=== PATIENT | male | born 1960 | race Caucasian/White ===

== ENCOUNTER → 2018-06-29 07:47 | Outpatient (CLI) | payer OTHER, SELFPAY ==
[2018-06-29 08:22] LABS: Hematocrit 36.2 % (40-54); Hemoglobin 12.3 g/dl (13.0-16.5); Mean Corpuscular Hgb 31.9 pg (27.0-32.0); Mean Platelet Vol. 8.8 fl (6.2-12.0); Platelet Count 246 K/mm3 (150-450); RBC Distribution Width CV 13.1 % (11.6-14.6); RBC Distribution Width SD 43.6 fl (35.1-43.9); Red Blood Count 3.85 M/mm3 (4.6-6.2); Scan Indicated on CBC? Y/N NO; White Blood Count 4.9 K/mm3 (4.4-11.0)
[2018-06-29 09:42] LABS: Anion Gap 7 (5-15); BUN 18 mg/dL (7-18); BUN/Creat Ratio 21.2 RATIO (10-20); Calcium,Total 8.5 mg/dL (8.5-10.1); Chloride 102 mmol/L (98-107); Creatinine, Serum 0.85 mg/dL (0.70-1.30); EST Glomerular Filtration Rate 98 mL/min (>60); Est Glom Filt Rate - Afr Amer 119 mL/min (>60); Free T3 3.4 pg/mL (2.18-3.98); Glucose 87 mg/dL (74-106); Potassium 3.9 mmol/L (3.5-5.1); Prolactin 2.1 ng/mL; Sodium Level 138 mmol/L (136-145); T4 Free Direct 1.07 ng/dL (0.76-1.46)
[2018-06-29 10:11] LABS: Hemoglobin A1c 5.3 % (4.2-6.3)
[2018-07-01 08:22] LABS: Insulin Like Growth Factor 178 ng/mL (54-194)
== END ==
PROVIDERS: Family Provider Family Medicine; PCP Family Medicine
DX: E03.9 Hypothyroidism, unspecified (principal); E23.7 Disorder of pituitary gland, unspecified; E29.1 Testicular hypofunction; E55.9 Vitamin D deficiency, unspecified; D35.2 Benign neoplasm of pituitary gland
CPT/HCPCS: 36415; 80048; 82306; 83036; 84146; 84305; 84403; 84439; 84481; 85027

== ENCOUNTER → 2018-07-08 13:47 | Outpatient (CLI) | payer OTHER, SELFPAY ==
--- NOTE | 2018-07-08 13:51 | ECHOD_ITS ---
Reason For Study: HYPOTHYROIDISM Procedure This was a 2D Doppler, Color Flow transthoracic echocardiogram. Myocardial strain analysis was performed in this exam to aid in the assessment of cardiac function. Exam performed in department. Left Ventricle Normal size and thickness. The estimated ejection fraction is 65 %. Stage 1 diastolic dysfunction. No regional wall motion abnormalities noted. Right Ventricle Normal size and thickness. Normal systolic function. Atria Normal left atrium. Normal right atrium. Normal atrial septum. Mitral Valve The mitral valve is structurally normal. No prolapse or stenosis seen. Tricuspid Valve Normal tricuspid valve. Trivial tricuspid valve insufficiency. Right ventricular systolic pressure estimated to be 23 mmHg. Aortic Valve Normal aortic valve. Trisinus/trileaflet aortic valve. Pulmonic Valve Normal pulmonic valve. Great Vessels Normal aortic root. Normal arch. Normal inferior vena cava. Inferior vena cava collapse with sniff. Pericardium/Pleural No pericardial effusion. MMode/2D Measurements & Calculations LVIDd: 4.5 cm IVSd: 0.84 cm Ao root diam: 3.2 cm LVIDs: 3.1 cm LVPWd: 0.80 cm RVDd: 3.7 cm FS: 31.3 % LAV(MOD-bp): 51.6 ml LVAd ap4: 37.4 cm2 SV(MOD-sp4): 90.3 ml LAV(MOD-bp) Indexed: 25.3 ml/m2 EDV(MOD-sp4): 137.6 ml LAV(MOD-sp2): 66.2 ml EDV(sp4-el): 144.3 ml LAV(MOD-sp4): 38.6 ml LVAs ap4: 19.2 cm2 ESV(MOD-sp4): 47.2 ml ESV(sp4-el): 46.6 ml EF(MOD-sp4): 65.7 % EF(sp4-el): 67.7 % SV(sp4-el): 97.8 ml LA A4 area: 15.7 cm2 LA dimension(2D): 3.4 cm RA A4 area: 16.2 cm2 Time Measurements MV dec time: 0.27 sec Doppler Measurements & Calculations MV E max lamin: 59.5 cm/sec Lat Peak E' Lamin: 9.4 cm/sec Med Peak E' Lamin: 8.5 cm/sec MV A max lamin: 78.7 cm/sec E/E' lat: 6.3 E/E' med: 7.0 MV E/A: 0.76 Ao V2 max: 109.3 cm/sec LV V1 max: 92.0 cm/sec PA V2 max: 98.6 cm/sec Ao max P.8 mmHg LV V1 max P.4 mmHg TR max lamin: 210.3 cm/sec TR max P.7 mmHg Interpretation Summary The estimated ejection fraction is 65 %. Stage 1 diastolic dysfunction. Trivial tricuspid valve insufficiency. Right ventricular systolic pressure estimated to be 23 mmHg. Compared to echo report dated 07/08/2018, no appreciable changes noted. Ordering Physician: IZAIAH SHAW Referring Physician: FRANCISCO CORDERO Performed By: Kandy Crespo RDCS
--- NOTE | 2018-07-08 15:10 | BD_ITS ---
STUDY: DUAL ENERGY X-RAY ABSORPTIOMETRY / DXA REASON FOR EXAM: Male, 57 years old. History of hyperthyroidism and pituitary gland disorder. Vitamin D deficiency. Loss of height. TECHNIQUE: Bone Mineral Density (BMD) measurements of lumbar spine and bilateral hips were obtained. COMPARISON: Comparison is made with prior examination dated August 07, 2015. FINDINGS: Lumbar Spine (L1-L4): g/cm2 (0.969) / T-score (-1.9) / Z-score (-1.6) Findings are suggestive of osteopenia with a moderate fracture risk. Left Femur Total: g/cm2 (1.017) / T-score (-0.6) / Z-score (-0.1) Left Femoral Neck: g/cm2 (0.903) / T-score (-1.3) / Z-score (-0.4) Right Femur Total: g/cm2 (1.034) / T-score (-0.5) / Z-score (0.0) Right Femoral Neck: g/cm2 (0.980) / T-score (-0.7) / Z-score (0.2) The T-Scores on the most recent prior examination were: Lumbar Spine (L1-L4): There has been improvement of bone density since the previous examination. Left Femur Total: which represents a worsening of 5.8%. Right Femur Total: which represents a worsening of 5.3%. BD/Dexa Bone Density Study IMPRESSION: The patient is considered osteopenic as outlined below according to World [employer] Organization (WHO) criteria with a moderate fracture risk. There has been worsening of bone density since the previous examination. Reference Information: The T-score is the number of standard deviations above or below the standard which is normal for young adults at their peak bone mineral density. The World Health Organization (WHO) interprets the T-scores as follows: Above -1 Normal bone density Between -1 and -2.5 Osteopenia Equal to / or below -2.5 Osteoporosis As a practical clinical guideline, osteopenia may be graded as follows: Mild -1 through -1.5 Moderate -1.6 through -2.0 Severe -2.1 through -2.4 The Z-score is the number of standard deviations above or below age-matched controls. A Z-score of less than -1.5 would be considered abnormal. References: 1. NIH Osteoporosis and Related Bone Diseases http://www.osteo.org 2. International Society for Clinical Densitometry http://www.iscd.org 3. National Osteoporosis Foundation http://www.nof.org Electronically Signed: Mitchel Robles MD at 10:29 EST Tel [phone], Service support ,
--- OUTSIDE RECORDS SUMMARY | 2018-08-24 09:56 | XMS RPT_ITS ---
:1960 Author Organization OH[facility] Care Team Providers Name Role Phone Troy Anderson Attending Unavailable Troy Anderson Referring Unavailable NHUNG CALDERÓN Attending Unavailable NHUNG CALDERÓN Referring Unavailable Nhung Vega Primary Care Unavailable NHUNG CALDERÓN Attending Unavailable NHUNG CALDERÓN Referring Unavailable Nhung Vega Primary Care Unavailable NHUNG CALDERÓN Consulting Unavailable LEO SHAW Attending Unavailable NHUNG VEGA Referring Unavailable PROBLEMS PROBLEMS DATE TYPE CONDITION / CODE ATTENDING STATUS SOURCE 07/08/2018 Unknown E23.7 - Disorder NHUNG CALDERÓN Active [facility] of pituitary Community gland, unspecified Hospital / E23.7(ICD-10) Repository 06/29/2018 Unknown E03.9 - NHUNG CALDERÓN Active [facility] Hypothyroidism, Community unspecified / Hospital E03.9(ICD-10) Repository 06/29/2018 Unknown 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 cabergoline (DOSTINEX) 0.5 mg tablet Take 1 tb 4 days per week. hydrocortisone (CORTEF) 10 mg tablet Take by mouth. Take one tablet in am, increase to 2 tb in am and 1 tb in the afternoon for 2- 3 days if sick insulin needles, DISPOSABLE, (BD INSULIN PEN NEEDLE UF) 31 gauge x 5/16 ndle Use for growth hormone pen injections once a day insulin needles, DISPOSABLE, (PEN NEEDLE) 31 gauge x 5/16 ndle Use for GH pen injections once a day levothyroxine (SYNTHROID) 112 mcg tablet Take 1 tablet by mouth every morning. on empty stomach raloxifene (EVISTA) 60 mg tablet Take 1 tablet by mouth once daily. rosuvastatin (CRESTOR) 20 mg tablet Take 1 tablet by mouth once daily. Somatropin (NORDITROPIN FLEXPRO) 5 mg/1.5 mL (3.3 mg/mL) pnij Inject 0.4 mg subcutaneously daily Tadalafil (CIALIS) 10 mg tablet Take 1 tablet by mouth as needed. 1-2 hours before sexual intercourse. testosterone 20.25 mg/1.25 gram (1.62 %) glpm Apply three pumps on each shoulder as directed pen injector device (HUMATROPEN) 12 pnij Use to inject 0.4 mg humatrope once daily (Patient not taking: Reported on 07/09/2018 ) No current facility-administered medications for this visit. Rest of ROS: Energy OK RESPIRATORY: No SOB CARDIOVASCULAR: no Chest pain GI: Negative for abdominal discomfort, or any change in bowel movement : Negative for dysuria, frequency and nocturia MUSCULOSKELETAL: Negative for joint pain or swelling, back pain, and muscle pain. SKIN: Negative for lesions and rash PSYCH: Negative for sleep disturbance and mood disorder rest of ROS is fine Physical Examination BP 108/73 Pulse 83 Ht 172.7 cm (5' 8) Wt 89.8 kg (198 lb) BMI 30.11 kg/m? Alert, oriented X3, in no acute distress VF intact to confrontation Cranial nerves bilaterally intact Neck: Neck supple, no adenopathy; thyroid symmetric, normal size, Extremities:No edema, or skin discoloration. Musculoskeletal: good strength bilaterally Neuro exam intact Labs: 2014 HbA1c: 5.5 HcT: 37 Vit D; 33 Prolactin: 1.2 Testosterone : 546 2016: HBa1c: 5.3 PSA; nl Vit D: 28 Prolactin: 3 Testosterone: 225 TFT: normal Lipids: nl 2017: Labs sent for scanning' prl: 2.3 Tsto: 500 2018: Prl: 2.1 Free T3: 3.4Free T4: 1.07 T:430 Vit D:41 BMP; nl ASSESSMENT/PLAN: # Pituitary macroprolactinoma s/p radiation therapy in 05/2001 - He had gradual decrease in prolactin level has been promising with last prolactin of being 2.1 ng/mL (currently on 4 tb per week). Decrease to 3 tb per week - He is on raloxifene 60 mg daily. He also has osteopenia in spine which hopefully will benefit from raloxifene. We have discussed that raloxifene which is not FDA approved for this condition. - His past BMD shows osteopenia with plan to repeat his BMD now Discussed reports about association of long-term high dose cabergoline therapy in parkinsonian patients with valvular heart disease. His last echo was fine in 2011. 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 Recent TFT is fine - Considering his hx of radiation,he was started on cortef 10 mg in the morning which needs to be increased to 20 mg in am and 10 mg in the afternoon for 2-3 days during sickness. - He has low testosterone while his prolactin has normalized, on androgel 1.67%--at goal, continue same -GH deficiency diagnosed during ITT currently on 0.4 mg per day GH with recent IGF-1 at goal. Continue same # Anemia : Follow with PCP Labs reordered with iron panel for 3 months Knows to call RTC In one year MD WOO ChinchillaOV Observed: 07/09/2018 Status: COMPLETED Source: [facility] 8:40 AM [facility] REPOSITORY Office Visit (STED) SUSHANT WIGGINS ([id number]) 1960 M Date Time Provider Department 07/09/18 8:40 AM LEO SHAW During your visit today, we recorded the following information about you: Pulse Blood pressure Weight Height 83/minute 108/73 89.8 kg 1.727 m Siobhan Metz Ma 07/09/2018 8:50 AM Signed Office days: Please note endocrinology office days at [place] are Thursday, and Thursday Refills: We encourage you to address all medication refills during office visits to ensure timely, accurate and expedited process Labs AND Lab results: We encourage you to address all questions regarding labs and lab results during office visits to ensure timely, accurate and expedited process For any urgent refills or messages or questions that cannot wait till our normal office days (Thu,Thu,Thu), please call the office at [phone] and let them know its urgent. For all non urgent messages, we request that you contact us during normal office days (Thu/Thu/Thu) and give us 3 business days to respond. Leo Shaw MD 07/09/2018 9:23 AM Signed Patient here for follow up of macroprolactinoma and his original prolactin was about 1200 ng/mL. 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 cabergoline (DOSTINEX) 0.5 mg tablet Take 1 tb 4 days per week. hydrocortisone (CORTEF) 10 mg tablet Take by mouth. Take one tablet in am, increase to 2 tb in am and 1 tb in the afternoon for 2-3 days if sick insulin needles, DISPOSABLE, (BD INSULIN PEN NEEDLE UF) 31 gauge x 5/16 ndle Use for growth hormone pen injections once a day insulin needles, DISPOSABLE, (PEN NEEDLE) 31 gauge x 5/16 ndle Use for GH pen injections once a day levothyroxine (SYNTHROID) 112 mcg tablet Take 1 tablet by mouth every morning. on empty stomach raloxifene (EVISTA) 60 mg tablet Take 1 tablet by mouth once daily. rosuvastatin (CRESTOR) 20 mg tablet Take 1 tablet by mouth once daily. Somatropin (NORDITROPIN FLEXPRO) 5 mg/1.5 mL (3.3 mg/mL) pnij Inject 0.4 mg subcutaneously daily Tadalafil (CIALIS) 10 mg tablet Take 1 tablet by mouth as needed. 1-2 hours before sexual intercourse. testosterone 20.25 mg/1.25 gram (1.62 %) glpm Apply three pumps on each shoulder as directed pen injector device (HUMATROPEN) 12 pnij Use to inject 0.4 mg humatrope once daily (Patient not taking: Reported on 07/09/2018 ) No current facility-administered medications for this visit. Rest of ROS: Energy OK RESPIRATORY: No SOB CARDIOVASCULAR: no Chest pain GI: Negative for abdominal discomfort, or any change in bowel movement : Negative for dysuria, frequency and nocturia MUSCULOSKELETAL: Negative for joint pain or swelling, back pain, and muscle pain. SKIN: Negative for lesions and rash PSYCH: Negative for sleep disturbance and mood disorder rest of ROS is fine Physical Examination BP 108/73 Pulse 83 Ht 172.7 cm (5' 8) Wt 89.8 kg (198 lb) BMI 30.11 kg/m? Alert, oriented X3, in no acute distress VF intact to confrontation Cranial nerves bilaterally intact Neck: Neck supple, no adenopathy; thyroid symmetric, normal size, Extremities:No edema, or skin discoloration. Musculoskeletal: good strength bilaterally Neuro exam intact Labs: 2014 HbA1c: 5.5 HcT: 37 Vit D; 33 Prolactin: 1.2 Testosterone : 546 2016: HBa1c: 5.3 PSA; nl Vit D: 28 Prolactin: 3 Testosterone: 225 TFT: normal Lipids: nl 2017: Labs sent for scanning' prl: 2.3 Tsto: 500 2018: Prl: 2.1 Free T3: 3.4Free T4: 1.07 T:430 Vit D:41 BMP; nl ASSESSMENT/PLAN: # Pituitary macroprolactinoma s/p radiation therapy in 05/2001 - He had gradual decrease in prolactin level has been promising with last prolactin of being 2.1 ng/mL (currently on 4 tb per week). Decrease to 3 tb per week - He is on raloxifene 60 mg daily. He also has osteopenia in spine which hopefully will benefit from raloxifene. We have discussed that raloxifene which is not FDA approved for this condition. - His past BMD shows osteopenia with plan to repeat his BMD now Discussed reports about association of long-term high dose cabergoline therapy in parkinsonian patients with valvular heart disease. His last echo was fine in 2011. 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 Recent TFT is fine - Considering his hx of radiation,he was started on cortef 10 mg in the morning which needs to be increased to 20 mg in am and 10 mg in the afternoon for 2-3 days during sickness. - He has low testosterone while his prolactin has normalized, on androgel 1.67%--at goal, continue same -GH deficiency diagnosed during ITT currently on 0.4 mg per day GH with recent IGF-1 at goal. Continue same # Anemia : Follow with PCP Labs reordered with iron panel for 3 months Knows to call RTC In one year Leo Shaw MD Referring Provider: NHUNG VEGA [[id number]] Allergies As of Date: 07/09/2018 Noted Allergy Reaction PENICILLINS 05/19/2013 4 - Hives Date Reviewed: 07/09/2018 Reviewed by: Leo Shaw V - Fully Assessed Reason for Visit: Follow Up [171] Cmt: Pituitary Visit Diagnoses:Prolactinoma (HCC) [D35.2] Hypothyroidism, secondary [E03.8] Hypogonadism male [E29.1] 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, D35.3] Order(s):levothyroxine (SYNTHROID) 112 mcg tabletTake 1 tablet by mouth every morning. on empty stomachDisp: 90 tabletRfl: 1 hydrocortisone (CORTEF) 10 mg tabletTake by mouth. Take one tablet in am, increase to 2 tb in am and 1 tb in the afternoon for 2-3 days if sickDisp: 110 tabletRfl: 2 cabergoline (DOSTINEX) 0.5 mg tabletTake 1 tb 3 days per week.Disp: 50 tabletRfl: 3 raloxifene (EVISTA) 60 mg tabletTake 1 tablet by mouth once daily.Disp: 90 tabletRfl: 3 Prescriptions as of 07/09/2018 Sig: ASPIRIN 81 MG TABLET Take 81 mg by mouth. CABERGOLINE 0.5 MG TABLET Take 1 tb 3 days per week. HYDROCORTISONE 10 MG TABLET Take by mouth. 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] INVALID FOR* Hypothyroidism, secondary [E03.8] INVALID FOR* Hypogonadism male [E29.1] INVALID FOR* Osteopenia [M85.80] INVALID FOR* Other instructions from your clinician: Office days: Please note endocrinology office days at [place] are Thursday, and Thursday Refills: We encourage you to address all medication refills during office visits to ensure timely, accurate and expedited process Labs AND Lab results: We encourage you to address all questions regarding labs and lab results during office visits to ensure timely, accurate and expedited process For any urgent refills or messages or questions that cannot wait till our normal office days (Thu,Thu,Thu), please call the office at [phone] and let them know its urgent. For all non urgent messages, we request that you contact us during normal office days (Thu/Thu/Thu) and give us 3 business days to respond. Prescriptions ordered this encounter Disp Refills Start End LEVOTHYROXINE 112 MCG TABLET 90 t* 1 07/09/2018 Route: ORAL Sig: Take 1 tablet by mouth every morning. on empty stomach HYDROCORTISONE 10 MG TABLET 110 * 2 07/09/2018 Sig: Take by mouth. Take one tablet in am, increase to 2 tb in am and 1 tb in the afternoon for 2-3 days if sick CABERGOLINE 0.5 MG TABLET 50 t* 3 07/09/2018 Sig: Take 1 tb 3 days per week. RALOXIFENE 60 MG TABLET 90 t* 3 07/09/2018 Route: ORAL Sig: Take 1 tablet by mouth once daily. Medications Discontinued During This Encounter pen injector device (HUMATROPEN) 12 * 12 P* 2 07/09/2017 07/09/2018 Class: Print RX Sig: Use to inject 0.4 mg humatrope once daily Patient not taking: Reported on 07/09/2018 Disc: Reason for discontinue is not on file. levothyroxine (SYNTHROID) 112 mcg ta* 90 t* 1 12/25/2017 07/09/2018 Route: ORAL Sig: Take 1 tablet by mouth every morning. on empty stomach Disc: Reason for discontinue is not on file. hydrocortisone (CORTEF) 10 mg tablet 110 * 2 11/09/2017 07/09/2018 Sig: Take by mouth. Take one tablet in am, increase to 2 tb in am and 1 tb in the afternoon for 2-3 days if sick Disc: Reason for discontinue is not on file. cabergoline (DOSTINEX) 0.5 mg tablet 90 t* 3 07/09/2017 07/09/2018 Sig: Take 1 tb 4 days per week. Disc: Reason for discontinue is not on file. raloxifene (EVISTA) 60 mg tablet 90 t* 3 03/03/2018 07/09/2018 Route: ORAL Sig: Take 1 tablet by mouth once daily. Disc: Reason for discontinue is not on file. Letter Text Department of Endocrinology, Diabetes and Metabolism [facility] Leo Shaw MD Associate Staff Lumber Piler Operator [address] [place] [address] Office: [phone] July 09, 2018 Sushant Rain Rosalie [id number] 1960 Please obtain the following laboratory tests on Mr. Wiggins approximately September 2018 Tests: Prolactin Diagnoses: Pituitary Disorder (E23.7) Please fax result to [phone] and also provide Sushant Wiggins with a copy. Thank you. Leo Shaw MD (signed electronically in order to expedite) Letter Text Department of Endocrinology, Diabetes and Metabolism [facility] Leo Shaw MD Associate Staff Lumber Piler Operator [address] [place] [address] Office: [phone] July 09, 2018 Sushant Wiggins [id number] 1960 Please obtain the following laboratory tests on Mr. Wiggins approximately May 2019 Tests: Basic Metabolic Panel Total T4 / FTI Free T4 Free T3 Total Testosterone CBC Prolactin Vitamin D 25 Hydroxy IGF-1 Diagnoses: Pituitary Disorder (E23.7) Please fax result to [phone] and also provide Sushant Wiggins with a copy. Thank you. Leo Shaw MD (signed electronically in order to expedite) Letter Text Department of Endocrinology, Diabetes and Metabolism [facility] Leo Shaw MD Associate Staff Lumber Piler Operator [address] [id number] Office: [phone] July 09, 2018 Sushant Wiggins [id number] 1960 Please obtain the following laboratory tests on Mr. Wiggins approximately September 2018. Tests: Prolactin IGF-1 CBCD Iron + ferritin TIBC Diagnoses: Pituitary Disorder (E23.7) Please fax result to [phone] and also provide Sushant Wiggins with a copy. Thank you. Leo Shaw MD (signed electronically in order to expedite) Encounter Status:Closed by LEO SHAW MD on 07/09/18 ECHOCARDIOGRAM COMPLETE Observed: 07/08/2018 Status: F Source: [facility] 4:22 PM [facility] REPOSITORY [facility] Cardiovascular Services [address] [place] [address] Echo Complete 07/08/18 1422 MR#: [id number] Acct: [id number] Name: SUSHANT WIGGINS Rep #: [id number] : 1960 57 From: Troy Anderson MD Attending Dr: Status: REG CLI Ordering Dr: LEO SHAW Date: 07/08/18 Location: [facility] Sex: M C Admitted: Reason For Study: HYPOTHYROIDISM Procedure This was a 2D Doppler, Color Flow transthoracic echocardiogram. Myocardial strain analysis was performed in this exam to aid in the assessment of cardiac function. Exam performed in department. Left Ventricle Normal size and thickness. The estimated ejection fraction is 65 %. Stage 1 diastolic dysfunction. No regional wall motion abnormalities noted. Right Ventricle Normal size and thickness. Normal systolic function. Atria Normal left atrium. Normal right atrium. Normal atrial septum. Mitral Valve The mitral valve is structurally normal. No prolapse or stenosis seen. Tricuspid Valve Normal tricuspid valve. Trivial tricuspid valve insufficiency. Right ventricular systolic pressure estimated to be 23 mmHg. Aortic Valve Normal aortic valve. Trisinus/trileaflet aortic valve. Pulmonic Valve Normal pulmonic valve. Great Vessels Normal aortic root. Normal arch. Normal inferior vena cava. Inferior vena cava collapse with sniff. Pericardium/Pleural No pericardial effusion. MMode/2D Measurements AND Calculations LVIDd: 4.5 cm IVSd: 0.84 cm Ao root diam: 3.2 cm LVIDs: 3.1 cm LVPWd: 0.80 cm RVDd: 3.7 cm FS: 31.3 % LAV(MOD-bp): 51.6 ml LVAd ap4: 37.4 cm2 SV(MOD-sp4): 90.3 ml LAV(MOD-bp) Indexed: 25.3 ml/m2 EDV(MOD-sp4): 137.6 ml LAV(MOD-sp2): 66.2 ml EDV(sp4-el): 144.3 ml LAV(MOD-sp4): 38.6 ml LVAs ap4: 19.2 cm2 ESV(MOD-sp4): 47.2 ml ESV(sp4-el): 46.6 ml EF(MOD-sp4): 65.7 % EF(sp4-el): 67.7 % SV(sp4-el): 97.8 ml LA A4 area: 15.7 cm2 LA dimension(2D): 3.4 cm RA A4 area: 16.2 cm2 Time Measurements MV dec time: 0.27 sec Doppler Measurements AND Calculations MV E max lamin: 59.5 cm/sec Lat Peak E' Lamin: 9.4 cm/sec Med Peak E' Lamin: 8.5 cm/sec MV A max lamin: 78.7 cm/sec E/E' lat: 6.3 E/E' med: 7.0 MV E/A: 0.76 Ao V2 max: 109.3 cm/sec LV V1 max: 92.0 cm/sec PA V2 max: 98.6 cm/sec Ao max P.8 mmHg LV V1 max P.4 mmHg TR max lamin: 210.3 cm/sec TR max P.7 mmHg Interpretation Summary The estimated ejection fraction is 65 %. Stage 1 diastolic dysfunction. Trivial tricuspid valve insufficiency. Right ventricular systolic pressure estimated to be 23 mmHg. Compared to echo report dated 07/08/2018, no appreciable changes noted. Ordering Physician: LEO SHAW Referring Physician: NHUNG VEGA Performed By: Kandy Crespo RDCS 07/08/181621 Date Troy Anderson MD CC: Nhung Vega MD; LEO SHAW Date Dictated: 07/08/18 142 Date Transcribed: 07/08/181621 Electromagnet Crane Operator: Signed DEXA BONE DENSITY Observed: 07/08/2018 Status: F Source: [facility] STUDY 3:12 PM [facility] REPOSITORY [facility] Imaging Services [address] [place] [address] Dexa Bone Density Study MR#: [id number] Acct: [id number] Name: SUSHANT WIGGINS Rep #: [id number] : 1960 57 From: Mitchel Robles MD PCP: Nhung Vega MD Status: REG CLI Study: Dexa Bone Density Study Date of Exam: 07/08/18 Exam# [id number] Ordering Dr: LEO SHAW STUDY: DUAL ENERGY X-RAY ABSORPTIOMETRY / DXA REASON FOR EXAM: Male, 57 years old. History of hyperthyroidism and pituitary gland disorder. Vitamin D deficiency. Loss of height. TECHNIQUE: Bone Mineral Density (BMD) measurements of lumbar spine and bilateral hips were obtained. COMPARISON: Comparison is made with prior examination dated August 07, 2015. FINDINGS: Lumbar Spine (L1-L4): g/cm2 (0.969) / T-score (-1.9) / Z-score (-1.6) Findings are suggestive of osteopenia with a moderate fracture risk. Left Femur Total: g/cm2 (1.017) / T-score (-0.6) / Z- score (-0.1) Left Femoral Neck: g/cm2 (0.903) / T-score (-1.3) / Z- score (-0.4) Right Femur Total: g/cm2 (1.034) / T-score (-0.5) / Z- score (0.0) Right Femoral Neck: g/cm2 (0.980) / T-score (-0.7) / Z-score (0.2) The T-Scores on the most recent prior examination were: Lumbar Spine (L1-L4): There has been improvement of bone density since the previous examination. Left Femur Total: which represents a worsening of 5.8%. Right Femur Total: which represents a worsening of 5.3%. BD/Dexa Bone Density Study IMPRESSION: The patient is considered osteopenic as outlined below according to World Austen Organization (WHO) criteria with a moderate fracture risk. There has been worsening of bone density since the previous examination. Reference Information: The T-score is the number of standard deviations above or below the standard which is normal for young adults at their peak bone mineral density. The World Health Organization (WHO) interprets the T-scores as follows: Above -1 Normal bone density Between -1 and -2.5 Osteopenia Equal to / or below -2.5 Osteoporosis As a practical clinical guideline, osteopenia may be graded as follows: Mild -1 through -1.5 Moderate -1.6 through -2.0 Severe -2.1 through -2.4 The Z-score is the number of standard deviations above or below age-matched controls. A Z-score of less than -1.5 would be considered abnormal. References: 1. NIH Osteoporosis and Related Bone Diseases http://www.osteo.org 2. International Society for Clinical Densitometry http://www.iscd.org 3. National Osteoporosis Foundation http://www.nof.org Electronically Signed: Mitchel Robles MD at 10:29 EST Tel [phone], Service support , CC: Nhung Vega MD; LEO SHAW Electromagnet Crane Operator: Signed CBC-COMPLETE BLOOD CNT Collected: 06/29/2018 Status: F Source: [facility] NO DIFF 7:58 AM [facility] REPOSITORY TYPE CODE TESTS RESULT OUT OF RANGE REFERENCE UNITS LAB L100.1000 4.4-11.0 K/mm3 Normal WBC 4.9 LAB L100.1200 4.6-6.2 M/mm3 Low RBC 3.85 LAB L100.1300 13.0-16.5 g/dl Low HGB 12.3 LAB L100.1400 40-54 % Low HCT 36.2 LAB L100.1500 80-94 fL Normal MCV 94.0 LAB L100.1600 27.0-32.0 pg Normal MCH 31.9 LAB L100.1700 32-36 g/gl Normal MCHC 34.0 LAB L100.1810 11.6-14.6 % Normal RDW CV 13.1 LAB L100.1820 35.1-43.9 fl Normal RDW SD 43.6 LAB L100.1900 150-450 K/mm3 Normal PLT 246 LAB L100.2000 6.2-12.0 fl Normal MPV 8.8 Performed By: #### L100.0500 #### [facility] [place], [address] BASIC METABOLIC Collected: 06/29/2018 Status: F Source: [facility] PROFILE (BMP) 7:58 AM [facility] REPOSITORY TYPE CODE TESTS RESULT OUT OF RANGE REFERENCE UNITS LAB L501.0100 74-106 mg/dL Normal GLU 87 Result Comment: Please note revised GLUCOSE reference range effective 2017. LAB L501.1000 7-18 mg/dL Normal BUN 18 LAB L501.1100 0.70-1.30 mg/dL Normal CREAT,SERUM 0.85 Result Comment: The validity of the calculated GFR AND GFRAA in patients over 70 years has not been determined. Clinical correlation is essential. LAB L501.1110 >60 mL/min Normal EST GFR 98 Result Comment: Non- GFR Calc LAB L501.1115 >60 mL/min Normal EST GFR - AA 119 Result Comment: GFR Calc LAB L501.1300 10-20 RATIO High BUN/CRE 21.2 LAB L501.2200 8.5-10.1 mg/dL CA Normal 8.5 LAB L501.5300 136-145 mmol/L NA Normal 138 LAB L501.5600 3.5-5.1 mmol/L K Normal 3.9 LAB L501.5900 98-107 mmol/L CL Normal 102 LAB L501.6100 21.0-32.0 mmol/L Normal CO2 29.0 LAB L501.6200 5-15 Normal GAP 7 Performed By: #### L500.2500, L501.11119, L506.0400, L3100.5420 #### [facility] [address] [place], [place], [id number] FREE T3 Collected: 06/29/2018 Status: F Source: BISON 7:58 AM [facility] REPOSITORY TYPE CODE TESTS RESULT OUT OF RANGE REFERENCE UNITS LAB L501.63739 2.18-3.98 pg/mL Normal FREE T3 3.4 Performed By: #### L500.2500, L501.97761, L506.0400, L3100.5420 #### [facility] [address] [facility] [facility] [place], [place], [id number] T4 FREE DIRECT Collected: 06/29/2018 Status: F Source: BISON 7:58 AM [facility] REPOSITORY TYPE CODE TESTS RESULT OUT OF RANGE REFERENCE UNITS LAB L506.0400 0.76-1.46 ng/dL Normal T4 FREE 1.07 DIRECT Performed By: #### L500.2500, L501.56584, L506.0400, L3100.5420 #### [facility] [address] [place], [place], [address] PROLACTIN Collected: 06/29/2018 Status: F Source: BISON 7:58 AM [facility] REPOSITORY TYPE CODE TESTS RESULT OUT OF RANGE REFERENCE UNITS LAB L3100.5420 ng/mL Normal PROLACTIN 2.1 Result Comment: NORMAL REFERENCE RANGES FEMALE NON- 2.2 - 30.3 ng/mL 8.1 - 347.6 ng/mL POST-MENOPAUSAL 0.7 - 31.5 ng/mL MALE 2.5 - 17.4 ng/mL NEW TEST METHOD AND REFERENCE RANGES DECEMBER 15, 2011 Performed By: #### L500.2500, L501.52448, L506.0400, L3100.5420 #### [facility] [address] [place], [address] VITAMIN D,25 HYDROXY Collected: 06/29/2018 Status: F Source: BISON 7:58 AM [facility] REPOSITORY TYPE CODE TESTS RESULT OUT OF RANGE REFERENCE UNITS LAB L506.1000 29.95-100.01 ng/mL Normal Vitamin D 41.0 25-OH Result Comment: Vitamin D 25(OH) Status Range Deficiency <20 ng/mL (50nmol/L) Insuffciency 20 - 30 ng/mL (50 - 75 nmol/L) Sufficiency 30 - 100 ng/mL (75 - 250 nmol/L) Toxicity >100 ng/mL (>250 nmol/L) Performed By: #### L506.1000, L509.3000 #### [facility] [address] [place], [address] TESTOSTERONE, SERUM TOTAL Collected: 06/29/2018 Status: F Source: BISON 7:58 AM [facility] REPOSITORY TYPE CODE TESTS RESULT OUT OF REFERENCE UNITS RANGE LAB L509.3000 ng/dL Testosterone Normal 430.04 Result Comment: NORMAL REFERENCE RANGES MALE AGE <50 123.06 - 813.86 ng/dL MALE AGE >50 89.98 - 780.10 ng/dL FEMALE PREMENOPAUSE AGE 21 - 60 9.01 - 47.94 ng/dL FEMALE POSTMENOPAUSE AGE 45 - 89 <7.00 - 45.62 ng/dL REFERENCE RANGE AND METHODOLOGY CHANGED 07/15/2017 Performed By: #### L506.1000, L509.3000 #### [facility] [address] [place], [address] HEMOGLOBIN A1C Collected: 06/29/2018 Status: F Source: BISON 7:58 AM [facility] REPOSITORY TYPE CODE TESTS RESULT OUT OF RANGE REFERENCE UNITS LAB L501.9985 4.2-6.3 % Normal HGB A1C 5.3 Performed By: #### L501.9985 #### [facility] [address] [place], [address] INSULIN LIKE GROWTH Collected: 06/29/2018 Status: F Source: VAN[place] DON 7:58 AM [facility] REPOSITORY Order Comment: Has Patient had Radioactive Injection for X-ray?: N TYPE CODE TESTS RESULT OUT OF RANGE REFERENCE UNITS LAB L3400.1350 54-194 ng/mL Normal INSULIN 178 [id number] Result Comment: Performed at: - [facility] [id number] [place] Supervisor: Ben Jay MD, Phone: [phone] Performed By: #### L3400.1350 #### [facility] (refer to report for specific site) refer to report for address and phone number CNPN Observed: 05/18/2018 Status: COMPLETED Source: LUIS 12:00 AM [facility] REPOSITORY Telephone (STED) SUSHANT WIGGINS ([id number]) 1960 M Date Time Provider Department 05/18/18 LEO SHAW V STED During your visit today, we recorded the following information about you: Siobhan Medeiros 05/18/2018 3:56 PM Signed Patient's request for medication is as follows: Pending Prescriptions Disp Refills SOMATROPIN 6 MG (18 UNIT) INJECTION CARTRIDGE 6 Each 3 Si.4 mg s.c. daily. ANNA: No TESTOSTERONE 20.25 MG/1.25 GRAM (1.62 %) TRANSDERMAL GEL PUMP 5 Bottle 3 Sig: Apply three pumps on each shoulder as directed NEREIDA Class: C-III ANNA: No Prescription(s) as above. Please process accordingly. Siobhan Medeiros Patient is requesting the generic of the Humatrope if there is one available. If no generic available for that the insurance will require a prior authorization. Marina Andre Ma 05/19/2018 9:34 AM Signed 07-09-2017 last office visit with endo 07-09-2018 next office visit with dot Ayse Lee Dimitris 05/19/2018 1:02 PM Signed Called in prescription(s) and left message on MD line regarding the approved prescription(s). Called in prescription to [facility] pharmacy in [place]. Siobhan Metz Ma 05/19/2018 2:06 PM Addendum Spoke to pharmacy, Humatrope will not be approved even with PA. Please send either norditropin, nutropin, or omnitrope. These may require PA, but will be covered. Leo Shaw MD 05/19/2018 2:18 PM Signed The following approved medication requests have been transmitted electronically. Signed Prescriptions Disp Refills testosterone 20.25 mg/1.25 gram (1.62 %) glpm 5 Bottle 3 Sig: Apply three pumps on each shoulder as directed NEREIDA Class: C-III ANNA: No Authorizing Provider: LEO SHAW V Somatropin (NORDITROPIN FLEXPRO) 5 mg/1.5 mL (3.3 mg/mL) pnij 10 Pen 3 Sig: Inject 0.4 mg subcutaneously daily Authorizing Provider: LEO SHAW MD Seenia V Peechakara, MD 05/19/2018 2:18 PM Signed Addended by: LEO SHAW MD on: 05/19/2018 02:18 PM Modules accepted: Orders Allergies As of Date: 05/18/2018 Noted Allergy Reaction PENICILLINS 05/19/2013 4 - Hives Date Reviewed: 07/09/2017 Reviewed by: Siobhan Metz Ma - Fully Assessed Reason for Visit: Refill Request [94] Visit Diagnoses:Hypothyroidism, secondary [E03.8] Hypogonadism male [E29.1] 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, 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] Prolactinoma (HCC) [D35.2] Order(s):testosterone 20.25 mg/1.25 gram (1.62 %) glpmApply three pumps on each shoulder as directedDisp: 5 BottleRfl: 3 Somatropin (NORDITROPIN FLEXPRO) 5 mg/1.5 mL (3.3 mg/mL) pnijInject 0.4 mg subcutaneously dailyDisp: 10 PenRfl: 3 Prescriptions as of 05/18/2018 Sig: TESTOSTERONE 20.25 MG/1.25 GR* Apply three pumps on each sh* SOMATROPIN 5 MG/1.5 ML (3.3 M* Inject 0.4 mg subcutaneously * PEN NEEDLE, DIABETIC 31 GAUGE* Use for growth hormone pen in* RALOXIFENE 60 MG TABLET Take 1 tablet by mouth once d* ROSUVASTATIN 20 MG TABLET Take 1 tablet by mouth once d* LEVOTHYROXINE 112 MCG TABLET Take 1 tablet by mouth every * HYDROCORTISONE 10 MG TABLET Take by mouth. Take one tabl* PEN NEEDLE, DIABETIC 31 GAUGE* Use for GH pen injections onc* CABERGOLINE 0.5 MG TABLET Take 1 tb 4 days per week. PEN INJECTOR DEVICE 12 SUBCUT* Use to inject 0.4 mg humatrop* TADALAFIL 10 MG TABLET Take 1 tablet by mouth as nee* ASPIRIN 81 MG TABLET Take 81 mg by mouth. 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 daily. TESTOSTERONE 20.25 MG/1.25 GRAM (1.6* 5 Fish* 3 05/19/2018 05/18/2022 Class: Call Rx Sig: Apply three pumps on each shoulder as directed SOMATROPIN 5 MG/1.5 ML (3.3 MG/ML) S* 10 P* 3 05/19/2018 Sig: Inject 0.4 mg subcutaneously daily Medications Discontinued During This Encounter Somatropin (HUMATROPE) 6 mg (18 unit* 6 Ea* 3 04/03/2017 05/19/2018 Cmt: HumatroPen 6mg Si.4 mg s.c. daily. Disc: Reason for discontinue is not on file. testosterone 20.25 mg/1.25 gram (1.6* 5 Fish* 3 08/04/2017 05/19/2018 Class: Call Rx Sig: Apply three pumps on each shoulder as directed Disc: Reason for discontinue is not on file. Somatropin (HUMATROPE) 6 mg (18 unit* 6 Ea* 3 05/19/2018 05/19/2018 Si.4 mg s.c. daily. Disc: Reason for discontinue is not on file. Encounter Status:Closed by LEO SHAW MD on 05/19/18 ALLERGIES ALLERGIES DATE TYPE / CODE NAME / CODE REACTION SEVERITY SOURCE 05/19/2013 Drug PENICILLINS HIVES [facility] Class/[address] [place] 1003(SNOMED Repository CT) ENCOUNTERS ENCOUNTERS ADMIT/DISCHARGE ACCOUNT ADMITTING ENCOUNTER LOCATION SOURCE NUMBER CLASS 07/09/2018/07/09/20 [id number] Ambulatory [address] Repository 07/08/2018 [id number] Ambulatory BMSBuilding:[facility] Repository 07/08/2018 [id number] [facility] ing:[facility] Repository 06/29/2018 [id number] [facility] ing:LAB Repository PAYERS PAYERS ENCOUNTER GUARANTOR PAYER SUBSCRIBER SOURCE 07/08/2018 SUSHANT A Primary Insurance:[facility] MARLEE Mace [place] [id number] [facility] STARRDOB: [facility] [id number], [place] Number: Repository [id number]: [phone] [id number] [phone] (HP) Date:[id number] [address], [place] [address]GA: CHECK WEBSITE 07/08/2018 Secondary NOT GIVENUNK [place] Insurance:SELF PAY [facility] Number: Effective Repository Date:2018-07-08 07/08/2018 SUSHANT A Primary Insurance:[facility] MARLEE Mace [place] [id number] [facility] STARRDOB: [facility] [id number], [place] Number: Repository [id number]: [phone] [id number] [phone] (HP) Date:[id number] [address], [place] [address]JW: CHECK WEBSITE 07/08/2018 Secondary NOT GIVENUNK [place] Insurance:SELF PAY [facility] Number: Effective Repository Date:2018-06-28 06/29/2018 SUSHANT Rain Primary Insurance:[facility] MARLEE Dc [id number] [facility] STARRDOB: [facility] [id number], [place] Number: Repository [id number]: [phone]) [id number] [phone] () Date:[id number] [address], [place] [address]MN: CHECK WEBSITE 06/29/2018 Secondary NOT GIVENRAND Dc Insurance:SELF PAY [facility] Number: Effective Repository Date:2018-06-29
== END ==
PROVIDERS: Family Provider Family Medicine; PCP Family Medicine
DX: E03.9 Hypothyroidism, unspecified (principal); E23.7 Disorder of pituitary gland, unspecified; E29.1 Testicular hypofunction; E55.9 Vitamin D deficiency, unspecified; D35.2 Benign neoplasm of pituitary gland
CPT/HCPCS: 77080; 93306

== ENCOUNTER → 2018-11-18 | Outpatient (CLI) | payer OTHER, SELFPAY ==
[2018-11-18 08:01] LABS: Absolute Lymphocyte Count 1.64 X10^3/ul (0.83-4.51); Absolute Neutrophil Count 2.4 X10^3/uL (2.0-7.7); Basophil# 0.03 X10^3/uL; Basophil% 0.6 % (0-1); Eosinophil# 0.56 X10^3/uL; Eosinophils% 10.6 % (0-5); Hematocrit 37.6 % (40-54); Hemoglobin 12.7 g/dl (13.0-16.5); Lymphocyte # 1.64 X10^3/ul (4.0); Mean Corp Hgb Conc 33.8 g/gl (32-36); Mean Corpuscular Hgb 31.2 pg (27.0-32.0); Mean Corpuscular Volume 92.4 fL (80-94); Mean Platelet Vol. 8.8 fl (6.2-12.0); Monocyte# 0.64 X10^3/uL; Monocyte% 12.1 % (0-10); Neutrophil # 2.41 X10^3/uL (2.7-7.7); Neutrophil % 45.5 % (47-70); Platelet Count 233 K/mm3 (150-450); RBC Distribution Width CV 13.4 % (11.6-14.6); RBC Distribution Width SD 45.3 fl (35.1-43.9); Red Blood Count 4.07 M/mm3 (4.6-6.2); White Blood Count 5.3 K/mm3 (4.4-11.0)
[2018-11-18 08:02] LABS: POSITIVE COUNT NO; POSITIVE DIFFERENTIAL NO; POSITIVE MORPHOLOGY NO
[2018-11-18 08:28] LABS: AST(SGOT) 26 U/L (15-37); Alanine Aminotransfer ALT/SGPT 26 U/L (16-61); Cholesterol 170 mg/dL (200); Ferritin 48 ng/mL (26-388); High Density Lipoprotein 46 mg/dL; Iron 139 ug/dL (65-175); Iron Binding Capacity,Total 308 ug/dL (250-450); PSA,Total - Annual Screen 0.65 ng/mL (0.00-4.00); Prolactin 1.5 ng/mL; T4 Total, Thyroxin 8.7 ug/dL (4.5-12.1); Thyroid Stim Hormone (TSH) 0.67 uIU/mL (0.358-3.74); Triglycerides 128 mg/dL; Very Low Density Lipoprotein 26 mg/dL (5-40)
[2018-11-20 15:09] LABS: Insulin Like Growth Factor 84 ng/mL (54-194)
== END | disposition home or self-care (01) ==
LOC: LAB 07:19
PROVIDERS: Family Provider Family Medicine; PCP Family Medicine; Referring Provider Internal Medicine; Visit Provider Internal Medicine
DX: Z00.00 Encounter for general adult medical examination without abnormal findings (principal); E78.5 Hyperlipidemia, unspecified; E03.9 Hypothyroidism, unspecified; E23.7 Disorder of pituitary gland, unspecified
CPT/HCPCS: 36415; 80061; 82728; 83540; 83550; 84146; 84153; 84305; 84436; 84443; 84450; 84460; 85025; G0103

== ENCOUNTER → 2018-12-15 | Outpatient (CLI) | payer OTHER, SELFPAY ==
[2018-12-15 12:37] LABS: Anion Gap 6 (5-15); BUN 20 mg/dL (7-18); BUN/Creat Ratio 20.8 RATIO (10-20); Chloride 103 mmol/L (98-107); Creatinine, Serum 0.96 mg/dL (0.70-1.30); EST Glomerular Filtration Rate 85 mL/min (>60); Est Glom Filt Rate - Afr Amer 103 mL/min (>60); Glucose 79 mg/dL (74-106); Sodium Level 140 mmol/L (136-145)
== END | disposition home or self-care (01) ==
LOC: MFPLAB 09:43
PROVIDERS: Family Provider Family Medicine; PCP Family Medicine; Referring Provider Family Medicine; Visit Provider Family Medicine
DX: E78.5 Hyperlipidemia, unspecified (principal)
CPT/HCPCS: 36415; 80048

== ENCOUNTER → 2019-01-25 | Outpatient (CLI) | payer SELFPAY ==
--- NOTE | 2019-01-25 14:38 | CT_ITS ---
STUDY: CARDIAC CALCIUM SCORING - CT CHEST REASON FOR EXAM: Male, 58 years old. Atherosclerosis screening RADIATION DOSAGE (If Supplied By Facility): CTDIvol = ( 12.19 ) mGy, DLP = ( 195.04 ) mGycm TECHNIQUE: Axial non-enhanced images were acquired through the heart for the sole purpose of measuring coronary artery calcium. Individualized dose optimization techniques were used for this CT. COMPARISON: None. FINDINGS: Visualized surrounding anatomy: Normal. Left Main Coronary Artery: 0 Left Anterior Descending Artery: 0 Left Circumflex Artery: 0 Right Coronary Artery: 0 Other: Total Calcium Score: 0 CT/Limited Chest CT w/CCTA IMPRESSION: A Calcium Score of 0 places the patient in the approximate 0 percentile, based on the JASSO data calculator. Please go to: [email or web address]-nhlbi.org/Calcium/input.[email or web address] , for a description of the calculator. Electronically Signed: Chandan Bertrand MD at 16:25 EDT , Service support ,
[2019-01-25 14:43] VITALS: BP 125/96; PULSE 68; RESP 16; O2SAT 97; BMI 28.0
--- NOTE | 2019-01-25 16:45 | CA.SCORE ---
Calcium Scoring Date of Study:: 01/25/19 Coronary Calcium Scoring: High-resolution Computed Tomographic imaging of the chest was performed on [ ], with particular attention paid to the coronary arteries. Images from the examination were analyzed for the presence and extent of coronary artery calcification , using coronary calcium quantification software. The patient tolerated the procedure well and there were no complications. The results of the coronary calcification analysis are provided below. - Findings Left Main (LM): 0 Left Anterior Descending (LAD): 0 Left Circumflex (LCX): 0 Right Coronary Artery (RCA): 0 Total Agatston Score: 0 Percentile Rankin - Conclusion Calcium Scoring Interpretation: Calcium Score Interpretation 0 No identifiable atherosclerotic plaque. Very low cardiovascular disease risk. <5% chance of presence coronary artery disease A Negative Examination 1-10 Minimal Plaque burden. Significant coronary artery disease very unlikely. 11-100 Mild plaque burden. Likely mild or minimal coronary atherosclerosis. 101-400 Moderate plaque burden Moderate non-obstructive coronary artery disease highly likely. Over 400 Extensive plaque burden. High likelihood of at least one significant coronary stenosis (>50% diameter) Calcium Score: 0 Negative Examination - No atherosclerotic plaquing noted. For evaluation of cardiac risk should include assessment of all conventional risk factors and the scores and percentile rankings reported herein should be evaluated in that context.
== END | disposition home or self-care (01) ==
LOC: CT 14:31
PROVIDERS: Family Provider Family Medicine; PCP Family Medicine; Referring Provider Family Medicine; Visit Provider Family Medicine
DX: E78.5 Hyperlipidemia, unspecified (principal)
CPT/HCPCS: 75571; 76380

== ENCOUNTER → 2019-08-02 07:26 | Outpatient (CLI) | payer OTHER, SELFPAY ==
[2019-06-21 10:49] VITALS: BMI 28.0
[2019-08-02 08:06] LABS: Hematocrit 37.6 % (40-54); Hemoglobin 12.6 g/dL (13.0-16.5); Mean Corp Hgb Conc 33.5 g/dL (32-36); Mean Corpuscular Hgb 30.8 pg (27.0-32.0); Mean Corpuscular Volume 91.9 fL (80-94); Mean Platelet Vol. 8.8 fl (6.2-12.0); Platelet Count 225 K/mm3 (150-450); RBC Distribution Width SD 43.8 fl (35.1-43.9); Red Blood Count 4.09 M/mm3 (4.6-6.2); White Blood Count 5.2 K/mm3 (4.4-11.0)
[2019-08-02 09:15] LABS: Vitamin D,25 Hydroxy 29.9 ng/mL (29.95-100.01)
[2019-08-02 11:48] LABS: Anion Gap 5 (5-15); BUN 19 mg/dL (7-18); BUN/Creat Ratio 18.1 RATIO (10-20); Calcium,Total 8.6 mg/dL (8.5-10.1); Chloride 101 mmol/L (98-107); Creatinine, Serum 1.05 mg/dL (0.70-1.30); EST Glomerular Filtration Rate 77 mL/min (>60); Est Glom Filt Rate - Afr Amer 93 mL/min (>60); Free T3 2.6 pg/mL (2.18-3.98); Glucose 83 mg/dL (74-106); Potassium 3.9 mmol/L (3.5-5.1); Prolactin 1.5 ng/mL; Sodium Level 137 mmol/L (136-145); T4 Free Direct 0.95 ng/dL (0.76-1.46); T4 Total, Thyroxin 9.2 ug/dL (4.5-12.1)
[2019-08-04 10:58] LABS: Insulin Like Growth Factor 113 ng/mL (54-194)
== END ==
PROVIDERS: Family Provider Family Medicine; PCP Internal Medicine
DX: E23.7 Disorder of pituitary gland, unspecified (principal)
CPT/HCPCS: 36415; 80048; 82306; 84146; 84305; 84403; 84436; 84439; 84481; 85027

== ENCOUNTER → 2020-07-17 07:05 | Outpatient (CLI) | payer OTHER, SELFPAY ==
[2020-04-14 09:08] VITALS: BMI 28.0
[2020-07-17 08:08] LABS: Hematocrit 37.8 % (40-54); Hemoglobin 12.6 g/dL (13.0-16.5); Mean Corp Hgb Conc 33.3 g/dL (32-36); Mean Corpuscular Hgb 31.1 pg (27.0-32.0); Mean Corpuscular Volume 93.3 fL (80-94); Mean Platelet Vol. 9.5 fl (6.2-12.0); Platelet Count 242 K/mm3 (150-450); RBC Distribution Width CV 12.4 % (11.6-14.6); RBC Distribution Width SD 43.1 fl (35.1-43.9); Red Blood Count 4.05 M/mm3 (4.6-6.2)
[2020-07-17 09:09] LABS: Anion Gap 5 (5-15); BUN 22 mg/dL (7-18); Calcium,Total 8.7 mg/dL (8.5-10.1); Chloride 102 mmol/L (98-107); Creatinine, Serum 0.92 mg/dL (0.70-1.30); EST Glomerular Filtration Rate 89 mL/min (>60); Est Glom Filt Rate - Afr Amer 108 mL/min (>60); Free T3 2.5 pg/mL (2.18-3.98); Glucose 87 mg/dL (74-106); Potassium 3.7 mmol/L (3.5-5.1); Prolactin 2.3 ng/mL; Sodium Level 137 mmol/L (136-145); T4 Free Direct 1.16 ng/dL (0.76-1.46); T4 Total, Thyroxin 10.5 ug/dL (4.5-12.1)
[2020-07-17 09:30] LABS: Vitamin D,25 Hydroxy 47.7 ng/mL
[2020-07-18 16:21] LABS: Insulin Like Growth Factor 134 ng/mL (68-247)
== END ==
PROVIDERS: PCP Internal Medicine
DX: E23.7 Disorder of pituitary gland, unspecified (principal)
CPT/HCPCS: 36415; 80048; 82306; 84146; 84305; 84403; 84436; 84439; 84481; 85027

== ENCOUNTER 2020-10-05 10:25 | Outpatient (RCR) | payer OTHER, SELFPAY ==
[2020-04-14 09:08] VITALS: BMI 28.0
[2020-10-05] MEDS: COVID-19 VACC, MRNA(PFIZER)/PF 30 MCG/0.3 ML SYRINGE IM (14:11)
[2020-10-26] MEDS: COVID-19 VACC, MRNA(PFIZER)/PF 30 MCG/0.3 ML SYRINGE IM (14:06)
== END 2021-01-01 23:59 ==
LOC: IMMUN 10:25
PROVIDERS: PCP Internal Medicine; Visit Provider Family Medicine
DX: Z23 Encounter for immunization (principal)
CPT/HCPCS: 0001A; 0002A; 91300

== ENCOUNTER → 2021-01-15 | Outpatient (CLI) | payer OTHER, SELFPAY ==
[2021-01-15 14:04] VITALS: BMI 28.0
[2021-01-15 14:26] LABS: Lyme Ab Screen Interpretation REF LAB
[2021-01-15 16:47] LABS: Absolute Lymphocyte Count 0.99 X10^3/uL (0.83-4.51); Absolute Neutrophil Count 3.4 X10^3/uL (2.0-7.7); Eosinophil# 0.33 X10^3/uL; Eosinophils% 6.5 % (0-5); Hematocrit 37.3 % (40-54); Hemoglobin 12.5 g/dL (13.0-16.5); Lymphocyte # 0.99 X10^3/ul (0.83-4.51); Lymphocyte % 19.4 % (19-41); Mean Corp Hgb Conc 33.5 g/dL (32-36); Mean Corpuscular Hgb 30.9 pg (27.0-32.0); Mean Corpuscular Volume 92.3 fL (80-94); Mean Platelet Vol. 10.1 fl (6.2-12.0); Monocyte% 7.8 % (0-10); NRBC Flagged by Analyzer 0 % (0-5); Neutrophil # 3.38 X10^3/uL (2.7-7.7); Neutrophil % 66.1 % (47-70); Platelet Count 248 K/mm3 (150-450); RBC Distribution Width CV 12.7 % (11.6-14.6); Red Blood Count 4.04 M/mm3 (4.6-6.2); White Blood Count 5.1 K/mm3 (4.4-11.0)
[2021-01-15 17:01] LABS: Cholesterol 131 mg/dL (200); High Density Lipoprotein 39 mg/dL; Triglycerides 94 mg/dL; Very Low Density Lipoprotein 19 mg/dL (5-40)
[2021-01-15 17:20] LABS: Anion Gap 6 (5-15); BUN 18 mg/dL (7-18); BUN/Creat Ratio 19.3 RATIO (10-20); Calcium,Total 8.3 mg/dL (8.5-10.1); Chloride 101 mmol/L (98-107); Creatinine, Serum 0.93 mg/dL (0.70-1.30); EST Glomerular Filtration Rate 87 mL/min (>60); Est Glom Filt Rate - Afr Amer 106 mL/min (>60); Free T3 1.5 pg/mL (2.18-3.98); Glucose 86 mg/dL (74-106); Potassium 3.4 mmol/L (3.5-5.1); Prolactin 0.9 ng/mL; Sodium Level 135 mmol/L (136-145); T3 Uptake 29 % (33-40); T4 Total, Thyroxin 7.6 ug/dL (4.5-12.1); T7 / Free Thyroxin Index 2.2 (1.4-4.5)
[2021-01-15 18:17] LABS: Vitamin D,25 Hydroxy 59.1 ng/mL
[2021-01-19 08:33] LABS: Insulin Like Growth Factor 100 ng/mL (64-240)
[2021-01-23 10:10] LABS: Lyme IgG P18 Ab Present (.); Lyme IgG P23 Ab Present (.); Lyme IgG P28 Ab Absent (.); Lyme IgG P30 Ab Absent (.); Lyme IgG P39 Ab Present (.); Lyme IgG P41 Ab Present (.); Lyme IgG P45 Ab Absent (.); Lyme IgG P58 Ab Present (.); Lyme IgG P66 Ab Absent (.); Lyme IgG P93 Ab Absent (.); Lyme IgM P23 Ab Absent (.); Lyme IgM P39 Ab Absent (.); Lyme IgM P41 Ab Absent (.)
[2021-01-23 10:13] LABS: Lyme Scn Total Ab w/Rflx 1.02 ISR (0.00-0.90)
[2021-01-23 11:44] LABS: Lyme IgG WB Interpretation Positive (.); Lyme IgM WB Interpretation Negative (.)
== END | disposition home or self-care (01) ==
LOC: BIMLAB 14:25
PROVIDERS: PCP Internal Medicine; Referring Provider Nurse Practitioner Family; Visit Provider Nurse Practitioner Family
DX: Z00.00 Encounter for general adult medical examination without abnormal findings (principal); E78.5 Hyperlipidemia, unspecified; T14.8XXA Other injury of unspecified body region, initial encounter; W57.XXXA Bitten or stung by nonvenomous insect and other nonvenomous arthropods, initial encounter; E23.7 Disorder of pituitary gland, unspecified
CPT/HCPCS: 36415; 80048; 80061; 82306; 84146; 84153; 84305; 84403; 84436; 84439; 84479; 84481; 85025; 86617; 86618; G0103

== ENCOUNTER 2021-02-12 06:59 | Day surgery (SDC) | payer OTHER, SELFPAY ==
[2021-01-15 14:04] VITALS: BMI 28.0
[2021-02-12] VITALS (7 sets, daily range): BP systolic 97–114; BP diastolic 63–81; PULSE 77–94; RESP 16–18; TEMP 36.2–36.8; O2SAT 94–100
--- NOTE | 2021-02-12 07:21 | HP.PCM_ITS ---
HPI - General HPI Narrative SUSHANT WOODS, is a 60 M who presents today for screening colonoscopy. His previous 1 was 10 years ago. He has a pituitary tumor that was treated in the past. Otherwise he enjoys good health. No bright red blood per rectum or melena. No abdominal pain. He has not had any Covid exposure. He otherwise cortes feels well. [facility] Medical History (Updated 02/12/21 @ 07:[address] Fran Najera MD) History of echocardiogram Hyperlipemia Hypothyroidism Muscle ache Non-smoker Pituitary tumor Tick bite Wears glasses Home Medications aspirin 81 mg tablet,delayed release 81 mg PO DAILY 06/03/19 [History Last Taken 02/08/21] cabergoline 0.5 mg tablet 0.5 mg PO MOFR tab 06/03/19 [History Last Taken Unknown] cholecalciferol (vitamin D3) 125 mcg (5,000 unit) capsule 5,000 unit PO DAILY 06/03/19 [History Last Taken Unknown] hydrocortisone 10 mg tablet 10 mg PO DAILY 06/03/19 [History Last Taken Unknown] levothyroxine 112 mcg tablet 112 mcg PO DAILY 06/03/19 [History Last Taken Unknown] raloxifene 60 mg tablet 60 mg PO QHS 06/03/19 [History Last Taken Unknown] somatropin 4 mg IM QHS 06/03/19 [History Last Taken 02/10/21] testosterone 1.62 % (20.25 mg/1.25 gram) transdermal gel packet 1 packet TRANS DERMAL DAILY 06/03/19 [History Last Taken Unknown] rosuvastatin 20 mg tablet 20 mg PO DAILY #90 tab 01/01/21 [Rx Last Taken Unknown] Allergy/AdvReac Type Severity Reaction Status Date / Time Penicillins Allergy Hives Verified 02/11/21 11:23 Family History (Updated 06/03/19 @ 14:34 by Antonia Oneil) Mother Aneurysm age 50 Father Cancer prostate Other Heart disease Hyperlipemia Hypertension Surgical History (Updated 02/11/21 @ 11:32 by Isabella Cortez) History of wisdom tooth extraction Hx of colonoscopy Social History Smoking Status: Never smoker alcohol intake: never substance use type: does not use what type of physical activity do you participate in: aerobics frequency: daily ROS Constitutional Constitutional: Reports systems reviewed and no addt'l complaints, except as documented Cardiovascular Cardiovascular: Denies chest pain Respiratory/Chest Respiratory/Chest: Denies shortness of breath at rest Gastrointestinal Gastrointestinal: Denies abdominal pain, change in bowel habits, hematochezia or melena Vital Signs Vital Signs Vital Signs: Weight Body Mass Index (BMI) 28.0 Physical Exam Const alert, oriented x3 and no apparent distress General Appearance: cooperative and comfortable Eyes General Eye: normal appearance of both eyes Neck General: normal visual inspection Chest inspection of chest normal Resp Effort and Inspection: able to speak in complete sentences and symmetric chest movement Auscultation: clear to auscultation bilaterally Cardio regular rate and regular rhythm GI soft to palpation, non-tender and non-distended Extremity no calf tenderness Neuro oriented x3 Psych thought process normal Assessment & Plan Assessment/Plan (1) Screening for intestinal cancer: PLAN: The patient presents via open access for screening colonoscopy. He is aware of the technique, benefit, risk, alternatives. He has had an opportunity to ask and have questions answered. We will proceed as noted. Fran Najera M.D., F.A.C.S.
[2021-02-12] MEDS: Midazolam 5 MG/ML Syringe (08:01)
--- NOTE | 2021-02-12 08:22 | OP.COLON_ITS ---
Patient Name: Moe Wiggins Procedure Date: 02/12/2021 7:55 AM Date of : 1960 Age: 60 Procedure: Colonoscopy Indications: Screening for colorectal malignant neoplasm Providers: Fran Najera MD Medicines: Midazolam 3.5 mg IV, Meperidine 100 mg IV Patient Profile: Last Colonoscopy: 10 years ago. Complications: No immediate complications. Procedure: Pre-Anesthesia Assessment: - Prior to the procedure, a History and Physical was performed, and patient medications and allergies were reviewed. The patient's tolerance of previous anesthesia was also reviewed. The risks and benefits of the procedure and the sedation options and risks were discussed with the patient. All questions were answered, and informed consent was obtained. Prior Anticoagulants: The patient has taken no previous anticoagulant or antiplatelet agents. ASA Grade Assessment: I - A normal, healthy patient. After reviewing the risks and benefits, the patient was deemed in satisfactory condition to undergo the procedure. After I obtained informed consent, the scope was passed under direct vision. Throughout the procedure, the patient's blood pressure, pulse, and oxygen saturations were monitored continuously. The adult colonoscope was introduced through the anus and advanced to the cecum, identified by appendiceal orifice and ileocecal valve. The colonoscopy was performed without difficulty. The patient tolerated the procedure well. The quality of the bowel preparation was good. The ileocecal valve and the appendiceal orifice were photographed. Moderate Sedation: Moderate (conscious) sedation was personally administered by the endoscopist. The following parameters were monitored: oxygen saturation, heart rate, blood pressure, and response to care. Total physician intraservice time was 15 minutes. Scope In: 8:03:43 AM Scope Withdrawal Time 0 hours 7 minutes 2 seconds Scope Out: 8:15:55 AM Total Procedure Duration Time 0 hours 12 minutes 12 seconds Findings: The digital rectal exam findings include non-thrombosed external hemorrhoids, non-thrombosed internal hemorrhoids, internal hemorrhoids (Grade I) and enlarged prostate. Scattered diverticula were found in the sigmoid colon. The exam was otherwise without abnormality. Impression: - Non-thrombosed external hemorrhoids, non-thrombosed internal hemorrhoids, internal hemorrhoids (Grade I) and enlarged prostate found on digital rectal exam. - Diverticulosis in the sigmoid colon. - The examination was otherwise normal. - No specimens collected. Recommendation: - Discharge patient to home. - Resume previous diet. - Continue present medications. - Repeat colonoscopy in 10 years for screening purposes. Procedure Code(s): --- Professional --- 86150, Colonoscopy, flexible; diagnostic, including collection of specimen(s) by brushing or washing, when performed (separate procedure) 34828, 58, Moderate sedation services provided by the same physician or other qualified health career technical counselor performing the diagnostic or therapeutic service that the sedation supports, requiring the presence of an independent trained observer to assist in the monitoring of the patient's level of consciousness and physiological status; initial 15 minutes of intraservice time, patient age 5 years or older Diagnosis Code(s): --- Professional --- Z12.11, Encounter for screening for malignant neoplasm of colon K64.0, First degree hemorrhoids K64.4, Residual hemorrhoidal skin tags N40.0, Benign prostatic hyperplasia without lower urinary tract symptoms K57.30, Diverticulosis of large intestine without perforation or abscess without bleeding CPT copyright 2017 [employer]. All rights reserved. The codes documented in this report are preliminary and upon tube cutter operator review may be revised to meet current compliance requirements. Fran Najera MD 02/12/2021 8:22:30 AM This report has been signed electronically. Number of Addenda: 0 Note Initiated On: 02/12/2021 7:55 AM
--- NOTE | 2021-02-12 08:23 | OP.CCLET_ITS ---
02/12/2021 Daryl Alexis MD [address] [place] [address] [place] [address] Re : Colonoscopy procedure for Moe Wiggins Dear Dr. Alexis This procedure was performed on Friday, February 12, 2021. My impressions and recommendations are as follows: Impressions : - Non-thrombosed external hemorrhoids, non-thrombosed internal hemorrhoids, internal hemorrhoids (Grade I) and enlarged prostate found on digital rectal exam. - Diverticulosis in the sigmoid colon. - The examination was otherwise normal. - No specimens collected. Recommendations : - Discharge patient to home. - Resume previous diet. - Continue present medications. - Repeat colonoscopy in 10 years for screening purposes. My findings are described in the full procedure note, which is enclosed. If I can be of further assistance, please feel free to contact me at Doctor phone number(s): Work: . Sincerely, Fran Najera MD 02/12/2021 8:22:30 AM This report has been signed electronically.
== END 2021-02-12 09:17 ==
LOC: EN 07:00 → AC 07:02
PROVIDERS: PCP Internal Medicine; Referring Provider Internal Medicine; Visit Provider Surgery
PROC: 0DJD8ZZ Inspection of Lower Intestinal Tract, Via Natural or Artificial Opening Endoscopic (ICD-10-PCS; CPT 45378; principal; 2021-02-12 07:55)
DX: Z12.11 Encounter for screening for malignant neoplasm of colon (principal); K64.0 First degree hemorrhoids; K64.4 Residual hemorrhoidal skin tags; K57.30 Diverticulosis of large intestine without perforation or abscess without bleeding; E78.5 Hyperlipidemia, unspecified; E03.9 Hypothyroidism, unspecified; N40.0 Benign prostatic hyperplasia without lower urinary tract symptoms; Z79.82 Long term (current) use of aspirin; Z79.899 Other long term (current) drug therapy
CPT/HCPCS: 45378; 99152; 99153; J7120

== ENCOUNTER 2021-04-27 10:30 | Outpatient (CLI) | payer OTHER, SELFPAY ==
[2021-04-27] MEDS: 0.9% Saline Lock 10 ML Syringe IV (10:56)
[2021-04-27 10:58] VITALS: BP 120/85; PULSE 93; RESP 16; TEMP 36.9; O2SAT 98; BMI 28.0
[2021-04-27 11:45] VITALS: BP 112/77; PULSE 75; RESP 16; TEMP 37.1; O2SAT 96
[2021-04-27 12:45] VITALS: BP 106/77; PULSE 76; RESP 16; TEMP 37; O2SAT 98
== END 2021-04-27 12:50 | disposition home or self-care (01) ==
LOC: MS3OUT 10:30 → MS3 10:31
PROVIDERS: PCP Internal Medicine; Referring Provider Nurse Practitioner Adult Health; Visit Provider Nurse Practitioner Adult Health
DX: Z23 Encounter for immunization (principal); U07.1 COVID-19
CPT/HCPCS: J7050; M0243; A4216; Q0244

== ENCOUNTER → 2021-05-14 09:15 | Outpatient (CLI) | payer OTHER, SELFPAY ==
--- NOTE | 2021-05-14 09:16 | RAD_ITS ---
STUDY: X-RAY - RIGHT SHOULDER REASON FOR EXAM: Right shoulder pain. TECHNIQUE: 4 view(s) of the shoulder. COMPARISON: None. FINDINGS: There is glenohumeral arthrosis with marginal osteophytes of the humeral head and joint space loss. 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 Normal acromioclavicular joint. Normal acromion. There is subchondral cystic change/mild eburnation of the superior medial humeral head. The soft tissue structures are unremarkable. Normal visualized pulmonary apex. RAD/Shoulder min 2 Views IMPRESSION: Glenohumeral arthrosis. Electronically Signed: Dwight Conde MD at 14:59 EDT Tel , Service support ,
== END ==
PROVIDERS: PCP Internal Medicine; Referring Provider Nurse Practitioner Family; Visit Provider Nurse Practitioner Family
DX: M25.511 Pain in right shoulder (principal)
CPT/HCPCS: 73030

== ENCOUNTER → 2021-06-28 | Outpatient (CLI) | payer OTHER, SELFPAY | END | disposition home or self-care (01) | PROVIDERS: PCP Internal Medicine; Referring Provider Physician Assistant; Visit Provider Physician Assistant | DX: Z11.52 Encounter for screening for COVID-19 (principal) | CPT/HCPCS: 87635; U0005; U0003 ==

== ENCOUNTER 2021-09-03 15:45 | Outpatient (CLI) | payer OTHER, SELFPAY ==
--- NOTE | 2021-09-03 15:51 | BD_ITS ---
STUDY: DUAL ENERGY X-RAY ABSORPTIOMETRY / DXA REASON FOR EXAM: Male, 60 years old. M810. The patient is status post pituitary gland surgery. TECHNIQUE: Bone Mineral Density (BMD) measurements of lumbar spine and bilateral hips were obtained. COMPARISON: Comparison is made with prior study dated 07/08/2018. FINDINGS: Lumbar Spine (L1-L4): g/cm2 (0.896) / T-score (-1.8) / Z-score (-1.1) Findings are suggestive of osteopenia with a moderate fracture risk. Left Femur Total: g/cm2 (0.995) / T-score (-0.3) / Z-score (0.2) Left Femoral Neck: g/cm2 (0.73) / T-score (-1.1) / Z-score (-0.1) Right Femur Total: g/cm2 (1.022) / T-score (-0.1) / Z-score (0.4) Right Femoral Neck: g/cm2 (0.852) / T-score (-0.6) / Z-score (0.4) The T-Scores on the most recent prior examination were: Lumbar Spine (L1-L4): There has been worsening of bone density since the previous examination. Left Femur Total: which represents an improvement of 4.7%. Right Femur Total: which represents an improvement of 5.7%. BD/Dexa Bone Density Study IMPRESSION: The patient is considered osteopenic as outlined below according to World [employer] Organization (WHO) criteria with a moderate fracture risk. There has been improvement of bone density since the previous examination. Reference Information: The T-score is the number of standard deviations above or below the standard which is normal for young adults at their peak bone mineral density. The World Health Organization (WHO) interprets the T-scores as follows: Above -1 Normal bone density Between -1 and -2.5 Osteopenia Equal to / or below -2.5 Osteoporosis As a practical clinical guideline, osteopenia may be graded as follows: Mild -1 through -1.5 Moderate -1.6 through -2.0 Severe -2.1 through -2.4 The Z-score is the number of standard deviations above or below age-matched controls. A Z-score of less than -1.5 would be considered abnormal. References: 1. NIH Osteoporosis and Related Bone Diseases www osteo.org 2. International Society for Clinical Densitometry www iscd.org 3. National Osteoporosis Foundation www nof.org Electronically Signed: Mitchel Robles MD at 14:35 EST ,
== END 2021-09-03 23:59 | disposition home or self-care (01) ==
PROVIDERS: PCP Internal Medicine; Referring Provider Internal Medicine; Visit Provider Internal Medicine
DX: M81.0 Age-related osteoporosis without current pathological fracture (principal)
CPT/HCPCS: 77080

== ENCOUNTER → 2022-05-06 | Outpatient (CLI) | payer OTHER, SELFPAY ==
[2022-05-06 08:19] LABS: Hemoglobin 13.3 g/dL (13.0-16.5); Mean Corp Hgb Conc 34.1 g/dL (32-36); Mean Corpuscular Hgb 31.9 pg (27.0-32.0); Mean Corpuscular Volume 93.5 fL (80-94); Mean Platelet Vol. 8.8 fl (6.2-12.0); Platelet Count 234 K/mm3 (150-450); RBC Distribution Width CV 12.9 % (11.6-14.6); RBC Distribution Width SD 44.5 fl (35.1-43.9); Red Blood Count 4.17 M/mm3 (4.6-6.2); White Blood Count 6.4 K/mm3 (4.4-11.0)
[2022-05-06 08:55] LABS: Hemoglobin A1c 5.7 % (3.8-5.6)
[2022-05-06 09:06] LABS: Anion Gap 6 (5-15); BUN 20 mg/dL (7-18); BUN/Creat Ratio 20.9 RATIO (10-20); Calcium,Total 9.1 mg/dL (8.5-10.1); Chloride 104 mmol/L (98-107); Creatinine, Serum 0.96 mg/dL (0.70-1.30); EST Glomerular Filtration Rate 85 mL/min (>60); Est Glom Filt Rate - Afr Amer 102 mL/min (>60); Free T3 2.6 pg/mL (2.18-3.98); Glucose 91 mg/dL (74-106); PSA,Total- Diagnostic 0.69 ng/mL (0.0-4.0); Potassium 3.8 mmol/L (3.5-5.1); Prolactin 1.1 ng/mL; Sodium Level 140 mmol/L (136-145); T4 Free Direct 1.13 ng/dL (0.76-1.46); T4 Total, Thyroxin 12.1 ug/dL (4.5-12.1)
[2022-05-06 11:39] LABS: Vitamin D,25 Hydroxy 65.9 ng/mL
[2022-05-08 09:49] LABS: Insulin Like Growth Factor 101 ng/mL (64-240)
== END | disposition home or self-care (01) ==
LOC: LAB 07:41
PROVIDERS: PCP Internal Medicine; Referring Provider Internal Medicine; Visit Provider Internal Medicine
DX: E03.9 Hypothyroidism, unspecified (principal); E23.7 Disorder of pituitary gland, unspecified; E55.9 Vitamin D deficiency, unspecified; E29.1 Testicular hypofunction; Z79.899 Other long term (current) drug therapy
CPT/HCPCS: 36415; 80048; 82306; 83036; 84146; 84153; 84305; 84403; 84436; 84439; 84481; 85027

== ENCOUNTER → 2023-01-01 | Outpatient (CLI) | payer OTHER, SELFPAY ==
[2023-01-01 09:08] LABS: Absolute Neutrophil Count 2.7 X10^3/uL (2.0-7.7); Basophil# 0.04 X10^3/uL; Basophil% 0.7 % (0-1); Eosinophil# 0.46 X10^3/uL; Eosinophils% 8.4 % (0-5); Hematocrit 38.8 % (40-54); Hemoglobin 13.1 g/dL (13.0-16.5); Mean Corp Hgb Conc 33.8 g/dL (32-36); Mean Corpuscular Volume 94.9 fL (80-94); Mean Platelet Vol. 9.6 fl (6.2-12.0); Monocyte# 0.53 X10^3/uL; Monocyte% 9.7 % (0-10); NRBC Flagged by Analyzer 0 % (0-5); Neutrophil # 2.74 X10^3/uL (2.7-7.7); Platelet Count 226 K/mm3 (150-450); RBC Distribution Width SD 44.8 fl (35.1-43.9); Red Blood Count 4.09 M/mm3 (4.6-6.2); White Blood Count 5.5 K/mm3 (4.4-11.0)
[2023-01-01 09:40] LABS: AST(SGOT) 24 U/L (15-37); Alanine Aminotransfer ALT/SGPT 30 U/L (16-61); Albumin, Serum 3.6 g/dL (3.2-5.0); Alkaline Phosphatase 66 U/L (45-117); Anion Gap 6 (5-15); BUN 16 mg/dL (7-18); BUN/Creat Ratio 16.6 RATIO (10-20); Calcium,Total 8.9 mg/dL (8.5-10.1); Chloride 101 mmol/L (98-107); Cholesterol 163 mg/dL (200); Creatinine, Serum 0.96 mg/dL (0.70-1.30); EST Glomerular Filtration Rate 84 mL/min (>60); Est Glom Filt Rate - Afr Amer 101 mL/min (>60); Globulin 3.6 g/dL (2.2-4.2); Glucose 87 mg/dL (74-106); High Density Lipoprotein 49 mg/dL; PSA,Total - Annual Screen 0.68 ng/mL (0.00-4.00); Potassium 3.9 mmol/L (3.5-5.1); Protein, Total 7.2 g/dL (6.4-8.2); Sodium Level 136 mmol/L (136-145); Triglycerides 149 mg/dL; Very Low Density Lipoprotein 30 mg/dL (5-40)
[2023-01-01 09:45] LABS: Hemoglobin A1c 5.6 % (3.8-5.6)
== END | disposition home or self-care (01) ==
LOC: LAB 07:55
PROVIDERS: PCP Internal Medicine; Referring Provider Nurse Practitioner Family; Visit Provider Nurse Practitioner Family
DX: Z00.00 Encounter for general adult medical examination without abnormal findings (principal); R73.03 Prediabetes
CPT/HCPCS: 36415; 80053; 80061; 83036; 84153; 85025; G0103

== ENCOUNTER → 2023-03-21 | Outpatient (CLI) | payer OTHER, SELFPAY ==
[2023-03-21 09:53] LABS: Free T3 2.3 pg/mL (2.18-3.98); T4 Free Direct 1.01 ng/dL (0.76-1.46); Thyroid Stim Hormone (TSH) 1.04 uIU/mL (0.358-3.74)
== END | disposition home or self-care (01) ==
LOC: LAB 08:18
PROVIDERS: PCP Internal Medicine; Referring Provider Internal Medicine; Visit Provider Internal Medicine
DX: E03.8 Other specified hypothyroidism (principal); D35.2 Benign neoplasm of pituitary gland; E29.1 Testicular hypofunction
CPT/HCPCS: 36415; 84439; 84443; 84481

== ENCOUNTER → 2023-08-12 | Outpatient (CLI) | payer OTHER, SELFPAY ==
--- OUTSIDE RECORDS SUMMARY | 2023-08-12 07:52 | XMS RPT_ITS | CCD ---
Author Name Unknown Address [address] [place] [address] Organization [facility] Care Team Providers Care Rn Embedded Name Role Phone SARITHA, DR DARIN Sky Attending Unavaila ble SARITHA, DR DARIN Sky Primary Care Unavaila ble SARITHA, DR DARIN Sky Admitting Unavaila ble SARITHA, DR DARIN Sky Attending Unavaila ble SARITHA, DR DARIN Sky Primary Care Unavaila ble SARITHA, DR DARIN Sky Admitting Unavaila ble Nhung Vega Primary Care Provider [phone] Nhung Vega Primary Care Provider Nhung Vega Primary Care Provider [phone] Nhung Vega Primary Care Provider Nhung Vega Primary Care Provider PEECHAKARA V, SEENIA Attending Unavailable PEECHAKARA V, SEENIA Referring Unavailable NHUNG VEGA Primary Care Unavailable Allergies Allergy Classification Reported Allergen(s) Allergy Type Date of Onset Reaction(s) Facility (4 sources) Penicillins; Translations: [PENICILLINS] Drug Allergy 05-19-2013 [facility] Work Phone: (18 sources) Penicillins Drug Allergy 05-19-2013 [facility] Work Phone: Medications Current Medications Medication Drug Class(es) Dates Sig (Normalized) Sig (Original) 60 actuat testosterone 20.25 mg/actuat topical gel (20 sources) Androgen Start: 07-11-2021 End: 06-07-2027 testosterone (ANDROGEL PUMP) 20.25 mg/1.25 gram (1.62 %) transdermal gel Indications: Hypothyroidism, secondary , Hypogonadism male , Benign neoplasm of pituitary gland and craniopharyngeal duct (pouch) (HCC) , Prolactinoma (HCC) Apply three pumps on each shoulder as directed 300 g 1 06/26/2023 06/07/2027 Active Completed/Discontinued Medications Medication Drug Class(es) Dates Sig (Normalized) Sig (Original) aspirin 81 mg oral tablet (20 sources) Platelet Aggregation Inhibitor, Nonsteroidal Anti-inflammatory Drug Aspirin 81 mg tab Indications: Other and unspecified anterior pituitary hyperfunction (HCC) Take 81 mg by mouth. 0 Active Problems Active Problems Problem Classification Problem Date Documented Date Episodic/Chronic Other and unspecified benign neoplasm (20 sources) Benign neoplasm of pituitary gland and craniopharyngeal duct; Translations: [Benign neoplasm of pituitary gland] Onset: 12-24-2002 Episodic Other and unspecified benign neoplasm (13 sources) Prolactinoma; Translations: [Benign neoplasm of pituitary gland] Episodic Other and unspecified benign neoplasm (2 sources) Benign neoplasm of pituitary gland; Translations: [Benign neoplasm of pituitary gland and craniopharyngeal duct (pouch) (HCC)] Onset: 12-24-2002 Episodic Other endocrine disorders (20 sources) Male hypogonadism; Translations: [Testicular hypofunction] Onset: 10-30-2011 Chronic Other endocrine disorders (20 sources) Hyperpituitarism; Translations: [Hyperfunction of pituitary gland, unspecified] Onset: 12-24-2002 04-23-2010 Chronic Other endocrine disorders (20 sources) Hypocortisolism secondary to another disorder; 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] Onset: 01-04-2021 01-04-2021 Chronic Other endocrine disorders (1 source) Testicular hypofunction; Translations: [Hypogonadism male] Onset: 10-30-2011 Chronic Thyroid disorders (20 sources) Secondary hypothyroidism; Translations: [Other specified hypothyroidism] Onset: 02-10-2011 Chronic Past or Other Problems Problem Classification Problem Date Documented Date Episodic/Chronic Immunizations and screening for infectious disease (3 sources) Encounter for screening for other viral diseases; Translations: [Encounter for screening for other viral diseases] Onset: 06-18-2020 Episodic Other and unspecified benign neoplasm (1 source) Benign neoplasm of craniopharyngeal duct; Translations: [Benign neoplasm of pituitary gland and craniopharyngeal duct (pouch) (HCC)] Onset: 12-24-2002 Episodic Other bone disease and musculoskeletal deformities (20 sources) Osteopenia; Translations: [Other specified disorders of bone density and structure, unspecified site] Onset: 07-05-2015 07-05-2015 Episodic Results Test Name Value Interpretation Reference Range Facil ity Vital Signs Date Time Vital Sign Value Performing Clinician Susan lity 12-04-2021 09:37-0400 Body height 172.7 cm Leo Barrera MD Work Phone: [facility] 12-04-2021 09:37-0400 Body weight 86.18 kg Leo Barrera MD Work Phone: [facility] Encounters Encounter Date Encounter Type Care Provider Facility Start: 06-27-2023 Yonny Krause APRN.CNP Work Phone: Endocrinology Procedures Date Procedure Procedure Detail Performing Clinician Start: 05-06-2022 Hemoglobin A1c/Hemoglobin.total in Blood [facility] Start: 05-06-2022 T4 / THYROXINE BLOOD (EU,HL,CHRISTINE,MM,SP) [facility] Provider Start: 05-06-2022 Thyroxine (T4) free [Mass/volume] in Serum or Plasma [facility] Provider Start: 05-06-2022 Triiodothyronine (T3 ) Free [Mass/volume] in Serum or Plasma [facility] Provider Start: 05-06-2022 VITAMIN D 25 HYDROXY (EU,FV,HL,CHRISTINE,MM,SP) [facility] Provider Plan of Treatment Date Care Activity Detail Author Start: 04-14-2030 Urine microalbumin profile DTa P,Tdap,Td Vaccine (4 - Td or Tdap) [facility] Start: 05-06-2025 [facility]AB[facility] Start: 05-06-2025 Diabetes Screening Diabetes Screenin g [facility] Start: 03-27-2023 Covid-19 Vaccine () Covid-19 Vaccine ( season) [facility] Start: 03-27-2023 Influenza vaccination C [facility] Start: 07-27-2022 DEPRESSION ASSESSMENT DEPRESSION ASS ESSMENT [facility] Start: 03-27-2022 Influenza vaccination C [facility] Start: 05-05-2022 COVID-19 VACCINE (4 - Booster for Pfizer series) COVID-19 VACCINE (4 - Booster for Pfizer series) [facility] Start: 09-25-2021 COVID-19 VACCINE (4 - Booster for Pfizer series) COVID-19 VACCINE (4 - Booster for Pfizer series) [facility] Start: 09-25-2021 COVID-19 VACCINE (4 - Pfizer series) COVID-19 VACCINE (4 - Pfizer series) [facility] Start: 07-27-2021 DEPRESSION ASSESSMENT DEPRESSION ASS ESSMENT [facility] Start: 03-28-2021 COVID-19 VACCINE (3 - Booster for Pfizer series) COVID-19 VACCINE (3 - Booster for Pfizer series) [facility] Start: 2019 RSV Vaccine (1 - 1-d ose 60+ series) RSV Vaccine (1 - 1-dose 60+ series) [facility] Start: 2014 PROSTATE CANCER SCRE ENING DISCUSSION PROSTATE CANCER SCREENING DISCUSSION [facility] Start: 01-16-2012 DIABETES SCREEN DIABETES SCREEN [facility] Start: 2009 SHINGRIX VACCINE (1 of 2) SHINGRIX V ACCINE (1 of 2) [facility] Start: 2004 COLOGUARD (FIT-DNA) COLOGUARD (FIT-D NA) [facility] Start: 2004 Colonoscopy COLONOSCOPY [facility] Start: 2004 COLORECTAL CANCER SCREENING COLORECTAL CANCER SCREENING [facility] Start: [address] COLONOGRAPHY [facility] Start: 2004 FECAL OCCULT BLOOD FECAL OCCULT BLOO D [facility] Start: 2004 SIGMOIDOSCOPY SIGMOIDOSCOPY [facility] Start: 1994 Lipid 1996 panel - S harmony or Plasma Lipid Screening [facility] Start: 1994 LIPID SCREEN LIPID SCREEN [facility] Start: 1978 Urine microalbumin profile [facility] Start: 1977 ANNUAL PCP TEAM DIRECTOR OF INSTITUTIONAL GIVING THOMAS DISEASE VISIT ANNUAL PCP TEAM CHRONIC DISEASE VISIT [facility] Start: 1977 HEPATITIS C SCREENING HEPATITIS C SC REENING [facility] Start: 1977 HIV SCREENING HIV SCREENING [facility] Start: 1971 Adult depression scr eening assessment DEPRESSION SCREENING [facility] Immunizations Immunization Date Immunization Notes Care Provider Sera huitron 07-01-2022 influenza virus vaccine, unspecified formulation Leo Barrera MD Work Phone: [facility] 04-14-2020 influenza virus vaccine, unspecified formulation Leo Barrera MD Work Phone: [facility] Payers Date Payer Category Payer Unknown [id number] 2020 Unknown MMO MMO TPA [id number] 2020-Present [address] [place] [address] PPO [id number] 2020 Unknown [id number] 1959 Unknown [id number] Private Health Insurance [id number] Social History Date Type Detail Facility Start: 10-30-2011 Tobacco smoking stat us ILIS Never smoked tobacco [facility] Start: 08-10-2019 End: 12-04-2021 Alcohol intake Current non-drinker of alcohol (finding) [facility] Start: 1960 Sex Assigned At Not on file [facility] Start: 11-24-2021 End: 12-04-2021 Exposure to SARS-CoV-2 (event) Not sure [facility] Start: 10-30-2011 Tobacco use and exposure Smoke less tobacco non-user [facility] Start: 12-04-2021 End: 05-05-2023 Gender identity Not on file [facility] Start: 12-04-2021 End: 05-05-2023 History of Social function [facility] National Score (1-10 0), lower number is lower risk 51 [facility] Medical Equipment Procedure Code Equipment Code Equipment Origin al Text Equipment Identifier Dates Start: 08-04-2017 End: 06-25-2023 Clinical Notes 11-13-2021 to 06-29-2023 Telephone Encounter - Ada Donald RN - 06/29/2023 11:49 AM ESTTelephone Encounter - Petra Mayes RN - 06/25/2023 3:37 PM ESTTelephone Encounter - Jackelyn Bermudez RN - 05/11/2023 8:42 AM EDT Note Date & Type Note Facility 06-29-2023 Miscellaneous Notes Patients last Endocrinology visit occurred Last encounter Visit on 05/05/2023 (with Leo Pappas) Follow-up evaluation has been established Upcoming Endocrinology Appointments - Next 365 Days No appointments to display . Requested Prescriptions Pending Prescriptions Disp Refills rosuvastatin (CRESTOR) 20 mg tablet 90 tablet 3 Sig: Take 1 tablet by mouth once daily. If patient is due for an appointment please route to provider for refill consideration and also to the endo scheduling pool. documented in this encounter [facility] 06-25-2023 Miscellaneous Notes Patient requests all scripts except Omnitrope be sent to [facility] pharmacy. Pended for sign off. Requester: Patient Last Endocrinology visit: 05/05/2023. Follow-up visit scheduled: Visit date not found. Requested Prescriptions Pending Prescriptions Disp Refills hydrocortisone (CORTEF) 10 mg tablet 110 tablet 1 Sig: Take one tablet in am, increase to 2 tab in am and 1 tab in the afternoon for 2-3 days if sick cabergoline (DOSTINEX) 0.5 mg tablet 50 tablet 1 Sig: Take 1 tb 2 days per week. levothyroxine (SYNTHROID) 112 mcg tablet 90 tablet 3 Sig: Take 1 tablet by mouth every morning. on empty stomach raloxifene (EVISTA) 60 mg tablet 90 tablet 3 Sig: Take 1 tablet by mouth once daily. testosterone (ANDROGEL PUMP) 20.25 mg/1.25 gram (1.62 %) transdermal gel 300 g 1 Sig: Apply three pumps on each shoulder as directed insulin needles, DISPOSABLE, (BD INSULIN PEN NEEDLE UF) 31 gauge x 5/16 100 Each 3 Sig: Use for growth hormone pen injections once a day PSS NOTE: Please schedule appointment: No Thank you! Pia Mayes RN documented in this encounter [facility] 05-27-2023 Miscellaneous Notes All meds need to be sent to [facility]. Patients last Endocrinology visit occurred Last encounter Visit on 05/05/2023 (with Leo Pappas) Follow-up evaluation has been established Upcoming Endocrinology Appointments - Next 365 Days No appointments to display . Requested Prescriptions Pending Prescriptions Disp Refills hydrocortisone (CORTEF) 10 mg tablet 110 tablet 1 Sig: Take one tablet in am, increase to 2 tab in am and 1 tab in the afternoon for 2-3 days if sick cabergoline (DOSTINEX) 0.5 mg tablet 50 tablet 1 Sig: Take 1 tb 2 days per week. levothyroxine (SYNTHROID) 112 mcg tablet 90 tablet 3 Sig: Take 1 tablet by mouth every morning. on empty stomach raloxifene (EVISTA) 60 mg tablet 90 tablet 3 Sig: Take 1 tablet by mouth once daily. testosterone (ANDROGEL PUMP) 20.25 mg/1.25 gram (1.62 %) transdermal gel 300 g 1 Sig: Apply three pumps on each shoulder as directed If patient is due for an appointment please route to provider for refill consideration and also to the endo scheduling pool. documented in this encounter [facility] 05-11-2023 Miscellaneous Notes Patients last Endocrinology visit occurred Last encounter Visit on 05/05/2023 (with Leo Pappas) Follow-up evaluation has been established Upcoming Endocrinology Appointments - Next 365 Days No appointments to display . Requested Prescriptions Pending Prescriptions Disp Refills Somatropin (OMNITROPE) 5 mg/1.5 mL (3.3 mg/mL) 6 mL 2 Sig: Inject 0.4 mg SQ daily insulin needles, DISPOSABLE, (BD INSULIN PEN NEEDLE UF) 31 gauge x 5/16 100 Each 3 Sig: Use for growth hormone pen injections once a day If patient is due for an appointment please route to provider for refill consideration and also to the endo scheduling pool. documented in this encounter [facility] 05-05-2023 Note HNO ID: [id number] Author: Leo Pappas V, MD Service: ? Author Type: Physician Type: Progress Notes Filed: 05/12/2023 1:23 PM Note Text: This Team Access Model visit is a virtual encounter. It required patient-provider interaction for the medical decision making as documented below. THIS NOTE WAS CARRIED FORWARD FROM THE VISIT WITH ME IN FebND ADDENDED APPROPRIATE TO REFLECT TODAY'S VISIT WITH HISTORY, EXAM, ROS, DATA REVIEWED AND ASSESSMENT AND PLAN. Patient here for follow up of macroprolactinoma [...] ): Doing well Labs stable as below INTERVAL HPI August 10, 2019 Denies headaches and vision changes Doing well on current regimen INTERVAL HPI (May 22, 2020 ): Doing well No complaints today Did not do labs Has been taking all his meds appropriately 'Denies any vision problems INTERVAL HPI (December 05, 2020 ): Doing well no complaints Taking all meds appropriately Did not do lab work or BMD INTERVAL HPI (December 05, 2021 ): BMD done Doing well Staying active No complaints Taking meds appropriately INTERVAL HPI (May 05, 2023 ): Doing well Labs not available PMH: Macroprolactinoma PSH: None SOCIAL HISTORY Marital Status: Tobacco Use: Never Alcohol Use: No Review of patient's allergies indicates: Pencillin [Other] Comment:hives Family Hx: no history of hypercalcemia, pituitary tumor, or abdominal tumor Current Outpatient Medications Medication Sig levothyroxine (SYNTHROID) 112 mcg tablet Take 1 tablet by mouth every morning. on empty stomach raloxifene (EVISTA) 60 mg tablet Take 1 tablet by mouth once daily. Somatropin (OMNITROPE) 5 mg/1.5 mL (3.3 mg/mL) Inject 0.4 mg SQ daily insulin needles, DISPOSABLE, (BD INSULIN PEN NEEDLE UF) 31 gauge x 5/16 Use for growth hormone pen injections once a day cabergoline (DOSTINEX) 0.5 mg tablet Take 1 tb 2 days per week. hydrocortisone (CORTEF) 10 mg tablet Take one tablet in am, increase to 2 tab in am and 1 tab in the afternoon for 2-3 days if sick testosterone (ANDROGEL PUMP) 20.25 mg/1.25 gram (1.62 %) transdermal gel Apply three pumps on each shoulder as directed rosuvastatin (CRESTOR) 20 mg tablet Take 1 tablet by mouth once daily. insulin needles, DISPOSABLE, (PEN NEEDLE) 31 gauge x 5/16 ndle Use for GH pen injections once a day Aspirin 81 mg tab Take 81 mg by mouth. No current facility-administered medications for this visit. Physical Examination There were no vitals taken for this visit. VIDEO EXAM: (if completed, performed via video enabled technology) GENERAL: alert and appropriate, in no distress, well-hydrated, well nourished and happy, smiling, interactive Labs: 2014 HbA1c: 5.5 HcT: 37 Vit D; 33 Prolactin: 1.2 Testosterone : 546 2016: HBa1c: 5.3 PSA; nl Vit D: 28 Prolactin: 3 Testosterone: 225 TFT: normal Lipids: nl 2017: Labs sent for scanning' prl: 2.3 Tsto: 500 2018: Prl: 2.1 Free T3: 3.4Free T4: 1.07 T:430 Vit D:41 BMP; nl 2019: sent for scanning IGF1: 113 Free T4: 0.9 Free T3:2.6 Prl: 1.5 BMP: nl CBC: nl Testo: 508 Vit D: 229 ASSESSMENT/PLAN: # Pituitary macroprolactinoma s/p radiation therapy in 05/2001 - He had gradual decrease in prolactin level has been promising with last prolactin of being1.5 ng/mL (currently on 2 tb per week). - He is on raloxifene 60 mg daily. He also has osteopenia in spine which hopefully will benefit from raloxifene. We have discussed that raloxifene which is not FDA approved for this condition. - His past BMD shows osteopenia - BMD in Jna 2019 showed improvement in spine and mild decline in hip and from 2021 essentailly stable, redo in 2023 - Vit D : 5000 units daily Discussed reports about association of long-term high dose cabergoline therapy in parkinsonian patients with valvular heart disease in the past. His last echo was fine in 2011. - His MRI was stable per report with no significant intrasellar lesion (2012) # Pituitary function - Patient had low FTI consistent with secondary hypothyroidism on levothyroxine 112 mcg per day. - Considering his hx of radiation,he was started on cortef 10 mg in the morning which needs to be increased to 20 mg in am and 10 mg in the afternoon for 2-3 days during sickness. - He has low testosterone while his prolactin has normalized, on androgel 1.67%--at goal, 3 pumps to each shoulder- continue same -GH deficiency diagnosed during ITT Issues with GH coverage restart currently on 0.4 mg per day GH Check [email or web address] # visual field check with ophtal # will send lab (more content not included)... [facility] 04-23-2023 Miscellaneous Notes The following approved medication requests have been transmitted electronically. Requested Prescriptions Pending Prescriptions Disp Refills levothyroxine (SYNTHROID) 112 mcg tablet 30 tablet 0 Sig: Take 1 tablet by mouth every morning. on empty stomach raloxifene (EVISTA) 60 mg tablet 30 tablet 0 Sig: Take 1 tablet by mouth once daily. Leo Pappas MD Requester: Patient Last Endocrinology visit: 12/05/2021. Follow-up visit scheduled: 05/05/2023. Requested Prescriptions Pending Prescriptions Disp Refills levothyroxine (SYNTHROID) 112 mcg tablet 30 tablet 0 Sig: Take 1 tablet by mouth every morning. on empty stomach raloxifene (EVISTA) 60 mg tablet 30 tablet 0 Sig: Take 1 tablet by mouth once daily. PSS NOTE: Please schedule appointment: No Thank you! Pia Mayes RN documented in this encounter [facility] 03-04-2023 Miscellaneous Notes Lab orders faxed to [facility] with confirmation. Patient notified. Patient requests thyroid lab orders be faxed to below location: [facility] [phone] Thank you! Pia Mayes, RN documented in this encounter [facility] 02-23-2023 Miscellaneous Notes PA completed and approved for Omnitrope. Please inform patient : Omnitrope is coming up as not covered! MAybethe computer is not updated. I am sending the Omnitrope instead of Somatropin as he requested He should check with insurance if that will be covered Leo Pappas MD documented in this encounter [facility] 02-11-2023 Miscellaneous Notes Prior authorization for Norditropin submitted via Cover [employer] Med[employer]. Awaiting response from plan. documented in this encounter [facility] 02-09-2023 Miscellaneous Notes Rx for cabergoline and Androgel were sent 12/05 with 6 month supply Requester: Patient Last Endocrinology visit: 12/05/2021. Follow-up visit scheduled: 05/05/2023. Requested Prescriptions Pending Prescriptions Disp Refills insulin needles, DISPOSABLE, (BD INSULIN PEN NEEDLE UF) 31 gauge x 12/09 100 Each 3 Sig: Use for growth hormone pen injections once a day cabergoline (DOSTINEX) 0.5 mg tablet 50 tablet 1 Sig: Take 1 tb 2 days per week. testosterone (ANDROGEL PUMP) 20.25 mg/1.25 gram (1.62 %) transdermal gel 300 g 1 Sig: Apply three pumps on each shoulder as directed PSS NOTE: Please schedule appointment: No Thank you! Pia Mayes RN documented in this encounter [facility] 01-21-2023 Miscellaneous Notes The following approved medication requests have been transmitted electronically. Requested Prescriptions Pending Prescriptions Disp Refills Somatropin (NORDITROPIN FLEXPRO) 5 mg/1.5 mL (3.3 mg/mL) 10 Each 3 Sig: Inject 0.4 mg subcutaneously daily Leo Pappas MD Requester: Patient Last Endocrinology visit: 12/05/2021. Follow-up visit scheduled: 05/05/2023. Requested Prescriptions Pending Prescriptions Disp Refills Somatropin (NORDITROPIN FLEXPRO) 5 mg/1.5 mL (3.3 mg/mL) 10 Each 3 Sig: Inject 0.4 mg subcutaneously daily PSS NOTE: Please schedule appointment: No Thank you! Pia Mayes RN documented in this encounter [facility] 12-05-2022 Miscellaneous Notes Requester: Patient Last Endocrinology visit: 12/05/2021. Follow-up visit scheduled: Visit date not found. Requested Prescriptions Pending Prescriptions Disp Refills cabergoline (DOSTINEX) 0.5 mg tablet 50 tablet 1 Sig: Take 1 tb 2 days per week. levothyroxine (SYNTHROID) 112 mcg tablet 90 tablet 1 Sig: Take 1 tablet by mouth every morning. on empty stomach hydrocortisone (CORTEF) 10 mg tablet 110 tablet 1 Sig: Take one tablet in am, increase to 2 tab in am and 1 tab in the afternoon for 2-3 days if sick testosterone (ANDROGEL PUMP) 20.25 mg/1.25 gram (1.62 %) transdermal gel 300 g 1 Sig: Apply three pumps on each shoulder as directed raloxifene (EVISTA) 60 mg tablet 90 tablet 1 Sig: Take 1 tablet by mouth once daily. PSS NOTE: Please schedule appointment: No (pt has new insurance, OON, will self schedule. See enc 12/03). Thank you! Pia Mayes RN documented in this encounter [facility] 10-17-2022 Miscellaneous Notes Requester: Patient Patients last Endocrinology visit occurred 12-05-2021 Sylvia. Follow-up evaluation has been established 12-04-22 sylvia. Requested Prescriptions Pending Prescriptions Disp Refills rosuvastatin (CRESTOR) 20 mg tablet 90 tablet 3 Sig: Take 1 tablet by mouth once daily. If patient is due for an appointment please route to provider for refill consideration and also to the endo scheduling pool. PSS NOTE: Patient needs scheduled appointment No ANGELA 12/05/21 NOV 12/04/22 Patient phones requesting refills as follows: Requested Prescriptions Pending Prescriptions Disp Refills rosuvastatin (CRESTOR) 20 mg tablet 90 tablet 3 Sig: Take 1 tablet by mouth once daily. Please review and advise. Ella Link Ma documented in this encounter [facility] 08-20-2022 Miscellaneous Notes Called and scheduled pt for 12/04/[address] Pappas Requester: Patient Last Endocrinology visit: 12/05/2021. Follow-up visit scheduled: Visit date not found. Requested Prescriptions Pending Prescriptions Disp Refills raloxifene (EVISTA) 60 mg tablet 90 tablet 1 Sig: Take 1 tablet by mouth once daily. PSS NOTE: Please schedule appointment: Yes, yearly visit due November 2022. Thank you! Pia Mayes RN documented in this encounter [facility] 07-17-2022 Miscellaneous Notes Requester: Patient Last Endocrinology visit: 12/05/2021. Follow-up visit scheduled: Visit date not found. Requested Prescriptions Pending Prescriptions Disp Refills testosterone (ANDROGEL PUMP) 20.25 mg/1.25 gram (1.62 %) transdermal gel 300 g 1 Sig: Apply three pumps on each shoulder as directed PSS NOTE: Please schedule appointment: No Thank you! Pia Mayes RN documented in this encounter [facility] 01-23-2022 Miscellaneous Notes Requester: Patient Last Endocrinology visit: 12/05/2021. Follow-up visit scheduled: Visit date not found. Pending Prescriptions Disp Refills PEN NEEDLE, DIABETIC 31 GAUGE X 5/16 100 Each 3 Sig: Use for growth hormone pen injections once a day ANNA: No PSS NOTE: Please schedule appointment: No Thank you! Pia Mayes RN documented in this encounter [facility] 12-05-2021 History of Presen t illness Narrative This Team Access Model visit is a virtual encounter. It required patient-provider interaction for the medical decision making as documented below. THIS NOTE WAS CARRIED FORWARD FROM THE VISIT WITH ME IN november 2020 AND ADDENDED APPROPRIATE TO REFLECT TODAY'S VISIT WITH HISTORY, EXAM, ROS, DATA REVIEWED AND ASSESSMENT AND PLAN. Patient here for follow up of macroprolactinoma [...] ): Doing well Labs stable as below INTERVAL HPI August 10, 2019 Denies headaches and vision changes Doing well on current regimen INTERVAL HPI (May 22, 2020 ): Doing well No complaints today Did not do labs Has been taking all his meds appropriately 'Denies any vision problems INTERVAL HPI (December 05, 2020 ): Doing well no complaints Taking all meds appropriately Did not do lab work or BMD INTERVAL HPI (December 05, 2021 ): BMD done Doing well Staying active No complaints Taking meds appropriately PMH: Macroprolactinoma PSH: None SOCIAL HISTORY Marital Status: Tobacco Use: Never Alcohol Use: No Review of patient's allergies indicates: Pencillin [Other] Comment:hives Family Hx: no history of hypercalcemia, pituitary tumor, or abdominal tumor Current Outpatient Medications Medication Sig Somatropin (NORDITROPIN FLEXPRO) 5 mg/1.5 mL (3.3 mg/mL) Inject 0.4 mg subcutaneously daily cabergoline (DOSTINEX) 0.5 mg tablet Take 1 tb 2 days per week. raloxifene (EVISTA) 60 mg tablet Take 1 tablet by mouth once daily. levothyroxine (SYNTHROID) 112 mcg tablet Take 1 tablet by mouth every morning. on empty stomach rosuvastatin (CRESTOR) 20 mg tablet Take 1 tablet by mouth once daily. hydrocortisone (CORTEF) 10 mg tablet Take one tablet in am, increase to 2 tab in am and 1 tab in the afternoon for 2-3 days if sick testosterone (ANDROGEL PUMP) 20.25 mg/1.25 gram (1.62 %) transdermal gel Apply three pumps on each shoulder as directed insulin needles, DISPOSABLE, (BD INSULIN PEN NEEDLE UF) 31 gauge x 5/16 Use for growth hormone pen injections once a day insulin needles, DISPOSABLE, (PEN NEEDLE) 31 gauge x 5/16 ndle Use for GH pen injections once a day Aspirin 81 mg tab Take 81 mg by mouth. Tadalafil (CIALIS) 10 mg tablet Take 1 tablet by mouth as needed. 1-2 hours before sexual intercourse. (Patient not taking: Reported on 12/04/2021 ) No current facility-administered medications for this visit. Physical Examination Ht 172.7 cm (5' 8 ) Wt 86.2 kg (190 lb) BMI 28.89 kg/m VIDEO EXAM: (if completed, performed via video enabled technology) GENERAL: alert and appropriate, in no distress, well-hydrated, well nourished and happy, smiling, interactive Labs: 2014 HbA1c: 5.5 HcT: 37 Vit D; 33 Prolactin: 1.2 Testosterone : 546 2016: HBa1c: 5.3 PSA; nl Vit D: 28 Prolactin: 3 Testosterone: 225 TFT: normal Lipids: nl 2017: Labs sent for scanning' prl: 2.3 Tsto: 500 2018: Prl: 2.1 Free T3: 3.4Free T4: 1.07 T:430 Vit D:41 BMP; nl 2019: sent for scanning IGF1: 113 Free T4: 0.9 Free T3:2.6 Prl: 1.5 BMP: nl CBC: nl Testo: 508 Vit D: 229 ASSESSMENT/PLAN: # Pituitary macroprolactinoma s/p radiation therapy in 05/2001 - He had gradual decrease in prolactin level has been promising with last prolactin of being1.5 ng/mL (currently on 2 tb per week). - He is on raloxifene 60 mg daily. He also has osteopenia in spine which hopefully will benefit from raloxifene. We have discussed that raloxifene which is not FDA approved for this condition. - His past BMD shows osteopenia - BMD in Jna 2019 showed improvement in spine and mild decline in hip and from 2021 essentailly stable - Vit D : 5000 units daily Discussed reports about association of long-term high dose cabergoline therapy in parkinsonian patients with valvular heart disease in the past. His last echo was fine in 2011. 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 - Considering his hx of radiation,he was started on cortef 10 mg in the morning which needs to be increased to 20 mg in am and 10 mg in the afternoon for 2-3 days during sickness. - He has low testosterone while his prolactin has normalized, on androgel 1.67%--at goal, 3 pumps to each shoulder- continue same -GH deficiency diagnosed during ITT currently on 0.4 mg per day GH with recent IGF-1 at goal. Continue same # visual field check with ophtal # will send lab order letter : Follow with PCP for other issues RTC in 12 months Leo Pappas MD Answers for HPI/ROS submitted by the patient on 12/04/2021 Fever : No Night Sweats: No Recent Unintentional Weight Change: No Nasal Congestion: Yes Hearing Loss: No Vision Disturbance: No A Cough: No Difficulty Breathing?: No Chest Pain: No Irregular Heart Beat: No Leg Swelling: No Nausea: No Diarrhea: No Black Tarry Stools: No Difficulty Urinating?: No Awaken at Night More Than Once to Urinate?: No Joint Pain or Stiffness: No Muscle Aches: No Leg or Foot Discomfort at Night?: No A Rash: No Dizziness: No Headaches: No Memory Loss: No Seizures: No documented in this encounter [facility] 11-13-2021 Miscellaneous Notes The following approved medication requests have been transmitted electronically. Pending Prescriptions: Disp Refills raloxifene (EVISTA) 60 mg tablet 30 tablet 2 Sig: Take 1 tablet by mouth once daily. ANNA: No Leo Pappas MD Requester: Patient Last Endocrinology visit: 12/04/2020. Follow-up visit scheduled: 12/05/2021. Pending Prescriptions Disp Refills RALOXIFENE 60 MG TABLET 30 tablet 2 Sig: Take 1 tablet by mouth once daily. ANNA: No Thank you! Pia Mayes RN documented in this encounter [facility] Diagnosis Hypothyroidism, secondary Other specified acquired hypothyroidism Hypogonadism male Other testicular 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) Prolactinoma (HCC) Benign neoplasm of pituitary gland and craniopharyngeal duct (pouch) [facility] Diagnosis Hypothyroidism, secondary Other specified acquired hypothyroidism Hypogonadism male Other testicular 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) Prolactinoma (HCC) Benign neoplasm of pituitary gland and craniopharyngeal duct (pouch) [facility] Diagnosis Hypothyroidism, secondary Other specified acquired hypothyroidism Hypogonadism male Other testicular 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) Prolactinoma (HCC) Benign neoplasm of pituitary gland and craniopharyngeal duct (pouch) [facility] Diagnosis Hypothyroidism, secondary Other specified acquired hypothyroidism Hypogonadism male Other testicular 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) Prolactinoma (HCC) Benign neoplasm of pituitary gland and craniopharyngeal duct (pouch) [facility] Diagnosis Hypothyroidism, secondary Other specified acquired hypothyroidism Hypogonadism male Other testicular 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) Prolactinoma (HCC) Benign neoplasm of pituitary gland and craniopharyngeal duct (pouch) [facility] Diagnosis Hypothyroidism, secondary Other specified acquired hypothyroidism Hypogonadism male Other testicular 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) Prolactinoma (HCC) Benign neoplasm of pituitary gland and craniopharyngeal duct (pouch) [facility] Diagnosis Hypothyroidism, secondary Other specified acquired hypothyroidism Hypogonadism male Other testicular 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) Prolactinoma (HCC) Benign neoplasm of pituitary gland and craniopharyngeal duct (pouch) [facility] Diagnosis Hypothyroidism, secondary Other specified acquired hypothyroidism Hypogonadism male Other testicular 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) Prolactinoma (HCC) Benign neoplasm of pituitary gland and craniopharyngeal duct (pouch) [facility] Diagnosis Hypothyroidism, secondary Other specified acquired hypothyroidism Hypogonadism male Other testicular 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) Prolactinoma (HCC) Benign neoplasm of pituitary gland and craniopharyngeal duct (pouch) documented in this encounter [facility] Summary Purpose Family History No Family History Records FoundNo Family History Records FoundNo Family History Records FoundNo Family History Records Found Advance Directives No Advanced Directives Records FoundNo Advanced Directives Records FoundNo Advanced Directives Records FoundNo Advanced Directives Records Found Reason for Referral Specialty Diagnoses / Procedures Referred By Tai burgos Referred To Contact Leo Pappas V, MD [address] [place] [address] Referral ID Status Reason Start Date Expiration Date V isits Requested Visits Authorized [id number] Authorized 01/24/2023 02/23/2024 1 1 Specialty Diagnoses / Procedures Referred By Tai burgos Referred To Contact Diagnoses Hypothyroidism, secondary Hypogonadism male Benign neoplasm of pituitary gland and craniopharyngeal duct (pouch) (HCC) Prolactinoma (HCC) Leo Pappas V, MD [address] [place] [address] Referral ID Status Reason Start Date Expiration Date V isits Requested Visits Authorized [id number] Pending Review 1 1 Additional Source Comments (unrecognized sect ion and content) No Status Records FoundNo Status Records FoundNo Status Records FoundNo Status Records Found INFORMATION SOURCE (unrecogn ized section and content) DATE CREATED AUTHOR AUTHOR'S ORGANIZ ATION 06/20/2020 [facility] DATE CREATED AUTHOR AUTHOR'S ORGANIZ ATION 04/24/2021 [facility] DATE CREATED AUTHOR AUTHOR'S ORGANIZ ATION 05/14/2023 [facility] Source Comments (unrecognize d section and content) In the event this informatio n is protected by the Federal Confidentiality of Alcohol and Drug Abuse Patient Records regulations: The Federal rules restrict any use of the information to criminally investigate or prosecute any alcohol or drug abuse patient.[facility] the event this information is protected by the Federal Confidentiality of Alcohol and Drug Abuse Patient Records regulations: The Federal rules restrict any use of the information to criminally investigate or prosecute any alcohol or drug abuse patient.[facility] the event this information is protected by the Federal Confidentiality of Alcohol and Drug Abuse Patient Records regulations: The Federal rules restrict any use of the information to criminally investigate or prosecute any alcohol or drug abuse patient.[facility] the event this information is protected by the Federal Confidentiality of Alcohol and Drug Abuse Patient Records regulations: The Federal rules restrict any use of the information to criminally investigate or prosecute any alcohol or drug abuse patient.[facility] the event this information is protected by the Federal Confidentiality of Alcohol and Drug Abuse Patient Records regulations: The Federal rules restrict any use of the information to criminally investigate or prosecute any alcohol or drug abuse patient.[facility] the event this information is protected by the Federal Confidentiality of Alcohol and Drug Abuse Patient Records regulations: The Federal rules restrict any use of the information to criminally investigate or prosecute any alcohol or drug abuse patient.[facility] the event this information is protected by the Federal Confidentiality of Alcohol and Drug Abuse Patient Records regulations: The Federal rules restrict any use of the information to criminally investigate or prosecute any alcohol or drug abuse patient.[facility] the event this information is protected by the Federal Confidentiality of Alcohol and Drug Abuse Patient Records regulations: The Federal rules restrict any use of the information to criminally investigate or prosecute any alcohol or drug abuse patient.[facility] the event this information is protected by the Federal Confidentiality of Alcohol and Drug Abuse Patient Records regulations: The Federal rules restrict any use of the information to criminally investigate or prosecute any alcohol or drug abuse patient.[facility] the event this information is protected by the Federal Confidentiality of Alcohol and Drug Abuse Patient Records regulations: The Federal rules restrict any use of the information to criminally investigate or prosecute any alcohol or drug abuse patient.[facility] the event this information is protected by the Federal Confidentiality of Alcohol and Drug Abuse Patient Records regulations: The Federal rules restrict any use of the information to criminally investigate or prosecute any alcohol or drug abuse patient.[facility] the event this information is protected by the Federal Confidentiality of Alcohol and Drug Abuse Patient Records regulations: The Federal rules restrict any use of the information to criminally investigate or prosecute any alcohol or drug abuse patient.[facility] the event this information is protected by the Federal Confidentiality of Alcohol and Drug Abuse Patient Records regulations: The Federal rules restrict any use of the information to criminally investigate or prosecute any alcohol or drug abuse patient.[facility] the event this information is protected by the Federal Confidentiality of Alcohol and Drug Abuse Patient Records regulations: The Federal rules restrict any use of the information to criminally investigate or prosecute any alcohol or drug abuse patient.[facility] the event this information is protected by the Federal Confidentiality of Alcohol and Drug Abuse Patient Records regulations: The Federal rules restrict any use of the information to criminally investigate or prosecute any alcohol or drug abuse patient.[facility] the event this information is protected by the Federal Confidentiality of Alcohol and Drug Abuse Patient Records regulations: The Federal rules restrict any use of the information to criminally investigate or prosecute any alcohol or drug abuse patient.[facility] the event this information is protected by the Federal Confidentiality of Alcohol and Drug Abuse Patient Records regulations: The Federal rules restrict any use of the information to criminally investigate or prosecute any alcohol or drug abuse patient.[facility] the event this information is protected by the Federal Confidentiality of Alcohol and Drug Abuse Patient Records regulations: The Federal rules restrict any use of the information to criminally investigate or prosecute any alcohol or drug abuse patient.[facility] the event this information is protected by the Federal Confidentiality of Alcohol and Drug Abuse Patient Records regulations: The Federal rules restrict any use of the information to criminally investigate or prosecute any alcohol or drug abuse patient.[facility] the event this information is protected by the Federal Confidentiality of Alcohol and Drug Abuse Patient Records regulations: The Federal rules restrict any use of the information to criminally investigate or prosecute any alcohol or drug abuse patient.[facility] the event this information is protected by the Federal Confidentiality of Alcohol and Drug Abuse Patient Records regulations: The Federal rules restrict any use of the information to criminally investigate or prosecute any alcohol or drug abuse patient.[facility] Reason for Visit (unrecogniz ed section and content) Reason Comments Yearly Exam Hypothyroidism Reason Onset Date Comments Refill Request 12/13/2021 Reason Onset Date Comments Refill Request 01/23/2022 Reason Comments outside lab report Reason Onset Date Comments Refill Request 07/15/2022 Reason Onset Date Comments Refill Request 08/18/2022 Reason Onset Date Comments Refill Request 10/17/2022 Reason Onset Date Comments Refill Request 12/03/2022 Reason Onset Date Comments Refill Request 01/20/2023 Reason Onset Date Comments Refill Request 02/06/2023 Reason Comments Insurance Authorization Norditropin Reason Onset Date Comments Refill Request 04/21/2023 Reason Onset Date Comments Refill Request 06/27/2023 Care Teams (unrecognized sec tion and content) Rn Embedded Relationship Specialty Start Date End Date Nhung Vega [address] [facility] [address] [place] [address] PCP - General 09/30/04 Rn Embedded Relationship Specialty Start Date End Date Nhung Vega [address] [facility] [address] [place] [address] PCP - General 09/30/04 Rn Embedded Relationship Specialty Start Date End Date Nhung Vega [address] [facility] [address] [place] [address] PCP - General 09/30/04 Rn Embedded Relationship Specialty Start Date End Date Nhung Vega [address] [facility] [address] [place] [address] PCP - General 09/30/04 Rn Embedded Relationship Specialty Start Date End Date Nhung Vega [address] [facility] [address] [place] [address] PCP - General 09/30/04 Rn Embedded Relationship Specialty Start Date End Date Nhung Vega [address] [facility] [address] [place] [address] PCP - General 09/30/04 Rn Embedded Relationship Specialty Start Date End Date Gary Nhung Evangelina [address] [place] [address] PCP - General 09/30/04 Rn Embedded Relationship Specialty Start Date End Date Gary Nhung Evangelina [address] [place] [address] PCP - General 09/30/04 Rn Embedded Relationship Specialty Start Date End Date Nhung Vega [address] [place] [address] PCP - General 09/30/04 Rn Embedded Relationship Specialty Start Date End Date Nhung Vega [address] [place] [address] PCP - General 09/30/04 Rn Embedded Relationship Specialty Start Date End Date Gary Nhung Evangelina [address] [place] [address] PCP - General 09/30/04 Rn Embedded Relationship Specialty Start Date End Date Gary Nhung Evangelina [address] [place] [address] PCP - General 09/30/04 Rn Embedded Relationship Specialty Start Date End Date Gary Nhung Evangelina [address] [place] [address] PCP - General 09/30/04 Rn Embedded Relationship Specialty Start Date End Date Nhung Vega [address] [place] [address] [facility] - General 09/30/04 Rn Embedded Relationship Specialty Start Date End Date Nhung Vega [address] [place] [address] [facility] - General 09/30/04 Rn Embedded Relationship Specialty Start Date End Date Nhung Vega [address] [place] [address] [facility] General 09/30/04 Rn Embedded Relationship Specialty Start Date End Date Nhung Vega [address] [place] [address] [facility] 09/30/04 Rn Embedded Relationship Specialty Start Date End Date [facility]hung Vega [address] [facility] [address] [place] [address] [facility] 09/30/04 FOR RECORDS PERTAINING TO PATIENTS WHO ARE OR HAVE BEEN ENROLLED IN A CHEMICAL DEPENDENCY/SUBSTANCEABUSE PROGRAM, SOME INFORMATION MAY BE OMITTED. This clinical summary was aggregated from multiple sources. Caution should be exercised in using it in the provision of clinical care. This summary normalizes information from multiple sources, and as a consequence, information in this document may materially change the coding, format and clinical context of patient data. In addition, data may be omitted in some cases. CLINICAL DECISIONS SHOULD BE BASED ON THE PRIMARY CLINICAL RECORDS. [facility] [employer] [facility]. provides no warranty or guarantee of the accuracy or completeness of information in this document.
[2023-08-14 07:08] LABS: Insulin Like Growth Factor 57 ng/mL (64-240)
== END | disposition home or self-care (01) ==
LOC: LAB 07:45
PROVIDERS: PCP Internal Medicine; Visit Provider Internal Medicine
DX: Z79.899 Other long term (current) drug therapy (principal); E23.7 Disorder of pituitary gland, unspecified
CPT/HCPCS: 36415; 84305

== ENCOUNTER → 2024-04-19 | Outpatient (CLI) | payer OTHER, SELFPAY ==
--- NOTE | 2024-04-19 14:57 | BD_ITS ---
STUDY: DUAL ENERGY X-RAY ABSORPTIOMETRY / DXA REASON FOR EXAM: Male, 63 years old. Z79.899 TECHNIQUE: Bone Mineral Density (BMD) measurements of lumbar spine and bilateral hips were obtained. COMPARISON: Comparison is made with prior study dated September 03, 2021. FINDINGS: Lumbar Spine (L1-L4): g/cm2 (0.810) / T-score (-2.2) / Z-score (-1.5) Findings are suggestive of osteopenia with a high fracture risk. Left Femur Total: g/cm2 (0.978) / T-score (-0.4) / Z-score (0.1) Left Femoral Neck: g/cm2 (0.763) / T-score (-1.2) / Z-score (-0.2) Right Femur Total: g/cm2 (0.957) / T-score (-0.5) / Z-score (0.0) Right Femoral Neck: g/cm2 (0.807) / T-score (-0.9) / Z-score (0.1) The T-Scores on the most recent prior examination were: Lumbar Spine (L1-L4): There has been worsening of bone density since the previous examination. Left Femur Total: which represents a worsening of 1.7%. Right Femur Total: which represents a worsening of 6.4%. BD/Dexa Bone Density Study IMPRESSION: The patient is considered osteopenic as outlined below according to World Austen Organization (WHO) criteria with a high fracture risk. There has been worsening of bone density since the previous examination. Reference Information: The T-score is the number of standard deviations above or below the standard which is normal for young adults at their peak bone mineral density. The World Health Organization (WHO) interprets the T-scores as follows: Above -1 Normal bone density Between -1 and -2.5 Osteopenia Equal to / or below -2.5 Osteoporosis As a practical clinical guideline, osteopenia may be graded as follows: Mild -1 through -1.5 Moderate -1.6 through -2.0 Severe -2.1 through -2.4 The Z-score is the number of standard deviations above or below age-matched controls. A Z-score of less than -1.5 would be considered abnormal. References: 1. NIH Osteoporosis and Related Bone Diseases www osteo.org 2. International Society for Clinical Densitometry www iscd.org 3. National Osteoporosis Foundation www nof.org Electronically Signed: Mitchel Robles MD at 14:25 EDT ,
== END | disposition home or self-care (01) ==
PROVIDERS: PCP Internal Medicine; Referring Provider Internal Medicine; Visit Provider Internal Medicine
DX: E29.1 Testicular hypofunction (principal); E23.7 Disorder of pituitary gland, unspecified; Z79.899 Other long term (current) drug therapy
CPT/HCPCS: 77080

== ENCOUNTER → 2024-04-27 | Outpatient (CLI) | payer OTHER, SELFPAY ==
--- NOTE | 2024-04-27 15:28 | MRI_ITS ---
HISTORY: PITUITARY DISORDER,TESTICULAR HYPOFUNCTION -- CUSTODIAL USE OF MEDICATION. TECHNIQUE: Multiplanar and multisequence MR images of the brain with pituitary protocol were obtained before and after the intravenous administration of 18 cc Clariscan. 362 images. COMPARISON: 12/31/2011, 10/21/2005. FINDINGS: SELLA: 1.2 x 3 x 3.1 cm septated appearing and CSF isointense lesion extending from the upper clivus and sella turcica extending into the cavernous sinus with encasement and mild displacement of the left internal carotid artery, involvement of the left aspect of the sella, and protrusion into posterior aspect of the sphenoid sinus, previously 1.4 x 2.9 x 3.1 cm decreased enhancement compared to prior. Mild residual linear enhancement. Mild rightward deviation of the pituitary stalk and gland again seen. BRAIN PARENCHYMA: Mild chronic small vessel ischemic gliosis. No new enhancing lesion in the brain parenchyma. No abnormal focus of restricted diffusion. No acute intracranial hemorrhage identified. CSF SPACES: Cerebral ventricles, cortical sulci, and other extra-axial CSF spaces within normal limits in size for age. No significant midline shift or other mass effect.No extra-axial fluid collection. VASCULAR SYSTEM: Major intracranial flow voids are maintained. Deviation of the cavernous left internal carotid artery without significant narrowing. PARANASAL SINUSES AND MASTOID AIR CELLS: No significant air fluid levels. ORBITS: Symmetric contents. 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 Electronically Signed: Xiao Coleman MD at 10:40 EDT ,
[2024-04-27 16:18] LABS: CREATININE FINGERSTICK < 1.0 mg/dL (0.70-1.30); EGFR FINGERSTICK > 60.0000 mL/min (>60)
== END | disposition home or self-care (01) ==
PROVIDERS: PCP Internal Medicine; Referring Provider Internal Medicine; Visit Provider Internal Medicine
DX: E23.7 Disorder of pituitary gland, unspecified (principal); E29.1 Testicular hypofunction; Z79.899 Other long term (current) drug therapy; Z01.812 Encounter for preprocedural laboratory examination
CPT/HCPCS: 70553; A9575

== ENCOUNTER → 2024-05-24 | Outpatient (CLI) | payer OTHER, SELFPAY ==
--- OUTSIDE RECORDS SUMMARY | 2024-05-24 08:04 | XMS RPT_ITS | CCD ---
Author Organization [facility] ion [facility] Care Team Providers Care [employer] Specialist Name Role Phone SARITHA, DR DARIN Sky Attending Unavaila ble SARITHA, DR DARIN Sky Primary Care Unavaila ble SARITHA, DR DARIN Sky Admitting Unavaila ble SARITHA, DR DARIN Sky Attending Unavaila ble SARITHA, DR DARIN Sky Primary Care Unavaila ble SARITHA, DR DARIN Sky Admitting Unavaila ble JollNhung odonnell Primary Care Provider [phone] Nhung Vega Primary Care Provider [phone] Nhung Vega Primary Care Provider Nhung Vega Primary Care Provider Nhung Vega Primary Care Provider Nhung Vega Primary Care Provider NHUNG VEGA Primary Care Unavailable PEECHAKARA, SEENIA Referring Unavailable PEECHAKARA, SEENIA Attending Unavailable Allergies Allergy Classification Reported Allergen(s) Allergy Type Date of Onset Reaction(s) Facility (4 sources) Penicillins; Translations: [PENICILLINS] Drug Allergy 05-19-2013 [facility] Work Phone: (20 sources) Penicillins Drug Allergy 05-19-2013 [facility] Work Phone: Medications Current Medications Medication Drug Class(es) Dates Sig (Normalized) Sig (Original) aspirin 81 mg oral tablet (20 sources) Platelet Aggregation Inhibitor, Nonsteroidal Anti-inflammatory Drug Aspirin 81 mg tab Indications: Other and unspecified anterior pituitary hyperfunction (HCC) Take 81 mg by mouth. Active Comment on above: Take 81 mg by mouth. cabergoline 0.5 mg oral tablet (20 sources) Ergot Derivative Start: 05-29-2023 End: 01-26-2024 cabergoline (DOSTINEX) 0.5 mg tablet Indications: Hypothyroidism, secondary , Hypogonadism male , Benign neoplasm of pituitary gland and craniopharyngeal duct (pouch) (HCC) , Prolactinoma (HCC) Take 1 tb 2 days per week. 50 tablet 1 01/27/2024 Active Start: 05-22-2023 End: 05-27-2023 cabergoline (DOSTINEX) 0.5 m g tablet Indications: Hypothyroidism, secondary , Hypogonadism male , Benign neoplasm of pituitary gland and craniopharyngeal duct (pouch) (HCC) , Prolactinoma (HCC) Take 1 tb 2 days per week. 50 tablet 1 05/22/2023 05/27/2023 Discontinued Start: 05-05-2023 cabergoline (D OSTINEX) 0.5 mg tablet Indications: Hypothyroidism, secondary , Hypogonadism male , Benign neoplasm of pituitary gland and craniopharyngeal duct (pouch) (HCC) , Prolactinoma (HCC) Take 1 tb 2 days per week. 50 tablet 1 05/05/2023 Active Start: 12-05-2022 cabergoline (D OSTINEX) 0.5 mg tablet Indications: Hypothyroidism, secondary , Hypogonadism male , Benign neoplasm of pituitary gland and craniopharyngeal duct (pouch) (HCC) , Prolactinoma (HCC) Take 1 tb 2 days per week. 50 tablet 1 12/05/2022 Active Start: 01-03-2021 End: 12-03-2022 cabergoline (DOSTINEX) 0.5 m g tablet Indications: Hypothyroidism, secondary , Hypogonadism male , Benign neoplasm of pituitary gland and craniopharyngeal duct (pouch) (HCC) , Prolactinoma (HCC) Take 1 tb 2 days per week. 50 tablet 3 12/05/2021 12/03/2022 Discontinued Comment on above: Take 1 tb 2 days per week. hydrocortisone 10 mg oral tablet (20 sources) Corticosteroid Start: 04-20-2024 hydrocortisone (CORTEF) 10 mg tablet Indications: Hypothyroidism, secondary , Hypogonadism male , Benign neoplasm of pituitary gland and craniopharyngeal duct (pouch) (HCC) , Prolactinoma (HCC) Take one tablet in am, increase to 2 tab in am and 1 tab in the afternoon for 2-3 days if sick 110 tablet 04/20/2024 Active Start: 05-29-2023 End: 04-18-2024 hydrocortisone (CORTEF) 10 m g tablet Indications: Hypothyroidism, secondary , Hypogonadism male , Benign neoplasm of pituitary gland and craniopharyngeal duct (pouch) (HCC) , Prolactinoma (HCC) Take one tablet in am, increase to 2 tab in am and 1 tab in the afternoon for 2-3 days if sick 110 tablet 1 06/26/2023 04/18/2024 Discontinued Start: 05-22-2023 End: 05-27-2023 hydrocortisone (CORTEF) 10 m g tablet Indications: Hypothyroidism, secondary , Hypogonadism male , Benign neoplasm of pituitary gland and craniopharyngeal duct (pouch) (HCC) , Prolactinoma (HCC) Take one tablet in am, increase to 2 tab in am and 1 tab in the afternoon for 2-3 days if sick 110 tablet 1 05/22/2023 05/27/2023 Discontinued Start: 05-05-2023 hydrocortisone (CORTEF) 10 mg tablet Indications: Hypothyroidism, secondary , Hypogonadism male , Benign neoplasm of pituitary gland and craniopharyngeal duct (pouch) (HCC) , Prolactinoma (HCC) Take one tablet in am, increase to 2 tab in am and 1 tab in the afternoon for 2-3 days if sick 110 tablet 1 05/05/2023 Active Start: 12-05-2022 hydrocortisone (CORTEF) 10 mg tablet Indications: Hypothyroidism, secondary , Hypogonadism male , Benign neoplasm of pituitary gland and craniopharyngeal duct (pouch) (HCC) , Prolactinoma (HCC) Take one tablet in am, increase to 2 tab in am and 1 tab in the afternoon for 2-3 days if sick 110 tablet 1 12/05/2022 Active Start: 08-10-2019 End: 12-03-2022 hydrocortisone (CORTEF) 10 m g tablet Indications: Hypothyroidism, secondary , Hypogonadism male , Benign neoplasm of pituitary gland and craniopharyngeal duct (pouch) (HCC) , Prolactinoma (HCC) Take one tablet in am, increase to 2 tab in am and 1 tab in the afternoon for 2-3 days if sick 110 tablet 3 12/05/2021 12/03/2022 Discontinued Comment on above: Take one tablet in a m, increase to 2 tab in am and 1 tab in the afternoon for 2-3 days if sick levothyroxine sodium 0.112 mg oral tablet (20 sources) l-Thyroxine Start: 04-20-20 take 1 tablet by mouth once daily in the morning levothyroxine (SYNTHROID) 112 mcg tablet Indications: Hypothyroidism, secondary , Hypogonadism male , Benign neoplasm of pituitary gland and craniopharyngeal duct (pouch) (HCC) , Prolactinoma (HCC) Take 1 tablet by mouth every morning. on empty stomach 90 tablet 04/20/2024 Active Start: 05-29-2023 End: 04-18-2024 take 1 tablet by mouth once daily in the morning levothyroxine (SYNTHROID) 112 mcg tablet Indications: Hypothyroidism, secondary , Hypogonadism male , Benign neoplasm of pituitary gland and craniopharyngeal duct (pouch) (HCC) , Prolactinoma (HCC) Take 1 tablet by mouth every morning. on empty stomach 90 tablet 3 06/26/2023 04/18/2024 Discontinued Start: 05-22-2023 End: 05-27-2023 take 1 tablet by mouth once daily in the morning levothyroxine (SYNTHROID) 112 mcg tablet Indications: Hypothyroidism, secondary , Hypogonadism male , Benign neoplasm of pituitary gland and craniopharyngeal duct (pouch) (HCC) , Prolactinoma (HCC) Take 1 tablet by mouth every morning. on empty stomach 90 tablet 3 05/22/2023 05/27/2023 Discontinued Start: 05-05-2023 take 1 tablet by aguila th once daily in the morning levothyroxine (SYNTHROID) 112 mcg tablet Indications: Hypothyroidism, secondary , Hypogonadism male , Benign neoplasm of pituitary gland and craniopharyngeal duct (pouch) (HCC) , Prolactinoma (HCC) Take 1 tablet by mouth every morning. on empty stomach 90 tablet 3 05/05/2023 Active Start: 04-23-2023 take 1 tablet by aguila th once daily in the morning levothyroxine (SYNTHROID) 112 mcg tablet Indications: Hypothyroidism, secondary , Hypogonadism male , Benign neoplasm of pituitary gland and craniopharyngeal duct (pouch) (HCC) , Prolactinoma (HCC) Take 1 tablet by mouth every morning. on empty stomach 30 tablet 0 04/23/2023 Active Start: 12-05-2022 End: 04-21-2023 take 1 tablet by mouth once daily in the morning levothyroxine (SYNTHROID) 112 mcg tablet Indications: Hypothyroidism, secondary , Hypogonadism male , Benign neoplasm of pituitary gland and craniopharyngeal duct (pouch) (HCC) , Prolactinoma (HCC) Take 1 tablet by mouth every morning. on empty stomach 90 tablet 1 12/05/2022 04/21/2023 Discontinued Start: 04-17-2021 End: 12-03-2022 take 1 tablet by mouth once daily in the morning levothyroxine (SYNTHROID) 112 mcg tablet Indications: Hypothyroidism, secondary , Hypogonadism male , Benign neoplasm of pituitary gland and craniopharyngeal duct (pouch) (HCC) , Prolactinoma (HCC) Take 1 tablet by mouth every morning. on empty stomach 90 tablet 3 12/05/2021 12/03/2022 Discontinued Comment on above: Take 1 tablet by aguila th every morning. on empty stomach raloxifene hydrochloride 60 mg oral tablet (20 sources) Estrogen Agonist/Antagonis t Start: 04-20-20 take 1 tablet by mouth once daily raloxifene (EVISTA) 60 mg tablet Indications: Hypothyroidism, secondary , Hypogonadism male , Benign neoplasm of pituitary gland and craniopharyngeal duct (pouch) (HCC) , Prolactinoma (HCC) Take 1 tablet by mouth once daily. 90 tablet 04/20/2024 Active Start: 05-29-2023 End: 04-18-2024 take 1 tablet by mouth once daily raloxifene (EVISTA) 60 mg tablet Indications: Hypothyroidism, secondary , Hypogonadism male , Benign neoplasm of pituitary gland and craniopharyngeal duct (pouch) (HCC) , Prolactinoma (HCC) Take 1 tablet by mouth once daily. 90 tablet 3 06/26/2023 04/18/2024 Discontinued Start: 05-22-2023 End: 05-27-2023 take 1 tablet by mouth once daily raloxifene (EVISTA) 60 mg tablet Indications: Hypothyroidism, secondary , Hypogonadism male , Benign neoplasm of pituitary gland and craniopharyngeal duct (pouch) (HCC) , Prolactinoma (HCC) Take 1 tablet by mouth once daily. 90 tablet 3 05/22/2023 05/27/2023 Discontinued Start: 05-05-2023 take 1 tablet by aguila th once daily raloxifene (EVISTA) 60 mg tablet Indications: Hypothyroidism, secondary , Hypogonadism male , Benign neoplasm of pituitary gland and craniopharyngeal duct (pouch) (HCC) , Prolactinoma (HCC) Take 1 tablet by mouth once daily. 90 tablet 3 05/05/2023 Active Start: 04-23-2023 take 1 tablet by aguila th once daily raloxifene (EVISTA) 60 mg tablet Indications: Hypothyroidism, secondary , Hypogonadism male , Benign neoplasm of pituitary gland and craniopharyngeal duct (pouch) (HCC) , Prolactinoma (HCC) Take 1 tablet by mouth once daily. 30 tablet 0 04/23/2023 Active Start: 12-05-2022 End: 04-21-2023 take 1 tablet by mouth once daily raloxifene (EVISTA) 60 mg tablet Indications: Hypothyroidism, secondary , Hypogonadism male , Benign neoplasm of pituitary gland and craniopharyngeal duct (pouch) (HCC) , Prolactinoma (HCC) Take 1 tablet by mouth once daily. 90 tablet 1 12/05/2022 04/21/2023 Discontinued Start: 08-20-2022 End: 12-03-2022 take 1 tablet by mouth once daily raloxifene (EVISTA) 60 mg tablet Indications: Hypothyroidism, secondary , Hypogonadism male , Benign neoplasm of pituitary gland and craniopharyngeal duct (pouch) (HCC) , Prolactinoma (HCC) Take 1 tablet by mouth once daily. 90 tablet 1 08/20/2022 12/03/2022 Discontinued Start: 05-09-2022 End: 08-18-2022 take 1 tablet by mouth once daily raloxifene (EVISTA) 60 mg tablet Indications: Hypothyroidism, secondary , Hypogonadism male , Benign neoplasm of pituitary gland and craniopharyngeal duct (pouch) (HCC) , Prolactinoma (HCC) Take 1 tablet by mouth once daily. 30 tablet 2 05/09/2022 08/18/2022 Discontinued Start: 07-11-2021 End: 12-05-2021 take 1 tablet by mouth once daily raloxifene (EVISTA) 60 mg tablet Indications: Hypothyroidism, secondary , Hypogonadism male , Benign neoplasm of pituitary gland and craniopharyngeal duct (pouch) (HCC) , Prolactinoma (HCC) Take 1 tablet by mouth once daily. 30 tablet 2 12/05/2021 Active Comment on above: Take 1 tablet by aguila th once daily. rosuvastatin calcium 20 mg oral tablet (20 sources) HMG-CoA Reductase Inhibitor Start: take 1 tablet by mouth once daily rosuvastatin (CRESTOR) 20 mg tablet Take 1 tablet by mouth once daily. 90 tablet 3 06/29/2023 Active Start: 10-20-2022 End: 06-27-2023 take 1 tablet by mouth once daily rosuvastatin (CRESTOR) 20 mg tablet Take 1 tablet by mouth once daily. 90 tablet 3 10/20/2022 06/27/2023 Discontinued Start: 12-04-2020 End: 10-17-2022 take 1 tablet by mouth once daily rosuvastatin (CRESTOR) 20 mg tablet Take 1 tablet by mouth once daily. 90 tablet 3 12/05/2021 10/17/2022 Discontinued Comment on above: Take 1 tablet by aguila th once daily. 1.5 ml somatropin 3.3 mg/ml cartridge (20 sources) Recombinant Human Growth Hormone Start: 03-04-20 inject 0.4 mg by subcutaneous injection once daily Somatropin (OMNITROPE) 5 mg/1.5 mL (3.3 mg/mL) Inject 0.4 mg SQ daily 6 mL 2 03/04/2024 Active Start: 01-13-2024 End: 02-29-2024 inject 0.4 mg by subcutaneous injection once daily Somatropin (OMNITROPE) 5 mg/1.5 mL (3.3 mg/mL) Inject 0.4 mg SQ daily 6 mL 2 03/04/2024 Active Start: 12-11-2023 inject 0.4 mg by sub cutaneous injection once daily Somatropin (GENOTROPIN) 5 mg/mL (15 unit/mL) crtg Inject 0.4 mg SQ daily 5 Each 1 12/11/2023 Active Start: 05-13-2023 inject 0.4 mg by sub cutaneous injection once daily Somatropin (OMNITROPE) 5 mg/1.5 mL (3.3 mg/mL) Inject 0.4 mg SQ daily 6 mL 2 05/13/2023 Active Start: 02-23-2023 End: 05-11-2023 inject 0.4 mg by subcutaneous injection once daily Somatropin (OMNITROPE) 5 mg/1.5 mL (3.3 mg/mL) Inject 0.4 mg SQ daily 6 mL 2 02/23/2023 05/11/2023 Discontinued Start: 08-10-2019 End: 02-23-2023 inject 0.4 mg by subcutaneous injection once daily Somatropin (NORDITROPIN FLEXPRO) 5 mg/1.5 mL (3.3 mg/mL) Inject 0.4 mg subcutaneously daily 10 Each 3 01/21/2023 02/23/2023 Discontinued Comment on above: Inject 0.4 mg subcut aneously daily Inject 0.4 mg SQ zachariah ly 60 actuat testosterone 20.25 mg/actuat topical gel (20 sources) Androgen Start: 07-11-2021 End: 02-09-2028 testosterone (ANDROGEL PUMP) 20.25 mg/1.25 gram (1.62 %) transdermal gel Indications: Hypothyroidism, secondary , Hypogonadism male , Benign neoplasm of pituitary gland and craniopharyngeal duct (pouch) (HCC) , Prolactinoma (HCC) Apply three pumps on each shoulder as directed 300 g 1 03/04/2024 02/09/2028 Active Comment on above: Apply three pumps on each shoulder as directed Completed/Discontinued Medications Medication Drug Class(es) Dates Sig (Normalized) Sig (Original) tadalafil 10 mg oral tablet (9 sources) Phosphodiesterase 5 Inhibitor Start: 08-10-2019 End: 10-17-2022 Tadalafil (CIALIS) 10 mg tablet Indications: Hypogonadism male Take 1 tablet by mouth as needed. 1-2 hours before sexual intercourse. 10 tablet 0 08/10/2019 10/17/2022 Discontinued (Course of therapy completed) Comment on above: Take 1 tablet by mouth as needed. 1-2 ho urs before sexual intercourse. Problems Active Problems Problem Classification Problem Date Documented Date Episodic/Chronic Other and unspecified benign neoplasm (20 sources) Benign neoplasm of pituitary gland and craniopharyngeal duct; Translations: [Benign neoplasm of pituitary gland] Onset: 12-24-2002 Episodic Other and unspecified benign neoplasm (16 sources) Prolactinoma; Translations: [Benign neoplasm of pituitary gland] Episodic Other endocrine disorders (20 sources) Male [...] 06-18-2020 Episodic Other and unspecified benign neoplasm (2 sources) Benign neoplasm of pituitary gland; Translations: [Benign neoplasm of pituitary gland and craniopharyngeal duct (pouch) (HCC)] Onset: 12-24-2002 Episodic Other and unspecified benign neoplasm (1 source) Benign neoplasm of craniopharyngeal duct; Translations: [Benign neoplasm of pituitary gland and craniopharyngeal duct (pouch) (HCC)] Onset: 12-24-2002 Episodic Other bone disease and musculoskeletal deformities (20 sources) Osteopenia; Translations: [Other specified disorders of bone density and structure, unspecified site] Onset: 07-05-2015 07-05-2015 Episodic Results Test Name Value Interpretation Reference Range Facility [facility] 04-11-2024 [facility] Telephone (ENDOAV) SUSHANT WOODS ([id number]) 1960 M Date Time Provider Department 04/11/24 LEO SHAW During your visit today, we recorded the following information about you: Christel Crook LPN 04/11/2024 3:00 PM Signed [facility] placed in Dr. Shaw's folder for review. Allergies As of Date: 04/11/2024 Noted Allergy Reaction PENICILLINS 05/19/2013 4 - Hives Date Reviewed: 12/04/2021 Reviewed by: uYdy Rouse MA - Fully Assessed Reason for Visit: Forms [913] Cmt: [facility] Prescriptions as of 04/11/2024 - Somatropin (OMNITROPE) 5 mg/1.5 mL (3.3 mg/mL) Inject 0.4 mg SQ daily - testosterone (ANDROGEL PUMP) 20.25 mg/1.25 gram (1.62 %) transdermal gel Apply three pumps on each shoulder as directed - cabergoline (DOSTINEX) 0.5 mg tablet Take 1 tb 2 days per week. - Somatropin (GENOTROPIN) 5 mg/mL (15 unit/mL) crtg Inject 0.4 mg SQ daily - rosuvastatin (CRESTOR) 20 mg tablet Take 1 tablet by mouth once daily. - hydrocortisone (CORTEF) 10 mg tablet Take one tablet in am, increase to 2 tab in am and 1 tab in the afternoon for 2-3 days if sick - levothyroxine (SYNTHROID) 112 mcg tablet Take 1 tablet by mouth every morning. on empty stomach - raloxifene (EVISTA) 60 mg tablet Take 1 tablet by mouth once daily. - insulin needles, DISPOSABLE, (BD INSULIN PEN NEEDLE UF) 31 gauge x 5/16 Use for growth hormone pen injections once a day - insulin needles, DISPOSABLE, (PEN NEEDLE) 31 gauge x 5/16 ndle Use for GH pen injections once a day - Aspirin 81 mg tab Take 81 mg by mouth. 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] 12/24/2002 Hypothyroidism, secondary [E03.8] 02/10/2011 Hypogonadism male [E29.1] 10/30/2011 Osteopenia [M85.80] 07/05/2015 Secondary adrenal insufficiency (HCC) [E27.49] 01/04/2021 Encounter Status:Closed by CHRISTEL CROOK on 04/11/24 [facility] 03-03-2024 [facility] Telephone (ENDOAV) ROSALIESUSHANT ([id number]) 1960 M Date Time Provider Department 03/03/24 LEO SHAW During your visit today, we recorded the following information about you: Fanny Richard 03/03/2024 2:18 PM Signed [facility] is calling Leo Shaw MD today to request Medication Preauthorization (Somatropin (OMNITROPE) 5 mg/1.5 mL (3.3 mg/mL)). . Patient has been identified by name and birthdate. Duration of symptoms: N/A Person calling: pharmacy: [facility] at: [phone] Was an appointment scheduled: No Closing statement: Results or non-symptom based questions: Thank you for calling [facility], your call will be returned within the next business day. Milvia Law RN 03/04/2024 9:52 AM Signed Called back and completed PA over the phone. Approved from 02/03/24-03/04/25. Pt notified. Allergies As of Date: 03/03/2024 Noted Allergy Reaction PENICILLINS 05/19/2013 4 - Hives Date Reviewed: 12/04/2021 Reviewed by: Yudy Rouse MA - Fully Assessed Reason for Visit: Medication Preauthorization [914] Cmt: Somatropin (OMNITROPE) 5 mg/1.5 mL (3.3 mg/mL) Prescriptions as of 03/04/2024 - cabergoline (DOSTINEX) 0.5 mg tablet Take 1 tb 2 days per week. - testosterone (ANDROGEL PUMP) 20.25 mg/1.25 gram (1.62 %) transdermal gel Apply three pumps on each shoulder as directed - Somatropin (OMNITROPE) 5 mg/1.5 mL (3.3 mg/mL) Inject 0.4 mg SQ daily - Somatropin (GENOTROPIN) 5 mg/mL (15 unit/mL) crtg Inject 0.4 mg SQ daily - rosuvastatin (CRESTOR) 20 mg tablet Take 1 tablet by mouth once daily. - hydrocortisone (CORTEF) 10 mg tablet Take one tablet in am, increase to 2 tab in am and 1 tab in the afternoon for 2-3 days if sick - levothyroxine (SYNTHROID) 112 mcg tablet Take 1 tablet by mouth every morning. on empty stomach - raloxifene (EVISTA) 60 mg tablet Take 1 tablet by mouth once daily. - insulin needles, DISPOSABLE, (BD INSULIN PEN NEEDLE UF) 31 gauge x 5/16 Use for growth hormone pen injections once a day - insulin needles, DISPOSABLE, (PEN NEEDLE) 31 gauge x 5/16 ndle Use for GH pen injections once a day - Aspirin 81 mg tab Take 81 mg by mouth. 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] 12/24/2002 Hypothyroidism, secondary [E03.8] 02/10/2011 Hypogonadism male [E29.1] 10/30/2011 Osteopenia [M85.80] 07/05/2015 Secondary adrenal insufficiency (HCC) [E27.49] 01/04/2021 Encounter Status:Closed by MILVIA BERMUDEZ on 03/04/24 Normal [facility]COon 05-12-2023 CNCO Letter Text Normal [facility] FREE T3on 05-06-2022 Free T3 [Mass/Vol] 2.6 pg/mL 2.18 - 3.98 [facility] FREE T4on 05-06-2022 Free T4 [Mass/Vol] 1.13 ng/dL 0.16 - 1.46 [facility] HbA1c (Bld)on 05-06-2022 HbA1c (Bld) [Mass fraction] 5.7 % Abnormal 3.8 - 5.6 % [facility] T4 / THYROXINE BLOOD (AK,AV, EU,HL,CHRISTINE,MM,SP)on 05-06-2022 T4 [Mass/Vol] 12.1 ug/dL 4.5 - 12.1 [facility] VITAMIN D 25 HYDROXY (AK,AV, EU,FV,HL,CHRISTINE,MM,SP)on 05-06-2022 VITAMIN D, 25 OH TOTAL 65.9 ng/ml 20 - 100 ng/ml [facility] CORONAVIRUS PCR - [facility] 04-23-2021 SARS-CoV-2 (COVID-19) RNA LA+probe Ql (Unsp spec) Positive Critically abnormal NORMAL: NEGATIVE [facility] Comment on above: Result Comment: { CA LLED TO FAXED TO AG { READ BACK BY Performed By: #### [id number] #### [facility],[address] [place] [address] SEND TO IC? YES Normal [facility] Comment on above: Result Comment: RESU LTS FAXED TO INFECTION CONTROL. SARS-CoV-2 THIS TEST IS BEING USED UNDER THE FDA EUA PROCEDURE. THIS ASSAY HAS BEEN VALIDATED IN THE [facility] FOR USE WITH NASOPHARYNGEAL SPECIMENS IN [facility]. INTERPRETIVE DATA LABORATORY TEST RESULTS SHOULD ALWAYS BE CONSIDERED IN THE CONTEXT OF CLINICAL OBSERVATIONS AND EPIDEMIOLOGICAL DATA IN MAKING FINAL DIAGNOSIS AND PATIENT MANAGEMENT DECISIONS. PATIENT MANAGEMENT SHOULD FOLLOW CURRENT CDC GUIDELINES. A POSITIVE TEST RESULT FOR COVID-19 INDICATES THAT RNA FROM SARS-CoV-2 WAS DETECTED, AND THE PATIENT IS INFECTED WITH THE VIRUS AND PRESUMED TO BE CONTAGIOUS. A NEGATIVE TEST RESULT FOR THIS TEST MEANS THAT SARS-CoV-2 RNA WAS NOT PRESENT IN THE SPECIMEN ABOVE THE LIMIT OF DETECTION. HOWEVER, A NEGATVIE RESULT DOES NOT RULE OUT COVID-19 AND SHOULD NOT BE USED THE SOLE BASIS FOR TREATMENT OR PATIENT MANAGEMENT DECISIONS. A NEGATIVE RESULT DOES NOT EXCLUDE THE POSSIBILITY OF COVID-19. WHEN DIAGNOSTIC TESTING IS NEGATIVE, THE POSSIBLILTY OF A FALSE NEGATIVE RESULT SHOULD BE CONSIDERED IN THE CONTEXT OF A PATIENT'S RECENT EXPOSURES AND THE PRESENCE OF CLINICAL SIGNS AND SYMPTOMS CONSISTENT WITH COVID-19. THE POSSIBILITY OF A FALSE NEGATIVE RESULT SHOULD ESPECIALLY BE CONSIDERED IF THE PATIENT'S RECENT EXPOSURES OR CLINICAL PRESENTATION INDICATE THAT COVID-19 IS LIKELY, AND DIAGNOSTIC TESTS FOR OTHER CAUSES OF ILLNESS (e.g., OTHER RESPIRATORY ILLNESS) ARE NEGATIVE. IF COVID-19 IS STILL SUSPECTED BASED ON EXPOSURE HISTORY TOGETHER WITH OTHER CLINICAL FINDINGS, RE-TESTED SHOULD BE CONSIDERED BY HEALTHCARE PROVIDERS IN CONSULTATION WITH PUBLIC HEALTH AUTHORITIES. Performed By: #### [id number] #### [facility],[address] [place] [id number] CORONAVIRUS PCR [CCL]on 05-28 SARS-CoV-2 (COVID-19) RNA LA+probe Ql (Unsp spec) Nasopharyngeal Swab Normal [facility] Comment on above: Result Comment: Cuong ected on 06/19 AT 1055: Previously reported as U Performed By: #### [id number] #### [facility],[address] [place] [address] SARS-CoV-2 (COVID-19) RNA LA+probe Ql (Unsp spec) Negative Normal [facility] Comment on above: Result Comment: Nega tive for COVID19 (SARS CoV2) by PCR. This test was developed and its performance characteristics determined by [facility] [place]. This test has been authorized by FDA under an Emergency Use Authorization (EUA). This test has been validated in accordance with the FDA's Guidance Document Policy for Diagnostics Testing in Laboratories Certified to Perform High Complexity Testing under CLIA prior to Emergency use Authorization for Coronavirus Disease 2019 during the Public Health Emergency issued on September 24, [place] [address] Travis Lazo III, M.D. [id number] Performed By: #### [id number] #### [address] [address] Coronavirus 2019on 0 COVID 19 Result MILL RECORDER Normal Negative for COVID19 (SARS CoV2) by PCR. [facility] Comment on above: Result Comment: Nega tive for This test was developed and its performance characteristics determined by [facility] [place]. This test has been authorized by FDA under an Emergency Use Authorization (EUA). This test has been validated in accordance with the FDA's Guidance Document Policy for Diagnostics Testing in Laboratories Certified to Perform High Complexity Testing under CLIA prior to Emergency use Authorization for Coronavirus Disease 2019 during the Public Health Emergency issued on September 24, 2019. COVID19 (SARS This test was developed and its performance characteristics determined by [facility] [place]. This test has been authorized by FDA under an Emergency Use Authorization (EUA). This test has been validated in accordance with the FDA's Guidance Document Policy for Diagnostics Testing in Laboratories Certified to Perform High Complexity Testing under CLIA prior to Emergency use Authorization for Coronavirus Disease 2019 during the Public Health Emergency issued on September 24, 2019. CoV2) by PCR. This test was developed and its performance characteristics determined by [facility] [place]. This test has been authorized by FDA under an Emergency Use Authorization (EUA). This test has been validated in accordance with the FDA's Guidance Document Policy for Diagnostics Testing in Laboratories Certified to Perform High Complexity Testing under CLIA prior to Emergency use Authorization for Coronavirus Disease 2019 during the Public Health Emergency issued on September 24, 2019. COVID 19 Source MILL RECORDER Normal [facility] Comment on above: Result Comment: Naso pharyngeal Corrected on 06/19 AT 1055: Previously reported as U Swab Corrected on 06/19 AT 1055: Previously reported as U Vital Signs Date Time Vital Sign Value Performing Clinician Faci lity 12-04-2021 09:37-0400 Body height 172.7 cm Leo Barrera MD Work Phone: [facility] 12-04-2021 09:37-0400 Body weight 86.18 kg Leo Barrera MD Work Phone: [facility] Encounters Encounter Date Encounter Type Care Provider Facility Start: 04-18-2024 End: 04-20-2024 Refill Leo Shaw MD Work Phone: Endocrinology Comment on above: Refill Request Start: 04-11-2024 End: 04-11-2024 Telephone encounter Leo Shaw MD Work Phone: Endocrinology Comment on above: Forms ([facility]) Start: 03-03-2024 Telephone encounter Leo frank MD Work Phone: Endocrinology Comment on above: Medication Preauthor ization (Somatropin (OMNITROPE) 5 mg/1.5 mL (3.3 mg/mL) ) Start: 02-29-2024 ambulatory Leo Barrera MD Work Phone: Endocrinology Start: 02-29-2024 Patient encounter procedure Leo Shaw MD Work Phone: Endocrinology Comment on above: Two meds approvals Start: 01-26-2024 Refill Leo bunch MD Work Phone: Endocrinology Comment on above: Refill Request Start: 12-10-2023 Refill Leo bunch MD Work Phone: Endocrinology Comment on above: Refill Request Start: 08-22-2023 ambulatory Leo bunch MD Work Phone: Endocrinology Comment on above: Bloodwork Done Start: 06-27-2023 Refill So Jimi CHOUDHARY Work Phone: Endocrinology Comment on above: Refill Request Start: 06-23-2023 ambulatory Leo bunch MD Work Phone: Endocrinology Comment on above: [facility] Start: 05-27-2023 ambulatory Leo bunch MD Work Phone: Endocrinology Comment on above: New Pharmacies Start: 05-09-2023 ambulatory Leo bunch MD Work Phone: Endocrinology Comment on above: Omnitrope Start: 05-05-2023 End: 05-05-2023 ambulatory NHUNG VEGA Facility:[facility] Start: 04-21-2023 Refill Leo bunch MD Work Phone: Endocrinology Comment on above: Refill Request Start: 02-17-2023 ambulatory Leo bunch MD Work Phone: Endocrinology Comment on above: Blood Tests Start: 02-12-2023 ambulatory Leo bunch MD Work Phone: Endocrinology Comment on above: Growth Hormone shot Start: 02-11-2023 Telephone encounter Leo frank MD Work Phone: Endocrinology Comment on above: Insurance Authorizat ion (Norditropin) Start: 02-06-2023 Refill Leo bunch MD Work Phone: Endocrinology Comment on above: Refill Request Start: 01-20-2023 Refill Leo bunch MD Work Phone: Endocrinology Comment on above: Refill Request Start: 12-03-2022 Refill Leo bunch MD Work Phone: Endocrinology Comment on above: Refill Request Start: 10-17-2022 Refill Leo bunch MD Work Phone: Endocrinology Comment on above: Refill Request Start: 08-18-2022 Refill Leo bunch MD Work Phone: Endocrinology Comment on above: Refill Request Start: 07-15-2022 Refill Leo bunch MD Work Phone: Endocrinology Comment on above: Refill Request Start: 05-28-2022 Chart abstracting Criss Resendez RN En docrinology Comment on above: outside lab report Start: 03-16-2022 E-mail encounter fro m caregiver Merry Almanzar MD Work Phone: [facility] Start: 03-16-2022 Evaluation and manag ement of inpatient Merry Almanzar MD Work Phone: Pulmonary Medicine Comment on above: Research Study: The Incidence of worsening symptoms of adrenal insufficiency and COVID-19 infection after receiving COVID-19 vaccine in patients with adrenal insufficiency: A Survey-based study Start: 01-23-2022 Refill Leo bunch MD Work Phone: Endocrinology Comment on above: Refill Request Start: 12-13-2021 Refill Leo bunch MD Work Phone: Endocrinology Comment on above: Refill Request Start: 12-05-2021 End: 12-05-2021 ambulatory Leo Shaw MD Work Phone: Endocrinology Comment on above: Hypothyroidism, seco ndary; Hypogonadism male; BENIGN JOYCE PITUITARY; Prolactinoma (HCC) Start: 12-05-2021 End: 12-05-2021 Telemedicine consultation with patient Leo Barrera MD Work Phone: [facility] Start: 11-12-2021 Refill Leo bunch MD Work Phone: Endocrinology Comment on above: Refill Request Start: 04-23-[address] DARIN MELARA [facility] Start: 06-18-2020 End: 06-18-[address] DARIN Sky SARITHA [facility] Procedures Date Procedure Procedure Detail Performing Clinician [...] Treatment Date Care Activity Detail Author Start: 2034 RSV Vaccine (1 - 1-d ose 75+ series) RSV Vaccine (1 - 1-dose 75+ series) [facility] Start: 04-14-2030 Urine microalbumin profile DTaP,Tdap,Td Vaccine (4 - Td or Tdap) [facility] Start: 05-06-2025 DIABETES SCREEN DIABETES SCREEN [facility] Start: 05-06-2025 Diabetes Screening Diabetes Screenin g [facility] Start: 06-06-2024 End: 06-06-2024 Patient encounter procedure 06/06/2024 11:20 AM EST Office Visit Endocrinology [address] [place], [place] [id number] Leo Shaw V, MD [address] [place] [address] follow up - ok per Dr. Shaw Endocrinology Comment on above: follow up - ok per Alejandro Shaw Start: 03-27-2024 Covid-19 Vaccine () Covid-19 Vaccine () [facility] Start: 03-27-2024 Covid-19 Vaccine () Covid-19 Vaccine () [facility] Start: 03-27-2024 Influenza vaccination C [facility] Start: 07-27-2023 Behavioral Health Screening Behavioral Health Screening [facility] Start: 07-27-2023 Depression Assessment Depression Ass essment [facility] Start: 03-27-2023 Covid-19 Vaccine () Covid-19 Vaccine () [facility] Start: 03-27-2023 Influenza vaccination C [facility] Start: 07-27-2022 DEPRESSION ASSESSMENT DEPRESSION ASS ESSMENT [facility] Start: 03-27-2022 Influenza vaccination [facility] Start: 11-28-2021 COVID-19 VACCINE (4 - Booster for Pfizer series) COVID-19 VACCINE (4 - Booster for Pfizer series) [facility] Start: 09-25-2021 COVID-19 VACCINE (4 - Booster for Pfizer series) COVID-19 VACCINE (4 - Booster for Pfizer series) [facility] Start: 09-25-2021 COVID-19 VACCINE (4 - Pfizer series) COVID-19 VACCINE (4 - Pfizer series) [facility] Start: 07-27-2021 DEPRESSION ASSESSMENT DEPRESSION ASS ESSMENT [facility] Start: 03-28-2021 COVID-19 VACCINE (3 - Booster for Pfizer series) COVID-19 VACCINE (3 - Booster for Pfizer series) [facility] Start: 2019 RSV Vaccine (1 - 1-d ose 60+ series) RSV Vaccine (1 - 1-dose 60+ series) [facility] Start: 2014 PROSTATE CANCER SCRE ENING DISCUSSION PROSTATE CANCER SCREENING DISCUSSION [facility] Start: 2014 Prostate specific an tigen measurement Prostate Cancer Screening Discussion [facility] Start: 01-16-2012 DIABETES SCREEN DIABETES SCREEN [facility] Start: 2009 SHINGRIX VACCINE (1 of 2) SHINGRIX V ACCINE (1 of 2) [facility] Start: 2004 COLOGUARD (FIT-DNA) COLOGUARD (FIT-D NA) [facility] Start: 2004 Colonoscopy COLONOSCOPY [facility] Start: 2004 COLORECTAL CANCER SCREENING COLORECTAL CANCER SCREENING [facility] Start: [address] COLONOGRAPHY [facility] Start: 2004 FECAL OCCULT BLOOD FECAL OCCULT BLOO D [facility] Start: 2004 Screening for malign ant neoplasm of colon [facility] Start: 2004 SIGMOIDOSCOPY SIGMOIDOSCOPY [facility] Start: 1994 Lipid 1996 panel - S harmony or Plasma Lipid Screening [facility] Start: 1994 Lipid panel Lipid Screening [facility] Start: 1994 LIPID SCREEN LIPID SCREEN [facility] Start: 1978 Urine microalbumin profile [facility] Start: 1977 ANNUAL PCP TEAM COSTUME SPECIALIST THOMAS DISEASE VISIT ANNUAL PCP TEAM CHRONIC DISEASE VISIT [facility] Start: 1977 Anxiety Screening Anxiety Screening [facility] Start: 1977 Depression Screening Depression Scre [facility] Start: 1977 HEPATITIS C SCREENING HEPATITIS C [facility] Start: 1977 Hepatitis C screening Hepatitis C [facility] Start: 1977 HIV SCREENING HIV SCREENING [facility] Start: 1977 HIV screening HIV Screening [facility] Start: 1971 Adult depression screening assessment DEPRESSION SCREENING [facility] Immunizations Immunization Date Immunization Notes Care Provider Fa tomy 07-01-2022 influenza virus vaccine, unspecified formulation Leo Barrera MD Work Phone: [facility] 04-14-2020 influenza virus vaccine, unspecified formulation Leo Barrera MD Work Phone: [facility] Payers Date Payer Category Payer Unknown [id number] 2020 Unknown MMO MMO [employer] [id number] 2020-Present [address] [place] [address] PPO [id number] 2020 Unknown [id number] 1959 Unknown [id number] Private Health Insurance [id number] Social History Date Type Detail Facility Start: 10-30-2011 Tobacco smoking stat [facility] Never smoked tobacco [facility] Start: 08-10-2019 End: 12-04-2021 Alcohol intake Current non-drinker of alcohol (finding) [facility] Start: 1960 Sex Assigned At Not on file [facility] Start: 11-24-2021 End: 12-04-2021 Exposure to SARS-CoV-2 (event) Not sure [facility] Start: 10-30-2011 Tobacco use and exposure Smoke less tobacco non-user [facility] Start: 12-04-2021 End: 05-05-2023 Gender identity Not on file [facility] Start: 12-04-2021 End: 05-05-2023 History of Social function [facility] National Score (1-10 0), lower number is lower risk 51 [facility] Medical Equipment Procedure Code Equipment Code Equipment Original Text Equipment Identifier Dates [id number], [id number] Start: 08-04-2017 End: 06-25-2023 Comment on above: Use for growth hormo ne pen injections once a day Use for GH pen injec tions once a day Clinical Notes 11-13-2021 to 04-20-2024 Telephone Encounter - Leo Shaw V, MD - 04/20/2024 11:41 AM EDTTelephone Encounter - Leo Shaw V, MD - 04/20/2024 11:41 AM Danielle Shaw V, MD - 12/05/2021 9:32 AM EDT Note Date & Type Note Facility 04-20-2024 Telephone encounter Note The following approved medication requests have been transmitted electronically. Requested Prescriptions Pending Prescriptions Disp Refills hydrocortisone (CORTEF) 10 mg tablet 110 tablet 0 Sig: Take one tablet in am, increase to 2 tab in am and 1 tab in the afternoon for 2-3 days if sick levothyroxine (SYNTHROID) 112 mcg tablet 90 tablet 0 Sig: Take 1 tablet by mouth every morning. on empty stomach raloxifene (EVISTA) 60 mg tablet 90 tablet 0 Sig: Take 1 tablet by mouth once daily. Leo Shaw MD [facility] 04-20-2024 Miscellaneous Notes The following approved medication requests have been transmitted electronically. Requested Prescriptions Pending Prescriptions Disp Refills hydrocortisone (CORTEF) 10 mg tablet 110 tablet 0 Sig: Take one tablet in am, increase to 2 tab in am and 1 tab in the afternoon for 2-3 days if sick levothyroxine (SYNTHROID) 112 mcg tablet 90 tablet 0 Sig: Take 1 tablet by mouth every morning. on empty stomach raloxifene (EVISTA) 60 mg tablet 90 tablet 0 Sig: Take 1 tablet by mouth once daily. Leo Shaw MD Requester: Patient Last Endocrinology visit: 05/05/2023. Follow-up visit scheduled: 06/06/2024. Requested Prescriptions Pending Prescriptions Disp Refills hydrocortisone (CORTEF) 10 mg tablet 110 tablet 0 Sig: Take one tablet in am, increase to 2 tab in am and 1 tab in the afternoon for 2-3 days if sick levothyroxine (SYNTHROID) 112 mcg tablet 90 tablet 0 Sig: Take 1 tablet by mouth every morning. on empty stomach raloxifene (EVISTA) 60 mg tablet 90 tablet 0 Sig: Take 1 tablet by mouth once daily. PSS NOTE: Please schedule appointment: No Thank you! Pia Mayes RN documented in this encounter [facility] 04-20-2024 Telephone encounter Note Requester: Patient Last Endocrinology visit: 05/05/2023. Follow-up visit scheduled: 06/06/2024. Requested Prescriptions Pending Prescriptions Disp Refills hydrocortisone (CORTEF) 10 mg tablet 110 tablet 0 Sig: Take one tablet in am, increase to 2 tab in am and 1 tab in the afternoon for 2-3 days if sick levothyroxine (SYNTHROID) 112 mcg tablet 90 tablet 0 Sig: Take 1 tablet by mouth every morning. on empty stomach raloxifene (EVISTA) 60 mg tablet 90 tablet 0 Sig: Take 1 tablet by mouth once daily. PSS NOTE: Please schedule appointment: No Thank you! Pia Mayes RN [facility] 04-11-2024 Telephone encounter Note Growth hormone certification form received from [facility] for Omnitrope placed in Dr. Shaw's folder for review. [facility] 04-11-2024 Miscellaneous Notes Growth hormone certification form received from [facility] for Omnitrope placed in Dr. Shaw's folder for review. documented in this encounter [facility] 03-04-2024 Telephone encounter Note Can below meds be escripted? [facility] 03-04-2024 Miscellaneous Notes Can below meds be escripted? Patients last Endocrinology visit occurred Last encounter Visit on 05/05/2023 (with Leo Shaw) Follow-up evaluation has been established Upcoming Endocrinology Appointments - Next 365 Days No appointments to display . Requested Prescriptions Pending Prescriptions Disp Refills Somatropin (OMNITROPE) 5 mg/1.5 mL (3.3 mg/mL) 6 mL 2 Sig: Inject 0.4 mg SQ daily testosterone (ANDROGEL PUMP) 20.25 mg/1.25 gram (1.62 %) transdermal gel 300 g 1 Sig: Apply three pumps on each shoulder as directed If patient is due for an appointment please route to provider for refill consideration and also to the endo scheduling pool. documented in this encounter [facility] 03-04-2024 Telephone encounter Note Called back and completed PA over the phone. Approved from 02/03/24-03/04/25. Pt notified. [facility] 03-04-2024 Miscellaneous Notes Called back and completed PA over the phone. Approved from 02/03/24-03/04/25. Pt notified. [facility] is calling Leo Shaw MD today to request Medication Preauthorization (Somatropin (OMNITROPE) 5 mg/1.5 mL (3.3 mg/mL)). . Patient has been identified by name and birthdate. Duration of symptoms: N/A Person calling: pharmacy: [facility] at: [phone] Was an appointment scheduled: No Closing statement: Results or non-symptom based questions: Thank you for calling [facility], your call will be returned within the next business day. Fanny Richard documented in this encounter [facility] 03-03-2024 Telephone encounter Note [facility] is calling Leo Shaw MD today to request Medication Preauthorization (Somatropin (OMNITROPE) 5 mg/1.5 mL (3.3 mg/mL)). . Patient has been identified by name and birthdate. Duration of symptoms: N/A Person calling: pharmacy: [facility] at: [phone] Was an appointment scheduled: No Closing statement: Results or non-symptom based questions: Thank you for calling [facility], your call will be returned within the next business day. Fanny Richard [facility] 02-29-2024 Telephone encounter Note Patients last Endocrinology visit occurred Last encounter Visit on 05/05/2023 (with Leo Shaw) Follow-up evaluation has been established Upcoming Endocrinology Appointments - Next 365 Days No appointments to display . Requested Prescriptions Pending Prescriptions Disp Refills Somatropin (OMNITROPE) 5 mg/1.5 mL (3.3 mg/mL) 6 mL 2 Sig: Inject 0.4 mg SQ daily testosterone (ANDROGEL PUMP) 20.25 mg/1.25 gram (1.62 %) transdermal gel 300 g 1 Sig: Apply three pumps on each shoulder as directed If patient is due for an appointment please route to provider for refill consideration and also to the endo scheduling pool. [facility] 01-27-2024 Telephone encounter Note The following approved medication requests have been transmitted electronically. Requested Prescriptions Pending Prescriptions Disp Refills cabergoline (DOSTINEX) 0.5 mg tablet 50 tablet 1 Sig: Take 1 tb 2 days per week. testosterone (ANDROGEL PUMP) 20.25 mg/1.25 gram (1.62 %) transdermal gel 300 g 1 Sig: Apply three pumps on each shoulder as directed Leo Shaw MD [facility] 01-27-2024 Miscellaneous Notes The following approved medication requests have been transmitted electronically. Requested Prescriptions Pending Prescriptions Disp Refills cabergoline (DOSTINEX) 0.5 mg tablet 50 tablet 1 Sig: Take 1 tb 2 days per week. testosterone (ANDROGEL PUMP) 20.25 mg/1.25 gram (1.62 %) transdermal gel 300 g 1 Sig: Apply three pumps on each shoulder as directed Leo Shaw MD Patients last Endocrinology visit occurred Last encounter Visit on 05/05/2023 (with Leo Shaw) Follow-up evaluation has been established Upcoming Endocrinology Appointments - Next 365 Days No appointments to display . Requested Prescriptions Pending Prescriptions Disp Refills cabergoline [...] endo scheduling pool. documented in this encounter [facility] 01-27-2024 Telephone encounter Note Patients last Endocrinology visit occurred Last encounter Visit on 05/05/2023 (with Leo Shaw) Follow-up evaluation has been established Upcoming Endocrinology Appointments - Next 365 Days No appointments to display . Requested Prescriptions Pending Prescriptions Disp Refills cabergoline [...] and also to the endo scheduling pool. [facility] 12-11-2023 Telephone encounter Note The following approved medication requests have been transmitted electronically. Requested Prescriptions Pending Prescriptions Disp Refills OMNITROPE 5 mg/1.5 mL (3.3 mg/mL) [Pharmacy Med Name: OMNITROPE CARTRIDGE 1.5ML 5MG] 6 mL 2 Sig: INJECT 0.4 MG UNDER THE SKIN DAILY (DISCARD 28 DAYS AFTER INITIAL USE) Leo Shaw MD [facility] 12-11-2023 Miscellaneous Notes The following approved medication requests have been transmitted electronically. Requested Prescriptions Pending Prescriptions Disp Refills OMNITROPE 5 mg/1.5 mL (3.3 mg/mL) [Pharmacy Med Name: OMNITROPE CARTRIDGE 1.5ML 5MG] 6 mL 2 Sig: INJECT 0.4 MG UNDER THE SKIN DAILY (DISCARD 28 DAYS AFTER INITIAL USE) Leo Shaw MD Requester: Pharmacy Last Endocrinology visit: 05/05/2023. Follow-up visit scheduled: Visit date not found. Requested Prescriptions Pending Prescriptions Disp Refills Somatropin (OMNITROPE) 5 mg/1.5 mL (3.3 mg/mL) [Pharmacy Med Name: OMNITROPE CARTRIDGE 1.5ML 5MG] 6 mL 2 Sig: INJECT 0.4 MG UNDER THE SKIN DAILY (DISCARD 28 DAYS AFTER INITIAL USE) PSS NOTE: Please schedule appointment: No Thank you! Pia Mayes RN documented in this encounter [facility] 12-10-2023 Telephone encounter Note Requester: Pharmacy Last Endocrinology visit: 05/05/2023. Follow-up visit scheduled: Visit date not found. Requested Prescriptions Pending Prescriptions Disp Refills Somatropin (OMNITROPE) 5 mg/1.5 mL (3.3 mg/mL) [Pharmacy Med Name: OMNITROPE CARTRIDGE 1.5ML 5MG] 6 mL 2 Sig: INJECT 0.4 MG UNDER THE SKIN DAILY (DISCARD 28 DAYS AFTER INITIAL USE) PSS NOTE: Please schedule appointment: No Thank you! Pia Mayes RN [facility] 08-27-2023 Miscellaneous Notes Lab results received from [place]. Placed in Dr. Shaw's folder to review. Hi! Can we check to see if his labs were faxed to [place]? So far no results in his chart or care everywhere. Thank you! Pia Mayes RN documented in this encounter [facility] 06-29-2023 Miscellaneous Notes Patients last Endocrinology visit occurred Last encounter Visit on 05/05/2023 (with Leo Shaw) Follow-up evaluation has been established Upcoming Endocrinology [...] endo scheduling pool. documented in this encounter [facility] 06-25-2023 Miscellaneous Notes Patient requests all scripts except Omnitrope be sent to [facility] pharmacy. Pended for sign off. Requester: Patient [...] Pia Mayes RN documented in this encounter [facility] 05-27-2023 Miscellaneous Notes All meds need to be sent to [facility]. Patients last Endocrinology visit occurred Last encounter Visit on 05/05/2023 (with Leo Shaw) Follow-up evaluation has been established Upcoming Endocrinology [...] endo scheduling pool. documented in this encounter [facility] 05-11-2023 Miscellaneous Notes Patients last Endocrinology visit occurred Last encounter Visit on 05/05/2023 (with Leo Shaw) Follow-up evaluation has been established Upcoming Endocrinology [...] endo scheduling pool. documented in this encounter [facility] 05-05-2023 Note HNO ID: [id number] Author: Leo Shaw V, MD Service: ? Author Type: Physician [...] will send lab (more content not included)... [facility] 04-23-2023 Miscellaneous Notes The following approved medication requests have been transmitted electronically. Requested Prescriptions Pending Prescriptions Disp Refills levothyroxine (SYNTHROID) 112 mcg tablet 30 tablet 0 Sig: Take 1 tablet by mouth every morning. on empty stomach raloxifene (EVISTA) 60 mg tablet 30 tablet 0 Sig: Take 1 tablet by mouth once daily. Leo Shaw MD Requester: Patient Last Endocrinology visit: 12/05/2021. Follow-up visit scheduled: 05/05/2023. Requested Prescriptions Pending Prescriptions Disp Refills levothyroxine (SYNTHROID) 112 mcg tablet 30 tablet 0 Sig: Take 1 tablet by mouth every morning. on empty stomach raloxifene (EVISTA) 60 mg tablet 30 tablet 0 Sig: Take 1 tablet by mouth once daily. PSS NOTE: Please schedule appointment: No Thank you! Pia Mayes, RN documented in this encounter [facility] 03-04-2023 Miscellaneous Notes Lab orders faxed to [facility] with confirmation. Patient notified. Patient requests thyroid lab orders be faxed to below location: [facility] [phone] Thank you! Pia Mayes RN documented in this encounter [facility] 02-23-2023 Miscellaneous Notes PA completed and approved for Omnitrope. Please inform patient : Omnitrope is coming up as not covered! MAybethe computer is not updated. I am sending the Omnitrope instead of Somatropin as he requested He should check with insurance if that will be covered Leo Shaw MD documented in this encounter [facility] 02-11-2023 Miscellaneous Notes Prior authorization for Norditropin submitted via Cover My Meds. Awaiting response from plan. documented in this encounter [facility] 02-09-2023 Miscellaneous Notes Rx for cabergoline [...] Pia Mayes RN documented in this encounter [facility] 01-21-2023 Miscellaneous Notes The following approved medication requests have been transmitted electronically. Requested Prescriptions Pending Prescriptions Disp Refills Somatropin (NORDITROPIN FLEXPRO) 5 mg/1.5 mL (3.3 mg/mL) 10 Each 3 Sig: Inject 0.4 mg subcutaneously daily Leo Shaw MD Requester: Patient Last Endocrinology visit: 12/05/2021. Follow-up visit scheduled: 05/05/2023. Requested Prescriptions Pending Prescriptions Disp Refills Somatropin (NORDITROPIN FLEXPRO) 5 mg/1.5 mL (3.3 mg/mL) 10 Each 3 Sig: Inject 0.4 mg subcutaneously daily PSS NOTE: Please schedule appointment: No Thank you! Pia Mayes RN documented in this encounter [facility] 12-05-2022 Miscellaneous Notes Requester: Patient Last [...] new insurance, OON, will self schedule. See [facility] 12/03). Thank you! Pia Mayes RN documented in this encounter [facility] 10-17-2022 Miscellaneous Notes Requester: Patient Patients last Endocrinology visit occurred 12-05-2021 [facility]. Follow-up evaluation has been established 12-04-22 [facility]. Requested Prescriptions Pending Prescriptions Disp Refills rosuvastatin [...] Ella Link Ma documented in this encounter [facility] 08-20-2022 Miscellaneous Notes Called and scheduled pt for 12/04/[address] Shaw Requester: Patient Last Endocrinology visit: 12/05/2021. Follow-up visit scheduled: Visit date not found. Requested Prescriptions Pending Prescriptions Disp Refills raloxifene (EVISTA) 60 mg tablet 90 tablet 1 Sig: Take 1 tablet by mouth once daily. PSS NOTE: Please schedule appointment: Yes, yearly visit due November 2022. Thank you! Pia Mayes RN documented in this encounter [facility] 07-17-2022 Miscellaneous Notes Requester: Patient Last Endocrinology visit: 12/05/2021. Follow-up visit scheduled: Visit date not found. Requested Prescriptions Pending Prescriptions Disp Refills testosterone (ANDROGEL PUMP) 20.25 mg/1.25 gram (1.62 %) transdermal gel 300 g 1 Sig: Apply three pumps on each shoulder as directed PSS NOTE: Please schedule appointment: No Thank you! Pia Mayes RN documented in this encounter [facility] 01-23-2022 Miscellaneous Notes Requester: Patient Last Endocrinology visit: 12/05/2021. Follow-up visit scheduled: Visit date not found. Pending Prescriptions Disp Refills PEN NEEDLE, DIABETIC 31 GAUGE X 5/16 100 Each 3 Sig: Use for growth hormone pen injections once a day ANNA: No PSS NOTE: Please schedule appointment: No Thank you! Pia Mayes RN documented in this encounter [facility] 12-05-2021 History of Presen t illness [...] other issues RTC in 12 months Leo Shaw MD Answers for HPI/ROS submitted by the [...] No Seizures: No documented in this encounter [facility] 11-13-2021 Miscellaneous Notes The following approved medication requests have been transmitted electronically. Pending Prescriptions: Disp Refills raloxifene (EVISTA) 60 mg tablet 30 tablet 2 Sig: Take 1 tablet by mouth once daily. ANNA: No Leo Shaw MD Requester: Patient Last Endocrinology visit: 12/04/2020. Follow-up visit scheduled: 12/05/2021. Pending Prescriptions Disp Refills RALOXIFENE 60 MG TABLET 30 tablet 2 Sig: Take 1 tablet by mouth once daily. ANNA: No Thank you! Pia Mayes RN documented in this encounter [facility] Evaluation note Diagnosis Hypothyroidism, secondary Other specified acquired hypothyroidism Hypogonadism male Other testicular 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) Prolactinoma (HCC) Benign neoplasm of pituitary gland and craniopharyngeal duct (pouch) [facility] Hypothy[facility], secondary Other specified acquired hypothyroidism Hypogonadism male Other testicular 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) Prolactinoma (HCC) Benign neoplasm of pituitary gland and craniopharyngeal duct (pouch) [facility] Hypothyroidism, secondary Other specified acquired hypothyroidism Hypogonadism male Other testicular 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) Prolactinoma (HCC) Benign neoplasm of pituitary gland and craniopharyngeal duct (pouch) [facility] Hypothyroidism, secondary Other specified acquired hypothyroidism Hypogonadism male Other testicular 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) Prolactinoma (HCC) Benign neoplasm of pituitary gland and craniopharyngeal duct (pouch) [facility] Hypothyroidism, secondary Other specified acquired hypothyroidism Hypogonadism male Other testicular 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) Prolactinoma (HCC) Benign neoplasm of pituitary gland and craniopharyngeal duct (pouch) [facility] Hypothyroidism, secondary Other specified acquired hypothyroidism Hypogonadism male Other testicular 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) Prolactinoma (HCC) Benign neoplasm of pituitary gland and craniopharyngeal duct (pouch) [facility] Hypothyroidism, secondary Other specified acquired hypothyroidism Hypogonadism male Other testicular 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) Prolactinoma (HCC) Benign neoplasm of pituitary gland and craniopharyngeal duct (pouch) [facility] Diagnosis Hypothyroidism, secondary Other specified acquired hypothyroidism Hypogonadism male Other testicular 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) Prolactinoma (HCC) Benign neoplasm of pituitary gland and craniopharyngeal duct (pouch) [facility] Diagnosis Hypothyroidism, secondary Other specified acquired hypothyroidism Hypogonadism male Other testicular 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) Prolactinoma (HCC) Benign neoplasm of pituitary gland and craniopharyngeal duct (pouch) [facility] Diagnosis Hypothyroidism, secondary Other specified acquired hypothyroidism Hypogonadism male Other testicular 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) Prolactinoma (HCC) Benign neoplasm of pituitary gland and craniopharyngeal duct (pouch) [facility] Diagnosis Hypothyroidism, secondary Other specified acquired hypothyroidism Hypogonadism male Other testicular 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) Prolactinoma (HCC) Benign neoplasm of pituitary gland and craniopharyngeal duct (pouch) [facility] Diagnosis Hypothyroidism, secondary Other specified acquired hypothyroidism Hypogonadism male Other testicular 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) Prolactinoma (HCC) Benign neoplasm of pituitary gland and craniopharyngeal duct (pouch) [facility] Diagnosis Hypothyroidism, secondary Other specified acquired hypothyroidism Hypogonadism male Other testicular 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) Prolactinoma (HCC) Benign neoplasm of pituitary gland and craniopharyngeal duct (pouch) documented in this encounter [facility] Summary Purpose Family History No Family History Records FoundNo Family History Records FoundNo Family History Records FoundNo Family History Records Found Advance Directives No Advanced Directives Records FoundNo Advanced Directives Records FoundNo Advanced Directives Records FoundNo Advanced Directives Records Found Reason for Referral Specialty Diagnoses / Procedures Referred By Contdiane t Referred [place] Contact [place] [address] [place] [address] Referral ID Status Reason Start Date Expiration Date V isits Requested Visits Authorized [id number] Authorized 01/24/2023 02/23/2024 1 1 Specialty Diagnoses / Procedures Referred By Contac t Referred To Contact Diagnoses Hypothyroidism, secondary Hypogonadism male Benign neoplasm of pituitary gland and craniopharyngeal duct (pouch) (HCC) Prolactinoma (HCC) Leo Shaw V, MD [address] [place] [address] Referral ID Status Reason Start Date Expiration Date V isits Requested Visits Authorized [id number] Pending Review 1 1 Referral ID Status Reason Start Date Expiration Date V isits Requested Visits Authorized [id number] Pending Review 1 1 Additional Source Comments (unrecognized sect ion and content) No Status Records FoundNo Status Records FoundNo Status Records FoundNo Status Records Found INFORMATION SOURCE (unrecogn ized section and content) DATE CREATED AUTHOR 10/24/2019 [facility] DATE CREATED AUTHOR AUTHOR'S ORGANIZ ATION 06/20/2020 [facility] DATE CREATED AUTHOR AUTHOR'S ORGANIZ ATION 04/24/2021 [facility] DATE CREATED AUTHOR AUTHOR'S ORGANIZ ATION 04/13/2024 [facility] Source Comments (unrecognize d section and content) In the event this informatio n is protected by the Federal Confidentiality of Alcohol and Drug Abuse Patient Records regulations: The Federal rules restrict any use of the information to criminally investigate or prosecute any alcohol or drug abuse patient.[facility] the event this information is protected by the Federal Confidentiality of Alcohol and Drug Abuse Patient Records regulations: The Federal rules restrict any use of the information to criminally investigate or prosecute any alcohol or drug abuse patient.[facility] the event this information is protected by the Federal Confidentiality of Alcohol and Drug Abuse Patient Records regulations: The Federal rules restrict any use of the information to criminally investigate or prosecute any alcohol or drug abuse patient.[facility] the event this information is protected by the Federal Confidentiality of Alcohol and Drug Abuse Patient Records regulations: The Federal rules restrict any use of the information to criminally investigate or prosecute any alcohol or drug abuse patient.[facility] HospitalIn the event this information is protected by the Federal Confidentiality of Alcohol and Drug Abuse Patient Records regulations: The Federal rules restrict any use of the information to criminally investigate or prosecute any alcohol or drug abuse patient.[facility]In the event this information is protected by the Federal Confidentiality of Alcohol and Drug Abuse Patient Records regulations: The Federal rules restrict any use of the information to criminally investigate or prosecute any alcohol or drug abuse patient.[facility] HospitalIn the event this information is protected by the Federal Confidentiality of Alcohol and Drug Abuse Patient Records regulations: The Federal rules restrict any use of the information to criminally investigate or prosecute any alcohol or drug abuse patient.[facility] HospitalIn the event this information is protected by the Federal Confidentiality of Alcohol and Drug Abuse Patient Records regulations: The Federal rules restrict any use of the information to criminally investigate or prosecute any alcohol or drug abuse patient.[facility] HospitalIn the event this information is protected by the Federal Confidentiality of Alcohol and Drug Abuse Patient Records regulations: The Federal rules restrict any use of the information to criminally investigate or prosecute any alcohol or drug abuse patient.[facility] HospitalIn the event this information is protected by the Federal Confidentiality of Alcohol and Drug Abuse Patient Records regulations: The Federal rules restrict any use of the information to criminally investigate or prosecute any alcohol or drug abuse patient.[facility] HospitalIn the event this information is protected by the Federal Confidentiality of Alcohol and Drug Abuse Patient Records regulations: The Federal rules restrict any use of the information to criminally investigate or prosecute any alcohol or drug abuse patient.[facility] HospitalIn the event this information is protected by the Federal Confidentiality of Alcohol and Drug Abuse Patient Records regulations: The Federal rules restrict any use of the information to criminally investigate or prosecute any alcohol or drug abuse patient.[facility] HospitalIn the event this information is protected by the Federal Confidentiality of Alcohol and Drug Abuse Patient Records regulations: The Federal rules restrict any use of the information to criminally investigate or prosecute any alcohol or drug abuse patient.[facility] HospitalIn the event this information is protected by the Federal Confidentiality of Alcohol and Drug Abuse Patient Records regulations: The Federal rules restrict any use of the information to criminally investigate or prosecute any alcohol or drug abuse patient.[facility] HospitalIn the event this information is protected by the Federal Confidentiality of Alcohol and Drug Abuse Patient Records regulations: The Federal rules restrict any use of the information to criminally investigate or prosecute any alcohol or drug abuse patient.[facility] HospitalIn the event this information is protected by the Federal Confidentiality of Alcohol and Drug Abuse Patient Records regulations: The Federal rules restrict any use of the information to criminally investigate or prosecute any alcohol or drug abuse patient.[facility] HospitalIn the event this information is protected by the Federal Confidentiality of Alcohol and Drug Abuse Patient Records regulations: The Federal rules restrict any use of the information to criminally investigate or prosecute any alcohol or drug abuse patient.[facility] HospitalIn the event this information is protected by the Federal Confidentiality of Alcohol and Drug Abuse Patient Records regulations: The Federal rules restrict any use of the information to criminally investigate or prosecute any alcohol or drug abuse patient.[facility] HospitalIn the event this information is protected by the Federal Confidentiality of Alcohol and Drug Abuse Patient Records regulations: The Federal rules restrict any use of the information to criminally investigate or prosecute any alcohol or drug abuse patient.[facility] HospitalIn the event this information is protected by the Federal Confidentiality of Alcohol and Drug Abuse Patient Records regulations: The Federal rules restrict any use of the information to criminally investigate or prosecute any alcohol or drug abuse patient.[facility] HospitalIn the event this information is protected by the Federal Confidentiality of Alcohol and Drug Abuse Patient Records regulations: The Federal rules restrict any use of the information to criminally investigate or prosecute any alcohol or drug abuse patient.[facility] HospitalIn the event this information is protected by the Federal Confidentiality of Alcohol and Drug Abuse Patient Records regulations: The Federal rules restrict any use of the information to criminally investigate or prosecute any alcohol or drug abuse patient.[facility] HospitalIn the event this information is protected by the Federal Confidentiality of Alcohol and Drug Abuse Patient Records regulations: The Federal rules restrict any use of the information to criminally investigate or prosecute any alcohol or drug abuse patient.[facility] HospitalIn the event this information is protected by the Federal Confidentiality of Alcohol and Drug Abuse Patient Records regulations: The Federal rules restrict any use of the information to criminally investigate or prosecute any alcohol or drug abuse patient.[facility] HospitalIn the event this information is protected by the Federal Confidentiality of Alcohol and Drug Abuse Patient Records regulations: The Federal rules restrict any use of the information to criminally investigate or prosecute any alcohol or drug abuse patient.[facility] HospitalIn the event this information is protected by the Federal Confidentiality of Alcohol and Drug Abuse Patient Records regulations: The Federal rules restrict any use of the information to criminally investigate or prosecute any alcohol or drug abuse patient.[facility] HospitalIn the event this information is protected by the Federal Confidentiality of Alcohol and Drug Abuse Patient Records regulations: The Federal rules restrict any use of the information to criminally investigate or prosecute any alcohol or drug abuse patient.[facility] HospitalIn the event this information is protected by the Federal Confidentiality of Alcohol and Drug Abuse Patient Records regulations: The Federal rules restrict any use of the information to criminally investigate or prosecute any alcohol or drug abuse patient.[facility] Reason for Visit (unrecogniz ed section and content) Reason Onset Date Comments Refill Request 11/12/2021 Reason Comments Yearly Exam Hypothyroidism Reason Onset [...] Reason Onset Date Comments Refill Request 06/27/2023 Reason Comments Refill Request Reason Onset Date Comments Refill Request 01/26/2024 Reason Comments Medication Preauthorization Somatropin ( OMNITROPE) 5 mg/1.5 mL (3.3 mg/mL) Reason Comments Forms [facility] Reason Onset Date Comments Refill Request 04/18/2024 Care Teams (unrecognized sec tion and content) [employer] Extension Specialist Relationship Specialty Start Date End Date Nhung Vega [address] [place] [address] PCP - General 09/30/04 University Extension Specialist Relationship Specialty Start Date End Date Nhung Vegaer [address] [place] [address] PCP - General 09/30/04 University Extension Specialist Relationship Specialty Start Date End Date Nhung Vegaer [address] [place] [address] PCP - General 09/30/04 University Extension Specialist Relationship Specialty Start Date End Date Nhung Vegaer [address] [place] [address] PCP - General 09/30/04 University Extension Specialist Relationship Specialty Start Date End Date Nhung Vegaer [address] [place] [address] PCP - General 09/30/04 University Extension Specialist Relationship Specialty Start Date End Date Nhung Vegaer [address] [place] [address] PCP - General 09/30/04 University Extension Specialist Relationship Specialty Start Date End Date Nhung Vegaer [address] [place] [address] PCP - General 09/30/04 University Extension Specialist Relationship Specialty Start Date End Date Nhung Vegaer [address] [place] [address] PCP - General 09/30/04 University Extension Specialist Relationship Specialty Start Date End Date Nhung Vega [address] [place] [address] PCP - General 09/30/04 University Extension Specialist Relationship Specialty Start Date End Date Nhung Vega [address] [place] [address] PCP - General 09/30/04 University Extension Specialist Relationship Specialty Start Date End Date Nhung Vega [address] [facility] [address] [place] [address] PCP - General 09/30/04 University Extension Specialist Relationship Specialty Start Date End Date Nhung Vega [address] [facility] [address] [place] [address] PCP - General 09/30/04 University Extension Specialist Relationship Specialty Start Date End Date Nhung Vega [address] [facility] [address] [place] [address] PCP - General 09/30/04 University Extension Specialist Relationship Specialty Start Date End Date Nhung Vega [address] [facility] [address] [place] [address] PCP - General 09/30/04 University Extension Specialist Relationship Specialty Start Date End Date Nhung Vega [address] [facility] [address] [place] [address] PCP - General 09/30/04 University Extension Specialist Relationship Specialty Start Date End Date Nhung Vega [address] [place] [address] PCP - General 09/30/04 University Extension Specialist Relationship Specialty Start Date End Date Nhung Vega [address] [place] [address] PCP - General 09/30/04 University Extension Specialist Relationship Specialty Start Date End Date Nhung Vega [address] [place] [address] PCP - General 09/30/04 University Extension Specialist Relationship Specialty Start Date End Date Sueblas Nhung Evangelina [address] [place] [address] PCP - General 09/30/04 University Extension Specialist Relationship Specialty Start Date End Date Gary Nhung Evangelina [address] [place] [address] PCP - General 09/30/04 University Extension Specialist Relationship Specialty Start Date End Date Nhung Vega [address] [place] [address] PCP - General 09/30/04 University Extension Specialist Relationship Specialty Start Date End Date Teodorailyablas Nhung Evangelina [address] [place] [address] PCP - General 09/30/04 University Extension Specialist Relationship Specialty Start Date End Date Gary Nhung Evangelina [address] [place] [address] PCP - General 09/30/04 University Extension Specialist Relationship Specialty Start Date End Date Nhung Vega [address] [place] [address] PCP - General 09/30/04 FOR RECORDS PERTAINING TO PATIENTS WHO [...] BE BASED ON THE PRIMARY CLINICAL RECORDS. [facility]. provides no warranty or guarantee of the accuracy or completeness of information in this document.
[2024-05-24 08:34] LABS: Absolute Lymphocyte Count 1.78 X10^3/uL (0.83-4.51); Absolute Neutrophil Count 2.2 X10^3/uL (2.0-7.7); Basophil# 0.03 X10^3/uL; Basophil% 0.6 % (0-1); Eosinophil# 0.55 X10^3/uL; Eosinophils% 10.6 % (0-5); Hematocrit 36.1 % (40-54); Hemoglobin 12.2 g/dL (13.0-16.5); Lymphocyte # 1.78 X10^3/ul (0.83-4.51); Lymphocyte % 34.2 % (19-41); Mean Corp Hgb Conc 33.8 g/dL (32-36); Mean Corpuscular Hgb 31.6 pg (27.0-32.0); Mean Corpuscular Volume 93.5 fL (80-94); Mean Platelet Vol. 9.4 fl (6.2-12.0); Monocyte# 0.59 X10^3/uL; Monocyte% 11.3 % (0-10); NRBC Flagged by Analyzer 0 % (0-5); Neutrophil # 2.24 X10^3/uL (2.7-7.7); Neutrophil % 43.1 % (47-70); Platelet Count 256 K/mm3 (150-450); RBC Distribution Width SD 44.7 fl (35.1-43.9); Red Blood Count 3.86 M/mm3 (4.6-6.2); White Blood Count 5.2 K/mm3 (4.4-11.0)
[2024-05-24 08:48] LABS: Vitamin D,25 Hydroxy 50.5 ng/mL
[2024-05-24 09:17] LABS: ALB/GLOB Ratio 1.1 RATIO (0.9-2.4); AST(SGOT) 22 U/L (15-37); Alanine Aminotransfer ALT/SGPT 24 U/L (16-61); Albumin, Serum 3.6 g/dL (3.2-5.0); Alkaline Phosphatase 58 U/L (45-117); Anion Gap 7 (5-15); BUN 28 mg/dL (7-18); BUN/Creat Ratio 31.1 RATIO (10-20); Calcium,Total 8.7 mg/dL (8.5-10.1); Chloride 105 mmol/L (98-107); EST Glomerular Filtration Rate 90 mL/min (>60); Est Glom Filt Rate - Afr Amer 109 mL/min (>60); Free T3 2.7 pg/mL (2.18-3.98); Globulin 3.3 g/dL (2.2-4.2); Glucose 89 mg/dL (74-106); PSA,Total- Diagnostic 1.19 ng/mL (0.0-4.0); Potassium 3.8 mmol/L (3.5-5.1); Protein, Total 6.9 g/dL (6.4-8.2); Sodium Level 138 mmol/L (136-145); T4 Free Direct 0.91 ng/dL (0.76-1.46); Thyroid Stim Hormone (TSH) 0.435 uIU/mL (0.358-3.740)
[2024-05-24 09:54] LABS: Hemoglobin A1c 5.6 % (3.8-5.6)
[2024-05-25 08:13] LABS: PROLACTIN 0.8 ng/mL (3.6-25.2)
== END | disposition home or self-care (01) ==
PROVIDERS: PCP Internal Medicine; Referring Provider Internal Medicine; Visit Provider Internal Medicine
DX: E23.7 Disorder of pituitary gland, unspecified (principal); Z79.899 Other long term (current) drug therapy
CPT/HCPCS: 36415; 80053; 82306; 83036; 84146; 84153; 84403; 84439; 84443; 84481; 85025

== ENCOUNTER 2024-07-12 10:24 | Outpatient (CLI) | payer OTHER, SELFPAY ==
[2024-07-12 10:48] VITALS: BP 141/72; PULSE 91; RESP 16; TEMP 36.2; O2SAT 96; BMI 28.0
[2024-07-12] MEDS: DENOSUMAB 60 MG/ML SC (10:53)
== END 2024-07-12 23:59 | disposition home or self-care (01) ==
LOC: MEDOUTP 10:25
PROVIDERS: PCP Internal Medicine; Referring Provider Internal Medicine; Visit Provider Internal Medicine
DX: M85.80 Other specified disorders of bone density and structure, unspecified site (principal)
CPT/HCPCS: 96372; J0897

== ENCOUNTER 2025-01-06 10:20 | Outpatient (CLI) | payer MEDICARE, OTHER, SELFPAY ==
[2025-01-06 10:33] VITALS: BP 128/70; PULSE 80; RESP 14; TEMP 35.7; O2SAT 97; BMI 28.0
[2025-01-06] MEDS: DENOSUMAB 60 MG/ML SC (10:37)
--- OUTSIDE RECORDS SUMMARY | 2025-01-06 18:13 | XMS RPT_ITS | CCD ---
Author Organization [facility] ion [facility] Care Team Providers Care Parks And Recreation Manager Name Role Phone SARITHA, DR DARIN Olsen Attending Unavaila ble SARITHA, DR DARIN Olsen Primary Care Unavaila ble SARITHA, DR DARIN Olsen Admitting Unavaila ble SARITHA, DR DARIN Olsen Attending Unavaila ble SARITHA, DR DARIN Olsen Primary Care Unavaila ble SARITHA, DR DARIN Olsen Admitting Unavaila ble Nhung Vega Primary Care Provider Nhung Vega Primary Care Provider Nhung Vega Primary Care Provider Nhung Vega Primary Care Provider [phone] Nhung Vega Primary Care Provider [phone] Nhung Vega Primary Care Provider Rich Alexis MD Primary Care Provider [phone] PEECHAKARA, SEENIA Attending Unavailable PEECHAKARA, SEENIA Referring Unavailable NHUNG VEGAER Primary Care Unavailable Peechakara, Seenia Referring Unavailable Peechakara, Seenia Attending Unavailable Oleghe, Efewongbe Primary Care Unavailable Oleghe, Efewongbe Primary Care Unavailable Oleghe, Efewongbe Referring Unavailable Junior Rincon Attending Unavailable Peechakara, Seenia Referring Unavailable Peechakara, Seenia Attending Unavailable Oleghe, Efewongbe Primary Care Unavailable Peechakara, Seenia Referring Unavailable Peechakara, Seenia Attending Unavailable Oleghe, Efewongbe Primary Care Unavailable Peechakara, Seenia Referring Unavailable Oleghe, Efewongbe Primary Care Unavailable Peechakara, Seenia Attending Unavailable Peechakara, Seenia Referring Unavailable EduardomanoloRich olsen Primary Care Unavailable Leo Shaw Attending Unavailable Allergies Allergy Classification Reported Allergen(s) Allergy Type Date of Onset Reaction(s) Facility (6 sources) Penicillins; Translations: [PENICILLINS] Drug Allergy 05-19-2013 [facility] Work Phone: (20 sources) Penicillins Drug Allergy 05-19-2013 [facility] Work Phone: (1 source) Penicillins Allergy to substance 01-23-2023 [facility] (7 sources) Penicillins Drug Allergy 05-19-2013 [facility] Work Phone: (1 source) Penicillins Drug allergy (disorder) 07-12-2024 [facility] Repository Medications Current Medications Medication Drug Class(es) Dates Sig (Normalized) Sig (Original) aspirin 81 mg delayed release oral tablet (20 sources) Platelet Aggregation Inhibitor, Nonsteroidal Anti-inflammatory Drug Start: 06-03-2019 take 81 mg by mouth once daily Aspirin Active 81 MG PO DAILY June 03, 2019 12:00am Aspirin 81 mg ta b Indications: Other and unspecified anterior pituitary hyperfunction (HCC) Take 81 mg by mouth. Active Comment on above: Take 81 mg by mouth. cabergoline 0.5 mg oral tablet (20 sources) Ergot Derivative Start: 05-29-2023 End: 06-06-2024 cabergoline (DOSTINEX) 0.5 mg tablet Indications: Hypothyroidism, secondary , Hypogonadism male , Benign neoplasm of pituitary gland and craniopharyngeal duct (pouch) (HCC) , Prolactinoma (HCC) Take half tablet 2 days per week. 50 tablet 1 06/06/2024 Active Start: 05-22-2023 End: 05-27-2023 cabergoline (DOSTINEX) [...] week. 50 tablet 1 12/05/2022 Active Start: 06-03-2019 End: 12-03-2022 cabergoline (DOSTINEX) 0.5 m g tablet Indications: Hypothyroidism, secondary , Hypogonadism male , Benign neoplasm of pituitary gland and craniopharyngeal duct (pouch) (HCC) , Prolactinoma (HCC) Take 1 tb 2 days per week. 50 tablet 3 12/05/2021 12/03/2022 Discontinued Comment on above: Take 1 tb 2 days per week. cholecalciferol 0.125 mg oral capsule (1 source) Vitamin D Start: take 5000 [IU] by mouth once daily Cholecalciferol (Vitamin D3) Active 5000 UNIT PO DAILY June 03, 2019 12:00am hydrocortisone 10 mg oral tablet (20 sources) Corticosteroid Start: End: hydrocortisone (CORTEF) 10 mg tablet Indications: Hypothyroidism, secondary , Hypogonadism male , Benign neoplasm of pituitary gland and craniopharyngeal duct (pouch) (HCC) , Prolactinoma (HCC) Take one tablet in am and 1 tablet afternoon, increase to 2 tab in am and 2 tab in the afternoon for 2-3 days if sick 200 tablet 3 06/06/2024 Active Start: 05-29-2023 End: 04-18-2024 hydrocortisone (CORTEF) [...] sick 110 tablet 1 05/05/2023 Active Start: 06-03-2019 End: 01-23-2023 hydrocortisone (CORTEF) 10 m g tablet Indications: Hypothyroidism, secondary , Hypogonadism male , Benign neoplasm of pituitary gland and craniopharyngeal duct (pouch) (HCC) , Prolactinoma (HCC) Take one tablet in am, increase to 2 tab in am and 1 tab in the afternoon for 2-3 days if sick 110 tablet 1 12/05/2022 Active Comment on above: Take one tablet in a m, increase to 2 tab in am and 1 tab in the afternoon for 2-3 days if sick levothyroxine sodium 0.112 mg oral tablet (20 sources) l-Thyroxine Start: 12-01-19 take 1 tablet by mouth once daily in the morning levothyroxine (SYNTHROID) 112 mcg tablet Indications: Hypothyroidism, secondary , Hypogonadism male , Benign neoplasm of pituitary gland and craniopharyngeal duct (pouch) (HCC) , Prolactinoma (HCC) Take 1 tablet by mouth every morning. on empty stomach 90 tablet 11/30/2024 Active Start: 09-29-2024 End: 11-28-2024 take 1 tablet by mouth once daily in the morning levothyroxine (SYNTHROID) 112 mcg tablet Indications: Hypothyroidism, secondary , Hypogonadism male , Benign neoplasm of pituitary gland and craniopharyngeal duct (pouch) (HCC) , Prolactinoma (HCC) Take 1 tablet by mouth every morning. on empty stomach 90 tablet 09/29/2024 11/28/2024 Discontinued Start: 07-15-2024 End: 09-17-2024 take 1 tablet by mouth once daily in the morning levothyroxine (SYNTHROID) 112 mcg tablet Indications: Hypothyroidism, secondary , Hypogonadism male , Benign neoplasm of pituitary gland and craniopharyngeal duct (pouch) (HCC) , Prolactinoma (HCC) Take 1 tablet by mouth every morning. on empty stomach 90 tablet 07/15/2024 09/17/2024 Discontinued Start: 04-20-2024 End: 07-11-2024 take 1 tablet by mouth once daily in the morning levothyroxine (SYNTHROID) 112 mcg tablet Indications: Hypothyroidism, secondary , Hypogonadism male , Benign neoplasm of pituitary gland and craniopharyngeal duct (pouch) (HCC) , Prolactinoma (HCC) Take 1 tablet by mouth every morning. on empty stomach 90 tablet 04/20/2024 07/11/2024 Discontinued Start: 05-29-2023 End: 04-18-2024 take 1 tablet [...] 90 tablet 1 12/05/2022 04/21/2023 Discontinued Start: 06-03-2019 End: 12-03-2022 take 1 tablet by mouth [...] aguila th every morning. on empty stomach Nirmatrelvir-Ritonavir (1 source) Start: 06-05-20 Nirmatrelvir-Ritonavir (Paxlovid (Eua)) 300 mg (150 mg x 2)-100 mg tablets,dose pack Active 0 PO .COMPLEX June 05, 2022 12:00am take TWO 150 mg tablets of nirmatrelvir with ONE 100 mg tablet of ritonavir twice daily for 5 days PO HOLD ROSUVASTATIN x 8 days raloxifene hydrochloride 60 mg oral tablet (20 [...] 30 tablet 2 05/09/2022 08/18/2022 Discontinued Start: 06-03-2019 End: 12-05-2021 take 1 tablet by mouth [...] by mouth once daily. 90 tablet 3 06/15/2024 Active Start: 06-29-2023 End: 06-12-2024 take 1 tablet by mouth once daily rosuvastatin (CRESTOR) 20 mg tablet Take 1 tablet by mouth once daily. 90 tablet 3 06/29/2023 06/12/2024 Discontinued Start: 06-03-2019 End: 06-27-2023 take 1 tablet by mouth once daily rosuvastatin (CRESTOR) 20 mg tablet Take 1 tablet by mouth once daily. 90 tablet 3 10/20/2022 06/27/2023 Discontinued Comment on above: Take 1 tablet by aguila th once daily. 1.5 ml somatropin 3.3 mg/ml cartridge (20 sources) Recombinant Human Growth Hormone Start: 025 inject 0.4 mg by subcutaneous injection once daily somatropin (OMNITROPE) 5 mg/1.5 mL (3.3 mg/mL) subcutaneous cartridge Indications: Benign neoplasm of pituitary gland and craniopharyngeal duct (pouch) (HCC) , Growth hormone deficiency (HCC) INJECT 0.4 MG UNDER THE SKIN DAILY. DISCARD 28 DAYS AFTER INITIAL USE 4.5 mL 3 11/16/2024 Active Start: 03-04-2024 End: 06-07-2024 inject 0.4 mg by subcutaneous injection once daily OMNITROPE 5 mg/1.5 mL (3.3 mg/mL) INJECT 0.4 MG UNDER THE SKIN DAILY. DISCARD 28 DAYS AFTER INITIAL USE 4.5 mL 3 06/07/2024 Active Start: 01-13-2024 End: 02-29-2024 inject 0.4 [...] daily 10 Each 3 01/21/2023 02/23/2023 Discontinued Start: 06-03-2019 inject 5 mg by intra muscular injection at bedtime Somatropin (Humatrope) 5 (15 unit) mg recon soln Active 4 MG IM AT BEDTIME June 03, 2019 12:00am Comment on above: Inject 0.4 mg subcut aneously daily Inject 0.4 mg SQ zachariah ly 5000 mg testosterone 0.01 mg/mg topical gel (20 sources) Androgen Start: 11-16-2024 End: 02-14-2025 testosterone (ANDROGEL) 50 mg / 5 g (1%) Apply 2 packets as directed once daily for 90 days. APPLY TO CLEAN, DRY, INTACT SKIN OF THE SHOULDERS AND UPPER ARMS 300 g 2 11/16/2024 02/14/2025 Active Start: 07-11-2021 End: 08-23-2028 testosterone (ANDROGEL PUMP) 20.25 mg/1.25 gram (1.62 %) transdermal gel Indications: Hypothyroidism, secondary , Hypogonadism male , Benign neoplasm of pituitary gland and craniopharyngeal duct (pouch) (HCC) , Prolactinoma (HCC) Apply three pumps on each shoulder as directed 300 g 1 09/29/2024 08/23/2028 Active Start: 06-03-2019 Testosterone ( Androgel) 1.62 % (20.25 mg/1.25 gram) gel in packet Active 1 PACKET TD DAILY June 03, 2019 12:00am Comment on above: Apply three pumps on each shoulder as directed Completed/Discontinued Medications Medication Drug Class(es) Dates Sig (Normalized) Sig (Original) cephalexin 500 mg oral capsule (1 source) Cephalosporin Antibacterial Start: 01-24-20 End: 02-03-20 take 500 mg by mouth every twelve hours Cephalexin Discontinued 500 MG PO Q12H 15 05January 22, 2023 11:00pm February 01, 2023 11:03pm methylPREDNISolone 4 mg oral tablet (2 sources) Corticosteroid Start: 05-14-20 End: 06-05-20 take 1 tablet by mouth once daily Methylprednisolone (Medrol (Venkata)) 4 mg tablets,dose pack Discontinued 4 MG PO DAILY June 28, 2021 12:00am June 05, 2022 10:01am per package instructions tadalafil 10 mg oral tablet (9 sources) Phosphodiesterase 5 Inhibitor Start: 08-10-19 End: 10-18-19 Tadalafil (CIALIS) 10 mg tablet Indications: Hypogonadism male Take 1 tablet by mouth as needed. 1-2 hours before sexual intercourse. 10 tablet 0 08/10/2019 10/17/2022 Discontinued (Course of therapy completed) Comment on above: Take 1 tablet by aguila as needed. 1-2 hours before sexual intercourse. Problems Active Problems Problem Classification Problem Date Documented Date Episodic/Chronic Disorders of lipid metabolism (2 sources) Hyperlipidemia; Translations: [Hyperlipidemia, unspecified] Onset: 06-29-2024 06-08-2019 Chronic E Codes: Natural/environment (2 sources) Tick bite; Translations: [Bitten or stung by nonvenomous insect and other nonvenomous arthropods, initial encounter] 01-15-2021 Episodic Immunizations and screening for infectious disease (4 sources) Encounter for screening for other viral diseases; Translations: [Patient encounter status] Onset: 06-18-2020 Episodic Neoplasms of unspecified nature or uncertain behavior (1 source) Neoplasm of pituitary gland; Translations: [Neoplasm of unspecified behavior of endocrine glands and other parts of nervous system] 06-03-2019 Episodic Other and unspecified benign neoplasm (20 sources) Prolactinoma; Translations: [Benign neoplasm of pituitary gland] Episodic Other connective tissue disease (1 source) Muscle pain; Translations: [Myalgia, unspecified site] 01-15-2021 Episodic Other ear and sense organ disorders (1 source) Impacted cerumen; Translations: [Impacted cerumen, right ear] 12-31-2022 Episodic Other endocrine disorders (20 sources) Male hypogonadism; Translations: [Testicular hypofunction] Onset: 10-30-2011 Chronic Other endocrine disorders (20 sources) Hyperpituitarism; Translations: [Hyperfunction of pituitary gland, unspecified] Onset: 12-24-2002 04-23-2010 Chronic Other endocrine disorders (20 sources) Hypocortisolism secondary to another disorder; 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] Onset: 01-04-2021 01-04-2021 Chronic Other endocrine disorders (1 source) Hypopituitarism; Translations: [Hypopituitarism] 06-08-2019 Chronic Other endocrine disorders (1 source) Disorder of pituitary gland, unspecified; Translations: [Disorder of pituitary gland, unspecified] Onset: 06-22-2024 Chronic Other endocrine disorders (1 source) Testicular hypofunction; Translations: [Testicular hypofunction] Onset: 05-19-2024 Chronic Other non-traumatic joint disorders (1 source) Pain in right shoulder; Translations: [Right shoulder pain] 05-14-2021 Episodic Other nutritional; endocrine; and metabolic disorders (1 source) Overweight in adulthood with body mass index of 25 or more but less than 30; Translations: [Body mass index (BMI) 29.0-29.9, adult] 04-26-2021 Episodic Other screening for suspected conditions (not mental disorders or infectious disease) (1 source) Patient encounter status; Translations: [Encounter for screening for malignant neoplasm of intestinal tract, unspecified] 02-12-2021 Episodic Other upper respiratory infections (1 source) Upper respiratory infection; Translations: [Acute upper respiratory infection, unspecified] 06-28-2021 Episodic Thyroid disorders (20 sources) Secondary hypothyroidism; Translations: [Other specified hypothyroidism] Onset: 02-10-2011 Chronic Viral infection (1 source) Disease caused by 2019-nCoV; Translations: [COVID-19] 06-05-2022 Episodic Past or Other Problems Problem Classification Problem Date Documented Date Episodic/Chronic Deficiency and other anemia (1 source) Anemia, unspecified; Translations: [Anemia, unspecified] Onset: 06-29-2024 Episodic Other and unspecified benign neoplasm (20 sources) Benign neoplasm of pituitary gland and craniopharyngeal duct; Translations: [Benign neoplasm of pituitary gland] Onset: 12-24-2002 Episodic Other bone disease and musculoskeletal deformities (20 sources) Osteopenia; Translations: [Other specified disorders of bone density and structure, unspecified site] Onset: 07-05-2015 07-05-2015 Episodic Other bone disease and musculoskeletal deformities (1 source) Other specified disorders of bone density and structure, unspecified site; Translations: [Other specified disorders of bone density and structure, unspecified site] Onset: 08-11-2024 Episodic Results Test Name Value Interpretation Reference Range Facility [facility] 12-08-2024 [facility] Telephone (ENDOAV) MOE WIGGINS ([id number]) 1960 M Date Time Provider Department 12/08/24 LEO SHAW V ENDOISRA[facility] During your visit today, we recorded the following information about you: Christel Crook LPN 12/08/2024 11:29 AM Signed Approval fax from [facility] for Testosterone received. Approval is for 12/05/24 until further notice. Form sent to scanning. Allergies As of Date: 12/08/2024 Noted Allergy Reaction PENICILLINS 05/19/2013 4 - Hives Date Reviewed: 06/06/2024 Reviewed by: Bonnie Warner RN - Fully Assessed Reason for Visit: Patient Update [1234] Cmt: Testosterone gel Prescriptions as of 12/08/2024 - levothyroxine (SYNTHROID) 112 mcg tablet Take 1 tablet by mouth every morning. on empty stomach - testosterone (ANDROGEL) 50 mg / 5 g (1%) Apply 2 packets as directed once daily for 90 days. APPLY TO CLEAN, DRY, INTACT SKIN OF THE SHOULDERS AND UPPER ARMS - somatropin (OMNITROPE) 5 mg/1.5 mL (3.3 mg/mL) subcutaneous cartridge INJECT 0.4 MG UNDER THE SKIN DAILY. DISCARD 28 DAYS AFTER INITIAL USE - rosuvastatin (CRESTOR) 20 mg tablet Take 1 tablet by mouth once daily. - hydrocortisone (CORTEF) 10 mg tablet Take one tablet in am and 1 tablet afternoon, increase to 2 tab in am and 2 tab in the afternoon for 2-3 days if sick - cabergoline (DOSTINEX) 0.5 mg tablet Take half tablet 2 days per week. - raloxifene (EVISTA) 60 mg tablet Take [...] by mouth. 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] 12/24/2002 Hypothyroidism, secondary [E03.8] 02/10/2011 Hypogonadism male [E29.1] 10/30/2011 Osteopenia [M85.80] 07/05/2015 Secondary adrenal insufficiency (HCC) [E27.49] 01/04/2021 Encounter Status:Closed by CHRISTEL CROOK on 12/08/24 [facility] 12-07-2024 [facility] Telephone (ENDOAV) MOE WIGGINS ([id number]) 1960 M Date Time Provider Department 12/07/24 LEO SHAW During your visit today, we recorded the following information about you: Christel Crook LPN 12/07/2024 10:58 AM Addendum Fax received from [facility] requesting more information regarding Testosterone RX. Form completed and faxed. Electronically signed ANGELA notes attached. Allergies As of Date: 12/07/2024 Noted Allergy Reaction PENICILLINS 05/19/2013 4 - Hives Date Reviewed: 06/06/2024 Reviewed by: Bonnie Warner RN - Fully Assessed Reason for Visit: Patient Update [1234] Cmt: [facility] Prescriptions as of 12/07/2024 - levothyroxine (SYNTHROID) 112 mcg tablet Take 1 tablet by mouth every morning. on empty stomach - testosterone (ANDROGEL) 50 mg / 5 g (1%) Apply 2 packets as directed once daily for 90 days. APPLY TO CLEAN, DRY, INTACT SKIN OF THE SHOULDERS AND UPPER ARMS - somatropin (OMNITROPE) 5 mg/1.5 mL (3.3 mg/mL) subcutaneous cartridge INJECT 0.4 MG UNDER THE SKIN DAILY. DISCARD 28 DAYS AFTER INITIAL USE - rosuvastatin (CRESTOR) 20 mg tablet Take 1 tablet by mouth once daily. - hydrocortisone (CORTEF) 10 mg tablet Take one tablet in am and 1 tablet afternoon, increase to 2 tab in am and 2 tab in the afternoon for 2-3 days if sick - cabergoline (DOSTINEX) 0.5 mg tablet Take half tablet 2 days per week. - raloxifene (EVISTA) 60 mg tablet Take [...] by mouth. 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] 12/24/2002 Hypothyroidism, secondary [E03.8] 02/10/2011 Hypogonadism male [E29.1] 10/30/2011 Osteopenia [M85.80] 07/05/2015 Secondary adrenal insufficiency (HCC) [E27.49] 01/04/2021 Encounter Status:Closed by CHRISTEL CROOK on 12/07/24 [facility] MOE WIGGINS ([id number]) 1960 M Date Time Provider Department 11/07/24 LEO SHAW V [facility] During your visit today, we recorded the following information about you: Baltazar Hidalgo 11/07/2024 2:26 PM Signed Initiated PA for testosterone (ANDROGEL PUMP) 20.25 mg/1.25 gram (1.62 %) transdermal gel [facility] [employer] Chart notes and labs attached Questions Completed Waiting for determination [facility] [employer] [facility] Endocrinology AND Metabolism [place] [facility] X-20 Allergies As of Date: 11/07/2024 Noted Allergy Reaction PENICILLINS 05/19/2013 4 - Hives Date Reviewed: 06/06/2024 Reviewed by: Bonnie Warner RN - Fully Assessed Reason for Visit: Insurance Authorization [[id number]] Cmt: testosterone (ANDROGEL PUMP) 20.25 mg/1.25 gram (1.62 %) transdermal gel [[facility]] Prescriptions as of 11/07/2024 - testosterone (ANDROGEL PUMP) 20.25 mg/1.25 gram (1.62 %) transdermal gel Apply three pumps on each shoulder as directed - levothyroxine (SYNTHROID) 112 mcg tablet Take 1 tablet by mouth every morning. on empty stomach - rosuvastatin (CRESTOR) 20 mg tablet Take 1 tablet by mouth once daily. - OMNITROPE 5 mg/1.5 mL (3.3 mg/mL) INJECT 0.4 MG UNDER THE SKIN DAILY. DISCARD 28 DAYS AFTER INITIAL USE - hydrocortisone (CORTEF) 10 mg tablet Take one tablet in am and 1 tablet afternoon, increase to 2 tab in am and 2 tab in the afternoon for 2-3 days if sick - cabergoline (DOSTINEX) 0.5 mg tablet Take half tablet 2 days per week. - raloxifene (EVISTA) 60 mg tablet Take 1 tablet by mouth once daily. - Somatropin (GENOTROPIN) 5 mg/mL (15 unit/mL) crtg Inject 0.4 mg SQ daily - insulin needles, DISPOSABLE, (BD INSULIN PEN NEEDLE UF) 31 gauge x 5/16 Use for growth hormone pen injections once a day - insulin needles, DISPOSABLE, (PEN NEEDLE) 31 gauge x 5/16 ndle Use for GH pen injections once a day - Aspirin 81 mg tab Take 81 mg by mouth. 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] 12/24/2002 Hypothyroidism, secondary [E03.8] 02/10/2011 Hypogonadism male [E29.1] 10/30/2011 Osteopenia [M85.80] 07/05/2015 Secondary adrenal insufficiency (HCC) [E27.49] 01/04/2021 Encounter Status:[facility] MOE WIGGINS ([id number]) 1960 M Date Time Provider Department 10/17/24 LEO SHAW During your visit today, we recorded the following information about you: Baltazar Hidalgo 10/17/2024 10:52 AM Signed Initiated PA for OMNITROPE 5 mg/1.5 mL (3.3 mg/mL) through [facility] via [employer] Questions Completed Waiting for determination [facility] Endocrinology AND Metabolism [place] [facility] X-20 Baltazar Hidalgo 10/17/2024 10:52 AM Signed Unable to process due to previous attempt being denied. [facility] [place] [employer] Endocrinology AND Metabolism [facility] X-20 Allergies As of Date: 10/17/2024 Noted Allergy Reaction PENICILLINS 05/19/2013 4 - Hives Date Reviewed: 06/06/2024 Reviewed by: Bonnie Warner RN - Fully Assessed Reason for Visit: Insurance Authorization [[id number]] Cmt: Unable to Process - OMNITROPE 5 mg/1.5 mL (3.3 mg/mL) [[facility]] Prescriptions as of 10/17/2024 - testosterone (ANDROGEL PUMP) 20.25 mg/1.25 gram (1.62 %) transdermal gel Apply three pumps on each shoulder as directed - levothyroxine (SYNTHROID) 112 mcg tablet Take 1 tablet by mouth every morning. on empty stomach - rosuvastatin (CRESTOR) 20 mg tablet Take 1 tablet by mouth once daily. - OMNITROPE 5 mg/1.5 mL (3.3 mg/mL) INJECT 0.4 MG UNDER THE SKIN DAILY. DISCARD 28 DAYS AFTER INITIAL USE - hydrocortisone (CORTEF) 10 mg tablet Take one tablet in am and 1 tablet afternoon, increase to 2 tab in am and 2 tab in the afternoon for 2-3 days if sick - cabergoline (DOSTINEX) 0.5 mg tablet Take half tablet 2 days per week. - raloxifene (EVISTA) 60 mg tablet Take 1 tablet by mouth once daily. - Somatropin (GENOTROPIN) 5 mg/mL (15 unit/mL) crtg Inject 0.4 mg SQ daily - insulin needles, DISPOSABLE, (BD INSULIN PEN NEEDLE UF) 31 gauge x 5/16 Use for growth hormone pen injections once a day - insulin needles, DISPOSABLE, (PEN NEEDLE) 31 gauge x 12/09 ndle Use for GH pen injections once a day - Aspirin 81 mg tab Take 81 mg by mouth. 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] 12/24/2002 Hypothyroidism, secondary [E03.8] 02/10/2011 Hypogonadism male [E29.1] 10/30/2011 Osteopenia [M85.80] 07/05/2015 Secondary adrenal insufficiency (HCC) [E27.49] 01/04/2021 Encounter Status:Closed by BALTAZAR HIDALGO on 10/17/24 [facility] 07-01-2024 CNP[facility] Telephone (ENDOAV) MOE WIGGINS ([id number]) 1960 M Date Time Provider Department 07/01/24 RICH ALEXIS ENDOAV During your visit today, we recorded the following information about you: Marina Neil, PONCHO 07/01/2024 11:16 AM Signed Nurse from pt's PCP office calling They are trying to arrange pt getting his PROLIA injections arranged The nurse called to ask if your office can send over the notes from his last TWO office visits please Pt mentioned he has been on Evista .. The nurse wanted to have all the info she needs in case they need to do a prior auth PCP's office / [facility]) in [place] Office PHONE # [phone] FAX # [phone] Christel Crook LPN 07/01/2024 1:14 PM Signed 2 ANGELA notes faxed as requested. Allergies As of Date: 07/01/2024 Noted Allergy Reaction PENICILLINS 05/19/2013 4 - Hives Date Reviewed: 06/06/2024 Reviewed by: Bonnie Warner RN - Fully Assessed Reason for Visit: info request [Other] Prescriptions as of 07/01/2024 - rosuvastatin (CRESTOR) 20 mg tablet Take 1 tablet by mouth once daily. - OMNITROPE 5 mg/1.5 mL (3.3 mg/mL) INJECT 0.4 MG UNDER THE SKIN DAILY. DISCARD 28 DAYS AFTER INITIAL USE - hydrocortisone (CORTEF) 10 mg tablet Take one tablet in am and 1 tablet afternoon, increase to 2 tab in am and 2 tab in the afternoon for 2-3 days if sick - cabergoline (DOSTINEX) 0.5 mg tablet Take half tablet 2 days per week. - levothyroxine (SYNTHROID) 112 mcg tablet Take 1 tablet by mouth every morning. on empty stomach - raloxifene (EVISTA) 60 mg tablet Take 1 tablet by mouth once daily. - testosterone (ANDROGEL PUMP) 20.25 mg/1.25 gram (1.62 %) transdermal gel Apply three pumps on each shoulder as directed - Somatropin (GENOTROPIN) 5 mg/mL (15 unit/mL) crtg Inject 0.4 mg SQ daily - insulin needles, DISPOSABLE, (BD INSULIN PEN NEEDLE UF) 31 gauge x 5/16 Use for growth hormone pen injections once a day - insulin needles, DISPOSABLE, (PEN NEEDLE) 31 gauge x 5/16 ndle Use for GH pen injections once a day - Aspirin 81 mg tab Take 81 mg by mouth. 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 Allergies As of Date: 07/01/2024 Noted Allergy Reaction PENICILLINS 05/19/2013 4 - Hives Date Reviewed: 06/06/2024 Reviewed by: Bonnie Warner, PONCHO - Fully Assessed Reason for Visit: Prescription [Other] Cmt: [facility] Prescriptions as of 07/01/2024 - rosuvastatin (CRESTOR) 20 mg tablet Take 1 tablet by mouth once daily. - OMNITROPE 5 mg/1.5 mL (3.3 mg/mL) INJECT 0.4 MG UNDER THE SKIN DAILY. DISCARD 28 DAYS AFTER INITIAL USE - hydrocortisone (CORTEF) 10 mg tablet Take one tablet in am and 1 tablet afternoon, increase to 2 tab in am and 2 tab in the afternoon for 2-3 days if sick - cabergoline (DOSTINEX) 0.5 mg tablet Take half tablet 2 days per week. - levothyroxine (SYNTHROID) 112 mcg tablet Take 1 tablet by mouth every morning. on empty stomach - raloxifene (EVISTA) 60 mg tablet Take 1 tablet by mouth once daily. - testosterone (ANDROGEL PUMP) 20.25 mg/1.25 gram (1.62 %) transdermal gel Apply three pumps on each shoulder as directed - Somatropin (GENOTROPIN) 5 mg/mL (15 unit/mL) crtg Inject 0.4 mg SQ daily - insulin needles, DISPOSABLE, (BD INSULIN PEN NEEDLE UF) 31 gauge x 5/16 Use for growth hormone pen injections once a day - insulin needles, DISPOSABLE, (PEN NEEDLE) 31 gauge x 5/16 ndle Use for GH pen injections once a day - Aspirin 81 mg tab Take 81 mg by mouth. 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] 12/24/2002 Hypothyroidism, secondary [E03.8] 02/10/2011 Hypogonadism male [E29.1] 10/30/2011 Osteopenia [M85.80] 07/05/2015 Secondary adrenal insufficiency (HCC) [E27.49] 01/04/2021 Encounter Status:Closed by CHRISTEL CROOK on 07/01/24 Normal [facility] Internal Medicine Office Vis itoaleta 06-29-2024 Internal Medicine Office Visit [facility] [address] [place], [place] [address] OFFICE VISIT Date of Service: 06/29/24 MR#: [id number] Acct: [id number] Name: MOE WIGGINS Rep #: [id number] : 1960 Provider: DHRUV Chavira Age/Sex: 63/M Location: [facility] Status: Signed Intake Vital Signs 01/23/23 14:08 06/29/24 15:07 Height 5 ft 8 in 5 ft 8 in Weight: 195 lb 6 oz BMI 29.7 BP 126/74 H Blood Pressure Location Lt brachial Position Sitting Respiration 16 Pulse 79 Pulse Source Monitor Temp 97.5 F L Temp Source Temporal Pulse Oximetry (%) 98 Oxygen Delivery Method room air Intake Visit Reasons: ACUTE - FU ON LABS (IRON) Chief Complaint: labs issues Nurse Leader Required: No Accompanied by: Self Is patient in pain?: No Allergies Penicillins Allergy (Verified 06/29/24 15:01) Hives Medications ???Medication ???Instructions ???Recorded ???Confirmed ???Type aspirin 81 mg tablet,delayed 81 mg PO DAILY 06/03/19 06/29/24 History release cholecalciferol (vitamin D3) 125 5,000 unit PO DAILY 06/03/19 06/29/24 History mcg (5,000 unit) capsule levothyroxine 112 mcg tablet 112 mcg PO DAILY 06/03/19 06/29/24 History raloxifene 60 mg tablet (Evista) 60 mg PO QHS 06/03/19 06/29/24 History somatropin (Humatrope) 4 mg IM QHS 06/03/19 06/29/24 History testosterone 1.62 % (20.25 mg/1.25 1 packet transdermal DAILY 06/03/19 06/29/24 History gram) transdermal gel packet (AndroGel) rosuvastatin 20 mg tablet (Crestor) 20 mg PO DAILY #90 tabs 01/01/21 06/29/24 Rx cabergoline 0.5 mg tablet 0.5 mg PO MOFR 06/29/24 06/29/24 History denosumab 60 mg/mL subcutaneous 60 mg subcut [id number] #1 mL 06/29/24 06/29/24 Rx syringe (Prolia) hydrocortisone 10 mg tablet 20 mg PO ONCE 06/29/24 06/29/24 History PFSH Medical History Encounter for screening for COVID-19 URI (upper respiratory infection) Right shoulder pain Wears glasses Non-smoker History of echocardiogram Muscle ache Tick bite Hypothyroidism Hyperlipemia Pituitary tumor Surgical History Hx of colonoscopy History of wisdom tooth extraction Family History Mother Aneurysm age 50 Father Cancer prostate Other Heart disease Hyperlipemia Hypertension Social History Smoking Status: Never smoker alcohol intake: never substance use type: does not use what type of physical activity do you participate in: aerobics frequency: daily HPI HPI Chief Complaint: labs issues Details: MOE WIGGINS, is a 63 M who presents to the office today with some questions. Patient sees an general teller at the [facility] for a pituitary gland tumor. He sees her annually and has some blood work. They review this with him but also wanted to come discuss that today. She wants him to start taking Prolia injections for the bone loss. He does have regular bone density tests to monitor this. He has not had any recent falls or trauma and does not have any specific bone pains. He also wants to discuss his recent Labs (end of April). He states that she had mentioned that he had some minor anemia that she would like him to discuss and so he would like to discuss that. He also has questions regarding his weight and what an appropriate weight would be for him. He has lost a lot of weight through diet and other lifestyle modifications. Patient does keep up to date with his immunizations He does have regular routine screening exams He does see eye doctor and dentists regularly Patient has no concerns or complaints at this time. ROS Const Constitutional: No body ache, chills, excessive sweating, fatigue, fever(s), frequent falls, headache(s), snoring, weakness or change in appetite Eyes Eyes: No blurry vision, change in vision, eye pain or Light sensitivity ENT ENT: No abnormal hearing, ear or mastoid pain, tinnitus, nasal congestion, headache(s), neck pain or sore throat Resp Respiratory: No cough, shortness of breath, snoring or wheezing Cardio Cardiology: No chest pain at rest, chest pain with exertion, excessive sweating, dyspnea on exertion, lightheadedness, orthopnea or palpitations Gastro GI: No abdominal pain, change in bowel habits, constipation, cramping, diarrhea, nausea/dyspepsia or vomiting Genitourinary Male: No burning urination, painful urination, urinary incontinence or urinary frequency Musc Musculoskeletal: No abnormal gait, joint pain, back pain, limited range of motion, muscle weakness, neck pain or numbness Skin Skin: No dry skin, redness, lesions, itchy eyes, rash or wounds Neuro Neurology: No abnormal gai (more content not included)... Normal [facility] CNCOon 06-06-2024 CNCO Letter Text Normal [facility] CNOVon 06-06-2024 CNOV Office Visit (ENDOAV ) MOE WIGGINS ([id number]) 1960 M Date Time Provider Department 06/06/24 11:20 AM LEO SHAW V ENDOISRAEL During your visit today, we recorded the following information about you: Pulse Blood pressure Weight Height 80/minute 135/69 88.9 kg 1.727 m Leo Shaw V, MD 06/07/2024 1:11 PM Signed THIS NOTE WAS CARRIED FORWARD FROM THE VISIT WITH ME IN APR 2023 AND ADDENDED APPROPRIATE TO REFLECT TODAY'S VISIT [...] 2023 ): Doing well Labs not available INTERVAL HPI (June 07, 2024 ): Overall doing well Reports some fatigue Has been taking all his meds correctly PMH: Macroprolactinoma PSH: None SOCIAL HISTORY Marital Status: Tobacco Use: Never Alcohol Use: No Review of patient's allergies indicates: Pencillin [Other] Comment:hives Family Hx: no history of hypercalcemia, pituitary tumor, or abdominal tumor Current Outpatient Medications Medication Sig Somatropin (OMNITROPE) 5 mg/1.5 mL (3.3 mg/mL) INJECT 0.4 MG UNDER THE SKIN DAILY. DISCARD 28 DAYS AFTER INITIAL USE hydrocortisone (CORTEF) 10 mg tablet Take one tablet in am, increase to 2 tab in am and 1 tab in the afternoon for 2-3 days if sick levothyroxine (SYNTHROID) 112 mcg tablet Take 1 tablet by mouth every morning. on empty stomach raloxifene (EVISTA) 60 mg tablet Take 1 tablet by mouth once daily. testosterone (ANDROGEL PUMP) 20.25 mg/1.25 gram (1.62 %) transdermal gel Apply three pumps on each shoulder as directed cabergoline (DOSTINEX) 0.5 mg tablet Take 1 tb 2 days per week. Somatropin (GENOTROPIN) 5 mg/mL (15 unit/mL) crtg Inject 0.4 mg SQ daily rosuvastatin (CRESTOR) 20 mg tablet Take 1 tablet by mouth once daily. insulin needles, DISPOSABLE, (BD INSULIN PEN NEEDLE UF) 31 gauge x 5/16 Use for growth hormone pen injections once a day insulin needles, DISPOSABLE, (PEN NEEDLE) 31 gauge x 5/16 ndle Use for GH pen injections once a day Aspirin 81 mg tab Take 81 mg by mouth. No current facility-administered medications for this visit. Physical Examination BP 135/69 Pulse 80 Ht 172.7 cm (5' 8) Wt 88.9 kg (195 lb 15.8 oz) BMI 29.80 kg/m? General: AO X3 Skin: skin color, texture, turgor normal, no rashes or lesions. Eyes: Anicteric sclera. Neck: normal Abdomen: soft, non-tender, Extremities: no edema Peripheral Pulses: posterior tibial and doralis pedis pulses 2+ Labs: 2014 HbA1c: 5.5 HcT: 37 Vit [...] has been promising with last prolactin of being0.4ng/mL (currently on 2 tb per week). -Decrease to 1 tab weekly---take half pill twice a week # Osteoporosis : - He is on raloxifene 60 mg daily. - His past BMD shows osteopenia - BMD in Jna 2019 showed improvement in spine and mild decline in hip and from 2021 essentailly stable, 2023 - BMD shows worsening -Will switch to Prolia -They will check with local office and arrange for the same Vit D : 5000 units daily Discussed reports about association of long-term high dose cabergoline therapy in parkinsonian patients with valvular heart disease in the past. His last echo was fine in 2011. 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 - Con (more content not included)... [facility] [place] LAB TEST Normal [facility] Comment on above: Order Comment: SERUM [id number] IGF-1 Result Comment: TEST RESULTS LIMITS Insulin-Like Growth Factor I 96 ng/mL 64-240 TESTING PERFORMED AT [facility]. ORIGINAL REPORT ON FILE IN LAB CONTAINS ADDITIONAL TEST SITE INFORMATION. Performed By: #### L 500.4050, L506.1000, L100.0100, L506.0400, L3100.5400, L801.1541, L501.9940, L501.9985, L501.86754, L501.9520, L509.3000 #### [facility] [address] [place], [address] Venus 05-25-2024 CNPN Telephone (ENDOAV) MOE WIGGINS ([id number]) 1960 M Date Time Provider Department 05/25/24 LEO SHAW During your visit today, we recorded the following information about you: Moe Chapa MA 05/25/2024 6:39 PM Signed Received lab result from [facility]. Result placed in Dr. Shaw's inbox for review. Copy sent to scanning. Allergies As of Date: 05/25/2024 Noted Allergy Reaction PENICILLINS 05/19/2013 4 - Hives Date Reviewed: 12/04/2021 Reviewed by: Yudy Rouse MA - Fully Assessed Reason for Visit: Outside Lab Results [753] Prescriptions as of 05/25/2024 - hydrocortisone (CORTEF) 10 mg tablet Take one tablet in am, increase to 2 tab in am and 1 tab in the afternoon for 2-3 days if sick - levothyroxine (SYNTHROID) 112 mcg tablet Take 1 tablet by mouth every morning. on empty stomach - raloxifene (EVISTA) 60 mg tablet Take 1 tablet by mouth once daily. - Somatropin (OMNITROPE) 5 mg/1.5 mL (3.3 [...] by mouth. 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] 02/10/2011 Hypogonadism male [E29.1] 10/30/2011 Osteopenia [M85.80] 07/05/2015 Secondary adrenal insufficiency (HCC) [E27.49] 01/04/2021 Encounter Status:Closed by MOE CHAPA on 05/25/24 Normal [facility] PROLACTIN 4465on 05-25-2024 PROLACTIN 0.8 ng/mL Low 3.6-25.2 [facility] Comment on above: Result Comment: Perf ormed at: - [facility] [id number] [employer] Finance Manager: See Meza PhD, Phone: [phone] Performed By: #### L 500.4050, L506.1000, L100.0100, L506.0400, L3100.5400, L801.1541, L501.9940, L501.9985, L501.35812, L501.9520, L509.3000 #### [facility] [address] [place], [place], [id number] CBC W/Diff, Automatedon 04-27 Absolute Lymph 1.78 X10 3/uL Normal 0.83-4.51 [facility] Comment on above: Performed By: #### L 500.4050, L506.1000, L100.0100, L506.0400, L3100.5400, L801.1541, L501.9940, L501.9985, L501.70259, L501.9520, L509.3000 #### [facility] [address] [place], [place], [phone] Absolute Neut 2.2 X10 3/uL Normal 2.0-7.7 [facility] Comment on above: Performed By: #### L 500.4050, L506.1000, L100.0100, L506.0400, L3100.5400, L801.1541, L501.9940, L501.9985, L501.45208, L501.9520, L509.3000 #### [facility] [address] [place], [address] Basophils/100 WBC (Bld) 0.6 % Normal 0-1 [facility] Comment on above: Performed By: #### L 500.4050, L506.1000, L100.0100, L506.0400, L3100.5400, L801.1541, L501.9940, L501.9985, L501.27925, L501.9520, L509.3000 #### [facility] [address] [facility] [place], [address] Eosinophils/100 WBC (Bld) 10.6 % High 0-5 [facility] Comment on above: Performed By: #### L 500.4050, L506.1000, L100.0100, L506.0400, L3100.5400, L801.1541, L501.9940, L501.9985, L501.12159, L501.9520, L509.3000 #### [facility] [address] [place], [address] Erythrocyte distribution width (RBC) [Ratio] 13.0 % Normal 11.6-14.6 [facility] Comment on above: Performed By: #### L 500.4050, L506.1000, L100.0100, L506.0400, L3100.5400, L801.1541, L501.9940, L501.9985, L501.42016, L501.9520, L509.3000 #### [facility] [address] [place], [address] Hematocrit (Bld) [Volume fraction] 36.1 % Low 40-54 [facility] Comment on above: Performed By: #### L 500.4050, L506.1000, L100.0100, L506.0400, L3100.5400, L801.1541, L501.9940, L501.9985, L501.92149, L501.9520, L509.3000 #### [facility] [address], [address] Hemoglobin (Bld) [Mass/Vol] 12.2 g/dL Low 13.0-16.5 [facility] Comment on above: Performed By: #### L 500.4050, L506.1000, L100.0100, L506.0400, L3100.5400, L801.1541, L501.9940, L501.9985, L501.31846, L501.9520, L509.3000 #### [facility] [address] [place], [address] IG% 0.200 Normal 0.0-0.9 [facility] Comment on above: Result Comment: IG% - Immature Granulocytes (promyelocytes, myelocytes and metamyelocytes) > 1% indicates that a LEFT SHIFT is Present. Performed By: #### L 500.4050, L506.1000, L100.0100, L506.0400, L3100.5400, L801.1541, L501.9940, L501.9985, L501.04125, L501.9520, L509.3000 #### [facility] [address] [facility] [place], [address] Lymphocytes/100 WBC (Bld) 34.2 % Normal 19-41 [facility] Comment on above: Performed By: #### L 500.4050, L506.1000, L100.0100, L506.0400, L3100.5400, L801.1541, L501.9940, L501.9985, L501.74742, L501.9520, L509.3000 #### [facility] [address] [place], [address] MCH (RBC) [Entitic mass] 31.6 pg Normal 27.0-32.0 [facility] Comment on above: Performed By: #### L 500.4050, L506.1000, L100.0100, L506.0400, L3100.5400, L801.1541, L501.9940, L501.9985, L501.39694, L501.9520, L509.3000 #### [facility] [address] [place], [address] MCHC (RBC) [Mass/Vol] 33.8 g/dL Normal 32-36 [facility] Comment on above: Performed By: #### L 500.4050, L506.1000, L100.0100, L506.0400, L3100.5400, L801.1541, L501.9940, L501.9985, L501.98140, L501.9520, L509.3000 #### [facility] [address] [place], [address] MCV (RBC) [Entitic vol] 93.5 fL Normal 80-94 [facility] Comment on above: Performed By: #### L 500.4050, L506.1000, L100.0100, L506.0400, L3100.5400, L801.1541, L501.9940, L501.9985, L501.86136, L501.9520, L509.3000 #### [facility] [address] [place], [address] Monocytes/100 WBC (Bld) 11.3 % High 0-10 [facility] Comment on above: Performed By: #### L 500.4050, L506.1000, L100.0100, L506.0400, L3100.5400, L801.1541, L501.9940, L501.9985, L501.14325, L501.9520, L509.3000 #### [facility] [address] [place], [address] Neutrophils/100 WBC (Bld) 43.1 % Low 47-70 [facility] Comment on above: Performed By: #### L 500.4050, L506.1000, L100.0100, L506.0400, L3100.5400, L801.1541, L501.9940, L501.9985, L501.94217, L501.9520, L509.3000 #### [facility] [address] [place], [address] Nucleated RBC (Bld) [#/Vol] 0 10*3/uL Normal 0-5 [facility] Comment on above: Performed By: #### L 500.4050, L506.1000, L100.0100, L506.0400, L3100.5400, L801.1541, L501.9940, L501.9985, L501.45556, L501.9520, L509.3000 #### [facility] [address] [place], [place], [phone] (710) Platelet mean volume (Bld) [Entitic vol] 9.4 fL Normal 6.2-12.0 [facility] Comment on above: Performed By: #### L 500.4050, L506.1000, L100.0100, L506.0400, L3100.5400, L801.1541, L501.9940, L501.9985, L501.54796, L501.9520, L509.3000 #### [facility] [address] [place], [place], [phone] (992) Platelets (Bld) [#/Vol] 256 10*3/uL Normal 150-450 [facility] Comment on above: Performed By: #### L 500.4050, L506.1000, L100.0100, L506.0400, L3100.5400, L801.1541, L501.9940, L501.9985, L501.72865, L501.9520, L509.3000 #### [facility] [address] [place], [place], [phone] (221) RBC (Bld) [#/Vol] 3.86 10*6/uL Low 4.6-6.2 [facility] Comment on above: Performed By: #### L 500.4050, L506.1000, L100.0100, L506.0400, L3100.5400, L801.1541, L501.9940, L501.9985, L501.98836, L501.9520, L509.3000 #### [facility] [address] [place], [place], [phone] RDW SD 44.7 fl High 35.1-43.9 [facility] Comment on above: Performed By: #### L 500.4050, L506.1000, L100.0100, L506.0400, L3100.5400, L801.1541, L501.9940, L501.9985, L501.55646, L501.9520, L509.3000 #### [facility] [address] [place], [place], [phone] WBC (Bld) [#/Vol] 5.2 10*3/uL Normal 4.4-11.0 [facility] Comment on above: Performed By: #### L 500.4050, L506.1000, L100.0100, L506.0400, L3100.5400, L801.1541, L501.9940, L501.9985, L501.73293, L501.9520, L509.3000 #### [facility] [address] [place], [place], [id number] Comprehensive Metabolic Prof nvon 05-24-2024 Albumin [Mass/Vol] 3.6 g/dL Normal 3.2-5.0 [facility] Comment on above: Performed By: #### L 500.4050, L506.1000, L100.0100, L506.0400, L3100.5400, L801.1541, L501.9940, L501.9985, L501.75847, L501.9520, L509.3000 #### [facility] [address] [place], [address] Albumin/Globulin [Mass ratio] 1.1 {ratio} Normal 0.9-2.4 [facility] Comment on above: Performed By: #### L 500.4050, L506.1000, L100.0100, L506.0400, L3100.5400, L801.1541, L501.9940, L501.9985, L501.08069, L501.9520, L509.3000 #### [facility] [address] [place], [address] ALK P 58 U/L Normal 45-117 [facility] Comment on above: Performed By: #### L 500.4050, L506.1000, L100.0100, L506.0400, L3100.5400, L801.1541, L501.9940, L501.9985, L501.59697, L501.9520, L509.3000 #### [facility] [address] [place], [address] ALT [Catalytic activity/Vol] 24 U/L Normal 16-61 [facility] Comment on above: Performed By: #### L 500.4050, L506.1000, L100.0100, L506.0400, L3100.5400, L801.1541, L501.9940, L501.9985, L501.57271, L501.9520, L509.3000 #### [facility] [address] [place], [address] AST [Catalytic activity/Vol] 22 U/L Normal 15-37 [facility] Comment on above: Performed By: #### L 500.4050, L506.1000, L100.0100, L506.0400, L3100.5400, L801.1541, L501.9940, L501.9985, L501.43835, L501.9520, L509.3000 #### [facility] [address] [place], [address] Bilirubin [Mass/Vol] 0.40 mg/dL Normal 0.20-1.00 [facility] Comment on above: Result Comment: For patients on eltrombopag therapy, use of Dimension Maxwell TBIL is not recommended. Performed By: #### L 500.4050, L506.1000, L100.0100, L506.0400, L3100.5400, L801.1541, L501.9940, L501.9985, L501.90714, L501.9520, L509.3000 #### [facility] [address] [place], [place], [id number] BUN/CRE 31.1 RATIO High 10-20 [facility] Comment on above: Performed By: #### L 500.4050, L506.1000, L100.0100, L506.0400, L3100.5400, L801.1541, L501.9940, L501.9985, L501.49378, L501.9520, L509.3000 #### [facility] [address] [place], [place], [id number] CA,Total 8.7 mg/dL Normal 8.5-10.1 [facility] Comment on above: Performed By: #### L 500.4050, L506.1000, L100.0100, L506.0400, L3100.5400, L801.1541, L501.9940, L501.9985, L501.72241, L501.9520, L509.3000 #### [facility] [address] [place], [address] Chloride [Moles/Vol] 105 mmol/L Normal 98-107 [facility] Comment on above: Performed By: #### L 500.4050, L506.1000, L100.0100, L506.0400, L3100.5400, L801.1541, L501.9940, L501.9985, L501.44058, L501.9520, L509.3000 #### [facility] [address] [place], [place], [phone] (001) CO2 [Moles/Vol] 26.0 mmol/L Normal 21.0-32.0 [facility] Comment on above: Performed By: #### L 500.4050, L506.1000, L100.0100, L506.0400, L3100.5400, L801.1541, L501.9940, L501.9985, L501.40690, L501.9520, L509.3000 #### [facility] [address] [place], [place], [phone] (809) Creatinine [Mass/Vol] 0.90 mg/dL Normal 0.70-1.30 [facility] Comment on above: Result Comment: The validity of the calculated GFR GFRAA in patients over 70 years has not been determined. Clinical correlation is essential. Performed By: #### L 500.4050, L506.1000, L100.0100, L506.0400, L3100.5400, L801.1541, L501.9940, L501.9985, L501.61501, L501.9520, L509.3000 #### [facility] [address] [place], [place], [phone] (154) EST GFR - AA 109 mL/min Normal >60 [facility] Comment on above: Result Comment: Afri can Wallisian GFR Calc Performed By: #### L 500.4050, L506.1000, L100.0100, L506.0400, L3100.5400, L801.1541, L501.9940, L501.9985, L501.02204, L501.9520, L509.3000 #### [facility] [address] [place], [address] GAP 7 Normal 5-15 [facility] Comment on above: Performed By: #### L 500.4050, L506.1000, L100.0100, L506.0400, L3100.5400, L801.1541, L501.9940, L501.9985, L501.85169, L501.9520, L509.3000 #### [facility] [address] [place], [address] GFR/1.73 sq M.predicted among non-blacks MDRD (S/P/Bld) [Vol rate/Area] 90 mL/min/{1.73_m2} Normal >60 [facility] Comment on above: Result Comment: Non- GFR Calc Performed By: #### L 500.4050, L506.1000, L100.0100, L506.0400, L3100.5400, L801.1541, L501.9940, L501.9985, L501.52612, L501.9520, L509.3000 #### [facility] [address] [place], [address] Globulin (S) [Mass/Vol] 3.3 g/dL Normal 2.2-4.2 [facility] Comment on above: Performed By: #### L 500.4050, L506.1000, L100.0100, L506.0400, L3100.5400, L801.1541, L501.9940, L501.9985, L501.68951, L501.9520, L509.3000 #### [facility] [address] [place], [address] Glucose [Mass/Vol] 89 mg/dL Normal 74-106 [facility] Comment on above: Performed By: #### L 500.4050, L506.1000, L100.0100, L506.0400, L3100.5400, L801.1541, L501.9940, L501.9985, L501.23824, L501.9520, L509.3000 #### [facility] [address] [place], [address] Potassium [Moles/Vol] 3.8 mmol/L Normal 3.5-5.1 [facility] Comment on above: Performed By: #### L 500.4050, L506.1000, L100.0100, L506.0400, L3100.5400, L801.1541, L501.9940, L501.9985, L501.37306, L501.9520, L509.3000 #### [facility] [address] [place], [address] Sodium [Moles/Vol] 138 mmol/L Normal 136-145 [facility] Comment on above: Performed By: #### L 500.4050, L506.1000, L100.0100, L506.0400, L3100.5400, L801.1541, L501.9940, L501.9985, L501.46152, L501.9520, L509.3000 #### [facility] [address] [place], [address] T PROT 6.9 g/dL Normal 6.4-8.2 [facility] Comment on above: Performed By: #### L 500.4050, L506.1000, L100.0100, L506.0400, L3100.5400, L801.1541, L501.9940, L501.9985, L501.09119, L501.9520, L509.3000 #### [facility] [address] [place], [address] Urea nitrogen [Mass/Vol] 28 mg/dL High 7-18 [facility] Comment on above: Performed By: #### L 500.4050, L506.1000, L100.0100, L506.0400, L3100.5400, L801.1541, L501.9940, L501.9985, L501.67982, L501.9520, L509.3000 #### [facility] [address] [place], [address] Free T3on 05-24-2024 Free T3 [Mass/Vol] 2.7 pg/mL Normal 2.18-3.98 [facility] Comment on above: Performed By: #### L 500.4050, L506.1000, L100.0100, L506.0400, L3100.5400, L801.1541, L501.9940, L501.9985, L501.03193, L501.9520, L509.3000 #### [facility] [address] [place], [place], [id number] Hemoglobin A1con 05-24-2024 HbA1c (Bld) [Mass fraction] 5.6 % Normal 3.8-5.6 [facility] Comment on above: Result Comment: Norm al < 5.7 % Prediabetic 5.7 - 6.4 % Diabetic >or= 6.5 % Please note range changes. Performed By: #### L 500.4050, L506.1000, L100.0100, L506.0400, L3100.5400, L801.1541, L501.9940, L501.9985, L501.09873, L501.9520, L509.3000 #### [facility] [address] [place], [place], [id number] PSA,Total- Diagnosticon 04-27 PSA, DIAGNOSTIC 1.19 ng/mL Normal 0.0-4.0 [facility] Comment on above: Result Comment: This test was performed using the TPSA assay method for the [employer] system. Values obtained with different assay methods cannot be used interchangably. When changing PSA assays in the course of monitoring a patient, additional sequential testing should be carried out to confirm baseline values. Performed By: #### L 500.4050, L506.1000, L100.0100, L506.0400, L3100.5400, L801.1541, L501.9940, L501.9985, L501.71096, L501.9520, L509.3000 #### [facility] [address] [place], [place], [id number] T4 Free Directon 05-24-2024 T4 FREE DIRECT 0.91 ng/dL Normal 0.76-1.46 [facility] Comment on above: Performed By: #### L 500.4050, L506.1000, L100.0100, L506.0400, L3100.5400, L801.1541, L501.9940, L501.9985, L501.54718, L501.9520, L509.3000 #### [facility] [address] [place], [place], [id number] Testosterone, Serum Totalon 05-24-2024 Testosterone [Mass/Vol] 848.42 ng/dL Normal [facility] Comment on above: Result Comment: CENT RAL 90% REFERENCE RANGES MALE AGE <50 197.44 - 669.58 ng/dL MALE AGE > or = 50 187.72 - 684.19 ng/dL FEMALE AGE <50 8.38 - 35.01 ng/dL FEMALE AGE > or = 50 <7.00 - 35.92 ng/dL Effective as of 02/19/21 Performed By: #### L 500.4050, L506.1000, L100.0100, L506.0400, L3100.5400, L801.1541, L501.9940, L501.9985, L501.49744, L501.9520, L509.3000 #### [facility] [address] [place], [place], [id number] Thyroid Stim Hormone (TSH)on 05-24-2024 TSH 0.435 uIU/mL Normal 0.358-3.740 [facility] Comment on above: Performed By: #### L 500.4050, L506.1000, L100.0100, L506.0400, L3100.5400, L801.1541, L501.9940, L501.9985, L501.23159, L501.9520, L509.3000 #### [facility] [address] [place], [address] Vitamin D,25 Hydroxyon 05-24 Vitamin D 25-OH 50.5 ng/mL Normal [facility] Comment on above: Result Comment: Aelna min D 25(OH) Status Range Deficiency <20 ng/mL (50nmol/L) Insufficiency 20 - 30 ng/mL (50 - 75 nmol/L) Sufficiency 30 - 100 ng/mL (75 - 250 nmol/L) Toxicity >100 ng/mL (>250 nmol/L) Performed By: #### L 500.4050, L506.1000, L100.0100, L506.0400, L3100.5400, L801.1541, L501.9940, L501.9985, L501.03071, L501.9520, L509.3000 #### [facility] [address] [place], [address] Brain W/WO Contraston 2023 Brain W/WO Contrast [facility] Services [address] [place] [address] Brain W/WO Contrast MR#: [id number] Acct: [id number] Name: MOE WIGGINS Rep #: [id number] : 1960 M 63 From: Xiao river MD PCP: Dr. 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 TECHNIQUE: Multiplanar and multisequence MR images of the brain with pituitary protocol were obtained before and after the intravenous administration of 18 cc Clariscan. 362 images. COMPARISON: 12/31/2011, 10/21/2005. FINDINGS: SELLA: 1.2 x 3 x 3.1 cm septated appearing and CSF isointense lesion extending from the upper clivus and sella turcica extending into the cavernous sinus with encasement and mild displacement of the left internal carotid artery, involvement of the left aspect of the sella, and protrusion into posterior aspect of the sphenoid sinus, previously 1.4 x 2.9 x 3.1 cm decreased enhancement compared to prior. Mild residual linear enhancement. Mild rightward deviation of the pituitary stalk and gland again seen. BRAIN PARENCHYMA: Mild chronic small vessel ischemic gliosis. No new enhancing lesion in the brain parenchyma. No abnormal focus of restricted diffusion. No acute intracranial hemorrhage identified. CSF SPACES: Cerebral ventricles, cortical sulci, and other extra-axial CSF spaces within normal limits in size for age. No significant midline shift or other mass effect.No extra-axial fluid collection. VASCULAR SYSTEM: Major intracranial flow voids are maintained. Deviation of the cavernous left internal carotid artery without significant narrowing. PARANASAL SINUSES AND MASTOID AIR CELLS: No significant air fluid levels. ORBITS: Symmetric contents. 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 Electronically Signed: Xiao Coleman MD at 10:40 EDT Reading Location ID and State: [facility] / [place] Tel , Service support , CC: Dr. Rich Alexis MD; Leo Shaw MD Traffic Personnel Supervisor: Signed Normal [facility] CREATININE FINGERSTICKon CREATININE WB < 1.0 Normal 0.70-1.30 [facility] Comment on above: Performed By: #### L 500.4050, L506.1000, L100.0100, L506.0400, L3100.5400, L801.1541, L501.9940, L501.9985, L501.87401, L501.9520, L509.3000 #### [facility] [address] [place], [address] EGFR WB > 60.0000 Normal >60 [facility] Comment on above: Performed By: #### L 500.4050, L506.1000, L100.0100, L506.0400, L3100.5400, L801.1541, L501.9940, L501.9985, L501.90705, L501.9520, L509.3000 #### [facility] [address] [facility] [place], [address] Dexa Bone Density Studyon Dexa Bone Density Study [facility] Imaging Services [address] [place], [place] [address] Dexa Bone Density Study MR#: [id number] Acct: [id number] Name: MOE WIGGINS Rep #: [id number] : 1960 M 63 From: Mitchel horan MD PCP: Dr. Rich Alexis MD Status: [facility] Study: Dexa Bone Density Study Date of Exam: 04/19/24 Exam# [id number] Ordering Dr: Leo Shaw MD [id number] STUDY: DUAL ENERGY X-RAY ABSORPTIOMETRY / DXA REASON FOR EXAM: Male, 63 years old. Z79.899 TECHNIQUE: Bone Mineral Density (BMD) measurements of lumbar spine and bilateral hips were obtained. COMPARISON: Comparison is made with prior study dated September 03, 2021. FINDINGS: Lumbar Spine (L1-L4): g/cm2 (0.810) / T-score (-2.2) / Z-score (-1.5) Findings are suggestive of osteopenia with a high fracture risk. Left Femur Total: g/cm2 (0.978) / T-score (-0.4) / Z-score (0.1) Left Femoral Neck: g/cm2 (0.763) / T-score (-1.2) / Z-score (-0.2) Right Femur Total: g/cm2 (0.957) / T-score (-0.5) / Z-score (0.0) Right Femoral Neck: g/cm2 (0.807) / T-score (-0.9) / Z-score (0.1) The T-Scores on the most recent prior examination were: Lumbar Spine (L1-L4): There has been worsening of bone density since the previous examination. Left Femur Total: which represents a worsening of 1.7%. Right Femur Total: which represents a worsening of 6.4%. BD/Dexa Bone Density Study IMPRESSION: The patient is considered osteopenic as outlined below according to World Austen Organization (WHO) criteria with a high fracture risk. There has been worsening of [...] 1. NIH Osteoporosis and Related Bone Diseases www osteo.org 2. International Society for Clinical Densitometry www iscd.org 3. National Osteoporosis Foundation www nof.org Electronically Signed: Mitchel Robles MD at 14:25 EDT , CC: Dr. Rich Alexis MD; Leo Shaw MD Traffic Personnel Supervisor: Signed [facility] 04-11-2024 [facility] Telephone (ENDOAV) MOE WIGGINS ([id number]) 1960 M Date Time Provider Department 04/11/24 LEO SHAW V ENDOAV During your visit today, we recorded the following information about you: Christel Crook LPN 04/11/2024 3:00 PM Signed Growth hormone certification form received from [employer] for Omnitrope placed in Dr. Shaw's folder for review. Christel Crook LPN 04/21/2024 9:45 AM Signed Signed form from [employer] faxed with confirmation. Allergies As of Date: 04/11/2024 Noted Allergy Reaction PENICILLINS 05/19/2013 4 - Hives Date Reviewed: 12/04/2021 Reviewed by: Yudy Rouse MA - Fully Assessed Reason for Visit: Forms [343] Cmt: [facility] Prescriptions as of 04/21/2024 - hydrocortisone (CORTEF) 10 mg tablet Take one tablet in am, increase to 2 tab in am and 1 tab in the afternoon for 2-3 days if sick - levothyroxine (SYNTHROID) 112 mcg tablet Take 1 tablet by mouth every morning. on empty stomach - raloxifene (EVISTA) 60 mg tablet Take 1 tablet by mouth once daily. - Somatropin (OMNITROPE) 5 mg/1.5 mL (3.3 [...] Encounter Status:Closed by CHRISTEL CROOK on 04/11/24 [facility] 03-03-2024 [facility] Telephone (ENDOAV) MOE WIGGINS ([id number]) 1960 M Date Time Provider Department 03/03/24 LEO SHAW During your visit today, we recorded the following information about you: Fanny Richard 03/03/2024 2:18 PM Signed [facility] is calling Leo Shaw MD today to request Medication Preauthorization (Somatropin (OMNITROPE) 5 mg/1.5 mL (3.3 mg/mL)). . Patient has been identified by name and birthdate. Duration of symptoms: N/A Person calling: pharmacy: Chelsey Call pharmacy at: [phone] Was an appointment scheduled: No Closing statement: Results or non-symptom based questions: Thank you for calling [facility], your call will be returned within the next business day. iMlvia Law RN 03/04/2024 9:52 AM Signed Called [...] Status:Closed by MILVIA BERMUDEZ on 03/04/24 Normal [facility] Insulin-like growth factor ( IGF) measurementOrdered By: Leo Shaw on 08-12-2023 Insulin-like growth factor [Moles/Vol] 57 ng/mL 64-240 [facility] Comment on above: Performed at: [address] [id number] Director: Ben Jay MD, Phone: [phone] FREE T3on 05-06-2022 Free T3 [Mass/Vol] 2.6 pg/mL 2.18 - 3.98 [facility] FREE T4on 05-06-2022 Free T4 [Mass/Vol] 1.13 ng/dL 0.16 - 1.46 [facility] HbA1c (Bld)on 05-06-2022 HbA1c (Bld) [Mass fraction] 5.7 % Abnormal 3.8 - 5.6 % [facility] T4 / THYROXINE BLOOD (AK,AV, EU,HL,CHRISTINE,MM,SP)on 05-06-2022 T4 [Mass/Vol] 12.1 ug/dL 4.5 - 12.1 [facility] VITAMIN D 25 HYDROXY (AK,AV, EU,FV,HL,CHRISTINE,MM,SP)on 05-06-2022 VITAMIN D, 25 [place] TOTAL 65.9 ng/ml 20 - 100 ng/ml [facility] CORONAVIRUS PCR - [facility] 04-23-2021 SARS-CoV-2 (COVID-19) RNA LA+probe Ql (Unsp spec) Positive Critically abnormal NORMAL: NEGATIVE [facility] Comment on above: Result Comment: { CA LLED TO FAXED TO AG { READ BACK BY Performed By: #### 2 [id number] #### [facility],[address] [place] [address] SEND TO IC? YES Normal [facility] Comment on above: Result Comment: RESU LTS FAXED TO INFECTION CONTROL. SARS-CoV-2 THIS TEST IS BEING USED UNDER THE FDA EUA PROCEDURE. THIS ASSAY HAS BEEN VALIDATED IN THE [facility] FOR USE WITH NASOPHARYNGEAL SPECIMENS IN [facility]. INTERPRETIVE DATA LABORATORY TEST RESULTS SHOULD ALWAYS [...] PUBLIC HEALTH AUTHORITIES. Performed By: #### 2 [id number] #### [facility],[address] [place] [address] CORONAVIRUS PCR [CCL]on 05-28 SARS-CoV-2 (COVID-19) RNA LA+probe Ql (Unsp spec) Nasopharyngeal Swab Normal [facility] Comment on above: Result Comment: Cuong ected on 06/19 AT 1055: Previously reported as U Performed By: #### 2 [id number] #### [address] [address] SARS-CoV-2 (COVID-19) RNA LA+probe Ql (Unsp spec) Negative Normal [facility] Comment on above: Result Comment: Nega tive for COVID19 (SARS CoV2) by PCR. This test was developed and its performance characteristics determined by [facility] [place]. This test has been authorized by FDA under an Emergency Use Authorization (EUA). This test has been validated in accordance with the FDA's Guidance Document Policy for Diagnostics Testing in Laboratories Certified to Perform High Complexity Testing under CLIA prior to Emergency use Authorization for Coronavirus Disease 2019 during the Public Health Emergency issued on September 24, [place] [address] Travis Lazo III, M.D. [id number] Performed By: #### 2 [id number] #### [facility],[address] [place] [address] Coronavirus 2019on 0 COVID 19 Result BUSINESS CONSULT Normal Negative for COVID19 (SARS CoV2) by PCR. [facility] Comment on above: Result Comment: Nega tive for This test was developed and its performance characteristics determined by [facility] [place]. This test has been authorized by FDA [...] developed and its performance characteristics determined by [facility] [place]. This test has been authorized by FDA [...] developed and its performance characteristics determined by [facility] [place]. This test has been authorized by FDA under an Emergency Use Authorization (EUA). This test has been validated in accordance with the FDA's Guidance Document Policy for Diagnostics Testing in Laboratories Certified to Perform High Complexity Testing under CLIA prior to Emergency use Authorization for Coronavirus Disease 2019 during the Public Health Emergency issued on September 24, 2019. COVID 19 Source BUSINESS CONSULT Normal [facility] Comment on above: Result Comment: Naso pharyngeal Corrected on 06/19 AT 1055: Previously reported as U Swab Corrected on 06/19 AT 1055: Previously reported as U Vital Signs Date Time Vital Sign Value Performing Clinician Faci lity 06-06-2024 11:16-0500 Body height 172.7 cm Leo Barrera MD Work Phone: [facility] 06-06-2024 11:16-0500 Body mass index (BMI) [Ratio] 29.8 kg/m2 Leo Barrera MD Work Phone: [facility] 06-06-2024 11:16-0500 Body weight 88.9 kg Leo Barrera MD Work Phone: [facility] 06-06-2024 11:16-0500 Diastolic blood pressure 69 mm[Hg] Leo Barrera MD Work Phone: [facility] 06-06-2024 11:16-0500 Heart rate 80 /min Leo Barrera MD Work Phone: [facility] 06-06-2024 11:16-0500 Systolic blood pressure 135 mm[Hg] Leo Barrera MD Work Phone: [facility] 12-04-2021 09:37-0400 Body height 172.7 cm Leo Barrera MD Work Phone: [facility] 12-04-2021 09:37-0400 Body weight 86.18 kg Leo Barrera MD Work Phone: [facility] Encounters Encounter Date Encounter Type Care Provider Facility Start: 01-06-2025 ambulatory Leo Easley ity:[facility] Start: 12-08-2024 End: 12-08-2024 Telephone encounter Leo Shaw MD Work Phone: Endocrinology Comment on above: Patient Update (Test osterone gel) Start: 12-07-2024 End: 12-07-2024 Telephone encounter Leo Shaw MD Work Phone: Endocrinology Comment on above: Patient Update (Well care) Start: 12-05-2024 End: 12-07-2024 ambulatory Leo Barrera MD Work Phone: Endocrinology Start: 12-05-2024 End: 12-07-2024 Patient encounter procedure Leo Shaw MD Work Phone: Endocrinology Comment on above: Omni Trope and Testo sterone Authorizations Start: 11-28-2024 End: 11-30-2024 Refill Leo Shaw MD Work Phone: Endocrinology Comment on above: Refill Request Start: 11-08-2024 End: 11-11-2024 ambulatory Leo Barrera MD Work Phone: Endocrinology Start: 11-08-2024 End: 11-11-2024 Patient encounter procedure Leo Shaw MD Work Phone: Endocrinology Comment on above: Omni Trope Injection Start: 11-07-2024 End: 11-07-2024 Telephone encounter Leo Shaw MD Work Phone: Endocrinology Comment on above: Insurance Authorizat ion (testosterone (ANDROGEL PUMP) 20.25 mg/1.25 gram (1.62 %) transdermal gel [[employer]]) Start: 10-28-2024 End: 11-07-2024 ambulatory Leo Barrera MD Work Phone: Endocrinology Start: 10-28-2024 End: 11-07-2024 Patient encounter procedure Leo Shaw MD Work Phone: Endocrinology Comment on above: Two Prior Authorizat ions Start: 10-17-2024 End: 10-17-2024 Telephone encounter Leo Shaw MD Work Phone: Endocrinology Comment on above: Insurance Authorizat ion (Unable to Process - OMNITROPE 5 mg/1.5 mL (3.3 mg/mL) [[employer]]) Start: 09-17-2024 End: 09-29-2024 Refill Leo Shaw MD Work Phone: Endocrinology Comment on above: Refill Request Start: 07-12-2024 End: 07-12-2024 ambulatory Leo Shaw Facility:[facility] Start: 07-11-2024 End: 07-15-2024 Refill So Krause APRN.MACHINIST JOB SETTER Work Phone: Endocrinology Comment on above: Refill Request Start: 07-01-2024 End: 07-01-2024 Telephone encounter Leo Shaw MD Work Phone: Endocrinology Comment on above: Prescription ([facility]) info request Start: 06-29-2024 End: 06-29-2024 ambulatory [facility] Facility:[place] Start: 06-12-2024 End: 06-15-2024 Refill So Krause APRN.MACHINIST JOB SETTER Work Phone: Endocrinology Comment on above: Refill Request Start: 06-06-2024 End: 06-07-2024 Refill Leo Shaw MD Work Phone: Endocrinology Comment on above: Refill Request Start: 06-06-2024 End: 06-06-2024 ambulatory LEO SHAW Facility:[facility] Start: 06-06-2024 End: 06-06-2024 Patient encounter procedure Leo Shaw MD Work Phone: Endocrinology Comment on above: Hypothyroidism, seco ndary; Hypogonadism male; BENIGN JOYCE PITUITARY; Prolactinoma (HCC) Start: 06-02-2024 End: 06-03-2024 Refill Leo Shaw MD Work Phone: Endocrinology Comment on above: Refill Request Start: 05-25-2024 End: 05-25-2024 Telephone encounter Leo Shaw MD Work Phone: Endocrinology Comment on above: Outside Lab Results Start: 05-24-2024 End: 05-24-2024 ambulatory Leo Shaw Facility:[facility] Start: 05-19-2024 End: 06-03-2024 ambulatory Leo Barrera MD Work Phone: Endocrinology Start: 05-19-2024 End: 06-03-2024 Patient encounter procedure Leo Shaw MD Work Phone: Endocrinology Comment on above: Bone Density and MRI Start: 04-27-2024 End: 04-27-2024 ambulatory Leo Shaw Facility:[facility] Start: 04-18-2024 End: 04-20-2024 Refill Leo Shaw [...] Endocrinology Comment on above: Bloodwork Done Start: 08-12-2023 End: 08-12-2023 ambulatory [facility] Work Phone: Start: 08-12-2023 End: 08-12-2023 Patient encounter procedure [facility] Work Phone: Start: 06-27-2023 Refill So Jimi ALFAROMACHINIST JOB SETTER Work Phone: Endocrinology Comment on above: Refill Request Start: 06-23-2023 ambulatory Leo bunch MD Work Phone: Endocrinology Comment on above: [facility] Start: 05-27-2023 ambulatory Leo bunch MD Work Phone: Endocrinology Comment on above: New Pharmacies Start: 05-09-2023 ambulatory Leo bunch MD Work Phone: Endocrinology Comment on above: Omnitrope Start: 04-21-2023 Refill Leo bunch MD Work [...] Endocrinology Comment on above: Refill Request Start: 12-31-2022 Patient encounter status [facility] Start: 12-03-2022 Refill Leo bunch MD Work [...] m caregiver Merry Almanzar MD Work Phone: [facility] Start: 03-16-2022 Evaluation and manag ement [...] with patient Leo Barrera MD Work Phone: [facility] Start: 11-12-2021 Refill Leo bunch MD Work Phone: Endocrinology Comment on above: Refill Request Start: 09-28-[address] DARIN E SARITHA [facility] Start: 06-18-2020 End: 06-18-[address] DARIN MELARA [facility] Procedures Date Procedure Procedure Detail Performing [...] RSV Vaccine (1 - 1-dose 75+ series) [facility] Start: 04-14-2030 Urine microalbumin profile DTaP,Tdap,Td Vaccine (4 - Td or Tdap) [facility] Start: 05-06-2025 DIABETES SCREEN DIABETES SCREEN [facility] Start: 05-06-2025 Diabetes Screening Diabetes Screenin g [facility] Start: 03-07-2025 End: 03-07-2025 Follow-up encounter 03/07/2025 11:40 AM EDT [facility] Endocr[facility]ology [address] [place] [address] Leo Shaw V, MD [address] [place] [address] Follow up Endocrinology Comment on above: Follow up Start: 10-17-2024 Covid-19 Vaccine () Covid-[address] Vacc[address] () [facility] Start: 2024 Advance Directive Discussion Advance Directive Discussion [facility] Start: 06-06-2024 End: 06-06-2024 Patient encounter procedure 06/06/2024 11:20 AM EST Office Visit Endocrinology [id number] [place] [address] Leo Shaw V, MD [address] [place] [address] follow up - ok per Dr. Shaw Endocrinology Comment on above: follow up - ok per Alejandro Shaw Start: 03-27-2024 Covid-19 Vaccine () Covid-19 Vaccine () [facility] Start: 03-27-2024 Covid-19 Vaccine () Covid-19 Vaccine () [facility] Start: 03-27-2024 Influenza vaccination [facility] Start: 07-27-2023 Behavioral Health Screening Behavioral Health Screening [facility] Start: 07-27-2023 Depression Assessment Depression Ass essment [facility] Start: 03-27-2023 Covid-19 Vaccine () Covid-19 Vaccine () [facility] Start: 03-27-2023 Influenza vaccination [facility] Start: 07-27-2022 DEPRESSION ASSESSMENT DEPRESSION ASS ESSMENT [facility] Start: 03-27-2022 Influenza vaccination [facility] Start: 11-28-2021 COVID-19 VACCINE (4 - Booster for Pfizer series) COVID-19 VACCINE (4 - Booster for Pfizer series) [facility] Start: 09-25-2021 COVID-19 VACCINE (4 - Booster for Pfizer series) COVID-19 VACCINE (4 - Booster for Pfizer series) [facility] Start: 09-25-2021 COVID-19 VACCINE (4 - Pfizer series) COVID-19 VACCINE (4 - Pfizer series) [facility] Start: 07-27-2021 DEPRESSION ASSESSMENT DEPRESSION ASS ESSMENT [facility] Start: 03-28-2021 COVID-19 VACCINE (3 - Booster for Pfizer series) COVID-19 VACCINE (3 - Booster for Pfizer series) [facility] Start: 2019 RSV Vaccine (1 - 1-d ose 60+ series) RSV Vaccine (1 - 1-dose 60+ series) [facility] Start: 2014 PROSTATE CANCER SCRE ENING DISCUSSION PROSTATE CANCER SCREENING DISCUSSION [facility] Start: 2014 Prostate specific an tigen measurement Prostate Cancer Screening Discussion [facility] Start: 01-16-2012 DIABETES SCREEN DIABETES SCREEN [facility] Start: 2009 Pneumococcal Vaccine : 50+ (1 of 1 - PCV) Pneumococcal Vaccine: 50+ (1 of 1 - PCV) [facility] Start: 2009 SHINGRIX VACCINE (1 of 2) SHINGRIX V ACCINE (1 of 2) [facility] Start: 2004 COLOGUARD (FIT-DNA) COLOGUARD (FIT-D NA) [facility] Start: [address] [facility] Start: 2004 COLORECTAL CANCER SCREENING COLORECTAL CANCER SCREENING [facility] Start: [address] COLONOGRAPHY [facility] Start: 2004 FECAL OCCULT BLOOD FECAL OCCULT BLOO D [facility] Start: 2004 Prostate specific an tigen measurement Prostate Cancer Screening Discussion [facility] Start: 2004 Screening for malign ant neoplasm of colon [facility] Start: 2004 SIGMOIDOSCOPY SIGMOIDOSCOPY [facility] Start: 1994 Lipid 1996 panel - S harmony or Plasma Lipid Screening [facility] Start: 1994 Lipid panel Lipid Screening [facility] Start: 1994 LIPID SCREEN LIPID SCREEN [facility] Start: [address] [facility] Start: 1977 ANNUAL PCP TEAM LAWN CARE TECHNICIAN THOMAS DISEASE VISIT ANNUAL PCP TEAM CHRONIC DISEASE VISIT [facility] Start: 1977 Anxiety Screening Anxiety Screening [facility] Start: 1977 Depression Screening Depression Scre ening [facility] Start: 1977 HEPATITIS [facility] Start: 1977 Hepatitis C screening Hepatitis C [facility] Start: 1977 HIV SCREENING HIV SCREENING [facility] Start: 1977 HIV screening HIV Screening [facility] Start: 1971 Adult depression screening assessment DEPRESSION SCREENING [facility] Immunizations Immunization Date Immunization Notes Care Provider Fa tomy 07-01-2022 influenza virus vaccine, unspecified formulation Leo Barrera MD Work Phone: [facility] 07-31-2021 Covid (Pfizer) [facility] 10-26-2020 Covid (Pfizer) [facility] 10-05-2020 Covid (Pfizer) [facility] 04-14-2020 influenza, injectable,quadrivalen t, preservative free, pediatric [facility] 04-14-2020 tetanus toxoid, reduced diphtheria toxoid, and acellular pertussis vaccine, adsorbed [facility] 04-14-2020 influenza virus vaccine, unspecified formulation Leo Barrera MD Work Phone: [facility] 09-28-2018 tetanus toxoid, reduced diphtheria toxoid, and acellular pertussis vaccine, adsorbed [facility] Payers Date Payer Category Payer Medicare MEDICARE [id number] 2024 Medicare [id number] 2024 Self-pay [id number] 2022 Private Health Insurance [id number] 2022 Unknown [id number] 2020 Unknown MMO MMO TPA [id number] 2020-Present [address] [place] [address] PPO [id number] 2020 Unknown [id number] 1959 Unknown [id number] Private Health Insurance [id number] Unknown [id number] Unknown [id number] Unknown [id number] Unknown [id number] Unknown [id number] Unknown [id number] Social History Date Type Detail Facility [facility]: [facility] Start: 08-10-2019 End: 12-04-2021 Alcohol intake Current non-drinker of alcohol (finding) [facility] Start: 1960 Sex Assigned At Not on file [facility] Start: 11-24-2021 End: 12-04-2021 Exposure to SARS-CoV-2 (event) Not sure [facility] Start: 10-30-2011 Tobacco use and exposure Smokeless tobacco non-user [facility] Start: 12-04-2021 End: 05-05-2023 Gender identity Not on file [facility] Start: 12-04-2021 End: 05-05-2023 History of [address] function [facility] National Score (1-100), lower number is lower risk [address] [facility] Start: 01-23-2023 [facility] Start: 1960 Sex Assigned At Male W [facility] Medical Equipment Procedure Code Equipment Code Equipment Original Text Equipment Identifier Dates [id number], [id number] Start: 08-04-2017 End: 06-25-2023 Comment on above: Use for growth hormo ne pen injections once a day Use for GH pen injec tions once a day Functional Status Date Assessment Result Facility 07-05-2014 Are you deaf, or do you have serious difficulty hearing No 07/05/2014 10:08 AM Elmira Osborn [facility] Work Phone: 07-05-2014 Are you blind, or do you have serious difficulty seeing, even when wearing glasses No 07/05/2014 10:08 AM Elmira Osborn [facility] 07-05-2014 Do you have serious difficulty walking or climbing stairs No 07/05/2014 10:08 AM Elmira Osborn [facility] 07-05-2014 Do you have difficul ty dressing or bathing No 07/05/2014 10:08 AM Elmira Osborn [facility] 07-05-2014 Because of a physica l, mental, or emotional condition, do you have difficulty doing errands alone such as visiting a physician's office or shopping No 07/05/2014 10:08 AM Elmira Osborn [facility] Mental Status Date Assessment Result Facility 07-05-2014 Because of a physica l, mental, or emotional condition, do you have serious difficulty concentrating, remembering, or making decisions No 07/05/2014 10:08 AM Elmira Osborn [facility] Clinical Notes 11-13-2021 to 12-08-2024 Telephone Encounter - Christel Crook LPN - 12/08/2024 11:29 AM EDTTelephone Encounter - Christel Crook LPN - 12/08/2024 11:29 AM EDTTelephone Encounter - Christel Crook LPN - 12/07/2024 1:51 PM EDT Note Date & Type Note Facility 12-08-2024 Telephone encounter Note Approval fax from [facility] for Testosterone received. Approval is for 12/05/24 until further notice. Form sent to scanning. [facility] 12-08-2024 Miscellaneous Notes Approval fax from [facility] for Testosterone received. Approval is for 12/05/24 until further notice. Form sent to scanning. documented in this encounter [facility] 12-07-2024 Telephone encounter Note Form completed and faxed to [facility] with confirmation at 10:56am [facility] 12-07-2024 Miscellaneous Notes Form completed and faxed to [facility] with confirmation at 10:56am Lucero Taylor called regarding below. States that this is running out of time and may end up being denied. Requesting this SHANTAL. Case #[id number] Bonnie Armendariz Oziel from [facility] calling. Requesting information for PA for testosterone gel. Does [patient have persistent signs/symptoms of androgen deficiency? Was one pretreatment completed before low testosterone level drawn? Diagnosis? She will be faxing form to office today also. Ph. [phone] Case# [id number] documented in this encounter [facility] 12-07-2024 Telephone encounter Note Lucero Taylor called regarding below. States that this is running out of time and may end up being denied. Requesting this SHANTAL. Case #[id number] Bonnie Armendariz [facility] 12-07-2024 Telephone encounter Note Fax received from [facility] requesting more information regarding Testosterone RX. Form completed and faxed. Electronically signed ANGELA notes attached. [facility] 12-07-2024 Miscellaneous Notes Fax received from [facility] requesting more information regarding Testosterone RX. Form completed and faxed. Electronically signed ANGELA notes attached. documented in this encounter [facility] 12-06-2024 Telephone encounter Note Oizel from [facility] calling. Requesting information for PA for testosterone gel. Does [patient have persistent signs/symptoms of androgen deficiency? Was one pretreatment completed before low testosterone level drawn? Diagnosis? She will be faxing form to office today also. Ph. [phone] Case# [id number] [facility] 11-30-2024 Telephone encounter Note The following approved medication requests have been transmitted electronically. Requested Prescriptions Pending Prescriptions Disp Refills levothyroxine (SYNTHROID) 112 mcg tablet 90 tablet 0 Sig: Take 1 tablet by mouth every morning. on empty stomach Leo Shaw MD [facility] 11-30-2024 Miscellaneous Notes The following approved medication requests have been transmitted electronically. Requested Prescriptions Pending Prescriptions Disp Refills levothyroxine (SYNTHROID) 112 mcg tablet 90 tablet 0 Sig: Take 1 tablet by mouth every morning. on empty stomach Leo Shaw MD Most recent Endocrinology visit: Last encounter Visit on 06/06/2024 (with Leo Shaw) 05/05/2023 in [facility] with LEO SHAW V for 06/06/2024 in [facility] with LEO SHAW V for Upcoming Endocrinology Appointments - Next 365 Days Visit Type Date Time Department VIDEO SPEC EST 03/07/2025 11:40 AM [facility] Requested Prescriptions Pending Prescriptions Disp Refills levothyroxine (SYNTHROID) 112 mcg tablet 90 tablet 0 Sig: Take 1 tablet by mouth every morning. on empty stomach Hemoglobin A1c: None on file in the last 12 months TSH: None on file in the last 12 months Free T3: None on file in the last 12 months Free T4: None on file in the last 12 months Thyroglobulin: None on file in the last 12 months Vitamin D: None on file in the last 12 months Hematocrit: None on file in the last 12 months Creatinine: None on file in the last 12 months eGFR: None on file in the last 12 months Potassium: None on file in the last 12 months Testosterone: None on file in the last 12 months IGF: None on file in the last 12 months Prolactin: None on file in the last 12 months documented in this encounter [facility] 11-29-2024 Telephone encounter Note Most recent Endocrinology visit: Last encounter Visit on 06/06/2024 (with Leo Shaw) 05/05/2023 in [facility] with LEO SHAW V for 06/06/2024 in [facility] with LEO SHAW V for Upcoming Endocrinology Appointments - Next 365 Days Visit Type Date Time Department VIDEO SPEC EST 03/07/2025 11:40 AM [facility] Requested Prescriptions Pending Prescriptions Disp Refills levothyroxine (SYNTHROID) 112 mcg tablet 90 tablet 0 Sig: Take 1 tablet by mouth every morning. on empty stomach Hemoglobin A1c: None on file in the last 12 months TSH: None on file in the last 12 months Free T3: None on file in the last 12 months Free T4: None on file in the last 12 months Thyroglobulin: None on file in the last 12 months Vitamin D: None on file in the last 12 months Hematocrit: None on file in the last 12 months Creatinine: None on file in the last 12 months eGFR: None on file in the last 12 months Potassium: None on file in the last 12 months Testosterone: None on file in the last 12 months IGF: None on file in the last 12 months Prolactin: None on file in the last [address] [facility] 11-11-2024 Telephone encounter Note This is addressed curly nother encounter Leo Shaw MD [facility] 11-11-2024 Miscellaneous Notes This is addressed curly nother encounter Leo Shaw MD documented in this encounter [facility] 11-07-2024 Telephone encounter Note Omnitrope already denied and cannot be re-submitted. See encounter 10/17/2024. Letter with details and appeal instructions is already in patient's chart. Testosterone PA Submitted today. [facility] Stone [facility]yer [facility] X-20 [facility] 11-07-2024 Miscellaneous Notes Omnitrope already denied and cannot be re-submitted. See encounter 10/17/2024. Letter with details and appeal instructions is already in patient's chart. Testosterone PA Submitted today. [facility] X-20 Patient calling regarding status of PA for Omnitrope and testosterone gel prescriptions. Patient states he is nearly out of both. Please call patient to advise SHANTAL [phone] in this encounter [facility] 11-07-2024 Telephone encounter Note Images from the original note were not included. Initiated PA for testosterone (ANDROGEL PUMP) 20.25 mg/1.25 gram (1.62 %) transdermal gel through [facility] via [employer] Chart notes and labs attached Questions Completed Waiting for determination [facility]-20 [facility] 11-07-2024 Miscellaneous Notes Images from the original note were not included. Initiated PA for testosterone (ANDROGEL PUMP) 20.25 mg/1.25 gram (1.62 %) transdermal gel through [facility] [employer] Chart notes and labs attached Questions Completed Waiting for determination [facility] Stone Sawyer II [facility] [place] [facility] X-20 documented in this encounter [facility] 11-07-2024 Telephone encounter Note Patient calling regarding status of PA for Omnitrope and testosterone gel prescriptions. Patient states he is nearly out of both. Please call patient to advise SHANTAL [phone] [facility] 10-17-2024 Telephone encounter Note Images from the original note were not included. Unable to process due to previous attempt being denied. [facility]-20 [facility] 10-17-2024 Miscellaneous Notes Images from the original note were not included. Unable to process due to previous attempt being denied. [facility] X-20 Images from the original note were not included. Initiated PA for OMNITROPE 5 mg/1.5 mL (3.3 mg/mL) through [facility] [employer] Questions Completed Waiting for determination [facility] X-20 documented in this encounter [facility] 10-17-2024 Telephone encounter Note Images from the original note were not included. Initiated PA for OMNITROPE 5 mg/1.5 mL (3.3 mg/mL) through [facility] [employer] Questions Completed Waiting for determination [facility]-20 [facility] 09-29-2024 Telephone encounter Note The following approved medication requests have been transmitted electronically. Requested Prescriptions Pending Prescriptions Disp Refills testosterone (ANDROGEL PUMP) 20.25 mg/1.25 gram (1.62 %) transdermal gel 300 g 1 Sig: Apply three pumps on each shoulder as directed levothyroxine (SYNTHROID) 112 mcg tablet 90 tablet 0 Sig: Take 1 tablet by mouth every morning. on empty stomach Leo Shaw MD [facility] 09-29-2024 Miscellaneous Notes The following approved medication requests have been transmitted electronically. Requested Prescriptions Pending Prescriptions Disp Refills testosterone (ANDROGEL PUMP) 20.25 mg/1.25 gram (1.62 %) transdermal gel 300 g 1 Sig: Apply three pumps on each shoulder as directed levothyroxine (SYNTHROID) 112 mcg tablet 90 tablet 0 Sig: Take 1 tablet by mouth every morning. on empty stomach Leo Shaw MD Patients last Endocrinology visit occurred Last encounter Visit on 06/06/2024 (with Leo Shaw) Follow-up evaluation has been established Upcoming Endocrinology Appointments - Next 365 Days No appointments to display . Requested Prescriptions Pending Prescriptions Disp Refills testosterone (ANDROGEL PUMP) 20.25 mg/1.25 gram (1.62 %) transdermal gel 300 g 1 Sig: Apply three pumps on each shoulder as directed levothyroxine (SYNTHROID) 112 mcg tablet 90 tablet 0 Sig: Take 1 tablet by mouth every morning. on empty stomach If patient is due for an appointment please route to provider for refill consideration and also to the endo scheduling pool. documented in this encounter [facility] 09-21-2024 Telephone encounter Note Patients last Endocrinology visit occurred Last encounter Visit on 06/06/2024 (with Leo Shaw) Follow-up evaluation has been established Upcoming Endocrinology Appointments - Next 365 Days No appointments to display . Requested Prescriptions Pending Prescriptions Disp Refills testosterone (ANDROGEL PUMP) 20.25 mg/1.25 gram (1.62 %) transdermal gel 300 g 1 Sig: Apply three pumps on each shoulder as directed levothyroxine (SYNTHROID) 112 mcg tablet 90 tablet 0 Sig: Take 1 tablet by mouth every morning. on empty stomach If patient is due for an appointment please route to provider for refill consideration and also to the endo scheduling pool. [facility] 07-15-2024 Telephone encounter Note The following approved medication requests have been transmitted electronically. Requested Prescriptions Pending Prescriptions Disp Refills levothyroxine (SYNTHROID) 112 mcg tablet 90 tablet 0 Sig: Take 1 tablet by mouth every morning. on empty stomach Leo Shaw MD [facility] 07-15-2024 Miscellaneous Notes The following approved medication requests have been transmitted electronically. Requested Prescriptions Pending Prescriptions Disp Refills levothyroxine (SYNTHROID) 112 mcg tablet 90 tablet 0 Sig: Take 1 tablet by mouth every morning. on empty stomach Leo Shaw MD Patients last Endocrinology visit occurred Last encounter Visit on 06/06/2024 (with Leo Shaw) Follow-up evaluation has been established Upcoming Endocrinology Appointments - Next 365 Days No appointments to display . Requested Prescriptions Pending Prescriptions Disp Refills levothyroxine (SYNTHROID) 112 mcg tablet 90 tablet 0 Sig: Take 1 tablet by mouth every morning. on empty stomach If patient is due for an appointment please route to provider for refill consideration and also to the endo scheduling pool. documented in this encounter [facility] 07-15-2024 Telephone encounter Note Patients last Endocrinology visit occurred Last encounter Visit on 06/06/2024 (with Leo Shaw) Follow-up evaluation has been established Upcoming Endocrinology Appointments - Next 365 Days No appointments to display . Requested Prescriptions Pending Prescriptions Disp Refills levothyroxine (SYNTHROID) 112 mcg tablet 90 tablet 0 Sig: Take 1 tablet by mouth every morning. on empty stomach If patient is due for an appointment please route to provider for refill consideration and also to the endo scheduling pool. [facility] 07-12-2024 Telephone encounter Note The following approved medication requests have been transmitted electronically. Requested Prescriptions Pending Prescriptions Disp Refills testosterone (ANDROGEL PUMP) 20.25 mg/1.25 gram (1.62 %) transdermal gel 300 g 1 Sig: Apply three pumps on each shoulder as directed Leo Shaw MD [facility] 07-12-2024 Miscellaneous Notes The following approved medication requests have been transmitted electronically. Requested Prescriptions Pending Prescriptions Disp Refills testosterone (ANDROGEL PUMP) 20.25 mg/1.25 gram (1.62 %) transdermal gel 300 g 1 Sig: Apply three pumps on each shoulder as directed Leo Shaw MD documented in this encounter [facility] 07-01-2024 Telephone encounter Note 2 ANGELA notes faxed as requested. [facility] 07-01-2024 Miscellaneous Notes 2 ANGELA notes faxed as requested. Nurse from pt's PCP office calling They are trying to arrange pt getting his PROLIA injections arranged The nurse called to ask if your office can send over the notes from his last TWO office visits please Pt mentioned he has been on Evista .. The nurse wanted to have all the info she needs in case they need to do a prior auth PCP's office / [facility]) in [place] Office PHONE # [phone] FAX # [phone] documented in this encounter [facility] 07-01-2024 Telephone encounter Note Nurse from pt's PCP office calling They are trying to arrange pt getting his PROLIA injections arranged The nurse called to ask if your office can send over the notes from his last TWO office visits please Pt mentioned he has been on Evista .. The nurse wanted to have all the info she needs in case they need to do a prior auth PCP's office / [facility]) in [place] Office PHONE # [phone] FAX # [phone] [facility] 07-01-2024 Telephone encounter Note Prescription for Prolia faxed to [facility]. [facility] 07-01-2024 Miscellaneous Notes Prescription for Prolia faxed to [facility]. documented in this encounter [facility] 06-15-2024 Telephone encounter Note The following approved medication requests have been transmitted electronically. Requested Prescriptions Pending Prescriptions Disp Refills rosuvastatin (CRESTOR) 20 mg tablet 90 tablet 3 Sig: Take 1 tablet by mouth once daily. Leo Shaw MD [facility] 06-15-2024 Miscellaneous Notes The following approved medication requests have been transmitted electronically. Requested Prescriptions Pending Prescriptions Disp Refills rosuvastatin (CRESTOR) 20 mg tablet 90 tablet 3 Sig: Take 1 tablet by mouth once daily. Leo Shaw MD Patients last Endocrinology visit occurred Last encounter Visit on 06/06/2024 (with Leo Shaw) Follow-up evaluation has been [...] endo scheduling pool. documented in this encounter [facility] 06-14-2024 Telephone encounter Note Patients last Endocrinology visit occurred Last encounter Visit on 06/06/2024 (with Leo Shaw) Follow-up evaluation has been established Upcoming Endocrinology Appointments - Next 365 Days No appointments to display . Requested Prescriptions Pending Prescriptions Disp Refills rosuvastatin (CRESTOR) 20 mg tablet 90 tablet 3 Sig: Take 1 tablet by mouth once daily. If patient is due for an appointment please route to provider for refill consideration and also to the endo scheduling pool. [facility] 06-07-2024 Telephone encounter Note The following approved medication requests have been transmitted electronically. Requested Prescriptions Pending Prescriptions Disp Refills OMNITROPE 5 mg/1.5 mL (3.3 mg/mL) [Pharmacy Med Name: OMNITROPE CARTRIDGE 1.5ML 5MG] 4.5 mL 3 Sig: INJECT 0.4 MG UNDER THE SKIN DAILY. DISCARD 28 DAYS AFTER INITIAL USE Leo Shaw MD [facility] 06-07-2024 Miscellaneous Notes The following approved medication requests have been transmitted electronically. Requested Prescriptions Pending Prescriptions Disp Refills OMNITROPE 5 mg/1.5 mL (3.3 mg/mL) [Pharmacy Med Name: OMNITROPE CARTRIDGE 1.5ML 5MG] 4.5 mL 3 Sig: INJECT 0.4 MG UNDER THE SKIN DAILY. DISCARD 28 DAYS AFTER INITIAL USE Leo Shaw MD Requester: Pharmacy Last Endocrinology visit: 06/06/2024. Follow-up visit scheduled: N/A. Requested Prescriptions Pending Prescriptions Disp Refills OMNITROPE 5 mg/1.5 mL (3.3 mg/mL) [Pharmacy Med Name: OMNITROPE CARTRIDGE 1.5ML 5MG] 4.5 mL 3 Sig: INJECT 0.4 MG UNDER THE SKIN DAILY. DISCARD 28 DAYS AFTER INITIAL USE PSS NOTE: Please schedule appointment: No Thank you! Pia Mayes RN documented in this encounter [facility] 06-07-2024 Telephone encounter Note Requester: Pharmacy Last Endocrinology visit: 06/06/2024. Follow-up visit scheduled: N/A. Requested Prescriptions Pending Prescriptions Disp Refills OMNITROPE 5 mg/1.5 mL (3.3 mg/mL) [Pharmacy Med Name: OMNITROPE CARTRIDGE 1.5ML 5MG] 4.5 mL 3 Sig: INJECT 0.4 MG UNDER THE SKIN DAILY. DISCARD 28 DAYS AFTER INITIAL USE PSS NOTE: Please schedule appointment: No Thank you! Pia Mayes RN [facility] 06-06-2024 Note HNO ID: [id number] Author: LEO SHAW MD Service: ? Author Type: Physician Type: Progress Notes Filed: 06/07/2024 13:11 Note Text: THIS NOTE WAS CARRIED FORWARD FROM THE VISIT WITH ME IN APR 2023 AND ADDENDED APPROPRIATE TO REFLECT TODAY'S VISIT [...] 2023 ): Doing well Labs not available INTERVAL HPI (June 07, 2024 ): Overall doing well Reports some fatigue Has been taking all his meds correctly PMH: Macroprolactinoma PSH: None SOCIAL HISTORY Marital Status: Tobacco Use: Never Alcohol Use: No Review of patient's allergies indicates: Pencillin [Other] Comment:hives Family Hx: no history of hypercalcemia, pituitary tumor, or abdominal tumor Current Outpatient Medications Medication Sig Somatropin (OMNITROPE) 5 mg/1.5 mL (3.3 mg/mL) INJECT 0.4 MG UNDER THE SKIN DAILY. DISCARD 28 DAYS AFTER INITIAL USE hydrocortisone (CORTEF) 10 mg tablet Take one tablet in am, increase to 2 tab in am and 1 tab in the afternoon for 2-3 days if sick levothyroxine (SYNTHROID) 112 mcg tablet Take 1 tablet by mouth every morning. on empty stomach raloxifene (EVISTA) 60 mg tablet Take 1 tablet by mouth once daily. testosterone (ANDROGEL PUMP) 20.25 mg/1.25 gram (1.62 %) transdermal gel Apply three pumps on each shoulder as directed cabergoline (DOSTINEX) 0.5 mg tablet Take 1 tb 2 days per week. Somatropin (GENOTROPIN) 5 mg/mL (15 unit/mL) crtg Inject 0.4 mg SQ daily rosuvastatin (CRESTOR) 20 mg tablet Take 1 tablet by mouth once daily. insulin needles, DISPOSABLE, (BD INSULIN PEN NEEDLE UF) 31 gauge x 5/16 Use for growth hormone pen injections once a day insulin needles, DISPOSABLE, (PEN NEEDLE) 31 gauge x 5/16 ndle Use for GH pen injections once a day Aspirin 81 mg tab Take 81 mg by mouth. No current facility-administered medications for this visit. Physical Examination BP 135/69 Pulse 80 Ht 172.7 cm (5' 8) Wt 88.9 kg (195 lb 15.8 oz) BMI 29.80 kg/m? General: AO X3 Skin: skin color, texture, turgor normal, no rashes or lesions. Eyes: Anicteric sclera. Neck: normal Abdomen: soft, non-tender, Extremities: no edema Peripheral Pulses: posterior tibial and doralis pedis pulses 2+ Labs: 2014 HbA1c: 5.5 HcT: 37 Vit [...] has been promising with last prolactin of being0.4ng/mL (currently on 2 tb per week). -Decrease to 1 tab weekly---take half pill twice a week # Osteoporosis : - He is on raloxifene 60 mg daily. - His past BMD shows osteopenia - BMD in Jna 2019 showed improvement in spine and mild decline in hip and from 2021 essentailly stable, 2023 - BMD shows worsening -Will switch to Prolia -They will check with local office and arrange for the same Vit D : 5000 units daily Discussed reports about association of long-term high dose cabergoline therapy in parkinsonian patients with valvular heart disease in the past. His last echo was fine in 2011. 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 - Considering his hx of radiation,he was started on cortef 10 mg in the morning which needs to be increased to 20 mg in am and 10 mg in the afternoon for 2-3 days during sickness. --With recent reports fatigue, will add 5 mg in afternoon - He has low testosterone while hi (more content not included)... [facility] 06-06-2024 History of Presen t illness Narrative THIS NOTE WAS CARRIED FORWARD FROM THE VISIT WITH ME IN APR 2023 AND ADDENDED APPROPRIATE TO REFLECT TODAY'S VISIT [...] 2023 ): Doing well Labs not available INTERVAL HPI (June 07, 2024 ): Overall doing well Reports some fatigue Has been taking all his meds correctly PMH: Macroprolactinoma PSH: None SOCIAL HISTORY Marital Status: Tobacco Use: Never Alcohol Use: No Review of patient's allergies indicates: Pencillin [Other] Comment:hives Family Hx: no history of hypercalcemia, pituitary tumor, or abdominal tumor Current Outpatient Medications Medication Sig Somatropin (OMNITROPE) 5 mg/1.5 mL (3.3 mg/mL) INJECT 0.4 MG UNDER THE SKIN DAILY. DISCARD 28 DAYS AFTER INITIAL USE hydrocortisone (CORTEF) 10 mg tablet Take one tablet in am, increase to 2 tab in am and 1 tab in the afternoon for 2-3 days if sick levothyroxine (SYNTHROID) 112 mcg tablet Take 1 tablet by mouth every morning. on empty stomach raloxifene (EVISTA) 60 mg tablet Take 1 tablet by mouth once daily. testosterone (ANDROGEL PUMP) 20.25 mg/1.25 gram (1.62 %) transdermal gel Apply three pumps on each shoulder as directed cabergoline (DOSTINEX) 0.5 mg tablet Take 1 tb 2 days per week. Somatropin (GENOTROPIN) 5 mg/mL (15 unit/mL) crtg Inject 0.4 mg SQ daily rosuvastatin (CRESTOR) 20 mg tablet Take 1 tablet by mouth once daily. insulin needles, DISPOSABLE, (BD INSULIN PEN NEEDLE UF) 31 gauge x 5/16 Use for growth hormone pen injections once a day insulin needles, DISPOSABLE, (PEN NEEDLE) 31 gauge x 5/16 ndle Use for GH pen injections once a day Aspirin 81 mg tab Take 81 mg by mouth. No current facility-administered medications for this visit. Physical Examination BP 135/69 Pulse 80 Ht 172.7 cm (5' 8) Wt 88.9 kg (195 lb 15.8 oz) BMI 29.80 kg/m General: AO X3 Skin: skin color, texture, turgor normal, no rashes or lesions. Eyes: Anicteric sclera. Neck: normal Abdomen: soft, non-tender, Extremities: no edema Peripheral Pulses: posterior tibial and doralis pedis pulses 2+ Labs: 2014 HbA1c: 5.5 HcT: 37 Vit [...] has been promising with last prolactin of being0.4ng/mL (currently on 2 tb per week). -Decrease to 1 tab weekly---take half pill twice a week # Osteoporosis : - He is on raloxifene 60 mg daily. - His past BMD shows osteopenia - BMD in Jna 2019 showed improvement in spine and mild decline in hip and from 2021 essentailly stable, 2023 - BMD shows worsening -Will switch to Prolia -They will check with local office and arrange for the same Vit D : 5000 units daily Discussed reports about association of long-term high dose cabergoline therapy in parkinsonian patients with valvular heart disease in the past. His last echo was fine in 2011. 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 - Considering his hx of radiation,he was started on cortef 10 mg in the morning which needs to be increased to 20 mg in am and 10 mg in the afternoon for 2-3 days during sickness. --With recent reports fatigue, will add 5 mg in afternoon - He has low testosterone while his prolactin has normalized, on androgel 1.67%--at goal, 3 pumps to each shoulder- continue same -GH deficiency diagnosed during ITT Issues with GH coverage restart currently on 0.4 mg per day GH Check IGff1--in process # visual field check with ophtal as needed # will send lab order letter : Follow with PCP for other issues RTC in 12 months Leo Shaw MD Answers submitted by the patient for this visit: Core Review of Systems (Submitted on 05/30/2024) Fever : No Night sweats: No Recent unintentional weight change: No Nasal Congestion: Yes Hearing Loss: No Vision Disturbance: No A cough: No Difficulty Breathing?: No Chest pain: No Irregular heartbeat: No Leg Swelling: No Nausea: No Diarrhea: No Black tarry stools: No Difficulty Urinating?: No Awaken at Night More Than Once to Urinate?: No Joint pain or stiffness: No Muscle aches: Yes Leg or Foot Discomfort at Night?: No A rash: No Dizziness: No Headaches: No Memory Loss: No Seizures: No documented in this encounter [facility] 06-03-2024 Telephone encounter Note The following approved medication requests have been transmitted electronically. Requested Prescriptions Pending Prescriptions Disp Refills OMNITROPE 5 mg/1.5 mL (3.3 mg/mL) [Pharmacy Med Name: OMNITROPE CARTRIDGE 1.5ML 5MG] 4.5 mL 3 Sig: INJECT 0.4 MG UNDER THE SKIN DAILY. DISCARD 28 DAYS AFTER INITIAL USE Leo Shaw MD [facility] 06-03-2024 Miscellaneous Notes The following approved medication requests have been transmitted electronically. Requested Prescriptions Pending Prescriptions Disp Refills OMNITROPE 5 mg/1.5 mL (3.3 mg/mL) [Pharmacy Med Name: OMNITROPE CARTRIDGE 1.5ML 5MG] 4.5 mL 3 Sig: INJECT 0.4 MG UNDER THE SKIN DAILY. DISCARD 28 DAYS AFTER INITIAL USE Leo Shaw MD documented in this encounter [facility] 06-03-2024 Telephone encounter Note BMD : worseningcompared to 2021--osteopenia MRI: stable sellar mass --cystic Leo Shaw MD [facility] 06-03-2024 Miscellaneous Notes BMD : worseningcompared to 2021--osteopenia MRI: stable sellar mass --cystic Leo Shaw MD Bone density and MRI received via fax from [facility]. Fax placed on Dr. Shaw's desk. Copy of fax sent to scanning. documented in this encounter [facility] 06-03-2024 Telephone encounter Note Bone density and MRI received via fax from [facility]. Fax placed on Dr. Shaw's desk. Copy of fax sent to scanning. [facility] 05-25-2024 Telephone encounter Note Received lab result from [facility]. Result placed in Dr. Shaw's inbox for review. Copy sent to scanning. [facility] 05-25-2024 Miscellaneous Notes Received lab result from [facility]. Result placed in Dr. Shaw's inbox for review. Copy sent to scanning. documented in this encounter [facility] 04-20-2024 Telephone encounter Note The following approved [...] by mouth once daily. Leo Shaw MD [facility] 04-20-2024 Miscellaneous Notes The following approved [...] Pia Mayes RN documented in this encounter [facility] 04-20-2024 Telephone encounter Note Requester: Patient [...] appointment: No Thank you! Pia Mayes RN [facility] 04-11-2024 Telephone encounter Note Growth hormone certification form received from [facility] for Omnitrope placed in Dr. Shaw's folder for review. [facility] 04-11-2024 Miscellaneous Notes Growth hormone certification form received from [facility] for Omnitrope placed in Dr. Shaw's folder for review. documented in this encounter [facility] 03-04-2024 Telephone encounter Note Can below meds be escripted? [facility] 03-04-2024 Miscellaneous Notes Can below meds [...] endo scheduling pool. documented in this encounter [facility] 03-04-2024 Telephone encounter Note Called back and completed PA over the phone. Approved from 02/03/24-03/04/25. Pt notified. [facility] 03-04-2024 Miscellaneous Notes Called back and completed PA over the phone. Approved from 02/03/24-03/04/25. Pt notified. [facility] is calling Leo Shaw MD today to request Medication Preauthorization (Somatropin (OMNITROPE) 5 mg/1.5 mL (3.3 mg/mL)). . Patient has been identified by name and birthdate. Duration of symptoms: N/A Person calling: pharmacy: [facility] at: [phone] Was an appointment scheduled: No Closing statement: Results or non-symptom based questions: Thank you for calling [facility], your call will be returned within the next business day. Fanny Richard documented in this encounter [facility] 03-03-2024 Telephone encounter Note [facility] is calling Leo Shaw MD today to request Medication Preauthorization (Somatropin (OMNITROPE) 5 mg/1.5 mL (3.3 mg/mL)). . Patient has been identified by name and birthdate. Duration of symptoms: N/A Person calling: pharmacy: [facility] at: [phone] Was an appointment scheduled: No Closing statement: Results or non-symptom based questions: Thank you for calling [facility], your call will be returned within the next business day. Fanny Richard [facility] 02-29-2024 Telephone encounter Note Patients last [...] and also to the endo scheduling pool. [facility] 01-27-2024 Telephone encounter Note The following approved medication requests have been transmitted electronically. Requested Prescriptions Pending Prescriptions Disp Refills cabergoline (DOSTINEX) 0.5 mg tablet 50 tablet 1 Sig: Take 1 tb 2 days per week. testosterone (ANDROGEL PUMP) 20.25 mg/1.25 gram (1.62 %) transdermal gel 300 g 1 Sig: Apply three pumps on each shoulder as directed Leo Shaw MD [facility] 01-27-2024 Miscellaneous Notes The following approved [...] endo scheduling pool. documented in this encounter [facility] 01-27-2024 Telephone encounter Note Patients last [...] and also to the endo scheduling pool. [facility] 12-11-2023 Telephone encounter Note The following approved medication requests have been transmitted electronically. Requested Prescriptions Pending Prescriptions Disp Refills OMNITROPE 5 mg/1.5 mL (3.3 mg/mL) [Pharmacy Med Name: OMNITROPE CARTRIDGE 1.5ML 5MG] 6 mL 2 Sig: INJECT 0.4 MG UNDER THE SKIN DAILY (DISCARD 28 DAYS AFTER INITIAL USE) Leo Shaw MD [facility] 12-11-2023 Miscellaneous Notes The following approved [...] Pia Mayes RN documented in this encounter [facility] 12-10-2023 Telephone encounter Note Requester: Pharmacy [...] appointment: No Thank you! Pia Mayes RN [facility] 08-27-2023 Miscellaneous Notes Lab results received from [facility]. Placed in Dr. Shaw's folder to review. Hi! Can we check to see if his labs were faxed to [place]? So far no results in his chart or care everywhere. Thank you! Pia Mayes RN documented in this encounter [facility] 06-29-2023 Miscellaneous Notes Patients last Endocrinology [...] endo scheduling pool. documented in this encounter [facility] 06-25-2023 Miscellaneous Notes Patient requests all scripts except Omnitrope be sent to [facility] pharmacy. Pended for sign off. Requester: [...] Pia Mayes RN documented in this encounter [facility] 05-27-2023 Miscellaneous Notes All meds need [...] endo scheduling pool. documented in this encounter [facility] 05-11-2023 Miscellaneous Notes Patients last Endocrinology [...] endo scheduling pool. documented in this encounter [facility] 04-23-2023 Miscellaneous Notes The following approved medication [...] Pia Mayes RN documented in this encounter [facility] 03-04-2023 Miscellaneous Notes Lab orders faxed to [facility] with confirmation. Patient notified. Patient requests thyroid lab orders be faxed to below location: [facility] [phone] Thank you! Pia Mayes RN documented in this encounter [facility] 02-23-2023 Miscellaneous Notes PA completed and approved for Omnitrope. Please inform patient : Omnitrope is coming up as not covered! MAybethe computer is not updated. I am sending the Omnitrope instead of Somatropin as he requested He should check with insurance if that will be covered Leo Shaw MD documented in this encounter [facility] 02-11-2023 Miscellaneous Notes Prior authorization for Norditropin submitted via Cover My Meds. Awaiting response from plan. documented in this encounter [facility] 02-09-2023 Miscellaneous Notes Rx for cabergoline [...] Pia Mayes RN documented in this encounter [facility] 01-21-2023 Miscellaneous Notes The following approved [...] Pia Mayes RN documented in this encounter [facility] 12-05-2022 Miscellaneous Notes Requester: Patient Last [...] Pia Mayes RN documented in this encounter [facility] 10-17-2022 Miscellaneous Notes Requester: Patient Patients last Endocrinology visit occurred 12-05-2021 [facility]. Follow-up evaluation has been established [facility]-22[facility] Requested Prescriptions Pending Prescriptions Disp Refills rosuvastatin [...] Ella Link Ma documented in this encounter [facility] 08-20-2022 Miscellaneous Notes Called and scheduled [...] Pia Mayes RN documented in this encounter [facility] 07-17-2022 Miscellaneous Notes Requester: Patient Last Endocrinology visit: 12/05/2021. Follow-up visit scheduled: Visit date not found. Requested Prescriptions Pending Prescriptions Disp Refills testosterone (ANDROGEL PUMP) 20.25 mg/1.25 gram (1.62 %) transdermal gel 300 g 1 Sig: Apply three pumps on each shoulder as directed PSS NOTE: Please schedule appointment: No Thank you! Pia Mayes RN documented in this encounter [facility] 01-23-2022 Miscellaneous Notes Requester: Patient Last Endocrinology visit: 12/05/2021. Follow-up visit scheduled: Visit date not found. Pending Prescriptions Disp Refills PEN NEEDLE, DIABETIC 31 GAUGE X 5/16 100 Each 3 Sig: Use for growth hormone pen injections once a day ANNA: No PSS NOTE: Please schedule appointment: No Thank you! Pia Mayes RN documented in this encounter [facility] 12-05-2021 History of Presen t illness [...] visit. Physical Examination Ht 172.7 cm (5' 8) Wt 86.2 kg (190 lb) BMI 28.89 [...] No Seizures: No documented in this encounter [facility] 11-13-2021 Miscellaneous Notes The following approved [...] Pia Mayes RN documented in this encounter 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) Prolactinoma (HCC) Benign neoplasm of pituitary gland and craniopharyngeal duct (pouch) [facility] Hypothyroidism, secondary Other specified [...] craniopharyngeal duct (pouch) [facility] Diagnosis Hypothyroidism, secondary Other specified [...] craniopharyngeal duct (pouch) [facility] Hypothyroidism, secondary Other specified [...] craniopharyngeal duct (pouch) 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) Prolactinoma (HCC) Benign neoplasm of pituitary gland and craniopharyngeal duct (pouch) [facility]* Diagnosis Hypothyroidism, secondary Other specified acquired hypothyroidism Hypogonadism male Other testicular 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) Prolactinoma (HCC) Benign neoplasm of pituitary gland and craniopharyngeal duct (pouch) [facility]* Diagnosis Hypothyroidism, secondary Other specified acquired hypothyroidism Hypogonadism male Other testicular 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) Prolactinoma (HCC) Benign neoplasm of pituitary gland and craniopharyngeal duct (pouch) 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 Summary Purpose Family History No Family History Records Found Relationship Condition Age at Onset Recorded Date/T usha Not Specified Cardiac disease Unknown Hyperlipidemia Unknown Hypertension Unknown mother Aneurysm Unknown father Malignant neoplasm Unknown Advance Directives No Advanced Directives Records Found Advance Directive Response Recorded Date/ Time Living Will No June 04 9:48am Power of Disaster Recovery Coordinator No June 04, 2022 9:48am Reason for Referral Specialty Diagnoses / Procedures Referred By Contac t Referred To Contact Leo Shaw V, MD [address] [place] [address] Referral ID Status Reason Start Date Expiration Date V isits Requested Visits Authorized [id number] Authorized 01/24/2023 02/23/2024 1 1 Specialty Diagnoses / Procedures Referred By Contac t Referred To Contact Diagnoses Hypothyroidism, secondary Hypogonadism male Benign neoplasm of pituitary gland and craniopharyngeal duct (pouch) (HCC) Prolactinoma (HCC) Leo Shaw V, MD [address] [place] [address] Referral ID Status Reason Start Date Expiration Date V isits Requested Visits Authorized [id number] Pending Review 1 1 Referral ID Status Reason Start Date Expiration Date V isits Requested Visits Authorized [id number] Pending Review 1 1 Additional Source Comments (unrecognized sect ion and content) No Status Records FoundNo Status Records FoundNo Status Records FoundNo Status Records FoundNo Status Records Found INFORMATION SOURCE (unrecogn ized section and content) DATE CREATED AUTHOR 10/24/2019 [facility] DATE CREATED AUTHOR AUTHOR'S ORGANIZ ATION 06/20/2020 [facility] DATE CREATED AUTHOR AUTHOR'S ORGANIZ ATION 04/24/2021 [facility] DATE CREATED AUTHOR AUTHOR'S ORGANIZ ATION 12/08/2024 [facility] DATE CREATED AUTHOR AUTHOR'S ORGANIZ ATION 01/02/2025 [facility] Source Comments (unrecognize d section and content) In the event this informatio n is protected by the Federal Confidentiality of Alcohol and Drug Abuse Patient Records regulations: The Federal rules restrict any use of the information to criminally investigate or prosecute any alcohol or drug abuse patient.[facility] the event this information is protected by the Federal Confidentiality of Alcohol and Drug Abuse Patient Records regulations: The Federal rules restrict any use of the information to criminally investigate or prosecute any alcohol or drug abuse patient.[facility]In the event this information is protected by the Federal Confidentiality of Alcohol and Drug Abuse Patient Records regulations: The Federal rules restrict any use of the information to criminally investigate or prosecute any alcohol or drug abuse patient.[facility] HospitalIn the event this information is protected by the Federal Confidentiality of Alcohol and Drug Abuse Patient Records regulations: The Federal rules restrict any use of the information to criminally investigate or prosecute any alcohol or drug abuse patient.[facility] HospitalIn the event this information is protected by the Federal Confidentiality of Alcohol and Drug Abuse Patient Records regulations: The Federal rules restrict any use of the information to criminally investigate or prosecute any alcohol or drug abuse patient.[facility] HospitalIn the event this information is protected by the Federal Confidentiality of Alcohol and Drug Abuse Patient Records regulations: The Federal rules restrict any use of the information to criminally investigate or prosecute any alcohol or drug abuse patient.[facility] HospitalIn the event this information is protected by the Federal Confidentiality of Alcohol and Drug Abuse Patient Records regulations: The Federal rules restrict any use of the information to criminally investigate or prosecute any alcohol or drug abuse patient.[facility] HospitalIn the event this information is protected by the Federal Confidentiality of Alcohol and Drug Abuse Patient Records regulations: The Federal rules restrict any use of the information to criminally investigate or prosecute any alcohol or drug abuse patient.[facility]In the event this information is protected by the Federal Confidentiality of Alcohol and Drug Abuse Patient Records regulations: The Federal rules restrict any use of the information to criminally investigate or prosecute any alcohol or drug abuse patient.[facility] HospitalIn the event this information is protected by the Federal Confidentiality of Alcohol and Drug Abuse Patient Records regulations: The Federal rules restrict any use of the information to criminally investigate or prosecute any alcohol or drug abuse patient.[facility] HospitalIn the event this information is protected by the Federal Confidentiality of Alcohol and Drug Abuse Patient Records regulations: The Federal rules restrict any use of the information to criminally investigate or prosecute any alcohol or drug abuse patient.[facility] HospitalIn the event this information is protected by the Federal Confidentiality of Alcohol and Drug Abuse Patient Records regulations: The Federal rules restrict any use of the information to criminally investigate or prosecute any alcohol or drug abuse patient.[facility] HospitalIn the event this information is protected by the Federal Confidentiality of Alcohol and Drug Abuse Patient Records regulations: The Federal rules restrict any use of the information to criminally investigate or prosecute any alcohol or drug abuse patient.[facility] HospitalIn the event this information is protected by the Federal Confidentiality of Alcohol and Drug Abuse Patient Records regulations: The Federal rules restrict any use of the information to criminally investigate or prosecute any alcohol or drug abuse patient.[facility] HospitalIn the event this information is protected by the Federal Confidentiality of Alcohol and Drug Abuse Patient Records regulations: The Federal rules restrict any use of the information to criminally investigate or prosecute any alcohol or drug abuse patient.[facility]In the event this information is protected by the Federal Confidentiality of Alcohol and Drug Abuse Patient Records regulations: The Federal rules restrict any use of the information to criminally investigate or prosecute any alcohol or drug abuse patient.[facility] HospitalIn the event this information is protected by the Federal Confidentiality of Alcohol and Drug Abuse Patient Records regulations: The Federal rules restrict any use of the information to criminally investigate or prosecute any alcohol or drug abuse patient.[facility] HospitalIn the event this information is protected by the Federal Confidentiality of Alcohol and Drug Abuse Patient Records regulations: The Federal rules restrict any use of the information to criminally investigate or prosecute any alcohol or drug abuse patient.[facility] HospitalIn the event this information is protected by the Federal Confidentiality of Alcohol and Drug Abuse Patient Records regulations: The Federal rules restrict any use of the information to criminally investigate or prosecute any alcohol or drug abuse patient.[facility] HospitalIn the event this information is protected by the Federal Confidentiality of Alcohol and Drug Abuse Patient Records regulations: The Federal rules restrict any use of the information to criminally investigate or prosecute any alcohol or drug abuse patient.[facility] HospitalIn the event this information is protected by the Federal Confidentiality of Alcohol and Drug Abuse Patient Records regulations: The Federal rules restrict any use of the information to criminally investigate or prosecute any alcohol or drug abuse patient.[facility] HospitalIn the event this information is protected by the Federal Confidentiality of Alcohol and Drug Abuse Patient Records regulations: The Federal rules restrict any use of the information to criminally investigate or prosecute any alcohol or drug abuse patient.[facility] HospitalIn the event this information is protected by the Federal Confidentiality of Alcohol and Drug Abuse Patient Records regulations: The Federal rules restrict any use of the information to criminally investigate or prosecute any alcohol or drug abuse patient.[facility] HospitalIn the event this information is protected by the Federal Confidentiality of Alcohol and Drug Abuse Patient Records regulations: The Federal rules restrict any use of the information to criminally investigate or prosecute any alcohol or drug abuse patient.[facility] HospitalIn the event this information is protected by the Federal Confidentiality of Alcohol and Drug Abuse Patient Records regulations: The Federal rules restrict any use of the information to criminally investigate or prosecute any alcohol or drug abuse patient.[facility] HospitalIn the event this information is protected by the Federal Confidentiality of Alcohol and Drug Abuse Patient Records regulations: The Federal rules restrict any use of the information to criminally investigate or prosecute any alcohol or drug abuse patient.[facility] HospitalIn the event this information is protected by the Federal Confidentiality of Alcohol and Drug Abuse Patient Records regulations: The Federal rules restrict any use of the information to criminally investigate or prosecute any alcohol or drug abuse patient.[facility] HospitalIn the event this information is protected by the Federal Confidentiality of Alcohol and Drug Abuse Patient Records regulations: The Federal rules restrict any use of the information to criminally investigate or prosecute any alcohol or drug abuse patient.[facility] HospitalIn the event this information is protected by the Federal Confidentiality of Alcohol and Drug Abuse Patient Records regulations: The Federal rules restrict any use of the information to criminally investigate or prosecute any alcohol or drug abuse patient.[facility] HospitalIn the event this information is protected by the Federal Confidentiality of Alcohol and Drug Abuse Patient Records regulations: The Federal rules restrict any use of the information to criminally investigate or prosecute any alcohol or drug abuse patient.[facility] HospitalIn the event this information is protected by the Federal Confidentiality of Alcohol and Drug Abuse Patient Records regulations: The Federal rules restrict any use of the information to criminally investigate or prosecute any alcohol or drug abuse patient.[facility] HospitalIn the event this information is protected by the Federal Confidentiality of Alcohol and Drug Abuse Patient Records regulations: The Federal rules restrict any use of the information to criminally investigate or prosecute any alcohol or drug abuse patient.[facility] HospitalIn the event this information is protected by the Federal Confidentiality of Alcohol and Drug Abuse Patient Records regulations: The Federal rules restrict any use of the information to criminally investigate or prosecute any alcohol or drug abuse patient.[facility] HospitalIn the event this information is protected by the Federal Confidentiality of Alcohol and Drug Abuse Patient Records regulations: The Federal rules restrict any use of the information to criminally investigate or prosecute any alcohol or drug abuse patient.[facility] HospitalIn the event this information is protected by the Federal Confidentiality of Alcohol and Drug Abuse Patient Records regulations: The Federal rules restrict any use of the information to criminally investigate or prosecute any alcohol or drug abuse patient.[facility] HospitalIn the event this information is protected by the Federal Confidentiality of Alcohol and Drug Abuse Patient Records regulations: The Federal rules restrict any use of the information to criminally investigate or prosecute any alcohol or drug abuse patient.[facility] HospitalIn the event this information is protected by the Federal Confidentiality of Alcohol and Drug Abuse Patient Records regulations: The Federal rules restrict any use of the information to criminally investigate or prosecute any alcohol or drug abuse patient.[facility] HospitalIn the event this information is protected by the Federal Confidentiality of Alcohol and Drug Abuse Patient Records regulations: The Federal rules restrict any use of the information to criminally investigate or prosecute any alcohol or drug abuse patient.[facility] HospitalIn the event this information is protected by the Federal Confidentiality of Alcohol and Drug Abuse Patient Records regulations: The Federal rules restrict any use of the information to criminally investigate or prosecute any alcohol or drug abuse patient.[facility] HospitalIn the event this information is protected by the Federal Confidentiality of Alcohol and Drug Abuse Patient Records regulations: The Federal rules restrict any use of the information to criminally investigate or prosecute any alcohol or drug abuse patient.[facility] HospitalIn the event this information is protected by the Federal Confidentiality of Alcohol and Drug Abuse Patient Records regulations: The Federal rules restrict any use of the information to criminally investigate or prosecute any alcohol or drug abuse patient.[facility] HospitalIn the event this information is protected by the Federal Confidentiality of Alcohol and Drug Abuse Patient Records regulations: The Federal rules restrict any use of the information to criminally investigate or prosecute any alcohol or drug abuse patient.[facility] HospitalIn the event this information is protected by the Federal Confidentiality of Alcohol and Drug Abuse Patient Records regulations: The Federal rules restrict any use of the information to criminally investigate or prosecute any alcohol or drug abuse patient.[facility] HospitalIn the event this information is protected by the Federal Confidentiality of Alcohol and Drug Abuse Patient Records regulations: The Federal rules restrict any use of the information to criminally investigate or prosecute any alcohol or drug abuse patient.[facility] HospitalIn the event this information is protected by the Federal Confidentiality of Alcohol and Drug Abuse Patient Records regulations: The Federal rules restrict any use of the information to criminally investigate or prosecute any alcohol or drug abuse patient.[facility] HospitalIn the event this information is protected by the Federal Confidentiality of Alcohol and Drug Abuse Patient Records regulations: The Federal rules restrict any use of the information to criminally investigate or prosecute any alcohol or drug abuse patient.[facility] HospitalIn the event this information is protected by the Federal Confidentiality of Alcohol and Drug Abuse Patient Records regulations: The Federal rules restrict any use of the information to criminally investigate or prosecute any alcohol or drug abuse patient.[facility] Reason for Visit (unrecogniz ed section [...] Reason Onset Date Comments Refill Request 04/18/2024 Reason Comments Outside Lab Results Reason Comments Refill Request Reason Comments Follow Up Specialty Diagnoses / Procedures Referred By Tai t Referred To [facility] Diagnoses Pituitary tumor Procedures FOLLOW-UP E-ASSESSMENT Leo Shaw V, MD [address] [place] [address] [facility] [address] [place] [id number] Referral ID Status Reason Start Date Expiration Date Visits Requested Visits Authorized [id number] Closed Financial Clearance Required - OON Payor Patient cleared - OON Required Payment Collected OON Notification Letter 02/29/2024 07/26/2024 1 1 Reason Onset Date Comments Refill Request 06/12/2024 Reason Comments Prescription [facility] Reason Comments info request Reason Onset Date Comments Refill Request 07/11/2024 Reason Onset Date Comments Refill Request 09/17/2024 Reason Comments Insurance Authorization Unable to Proces s - OMNITROPE 5 mg/1.5 mL (3.3 mg/mL) [[employer]] Reason Comments Insurance Authorization testosterone (AN DROGEL PUMP) 20.25 mg/1.25 gram (1.62 %) transdermal gel [[employer]] Reason Onset Date Comments Refill Request 11/28/2024 Reason Comments Patient Update [employer] Reason Comments Patient Update Testosterone gel Care Teams (unrecognized sec tion and content) Parks And Recreation Manager Relationship Specialty Start Date End Date Nhung Vega [address] [facility] [address] [place] [address] PCP - General 09/30/04 Parks And Recreation Manager Relationship Specialty Start Date End Date Nhung Vega [address] [facility] [address] [place] [address] PCP - General 09/30/04 Parks And Recreation Manager Relationship Specialty Start Date End Date Nhung Vega [address] [facility] [address] [place] [address] PCP - General 09/30/04 Parks And Recreation Manager Relationship Specialty Start Date End Date Nhung Vega [address] [facility] [address] [place] [address] PCP - General 09/30/04 Parks And Recreation Manager Relationship Specialty Start Date End Date Nhung Vega [address] [facility] [address] [place] [address] PCP - General 09/30/04 Parks And Recreation Manager Relationship Specialty Start Date End Date Gary Nhung Satish [address] [facility] [address] [place] [address] PCP - General 09/30/04 Parks And Recreation Manager Relationship Specialty Start Date End Date Nhung Vega Satish [address] [facility] [address] [place] [address] PCP - General 09/30/04 Parks And Recreation Manager Relationship Specialty Start Date End Date Nhung Vega Satish [address] [facility] [address] [place] [address] PCP - General 09/30/04 Parks And Recreation Manager Relationship Specialty Start Date End Date Teodoranate Nhung Satish [address] [facility] [address] [place] [address] PCP - General 09/30/04 Parks And Recreation Manager Relationship Specialty Start Date End Date Nhung Vega [address] [facility] [address] [place] [address] PCP - General 09/30/04 Parks And Recreation Manager Relationship Specialty Start Date End Date Nhung Vega [address] [facility] [address] [address] [place] [address] PCP - General 09/30/04 Parks And Recreation Manager Relationship Specialty Start Date End Date Nhung Vega [address] [facility] [address] [address] [place] [address] PCP - General 09/30/04 Parks And Recreation Manager Relationship Specialty Start Date End Date Nhung Vega [address] [facility] [address] [place] [address] PCP - General 09/30/04 Parks And Recreation Manager Relationship Specialty Start Date End Date Nhung Vega [address] [place] [address] PCP - General 09/30/04 Parks And Recreation Manager Relationship Specialty Start Date End Date Nhung Vega [address] [place] [address] PCP - General 09/30/04 Parks And Recreation Manager Relationship Specialty Start Date End Date Nhung Vega [address] [place], [place] [address] PCP - General 09/30/04 Parks And Recreation Manager Relationship Specialty Start Date End Date Nhung Vega [address] [place] [address] PCP - General 09/30/04 Parks And Recreation Manager Relationship Specialty Start Date End Date Nhung Vega [address] [place] [address] PCP - General 09/30/04 Parks And Recreation Manager Relationship Specialty Start Date End Date Nhung Vega [address] [place] [address] PCP - General 09/30/04 Team Status: Active Member Role Status Dates Dr. Nhung Vega MD Family Provider Active Rich BENDER MD Primary Care Provider Active Team Status: Inactive Member Role Status Dates Rich BENDER MD Primary Care Provider Active Leo Shaw MD Attending Provider Active Parks And Recreation Manager Relationship Specialty Start Date End Date Nhung Vega [address] [place], [place] [address] PCP - General 09/30/04 Parks And Recreation Manager Relationship Specialty Start Date End Date Nhung Vega [address] [place] [address] PCP - General 09/30/04 Parks And Recreation Manager Relationship Specialty Start Date End Date Nhung Vega [address] [place] [address] PCP - General 09/30/04 Parks And Recreation Manager Relationship Specialty Start Date End Date Nhung Vega [address] [place] [address] PCP - General 09/30/04 Parks And Recreation Manager Relationship Specialty Start Date End Date Nhung Vega [address] [place] [address] PCP - General 09/30/04 Parks And Recreation Manager Relationship Specialty Start Date End Date Nhung Vega [address] [place] [address] PCP - General 09/30/04 Parks And Recreation Manager Relationship Specialty Start Date End Date Rich Alexis MD [address] [place] [phone] PCP - General Internal Medicine 06/06/24 Parks And Recreation Manager Relationship Specialty Start Date End Date Rich Alexis MD [address] [place] [phone] PCP - General Internal Medicine 06/06/24 Parks And Recreation Manager Relationship Specialty Start Date End Date Rich Alexis MD [address] [place] [address] PCP - General Internal Medicine 06/06/24 Parks And Recreation Manager Relationship Specialty Start Date End Date Rich Alexis MD [address] [place] [address] PCP - General Internal Medicine 06/06/24 Parks And Recreation Manager Relationship Specialty Start Date End Date Rich Alexis MD [address] [place] [address] PCP - General Internal Medicine 06/06/24 Parks And Recreation Manager Relationship Specialty Start Date End Date Rich Alexis MD [address] [place] [address] PCP - General Internal Medicine 06/06/24 Parks And Recreation Manager Relationship Specialty Start Date End Date Rich Alexis MD [address] [place] [address] PCP - General Internal Medicine 06/06/24 Parks And Recreation Manager Relationship Specialty Start Date End Date Rich Alexis MD [address] [place] [address] PCP - General Internal Medicine 06/06/24 Parks And Recreation Manager Relationship Specialty Start Date End Date Rich Alexis MD [address] [place] [address] PCP - General Internal Medicine 06/06/24 Parks And Recreation Manager Relationship Specialty Start Date End Date Rich Alexis MD [address] [facility] [address] [place] [phone] PCP - General Internal Medicine 06/06/24 Goals (unrecognized section and content) Goals may be documented in a n alternate section FOR RECORDS PERTAINING TO PATIENTS WHO ARE [...] BE BASED ON THE PRIMARY CLINICAL RECORDS. [facility]. provides no warranty or guarantee of the accuracy or completeness of information in this document.
== END 2025-01-06 23:59 | disposition home or self-care (01) ==
PROVIDERS: PCP Internal Medicine; Referring Provider Internal Medicine; Visit Provider Internal Medicine
DX: M85.80 Other specified disorders of bone density and structure, unspecified site (principal)
CPT/HCPCS: 96372; J0897

== ENCOUNTER → 2025-01-31 | Outpatient (CLI) | payer MEDICARE, OTHER, SELFPAY ==
[2025-01-31 07:48] LABS: Hematocrit 35.2 % (40-54); Hemoglobin 12.4 g/dL (13.0-16.5); Immature Granulocytes Count 0.010 X10^3/uL (0.0-0.0); Mean Corp Hgb Conc 35.2 g/dL (32-36); Mean Corpuscular Volume 92.1 fL (80-94); Mean Platelet Vol. 8.8 fl (6.2-12.0); NRBC Flagged by Analyzer 0 % (0-5); Platelet Count 207 K/mm3 (150-450); RBC Distribution Width CV 13.2 % (11.6-14.6); RBC Distribution Width SD 44.4 fl (35.1-43.9); Red Blood Count 3.82 M/mm3 (4.6-6.2); White Blood Count 6.2 K/mm3 (4.4-11.0)
[2025-01-31 09:20] LABS: AST(SGOT) 30 U/L (<=37); Alanine Aminotransfer ALT/SGPT 21 U/L (<=46); Albumin, Serum 4.0 g/dL (3.4-4.8); Alkaline Phosphatase 72 U/L (40-129); Anion Gap 10 (5-15); BUN 21 mg/dL (4-19); BUN/Creat Ratio 22.2 RATIO (10-20); Calcium,Total 8.7 mg/dL (7.6-11.0); Carbon Dioxide 25.8 mmol/L (21.0-32.0); Chloride 100 mmol/L (98-108); Cholesterol 137 mg/dL (<=200); Globulin 2.8 g/dL (2.2-4.2); Glucose 86 mg/dL (70-99); Low Density Lipoprotein Calc. 74 mg/dL; Potassium 4.0 mmol/L (3.3-5.1); Triglycerides 69 mg/dL; Very Low Density Lipoprotein 14 mg/dL (5-40); Vitamin D,25 Hydroxy 52.9 ng/mL (30-100); cholesterol:hdl ratio screen 2.81
== END | disposition home or self-care (01) ==
LOC: LAB 07:07
PROVIDERS: PCP Internal Medicine; Referring Provider Physician Assistant; Visit Provider Physician Assistant
DX: E78.5 Hyperlipidemia, unspecified (principal); E55.9 Vitamin D deficiency, unspecified; D64.9 Anemia, unspecified
CPT/HCPCS: 36415; 80053; 80061; 82306; 85025

== ENCOUNTER 2025-06-20 07:23 | Outpatient (CLI) | payer MEDICARE, OTHER, SELFPAY ==
--- OUTSIDE RECORDS SUMMARY | 2025-06-20 07:34 | XMS RPT_ITS | CCD ---
Author Organization [facility] Care Team Providers Care Ornamental Ironworker Name Role Phone SARITHA, DR DARIN Sky Attending Unavaila ble SARITHA, DR DARIN Sky Primary Care Unavaila ble SARITHA, DR DARIN Sky Admitting Unavaila ble SARITHA, DR DARIN Sky Attending Unavaila ble SARITHA, DR DARIN Sky Primary Care Unavaila ble SARITHA, DR DARIN Sky Admitting Unavaila ble Nhung Vega Primary Care Provider [phone] Nhung Vega Primary Care Provider [phone] Nhung Vega Primary Care Provider [phone] Nhung Vega Primary Care Provider [phone] Nhung Vega Primary Care Provider [phone] Nhung Vega Primary Care Provider [phone] Rich Alexis MD Primary Care Provider Dr. Rich Alexis MD Primary Care Provider Leo Shaw MD Attending Provider Leo Shaw MD Referring Provider Junior Rincon Attending Provider Junior Rincon Referring Provider Leo Shaw MD Other Provider Leo Shaw Referring Unavailable Pauloe Efewongbe Primary Care Unavailable Leo Shaw Attending Unavailable Pauloe, Efewongbe Primary Care Unavailable Leo Shaw Attending Unavailable Leo Shaw Referring Unavailable Oleghe, Efewongbe Primary Care Unavailable Peechakara, Seenia Attending Unavailable Peechakara, Seenia Referring Unavailable Oleghe, Efewongbe Primary Care Unavailable Peechakara, Seenia Attending Unavailable Peechakara, Seenia Referring Unavailable Oleghe, Efewongbe Primary Care Unavailable Oleghe, Efewongbe Referring Unavailable Junior Rincon Attending Unavailable Peechakara, Seenrush Attending Unavailable Peechakara, Seenia Referring Unavailable Oleghe, Efewongbe Primary Care Unavailable Peechakara, Seenia Consulting Unavailable Oleghe, Efewongbe Primary Care Unavailable Junior Rincon Attending Unavailable Junior Rincon Referring Unavailable OLEGHE, EFEWONGBE B Primary Care Unavailable PEECHAKARA, SEENIA Attending Unavailable NHUNG VEGA Primary Care Unavailable PEECHAKARA, SEENIA Referring Unavailable PEECHAKARA, SEENIA Attending Unavailable Allergies Allergy Classification Reported Allergen(s) Allergy Type Date of Onset Reaction(s) Facility (6 sources) Penicillins; Translations: [PENICILLINS] Drug Allergy 05-19-2013 [facility] Work Phone: (20 sources) Penicillins Drug Allergy 05-19-2013 [facility] Work Phone: (3 sources) Penicillins Allergy to substance 01-23-2023 [facility] (11 sources) Penicillins Drug Allergy 05-19-2013 [facility] Work Phone: (1 source) Penicillins Drug allergy (disorder) 01-06-2025 [facility] Medications Current Medications Medication Drug Class(es) Dates Sig (Normalized) Sig (Original) aspirin 81 mg delayed release oral tablet (20 sources) Platelet Aggregation Inhibitor, Nonsteroidal Anti-inflammatory Drug Start: 06-03-2019 take 1 tablet by mouth once daily Aspirin 81 mg tablet,delayed release (DR/EC) Active 81 mg PO DAILY June 03, 2019 1:00am Aspirin 81 mg ta b Indications: Other and unspecified anterior pituitary hyperfunction (HCC) Take 81 mg by mouth. Active Comment on above: Take 81 mg by mouth. cabergoline 0.5 mg oral tablet (20 sources) Ergot Derivative Start: 019 End: 025 cabergoline (DOSTINEX) 0.5 mg tablet Indications: Hypothyroidism, secondary , Hypogonadism male , Benign neoplasm of pituitary gland and craniopharyngeal duct (pouch) (HCC) , Prolactinoma (HCC) Take half tablet 2 days per week. 50 tablet 1 03/07/2025 Active Comment on above: Take 1 tb 2 days per week. cholecalciferol 0.125 mg oral capsule (3 sources) Vitamin D Start: take 1 capsule by mouth once daily Cholecalciferol (Vitamin D3) 5,000 unit capsule Active 5000 U PO DAILY June 03, 2019 1:00am 1 ml denosumab 60 mg/ml prefilled syringe (2 sources) RANK Ligand Inhibitor Start: Denosumab (Prolia) 60 mg/mL syringe Active 60 mg SC every 6 months 07 27June 29, 2024 1:00am hydrocortisone 10 mg oral tablet (20 sources) Corticosteroid Start: End: 025 hydrocortisone (CORTEF) 10 mg tablet Indications: Hypothyroidism, secondary , Hypogonadism male , Benign neoplasm of pituitary gland and craniopharyngeal duct (pouch) (HCC) , Prolactinoma (HCC) Take one tablet in am and 1 tablet afternoon, increase to 2 tab in am and 2 tab in the afternoon for 2-3 days if sick 200 tablet 3 03/07/2025 Active Start: 05-29-2023 End: 04-18-2024 hydrocortisone (CORTEF) [...] 1 05/05/2023 Active Start: 06-03-2019 End: 01-23-2023 take 1 tablet by mouth once daily Hydrocortisone 10 mg tablet Discontinued 10 mg PO DAILY June 03, 2019 1:00am January 23, 2023 2:08pm Comment on above: Take one tablet in a m, increase to 2 tab in am and 1 tab in the afternoon for 2-3 days if sick levothyroxine sodium 0.112 mg oral tablet (20 sources) l-Thyroxine Start: 12-01-19 End: 03-07-20 take 1 tablet by mouth once daily in the morning levothyroxine (SYNTHROID) 112 mcg tablet Indications: Hypothyroidism, secondary , Hypogonadism male , Benign neoplasm of pituitary gland and craniopharyngeal duct (pouch) (HCC) , Prolactinoma (HCC) Take 1 tablet by mouth every morning. on empty stomach 90 tablet 3 03/07/2025 Active Start: 09-29-2024 End: 11-28-2024 take 1 [...] stomach 90 tablet 3 05/05/2023 Active Start: 06-03-2019 End: 04-21-2023 take 1 tablet by mouth once daily in the morning levothyroxine (SYNTHROID) 112 mcg tablet Indications: Hypothyroidism, secondary , Hypogonadism male , Benign neoplasm of pituitary gland and craniopharyngeal duct (pouch) (HCC) , Prolactinoma (HCC) Take 1 tablet by mouth every morning. on empty stomach 30 tablet 0 04/23/2023 Active Comment on above: Take 1 tablet by aguila th every morning. on empty stomach rosuvastatin calcium 20 mg oral tablet (20 sources) HMG-CoA Reductase Inhibitor Start: take 1 tablet by mouth once daily rosuvastatin (CRESTOR) 20 mg tablet Take 1 tablet by mouth once daily. 90 tablet 3 06/15/2024 Active Start: 06-03-2019 End: 06-12-2024 take 1 tablet by mouth once daily Rosuvastatin (Crestor) 20 mg tablet Discontinued 20 mg PO DAILY 90 3 November 18, 2019 3:15pm January 01, 2021 8:55am Comment on above: Take 1 tablet by aguila th once daily. 1.5 ml somatropin 3.3 mg/ml cartridge (20 sources) Recombinant Human Growth Hormone Start: End: inject 0.4 mg by subcutaneous injection once daily somatropin (OMNITROPE) 5 mg/1.5 mL (3.3 mg/mL) subcutaneous cartridge Indications: Benign neoplasm of pituitary gland and craniopharyngeal duct (pouch) (HCC) , Growth hormone deficiency (HCC) INJECT 0.4 MG UNDER THE SKIN DAILY. DISCARD 28 DAYS AFTER INITIAL USE 4.5 mL 3 03/07/2025 Active Start: 11-16-2024 inject 0.4 mg by sub cutaneous injection once daily somatropin (OMNITROPE) 5 mg/1.5 [...] Each 3 01/21/2023 02/23/2023 Discontinued Start: 06-03-2019 Somatropin (Hu matrope) 5 (15 unit) mg recon soln Active 4 mg SC AT BEDTIME June 03, 2019 1:00am On Hold: ins Start: 06-03-2019 inject 5 mg by intra muscular injection at bedtime Somatropin (Humatrope) 5 (15 unit) mg recon soln Active 4 MG IM AT BEDTIME June 03, 2019 12:00am Comment on above: Inject 0.4 mg subcut aneously daily Inject 0.4 mg SQ zachariah ly 5000 mg testosterone 0.01 mg/mg topical gel (20 sources) Androgen Start: 11-16-2024 End: 06-05-2025 testosterone (ANDROGEL) 50 mg / 5 g (1%) Indications: Hypogonadism male , Benign neoplasm of pituitary gland and craniopharyngeal duct (pouch) (HCC) Apply 2 packets as directed once daily for 90 days. APPLY TO CLEAN, DRY, INTACT SKIN OF THE SHOULDERS AND UPPER ARMS 300 g 2 03/07/2025 06/05/2025 Active Start: 07-11-2021 End: 08-23-2028 testosterone (ANDROGEL [...] mg/1.25 gram) gel in packet Active 1 NMA TD DAILY June 03, 2019 1:00am Start: 06-03-2019 Testosterone ( Androgel) 1.62 % (20.25 mg/1.25 gram) gel in packet Active 1 PACKET TD DAILY June 03, 2019 12:00am Comment on above: Apply three pumps on each shoulder as directed Completed/Discontinued Medications Medication Drug Class(es) Dates Sig (Normalized) Sig (Original) cephalexin 500 mg oral capsule (3 sources) Cephalosporin Antibacterial Start: 3 End: 3 take 1 capsule by mouth every twelve hours Cephalexin 500 mg capsule Discontinued 500 mg PO Q12H 20 10 January 23, 2023 12:00am February 01, 2023 12:00am February 02, 2023 12:03am methylPREDNISolone 4 mg oral tablet (6 sources) Corticosteroid Start: 1 End: 2 take 1 tablet by mouth once daily Methylprednisolone (Medrol (Venkata)) 4 mg tablets,dose pack Discontinued 4 mg PO DAILY June 28, 2021 1:00am June 05, 2022 11:01am per package instructions Nirmatrelvir-Ritonavir (3 sources) Start: 2 End: 4 Nirmatrelvir-Ritonavi r (Paxlovid (Eua)) 300 mg (150 mg x 2)-100 mg tablets,dose pack Discontinued 0 PO .COMPLEX 30 June 05, 2022 1:00am June 29, 2024 4:02pm take TWO 150 mg tablets of nirmatrelvir with ONE 100 mg tablet of ritonavir twice daily for 5 days PO HOLD ROSUVASTATIN x 8 days Start: 06-05-2022 End: 06-29-2024 Nirmatrelvir-Ritonavir (Paxl ovid (Eua)) 300 mg (150 mg x 2)-100 mg tablets,dose pack Discontinued 0 PO .COMPLEX June 05, 2022 1:00am June 29, 2024 4:02pm take TWO 150 mg tablets of nirmatrelvir with ONE 100 mg tablet of ritonavir twice daily for 5 days PO HOLD ROSUVASTATIN x 8 days Start: 06-05-2022 Nirmatrelvir-R itonavir (Paxlovid (Eua)) 300 mg (150 mg x 2)- 100 mg tablets,dose pack Active 0 PO .COMPLEX June 05, 2022 12:00am take TWO 150 mg tablets of nirmatrelvir with ONE 100 mg tablet of ritonavir twice daily for 5 days PO HOLD ROSUVASTATIN x 8 days raloxifene hydrochloride 60 mg oral tablet (20 sources) Estrogen Agonist/Antagonist Start: 04-20-2024 End: 03-07-2025 take 1 tablet by mouth once daily raloxifene (EVISTA) 60 mg tablet Indications: Hypothyroidism, secondary , Hypogonadism male , Benign neoplasm of pituitary gland and craniopharyngeal duct (pouch) (HCC) , Prolactinoma (HCC) Take 1 tablet by mouth once daily. 90 tablet 04/20/2024 03/07/2025 Discontinued Start: 05-29-2023 End: 04-18-2024 take 1 [...] 90 tablet 3 05/22/2023 05/27/2023 Discontinued Start: 06-03-2019 End: 07-12-2024 take 1 tablet by mouth once daily raloxifene (EVISTA) 60 mg tablet Indications: Hypothyroidism, secondary , Hypogonadism male , Benign neoplasm of pituitary gland and craniopharyngeal duct (pouch) (HCC) , Prolactinoma (HCC) Take 1 tablet by mouth once daily. 90 tablet 3 05/05/2023 Active Comment on above: Take 1 tablet by aguila th once daily. tadalafil 10 mg oral tablet (9 sources) Phosphodiesterase 5 Inhibitor Start: 08-10-2019 End: 10-17-2022 Tadalafil (CIALIS) 10 mg tablet Indications: Hypogonadism male Take 1 tablet by mouth as needed. 1-2 hours before sexual intercourse. 10 tablet 0 08/10/2019 10/17/2022 Discontinued (Course of therapy completed) Comment on above: Take 1 tablet by aguila th as needed. 1-2 hours before sexual intercourse. Problems Active Problems Problem Classification Problem Date Documented Date Episodic/Chronic Deficiency and other anemia (2 sources) Anemia; Translations: [Anemia, unspecified] 06-30-2024 Episodic Disorders of lipid metabolism (4 sources) Hyperlipidemia; Translations: [Hyperlipidemia, unspecified] Onset: 02-06-2025 06-08-2019 Chronic E Codes: Natural/environment (6 sources) Tick bite; Translations: [Bitten or stung by nonvenomous insect and other nonvenomous arthropods, initial encounter] 01-15-2021 Episodic Immunizations and screening for infectious disease (6 sources) Encounter for screening for other viral diseases; Translations: [Patient encounter status] Onset: 06-18-2020 Episodic Neoplasms of unspecified nature or uncertain behavior (3 sources) Neoplasm of pituitary gland; Translations: [Neoplasm of unspecified behavior of endocrine glands and other parts of nervous system] 06-03-2019 Episodic Osteoporosis (3 sources) Osteoporosis; Translations: [Age-related osteoporosis without current pathological fracture] Onset: 03-07-2025 03-07-2025 Chronic Other and unspecified benign neoplasm (20 sources) Benign neoplasm of pituitary gland and craniopharyngeal duct; Translations: [Benign neoplasm of pituitary gland] Onset: 12-24-2002 Episodic Other and unspecified benign neoplasm (2 sources) Benign neoplasm of pituitary gland; Translations: [Benign neoplasm of pituitary gland and craniopharyngeal duct (pouch) (HCC)] Onset: 12-24-2002 Episodic Other bone disease and musculoskeletal deformities (1 source) Other specified disorders of bone density and structure, unspecified site; Translations: [Other specified disorders of bone density and structure, unspecified site] Onset: 01-11-2025 Episodic Other connective tissue disease (3 sources) Muscle pain; Translations: [Myalgia, unspecified site] 01-15-2021 Episodic Other ear and sense organ disorders (3 sources) Impacted cerumen; Translations: [Impacted cerumen, right ear] 12-31-2022 Episodic Other endocrine disorders (20 sources) Male hypogonadism; Translations: [Testicular hypofunction] Onset: 10-30-2011 Chronic Other endocrine disorders (20 sources) Hyperpituitarism; Translations: [Hyperfunction of pituitary gland, unspecified] Onset: 12-24-2002 04-23-2010 Chronic Other endocrine disorders (20 sources) Hypocortisolism secondary to another disorder; 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] Onset: 01-04-2021 01-04-2021 Chronic Other endocrine disorders (3 sources) Hypopituitarism; Translations: [Hypopituitarism] 06-08-2019 Chronic Other endocrine disorders (1 source) Disorder of pituitary gland, unspecified; Translations: [Disorder of pituitary gland, unspecified] Onset: 06-22-2024 Chronic Other endocrine disorders (2 sources) Testicular hypofunction; Translations: [Testicular hypofunction] Onset: 10-30-2011 Chronic Other endocrine disorders (4 sources) Growth hormone deficiency; Translations: [Hypopituitarism] Onset: 03-07-2025 03-07-2025 Chronic Other endocrine disorders (3 sources) Hypoadrenalism; Translations: [Unspecified adrenocortical insufficiency] Onset: 03-07-2025 03-07-2025 Chronic Other endocrine disorders (1 source) Hypopituitarism; Translations: [Growth hormone deficiency (HCC)] Onset: 03-07-2025 Chronic Other non-traumatic joint disorders (3 sources) Pain in right shoulder; Translations: [Right shoulder pain] 05-14-2021 Episodic Other nutritional; endocrine; and metabolic disorders (3 sources) Overweight in adulthood with body mass index of 25 or more but less than 30; Translations: [Body mass index (BMI) 29.0-29.9, adult] 04-26-2021 Episodic Other nutritional; endocrine; and metabolic disorders (2 sources) Body mass index 25-29 - overweight; Translations: [Overweight] 06-30-2024 Episodic Other screening for suspected conditions (not mental disorders or infectious disease) (4 sources) Patient encounter status; Translations: [Encounter for screening for malignant neoplasm of intestinal tract, unspecified] 02-12-2021 Episodic Other upper respiratory infections (3 sources) Upper respiratory infection; Translations: [Acute upper respiratory infection, unspecified] 06-28-2021 Episodic Thyroid disorders (20 sources) Secondary hypothyroidism; Translations: [Other specified hypothyroidism] Onset: 02-10-2011 Chronic Viral infection (3 sources) Disease caused by 2019-nCoV; Translations: [COVID-19] 06-05-2022 Episodic Comment on above: 04/23/21 & 06/04/22 Past or Other Problems Problem Classification Problem Date Documented Date Episodic/Chronic Deficiency and other anemia (1 source) Anemia, unspecified; Translations: [Anemia, unspecified] Onset: 06-29-2024 Episodic Other and unspecified benign neoplasm (20 sources) Prolactinoma; Translations: [Benign neoplasm of pituitary gland] Onset: [...] Results Test Name Value Interpretation Reference [facility] 03-10-2025 [facility] Letter Text Normal [facility] 03-07-2025 [facility] Letter Text Normal [facility] Absolute lymphocyte countOrd ered By: Junior Green on 01-31-2025 Lymphocytes Auto (Unsp spec) [#/Vol] 1.85 10*3/uL 0.83-4.51 [facility] Absolute neutrophil countOrd ered By: Junior Green on 01-31-2025 Neutrophils (Bld) [#/Vol] 3.1 10*3/uL 2.0-7.7 [facility] Anion gap in Serum or Plasma Ordered By: Junior Green on 01-31-2025 Anion gap [Moles/Vol] 10 mmol/L 5-15 [facility] Automated lymphocyte count a s percentage of total leukocytesOrdered By: Junior Green on 01-31-2025 Lymphocytes/100 WBC Auto (Unsp spec) 29.8 % 19-41 [facility] BUN/creatinine ratioOrdered By: Junior Green on 01-31-2025 Urea nitrogen/Creatinine [Mass ratio] 22.2 mg/mg High 10-20 [facility] Basophil percentageOrdered B y: Junior Green on 01-31-2025 Basophils/100 WBC (Bld) 0.8 % 0-1 [facility] Bilirubin, totalOrdered By: Junior Green on 01-31-2025 Bilirubin [Mass/Vol] 0.37 mg/dL 0.00-1.30 [facility] CBC W/Diff, Automatedon Absolute Lymph 1.85 X10 3/uL Normal 0.83-4.51 [facility] Comment on above: Performed By: #### L 500.4050, L100.0100, L506.1001, L500.4100 #### [facility] [address] [place], [address] Absolute Neut 3.1 X10 3/uL Normal 2.0-7.7 [facility] Comment on above: Performed By: #### L 500.4050, L100.0100, L506.1001, L500.4100 #### [facility] [address] [place], [address] Basophils/100 WBC (Bld) 0.8 % Normal 0-1 [facility] Comment on above: Performed By: #### L 500.4050, L100.0100, L506.1001, L500.4100 #### [facility] [address] [place], [address] Eosinophils/100 WBC (Bld) 8.2 % High 0-5 [facility] Comment on above: Performed By: #### L 500.4050, L100.0100, L506.1001, L500.4100 #### [facility] [address] [place], [address] Erythrocyte distribution width (RBC) [Ratio] 13.2 % Normal 11.6-14.6 [facility] Comment on above: Performed By: #### L 500.4050, L100.0100, L506.1001, L500.4100 #### [facility] [address] [place], [address] Hematocrit (Bld) [Volume fraction] 35.2 % Low 40-54 [facility] Comment on above: Performed By: #### L 500.4050, L100.0100, L506.1001, L500.4100 #### [facility] [address] [place], [address] Hemoglobin (Bld) [Mass/Vol] 12.4 g/dL Low 13.0-16.5 [facility] Comment on above: Performed By: #### L 500.4050, L100.0100, L506.1001, L500.4100 #### [facility] [address] [place], [address] IG% 0.200 Normal 0.0-0.9 [facility] Comment on above: Result Comment: IG% - Immature Granulocytes (promyelocytes, myelocytes and metamyelocytes) > 1% indicates that a LEFT SHIFT is Present. Performed By: #### L 500.4050, L100.0100, L506.1001, L500.4100 #### [facility] [address] [place], [address] Lymphocytes/100 WBC (Bld) 29.8 % Normal 19-41 [facility] Comment on above: Performed By: #### L 500.4050, L100.0100, L506.1001, L500.4100 #### [facility] [address] [place], [address] MCH (RBC) [Entitic mass] 32.5 pg High 27.0-32.0 [facility] Comment on above: Performed By: #### L 500.4050, L100.0100, L506.1001, L500.4100 #### [facility] [address] [place], [address] MCHC (RBC) [Mass/Vol] 35.2 g/dL Normal 32-36 [facility] Comment on above: Performed By: #### L 500.4050, L100.0100, L506.1001, L500.4100 #### [facility] [address] [place], [address] MCV (RBC) [Entitic vol] 92.1 fL Normal 80-94 [facility] Comment on above: Performed By: #### L 500.4050, L100.0100, L506.1001, L500.4100 #### [facility] [address] [place], [address] Monocytes/100 WBC (Bld) 11.5 % High 0-10 [facility] Comment on above: Performed By: #### L 500.4050, L100.0100, L506.1001, L500.4100 #### [facility] [address] [place], [address] Neutrophils/100 WBC (Bld) 49.5 % Normal 47-70 [facility] Comment on above: Performed By: #### L 500.4050, L100.0100, L506.1001, L500.4100 #### [facility] [address] [place], [address] Nucleated RBC (Bld) [#/Vol] 0 10*3/uL Normal 0-5 [facility] Comment on above: Performed By: #### L 500.4050, L100.0100, L506.1001, L500.4100 #### [facility] [address] [place], [address] Platelet mean volume (Bld) [Entitic vol] 8.8 fL Normal 6.2-12.0 [facility] Comment on above: Performed By: #### L 500.4050, L100.0100, L506.1001, L500.4100 #### [facility] [address] [place], [address] Platelets (Bld) [#/Vol] 207 10*3/uL Normal 150-450 [facility] Comment on above: Performed By: #### L 500.4050, L100.0100, L506.1001, L500.4100 #### [facility] [address] [place], [address] RBC (Bld) [#/Vol] 3.82 10*6/uL Low 4.6-6.2 [facility] Comment on above: Performed By: #### L 500.4050, L100.0100, L506.1001, L500.4100 #### [facility] [address] [place], [address] RDW SD 44.4 fl High 35.1-43.9 [facility] Comment on above: Performed By: #### L 500.4050, L100.0100, L506.1001, L500.4100 #### [facility] [address] [place], [address] WBC (Bld) [#/Vol] 6.2 10*3/uL Normal 4.4-11.0 [facility] Comment on above: Performed By: #### L 500.4050, L100.0100, L506.1001, L500.4100 #### [facility] [address] [place], [address] Calculated very low density lipoprotein (VLDL) cholesterol measurementOrdered By: Junior Green on 01-31-2025 Calculated very low density lipoprotein (VLDL) cholesterol measurement 14 mg/dL 5-40 [facility] Carbon dioxide, total [Moles /volume] in Central venous bloodOrdered By: Junior Green on 01-31-2025 CO2 [Moles/Vol] 25.8 mmol/L 21.0-32.0 [facility] Chloride assayOrdered By: Gabrielle guerraovidio Peter on 01-31-2025 Chloride [Moles/Vol] 100 mmol/L 98-108 [facility] Comprehensive Metabolic Prof ilon 01-31-2025 Albumin [Mass/Vol] 4.0 g/dL Normal 3.4-4.8 [facility] Comment on above: Performed By: #### L 500.4050, L100.0100, L506.1001, L500.4100 #### [facility] [address] [place], [address] Albumin/Globulin [Mass ratio] 1.4 {ratio} Normal 0.9-2.4 [facility] Comment on above: Performed By: #### L 500.4050, L100.0100, L506.1001, L500.4100 #### [facility] [address] [place], [address] ALK PHOS 72 U/L Normal 40-129 [facility] Comment on above: Performed By: #### L 500.4050, L100.0100, L506.1001, L500.4100 #### [facility] [address] [place], [address] ALT [Catalytic activity/Vol] 21 U/L Normal <=46 [facility] Comment on above: Performed By: #### L 500.4050, L100.0100, L506.1001, L500.4100 #### [facility] [address] [place], [address] AST [Catalytic activity/Vol] 30 U/L Normal <=37 [facility] Comment on above: Performed By: #### L 500.4050, L100.0100, L506.1001, L500.4100 #### [facility] [address] [place], [address] Bilirubin [Mass/Vol] 0.37 mg/dL Normal 0.00-1.30 [facility] Comment on above: Performed By: #### L 500.4050, L100.0100, L506.1001, L500.4100 #### [facility] [address] [place], [address] BUN/CRE 22.2 RATIO High 10-20 [facility] Comment on above: Performed By: #### L 500.4050, L100.0100, L506.1001, L500.4100 #### [facility] [address] [place], [address] Calcium [Mass/Vol] 8.7 mg/dL Normal 7.6-11.0 [facility] Comment on above: Performed By: #### L 500.4050, L100.0100, L506.1001, L500.4100 #### [facility] [address] [place], [address] Chloride [Moles/Vol] 100 mmol/L Normal 98-108 [facility] Comment on above: Performed By: #### L 500.4050, L100.0100, L506.1001, L500.4100 #### [facility] [address] [place], [address] CO2 [Moles/Vol] 25.8 mmol/L Normal 21.0-32.0 [facility] Comment on above: Performed By: #### L 500.4050, L100.0100, L506.1001, L500.4100 #### [facility] [address] [place], [address] Creatinine [Mass/Vol] 0.93 mg/dL Normal 0.70-1.20 [facility] Comment on above: Performed By: #### L 500.4050, L100.0100, L506.1001, L500.4100 #### [facility] [address] [place], [address] GAP 10 Normal 5-15 [facility] Comment on above: Performed By: #### L 500.4050, L100.0100, L506.1001, L500.4100 #### [facility] [address] [place], [address] GFR/1.73 sq M.predicted among non-blacks MDRD (S/P/Bld) [Vol rate/Area] 91 mL/min/{1.73_m2} Normal >60 [facility] Comment on above: Result Comment: mL/m in/1.73m2 CKD-EPI Creatinine Equation (2020) Performed By: #### L 500.4050, L100.0100, L506.1001, L500.4100 #### [facility] [address] [place], [address] Globulin (S) [Mass/Vol] 2.8 g/dL Normal 2.2-4.2 [facility] Comment on above: Performed By: #### L 500.4050, L100.0100, L506.1001, L500.4100 #### [facility] [address] [place], [address] Glucose [Mass/Vol] 86 mg/dL Normal 70-99 [facility] Comment on above: Performed By: #### L 500.4050, L100.0100, L506.1001, L500.4100 #### [facility] [address] [place], [address] Potassium [Moles/Vol] 4.0 mmol/L Normal 3.3-5.1 [facility] Comment on above: Performed By: #### L 500.4050, L100.0100, L506.1001, L500.4100 #### [facility] [address] [place], [address] Sodium [Moles/Vol] 135 mmol/L Normal 133-145 [facility] Comment on above: Performed By: #### L 500.4050, L100.0100, L506.1001, L500.4100 #### [facility] [address] [place], [address] T PROT 6.8 g/dL Normal 5.9-8.4 [facility] Comment on above: Performed By: #### L 500.4050, L100.0100, L506.1001, L500.4100 #### [facility] [address] [place], [address] Urea nitrogen [Mass/Vol] 21 mg/dL High 4-19 [facility] Comment on above: Performed By: #### L 500.4050, L100.0100, L506.1001, L500.4100 #### [facility] [address] [place], [address] Eosinophil percentageOrdered By: Junior Green on 01-31-2025 Eosinophils/100 WBC (Bld) 8.2 % High 0-5 [facility] Erythrocyte distribution wid th ratioOrdered By: Junior Green on 01-31-2025 Erythrocyte distribution width (RBC) [Ratio] 13.2 % 11.6-14.6 [facility] Erythrocyte distribution wid th standard deviationOrdered By: Junior Green on 01-31-2025 Erythrocyte distribution width (RBC) [Ratio] 44.4 fl High 35.1-43.9 [facility] Glomerular filtration rate ( GFR) estimation/1.73 sq m using serum, plasma, or whole bOrdered By: Junior Green on 01-31-2025 GFR/1.73 sq M.predicted among non-blacks MDRD (S/P/Bld) [Vol rate/Area] 91 mL/min/{1.73_m2} >60 [facility] Comment on above: mL/min/1.73m2 CKD-EP I Creatinine Equation (2020) Hematocrit Auto (Bld) [Volum e fraction]Ordered By: Junior Green on 01-31-2025 Hematocrit (Bld) [Volume fraction] 35.2 % Low 40-54 [facility] Hemoglobin measurementOrdere d By: Junior Green on 01-31-2025 Hemoglobin (Bld) [Mass/Vol] 12.4 g/dL Low 13.0-16.5 [facility] Immature granulocytes/100 WB C Auto (Bld)Ordered By: Junior Green on 01-31-2025 Immature granulocytes/100 WBC (Bld) 0.200 % 0.0-0.9 [facility] Comment on above: IG% - Immature Granu locytes (promyelocytes, myelocytes and metamyelocytes) > 1% indicates that a LEFT SHIFT is Present. LDL calc ser/plasOrdered By: Junior Green on 01-31-2025 Cholesterol in LDL [Mass/Vol] 74 mg/dL [facility] Comment on above: Tvnreixlwo=027-813 m g/dL & Higher Scbb=650 mg/dL or greater Laboratory - Chemistry and C hemistry - challengeOrdered By: Junior Green on 01-31-2025 AST [Catalytic activity/Vol] 30 U/L <38 [facility] Lipid Profileon 01-31-2025 CHOL:HDL 2.81 Normal [facility] Comment on above: Performed By: #### L 500.4050, L100.0100, L506.1001, L500.4100 #### [facility] [address] [place], [place], [address] Cholesterol [Mass/Vol] 137 mg/dL Normal <=200 [facility] Comment on above: Result Comment: Chol esterol level, Desirable <200 mg/dL Borderline high cholesterol 200-239 mg/dL High cholesterol >=240 mg/dL Recommendations of the NCEP Adult Treatment Panel for the following risk-cutoff thresholds for the [place] population. Performed By: #### L 500.4050, L100.0100, L506.1001, L500.4100 #### [facility] [address] [place], [address] Cholesterol in HDL [Mass/Vol] 49 mg/dL Normal [facility] Comment on above: Result Comment: Jessica onal Cholesterol Education Program (NCEP) guidelines: <40 mg/dL: Low HDL-cholesterol (major risk factor for CHD) >= 60 mg/dL: High HDL-cholesterol (negative risk factor for CHD) HDL-cholesterol is affected by a number of factors, e.g. smoking, exercise, hormones, sex and age. Performed By: #### L 500.4050, L100.0100, L506.1001, L500.4100 #### [facility] [address] [place], [address] Cholesterol in LDL [Mass/Vol] 74 mg/dL Normal [facility] Comment on above: Result Comment: Bord jclvxx=446-574 mg/dL Higher Mlyq=112 mg/dL or greater Performed By: #### L 500.4050, L100.0100, L506.1001, L500.4100 #### [facility] [address] [place], [address] Cholesterol in VLDL [Mass/Vol] 14 mg/dL Normal 5-40 [facility] Comment on above: Performed By: #### L 500.4050, L100.0100, L506.1001, L500.4100 #### [facility] [address] [place], [address] Triglyceride [Mass/Vol] 69 mg/dL Normal [facility] Comment on above: Result Comment: The drugs N-Acetylcysteine and Metamizole may falsely depress this assay. Normal range: <150 mg/dL Borderline High: 150-199 mg/dL High: 200-499 mg/dL Very High: >500 mg/dL Performed By: #### L 500.4050, L100.0100, L506.1001, L500.4100 #### [facility] [address] [place], [address] MCV (mean corpuscular volume ) determinationOrdered By: Junior Green on 01-31-2025 MCV (RBC) [Entitic vol] 92.1 fL 80-94 [facility] Mean corpuscular hemoglobin (MCH) determinationOrdered By: Junior Green on 01-31-2025 MCH (RBC) [Entitic mass] 32.5 pg High 27.0-32.0 [facility] Mean corpuscular hemoglobin concentration (MCHC) determinationOrdered By: Junior Green on 01-31-2025 MCHC (RBC) [Mass/Vol] 35.2 g/dL 32-36 [facility] Mean platelet volume determi nationOrdered By: Junior Green on 01-31-2025 Platelet mean volume (Bld) [Entitic vol] 8.8 fL 6.2-12.0 [facility] Monocyte percentageOrdered B y: Junior Green on 01-31-2025 Monocytes/100 WBC (Bld) 11.5 % High 0-10 [facility] Neutrophil percentageOrdered By: Junior Green on 01-31-2025 Neutrophils/100 WBC (Bld) 49.5 % 47-70 [facility] Nucleated red blood cell per centageOrdered By: Junior Green on 01-31-2025 Nucleated RBC/100 WBC (Bld) [Ratio] 0 % 0-5 [facility] Platelet countOrdered By: Gabrielle Green on 01-31-2025 Platelets (Bld) [#/Vol] 207 10*3/uL 150-450 [facility] Potassium measurement (mass/ volume)Ordered By: Junior Green on 01-31-2025 Potassium (Unsp spec) [Mass/Vol] 4.0 mmol/L 3.3-5.1 [facility] RBC Auto (Bld) [#/Vol]Ordere d By: Junior Green on 01-31-2025 RBC (Bld) [#/Vol] 3.82 10*6/uL Low 4.6-6.2 [facility] Screening total cholesterol/ high density lipoprotein (HDL) cholesterol ratioOrdered By: Junior Green on 01-31-2025 Cholesterol.total/Choles terol in HDL [Mass ratio] 2.81 {ratio} [facility] Serum creatinine measurement (mass/volume)Ordered By: Junior Green on 01-31-2025 Creatinine [Mass/Vol] 0.93 mg/dL 0.70-1.20 [facility] Serum globulin measurementOr dered By: Junior Green on 01-31-2025 Globulin (S) [Mass/Vol] 2.8 g/dL 2.2-4.2 [facility] Serum glucose measurement (m ass/volume)Ordered By: Junior Green on 01-31-2025 Glucose [Mass/Vol] 86 mg/dL 70-99 [facility] Serum or plasma alanine scott otransferase (ALT) measurementOrdered By: Junior Green on 01-31-2025 ALT [Catalytic activity/Vol] 21 U/L <47 [facility] Serum or plasma albumin jenna urement (mass/volume)Ordered By: Junior Green on 01-31-2025 Albumin [Mass/Vol] 4.0 g/dL 3.4-4.8 [facility] Serum or plasma albumin/glob ulin mass ratioOrdered By: Junior Green on 01-31-2025 Albumin/Globulin [Mass ratio] 1.4 {ratio} 0.9-2.4 [facility] Serum or plasma alkaline paola sphatase measurementOrdered By: Junior Green on 01-31-2025 ALP [Catalytic activity/Vol] 72 U/L 40-129 [facility] Serum or plasma calcium jenna urement (mass/volume)Ordered By: Junior Green on 01-31-2025 Calcium [Mass/Vol] 8.7 mg/dL 7.6-11.0 [facility] Serum or plasma cholesterol in HDL measurement (mass/volume)Ordered By: Junior Green on 01-31-2025 Cholesterol in HDL [Mass/Vol] 49 mg/dL >40 [facility] Comment on above: National Cholesterol Education Program (NCEP) guidelines:<40 mg/dL: Low HDL-cholesterol (major risk factor for CHD)>= 60 mg/dL: High HDL-cholesterol (negative risk factor for CHD)HDL-cholesterol is affected by a number of factors, e.g. smoking, exercise, hormones, sex and age. Serum or plasma cholesterol measurement (mass/volume)Ordered By: Junior Green on 01-31-2025 Cholesterol [Mass/Vol] 137 mg/dL <201 [facility] Comment on above: Cholesterol level, D esirable <200 mg/dLBorderline high cholesterol 200-239 mg/dLHigh cholesterol >=240 mg/dLRecommendations of the NCEP Adult Treatment Panel for the following risk-cutoff thresholds for the [place] population. Serum or plasma urea nitroge n measurement (mass/volume)Ordered By: Junior Green on 01-31-2025 Urea nitrogen [Mass/Vol] 21 mg/dL High 4-19 [facility] Sodium levelOrdered By: Sai Green on 01-31-2025 Sodium [Moles/Vol] 135 mmol/L 133-145 [facility] Total proteinOrdered By: Anthony Green on 01-31-2025 Protein [Mass/Vol] 6.8 g/dL 5.9-8.4 [facility] Triglycerides measurementOrd ered By: Junior Green on 01-31-2025 Triglyceride [Mass/Vol] 69 mg/dL <199 [facility] Comment on above: The drugs N-Acetylcy steine and Metamizole may falsely depress this assay. Normal range: <150 mg/dLBorderline High: 150-199 mg/dLHigh: 200-499 mg/dLVery High: >500 mg/dL Vitamin D,25 Hydroxyon 01-31 Vitamin D 25-OH 52.9 ng/mL Normal 30-100 [facility] Comment on above: Result Comment: Alena min D Status Deficiency: <20 ng/mL (50nmol/L) Insufficiency: 20-30 ng/mL (50-75 nmol/L) Sufficiency: 30-100 ng/mL (75-250 nmol/L) Toxicity: >100 ng/mL (>250 nmol/L) Performed By: #### L 500.4050, L100.0100, L506.1001, L500.4100 #### [facility] [address] [place], [address] White blood cell (WBC) count Ordered By: Junior Green on 01-31-2025 WBC (Bld) [#/Vol] 6.2 10*3/uL 4.4-11.0 [facility] 01-23-2025 CNP Telephone (EMQ) MOE WIGGINS ([id number]) 1960 M Date Time Provider Department 01/23/25 LEO SHAW V EMQ During your visit today, we recorded the following information about you: Joe Whitlock 01/23/2025 1:55 PM Signed January 23, 2025 1:53 PM Appeal letter for somatropin (OMNITROPE) 5 mg/1.5 mL (3.3 mg/mL) subcutaneous cartridge Faxed to [employer] Pending determination Joe Prior [employer] Met[facility] [place] Moe Chapa MA 01/24/2025 3:55 PM Signed Received fax from [employer] stating Omnitrope is approved from 10/06/2024 until further notice. Approval sent to scanning. Allergies As of Date: 01/23/2025 Noted Allergy Reaction PENICILLINS 05/19/2013 4 - Hives Date Reviewed: 06/06/2024 Reviewed by: Bonnie Warner RN - Fully Assessed Reason for Visit: Insurance Authorization [[id number]] Cmt: Appeal letter for somatropin (OMNITROPE) 5 mg/1.5 mL (3.3 mg/mL) subcutaneous cartridge Prescriptions as of 01/24/2025 - somatropin (OMNITROPE) 5 mg/1.5 mL (3.3 mg/mL) subcutaneous cartridge INJECT 0.4 MG UNDER THE SKIN DAILY. DISCARD 28 DAYS AFTER INITIAL USE - levothyroxine (SYNTHROID) 112 mcg tablet Take 1 tablet by mouth every morning. on empty stomach - testosterone (ANDROGEL) 50 mg / 5 g (1%) Apply 2 packets as directed once daily for 90 days. APPLY TO CLEAN, DRY, INTACT SKIN OF THE SHOULDERS AND UPPER ARMS - rosuvastatin (CRESTOR) 20 mg tablet Take [...] by mouth. 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] 02/10/2011 Hypogonadism male [E29.1] 10/30/2011 Osteopenia [M85.80] 07/05/2015 Secondary adrenal insufficiency (HCC) [E27.49] 01/04/2021 Encounter Status:Closed by JOE WHITLOCK on 01/23/25 Normal [facility] CNCOon 01-18-2025 CNCO Letter Text Normal [facility]PT[facility]ica 12-08-2024 CNPN Telephone (ENDOAV) MOE WIGGINS ([id number]) 1960 M Date Time Provider Department 12/08/24 LEO SHAW V ENDOAV During your visit today, we recorded the following information about you: Christel Crook LPN 12/08/2024 11:29 AM Signed Approval fax from [employer] for Testosterone received. Approval is for 12/05/24 [...] Encounter Status:Closed by CHRISTEL CROOK on 12/08/24 [facility] 12-07-2024 [facility] Telephone (ENDOAV) WIGGINSMOE ([id number]) 1960 M Date Time Provider Department 12/07/24 LEO SHAW V ENDOAV During your visit today, we recorded the following information about you: Christel Crook LPN 12/07/2024 10:58 AM Addendum Fax received from [facility] requesting more information regarding Testosterone RX. Form completed and faxed. Electronically signed ANGELA notes attached. Allergies As of Date: 12/07/2024 Noted Allergy Reaction PENICILLINS 05/19/2013 4 - Hives Date Reviewed: 06/06/2024 Reviewed by: Bonnie Warner, RN - Fully Assessed Reason for Visit: Patient Update [1234] Cmt: [facility] Prescriptions as of 12/07/2024 - levothyroxine [...] Encounter Status:Closed by CHRISTEL CROOK on 12/07/24 [facility]E [facility] ([id number]) 1960 M Date Time Provider Department 11/07/24 LEO SHAW V [facility] During your visit today, we recorded the following information about you: Baltazar Hidalgo 11/07/2024 2:26 PM Signed Initiated PA for testosterone (ANDROGEL PUMP) 20.25 mg/1.25 gram (1.62 %) [facility] [employer] Chart notes and labs attached Questions Completed Waiting for determination [facility] Met[facility] [place] [facility] X-20 Allergies As of Date: 11/07/2024 Noted Allergy Reaction PENICILLINS 05/19/2013 4 - Hives Date Reviewed: 06/06/2024 Reviewed by: Bonnie Warner, RN - Fully Assessed Reason for Visit: Insurance Authorization [[id number]] Cmt: testosterone (ANDROGEL PUMP) 20.25 mg/1.25 gram [...] Encounter Status:Closed by BALTAZAR HIDALGO on 11/07/24 [facility] 10-17-2024 [facility] Telephone ([facility]) MOE WIGGINS ([id number]) 1960 M Date Time Provider Department 10/17/24 LEO SHAW During your visit today, we recorded the following information about you: Baltazar Hidalgo 10/17/2024 10:52 AM Signed Initiated PA for OMNITROPE 5 mg/1.5 mL (3.3 mg/mL) through [facility] via [employer] Questions Completed Waiting for determination [facility] Met[facility] [place] [facility] X-20 Baltazar Hidalgo 10/17/2024 10:52 AM Signed Unable to process due to previous attempt being denied. [facility] End[facility]ology [facility] Met[facility] X-20 Allergies As of Date: 10/17/2024 Noted Allergy Reaction PENICILLINS 05/19/2013 4 - Hives Date Reviewed: 06/06/2024 Reviewed by: Bonnie Warner, RN - Fully Assessed Reason for Visit: Insurance Authorization [[id number]] Cmt: Unable to Process - OMNITROPE 5 mg/1.5 mL (3.3 mg/mL) [[facility]] Prescriptions as of 10/17/2024 - testosterone (ANDROGEL [...] Encounter Status:Closed by BALTAZAR HIDALGO on 10/17/24 [facility] 07-01-2024 CNPN Telephone (ENDOAV) MOE WIGGINS ([id number]) 1960 M Date Time Provider Department 07/01/24 [...] do a prior auth PCP's office / [facility]) in [place] Office PHONE # [phone] FAX # [phone] Christel Crook LPN 07/01/2024 1:14 PM Signed [...] Status:Closed by CHRISTEL CROOK on 07/01/24 [facility] WIGG[facility]MOE Burris ([id number]) 1960 M Date Time Provider Department 07/01/24 LEO SHAW During your visit today, we recorded the following information about you: Christel Crook LPN 07/01/2024 10:38 AM Signed [facility]. Allergies As of Date: 07/01/2024 Noted Allergy Reaction PENICILLINS 05/19/2013 4 - Hives Date Reviewed: 06/06/2024 Reviewed by: Bonnie Warner, RN - Fully Assessed Reason for Visit: Prescription [Other] Cmt: [facility] Prescriptions as of 07/01/2024 - rosuvastatin [...] Status:Closed by CHRISTEL CROOK on 07/01/24 Normal [facility] Internal Medicine Office Vis iton 06-29-2024 Internal Medicine Office Visit [facility] [address] [place] [address] [place] [address] OFFICE VISIT Date of Service: 06/29/24 MR#: [id number] Acct: [id number] Name: MOE WIGGINS Rep #: [id number] : 1960 Provider: DHRUV Chavira Age/Sex: 63/M Location: [facility] [place].[facility] Status: Signed Intake Vital Signs 01/23/23 14:08 [...] ON LABS (IRON) 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 Patient sees an mat cutter at the [facility] for a pituitary gland tumor. He [...] abnormal gai (more content not included)... Normal [facility] CNCOon 06-06-2024 CNCO Letter Text Normal [facility] CNOVon 06-06-2024 CNOV Office Visit (ENDOAV) MOE WIGGINS ([id number]) 1960 M Date Time Provider Department 06/06/24 [...] Take 81 mg by mouth. No current facility-administere d medications for this visit. Physical Examination BP [...] - Con (more content not included)... [facility] LAB TEST [facility] Comment on above: Order Comment: SERUM [id number] IGF-1 Result Comment: TEST RESULTS LIMITS Insulin-Like Growth Factor I 96 ng/mL 64-240 TESTING PERFORMED AT [facility]. ORIGINAL REPORT ON FILE IN LAB CONTAINS ADDITIONAL TEST SITE INFORMATION. Performed By: #### L 500.4050, L100.0100, L506.1001, L500.4100 #### [facility] [address] [place], [address] [facility] 05-25-2024 [facility] Telephone (ENDOAV) MOE WIGGINS ([id number]) 1960 M Date Time Provider Department 05/25/24 LEO SHAW V ENDOISRAEL During your visit today, we recorded the following information about you: Moe Chapa MA 05/25/2024 6:39 PM Signed Received lab result from [facility]. Result placed in Dr. Shaw's inbox [...] Status:Closed by MOE CHAPA on 05/25/24 [facility]65[facility] 05-25-2024 PROLACTIN 0.8 ng/mL Low 3.6-25.2 [facility] Comment on above: Result Comment: Perf ormed at: [address] [id number] Lab Support Tech: See Meza PhD, Phone: [phone] Performed By: #### L 500.4050, L100.0100, L506.1001, L500.4100 #### [facility] [address] [place], [address] CBC W/Diff, Automatedon 04-27 Absolute Lymph 1.78 X10 3/uL Normal 0.83-4.51 [facility] Comment on above: Performed By: #### L 501.18687, L501.9520, L509.3000, L500.4050, L506.1000, L100.0100, L506.0400, L3100.5400, L801.1541, L501.9940, L501.9985 #### [facility] [address] [place], [address] Absolute Neut 2.2 X10 3/uL Normal 2.0-7.7 [facility] Comment on above: Performed By: #### L 501.14784, L501.9520, L509.3000, L500.4050, L506.1000, L100.0100, L506.0400, L3100.5400, L801.1541, L501.9940, L501.9985 #### [facility] [address] [place], [place], [phone] Basophils/100 WBC (Bld) 0.6 % Normal 0-1 [facility] Comment on above: Performed By: #### L 501.53542, L501.9520, L509.3000, L500.4050, L506.1000, L100.0100, L506.0400, L3100.5400, L801.1541, L501.9940, L501.9985 #### [facility] [address] [place], [address] Eosinophils/100 WBC (Bld) 10.6 % High 0-5 [facility] Comment on above: Performed By: #### L 501.68551, L501.9520, L509.3000, L500.4050, L506.1000, L100.0100, L506.0400, L3100.5400, L801.1541, L501.9940, L501.9985 #### [facility] [address] [facility] [place], [address] (158) Erythrocyte distribution width (RBC) [Ratio] 13.0 % Normal 11.6-14.6 [facility] Comment on above: Performed By: #### L 501.21784, L501.9520, L509.3000, L500.4050, L506.1000, L100.0100, L506.0400, L3100.5400, L801.1541, L501.9940, L501.9985 #### [facility] [address] [facility] [place], [place], [id number] (171 Hematocrit (Bld) [Volume fraction] 36.1 % Low 40-54 [facility] Comment on above: Performed By: #### L 501.09067, L501.9520, L509.3000, L500.4050, L506.1000, L100.0100, L506.0400, L3100.5400, L801.1541, L501.9940, L501.9985 #### [facility] [address] [place], [place], [id number] (308) Hemoglobin (Bld) [Mass/Vol] 12.2 g/dL Low 13.0-16.5 [facility] Comment on above: Performed By: #### L 501.13128, L501.9520, L509.3000, L500.4050, L506.1000, L100.0100, L506.0400, L3100.5400, L801.1541, L501.9940, L501.9985 #### [facility] [address] [place], [address] IG% 0.200 Normal 0.0-0.9 [facility] Comment on above: Result Comment: IG% - Immature Granulocytes (promyelocytes, myelocytes and metamyelocytes) > 1% indicates that a LEFT SHIFT is Present. Performed By: #### L 501.01910, L501.9520, L509.3000, L500.4050, L506.1000, L100.0100, L506.0400, L3100.5400, L801.1541, L501.9940, L501.9985 #### [facility] [address] [facility] [place], [address] Lymphocytes/100 WBC (Bld) 34.2 % Normal 19-41 [facility] Comment on above: Performed By: #### L 501.66105, L501.9520, L509.3000, L500.4050, L506.1000, L100.0100, L506.0400, L3100.5400, L801.1541, L501.9940, L501.9985 #### [facility] [address] [facility] [place], [address] MCH (RBC) [Entitic mass] 31.6 pg Normal 27.0-32.0 [facility] Comment on above: Performed By: #### L 501.00492, L501.9520, L509.3000, L500.4050, L506.1000, L100.0100, L506.0400, L3100.5400, L801.1541, L501.9940, L501.9985 #### [facility] [address] [place], [address] MCHC (RBC) [Mass/Vol] 33.8 g/dL Normal 32-36 [facility] Comment on above: Performed By: #### L 501.53142, L501.9520, L509.3000, L500.4050, L506.1000, L100.0100, L506.0400, L3100.5400, L801.1541, L501.9940, L501.9985 #### [facility] [address] [place], [address] MCV (RBC) [Entitic vol] 93.5 fL Normal 80-94 [facility] Comment on above: Performed By: #### L 501.43435, L501.9520, L509.3000, L500.4050, L506.1000, L100.0100, L506.0400, L3100.5400, L801.1541, L501.9940, L501.9985 #### [facility] [address] [place], [address] Monocytes/100 WBC (Bld) 11.3 % High 0-10 [facility] Comment on above: Performed By: #### L 501.80184, L501.9520, L509.3000, L500.4050, L506.1000, L100.0100, L506.0400, L3100.5400, L801.1541, L501.9940, L501.9985 #### [facility] [address] [place], [address] Neutrophils/100 WBC (Bld) 43.1 % Low 47-70 [facility] Comment on above: Performed By: #### L 501.54635, L501.9520, L509.3000, L500.4050, L506.1000, L100.0100, L506.0400, L3100.5400, L801.1541, L501.9940, L501.9985 #### [facility] [address] [place], [address] Nucleated RBC (Bld) [#/Vol] 0 10*3/uL Normal 0-5 [facility] Comment on above: Performed By: #### L 501.61177, L501.9520, L509.3000, L500.4050, L506.1000, L100.0100, L506.0400, L3100.5400, L801.1541, L501.9940, L501.9985 #### [facility] [address] [place], [address] Platelet mean volume (Bld) [Entitic vol] 9.4 fL Normal 6.2-12.0 [facility] Comment on above: Performed By: #### L 501.62898, L501.9520, L509.3000, L500.4050, L506.1000, L100.0100, L506.0400, L3100.5400, L801.1541, L501.9940, L501.9985 #### [facility] [address] [place], [address] Platelets (Bld) [#/Vol] 256 10*3/uL Normal 150-450 [facility] Comment on above: Performed By: #### L 501.68166, L501.9520, L509.3000, L500.4050, L506.1000, L100.0100, L506.0400, L3100.5400, L801.1541, L501.9940, L501.9985 #### [facility] [address] [place], [address] RBC (Bld) [#/Vol] 3.86 10*6/uL Low 4.6-6.2 [facility] Comment on above: Performed By: #### L 501.35661, L501.9520, L509.3000, L500.4050, L506.1000, L100.0100, L506.0400, L3100.5400, L801.1541, L501.9940, L501.9985 #### [facility] [address] [place], [address] RDW SD 44.7 fl High 35.1-43.9 [facility] Comment on above: Performed By: #### L 501.35836, L501.9520, L509.3000, L500.4050, L506.1000, L100.0100, L506.0400, L3100.5400, L801.1541, L501.9940, L501.9985 #### [facility] [address] [place], [address] WBC (Bld) [#/Vol] 5.2 10*3/uL Normal 4.4-11.0 [facility] Comment on above: Performed By: #### L 501.20199, L501.9520, L509.3000, L500.4050, L506.1000, L100.0100, L506.0400, L3100.5400, L801.1541, L501.9940, L501.9985 #### [facility] [address] [place], [address] Comprehensive Metabolic Prof ilon 05-24-2024 Albumin [Mass/Vol] 3.6 g/dL Normal 3.2-5.0 [facility] Comment on above: Performed By: #### L 500.4050, L100.0100, L506.1001, L500.4100 #### [facility] [address] [place], [address] Albumin/Globulin [Mass ratio] 1.1 {ratio} Normal 0.9-2.4 [facility] Comment on above: Performed By: #### L 500.4050, L100.0100, L506.1001, L500.4100 #### [facility] [address] [place], [address] ALK P 58 U/L Normal 45-117 [facility] Comment on above: Performed By: #### L 500.4050, L100.0100, L506.1001, L500.4100 #### [facility] [address] [place], [address] ALT [Catalytic activity/Vol] 24 U/L Normal 16-61 [facility] Comment on above: Performed By: #### L 500.4050, L100.0100, L506.1001, L500.4100 #### [facility] [address] [place], [address] AST [Catalytic activity/Vol] 22 U/L Normal 15-37 [facility] Comment on above: Performed By: #### L 500.4050, L100.0100, L506.1001, L500.4100 #### [facility] [address] [place], [address] Bilirubin [Mass/Vol] 0.40 mg/dL Normal 0.20-1.00 [facility] Comment on above: Result Comment: For patients on eltrombopag therapy, use of Dimension [place] TBIL is not recommended. Performed By: #### L 500.4050, L100.0100, L506.1001, L500.4100 #### [facility] [address] [place], [address] BUN/CRE 31.1 RATIO High 10-20 [facility] Comment on above: Performed By: #### L 500.4050, L100.0100, L506.1001, L500.4100 #### [facility] [address] [place], [address] CA,Total 8.7 mg/dL Normal 8.5-10.1 [facility] Comment on above: Performed By: #### L 500.4050, L100.0100, L506.1001, L500.4100 #### [facility] [address] [place], [address] Chloride [Moles/Vol] 105 mmol/L Normal 98-107 [facility] Comment on above: Performed By: #### L 500.4050, L100.0100, L506.1001, L500.4100 #### [facility] [address] [place], [address] CO2 [Moles/Vol] 26.0 mmol/L Normal 21.0-32.0 [facility] Comment on above: Performed By: #### L 500.4050, L100.0100, L506.1001, L500.4100 #### [facility] [address] [place], [address] Creatinine [Mass/Vol] 0.90 mg/dL Normal 0.70-1.30 [facility] Comment on above: Result Comment: The validity of the calculated GFR GFRAA in patients over 70 years has not been determined. Clinical correlation is essential. Performed By: #### L 500.4050, L100.0100, L506.1001, L500.4100 #### [facility] [address] [place], [address] EST GFR - AA 109 mL/min Normal >60 [facility] Comment on above: Result Comment: Afri can Ghanaian GFR Calc Performed By: #### L 500.4050, L100.0100, L506.1001, L500.4100 #### [facility] [address] [place], [address] GAP 7 Normal 5-15 [facility] Comment on above: Performed By: #### L 500.4050, L100.0100, L506.1001, L500.4100 #### [facility] [address] [place], [address] GFR/1.73 sq M.predicted among non-blacks MDRD (S/P/Bld) [Vol rate/Area] 90 mL/min/{1.73_m2} Normal >60 [facility] Comment on above: Result Comment: Non- GFR Calc Performed By: #### L 500.4050, L100.0100, L506.1001, L500.4100 #### [facility] [address] [place], [address] Globulin (S) [Mass/Vol] 3.3 g/dL Normal 2.2-4.2 [facility] Comment on above: Performed By: #### L 500.4050, L100.0100, L506.1001, L500.4100 #### [facility] [address] [place], [address] Glucose [Mass/Vol] 89 mg/dL Normal 74-106 [facility] Comment on above: Performed By: #### L 500.4050, L100.0100, L506.1001, L500.4100 #### [facility] [address] [place], [address] Potassium [Moles/Vol] 3.8 mmol/L Normal 3.5-5.1 [facility] Comment on above: Performed By: #### L 500.4050, L100.0100, L506.1001, L500.4100 #### [facility] [address] [place], [address] Sodium [Moles/Vol] 138 mmol/L Normal 136-145 [facility] Comment on above: Performed By: #### L 500.4050, L100.0100, L506.1001, L500.4100 #### [facility] [address] [place], [address] T PROT 6.9 g/dL Normal 6.4-8.2 [facility] Comment on above: Performed By: #### L 500.4050, L100.0100, L506.1001, L500.4100 #### [facility] [address] [place], [address] Urea nitrogen [Mass/Vol] 28 mg/dL High 02-10 [facility] Comment on above: Performed By: #### L 500.4050, L100.0100, L506.1001, L500.4100 #### [facility] [address] [place], [address] Free T3on 05-24-2024 Free T3 [Mass/Vol] 2.7 pg/mL Normal 2.18-3.98 [facility] Comment on above: Performed By: #### L 500.4050, L100.0100, L506.1001, L500.4100 #### [facility] [address] [place], [address] Hemoglobin A1con 05-24-2024 HbA1c (Bld) [Mass fraction] 5.6 % Normal 3.8-5.6 [facility] Comment on above: Result Comment: Norm al < 5.7 % Prediabetic 5.7 - 6.4 % Diabetic >or= 6.5 % Please note range changes. Performed By: #### L 500.4050, L100.0100, L506.1001, L500.4100 #### [facility] [address] [place], [address] PSA,Total- Diagnosticon 04-27 PSA, DIAGNOSTIC 1.19 ng/mL Normal 0.0-4.0 [facility] Comment on above: Result Comment: This test was performed using the TPSA assay method for the [employer] chemistry system. Values obtained with different assay methods cannot be used interchangably. When changing PSA assays in the course of monitoring a patient, additional sequential testing should be carried out to confirm baseline values. Performed By: #### L 500.4050, L100.0100, L506.1001, L500.4100 #### [facility] [address] [place], [address] T4 Free Directon 05-24-2024 T4 FREE DIRECT 0.91 ng/dL Normal 0.76-1.46 [facility] Comment on above: Performed By: #### L 500.4050, L100.0100, L506.1001, L500.4100 #### [facility] [address] [place], [address] Testosterone, Serum Totalon 05-24-2024 Testosterone [Mass/Vol] 848.42 ng/dL Normal [facility] Comment on above: Result Comment: CENT RAL 90% REFERENCE RANGES MALE AGE <50 197.44 - 669.58 ng/dL MALE AGE > or = 50 187.72 - 684.19 ng/dL FEMALE AGE <50 8.38 - 35.01 ng/dL FEMALE AGE > or = 50 <7.00 - 35.92 ng/dL Effective as of 02/19/21 Performed By: #### L 500.4050, L100.0100, L506.1001, L500.4100 #### [facility] [address] [place], [address] Thyroid Stim Hormone (TSH)on 05-24-2024 TSH 0.435 uIU/mL Normal 0.358-3.740 [facility] Comment on above: Performed By: #### L 500.4050, L100.0100, L506.1001, L500.4100 #### [facility] [address] [place], [address] Vitamin D,25 Hydroxyon 05-24 Vitamin D 25-OH 50.5 ng/mL Normal [facility] Comment on above: Result Comment: Alena min D 25(OH) Status Range Deficiency <20 ng/mL (50nmol/L) Insufficiency 20 - 30 ng/mL (50 - 75 nmol/L) Sufficiency 30 - 100 ng/mL (75 - 250 nmol/L) Toxicity >100 ng/mL (>250 nmol/L) Performed By: #### L 501.63397, L501.9520, L509.3000, L500.4050, L506.1000, L100.0100, L506.0400, L3100.5400, L801.1541, L501.9940, L501.9985 #### [facility] [address] [facility] [place], [address] Brain W/WO Contraston 2023 Brain W/WO Contrast [facility] Imaging Services [address] [place] [address] Brain W/WO Contrast MR#: [id number] Acct: [id number] Name: MOE WIGGINS Rep #: [id number] : 1960 M 63 From: Xiao river MD PCP: Dr. 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 TECHNIQUE: Multiplanar and multisequence [...] Signed: Xiao Coleman MD at 10:40 EDT , CC: Dr. Rich Alexis MD; Leo Shaw MD Janitor Cleaner: Signed Normal [facility] CREATININE FINGERSTICKon CREATININE WB < 1.0 Normal 0.70-1.30 [facility] Comment on above: Performed By: #### L 9100.0200 #### [facility] [address] [place], [address] EGFR WB > 60.0000 Normal >60 [facility] Comment on above: Performed By: #### L 9100.0200 #### [facility] [address] [place], [address] Dexa Bone Density Studyon Dexa Bone Density Study [facility] Imaging Services [address] [place] [address] Dexa Bone Density Study MR#: [id number] Acct: [id number] Name: MOE WIGGINS Rep #: [id number] : 1960 M 63 From: Mitchel horan MD PCP: Dr. Rich Alexis MD Status: REG CLI Study: Dexa Bone Density Study Date of Exam: 04/19/24 Exam# [id number] Ordering Dr: Leo Shaw MD [id number] STUDY: DUAL ENERGY X-RAY ABSORPTIOMETRY / DXA [...] Dr. Rich Alexis MD; Leo Shaw MD Janitor Cleaner: Signed Normal [facility] 04-11-2024 [facility] Telephone (ENDOAV) MOE WIGGINS ([id number]) 1960 M Date Time Provider Department 04/11/24 LEO SHAW During your visit today, we recorded the following information about you: Christel Crook LPN 04/11/2024 3:00 PM Signed Growth hormone certification form received from [facility] for Omnitrope placed in Dr. Shaw's folder for review. Christel Crook LPN 04/21/2024 9:45 AM Signed Signed form from [facility] faxed with confirmation. Allergies As of Date: 04/11/2024 Noted Allergy Reaction PENICILLINS 05/19/2013 4 - Hives Date Reviewed: 12/04/2021 Reviewed by: Yudy Rouse MA - Fully Assessed Reason for Visit: Forms [913] Cmt: [facility] Prescriptions as of 04/21/2024 - [...] Encounter Status:Closed by CHRISTEL CROOK on 04/11/24 Normal [facility] Insulin-like growth factor ( IGF) measurementOrdered By: Leo Shaw on 08-12-2023 Insulin-like growth factor [Moles/Vol] 57 ng/mL 64-240 [facility] Comment on above: Performed at: [address] [id number] Director: Ben Jay MD, Phone: [phone] FREE T3on 05-06-2022 Free T3 [Mass/Vol] 2.6 pg/mL 2.18 - 3.98 [facility] FREE T4on 05-06-2022 Free T4 [Mass/Vol] 1.13 ng/dL 0.16 - 1.46 [facility] HbA1c (Bld)on 05-06-2022 HbA1c (Bld) [Mass fraction] 5.7 % Abnormal 3.8 - 5.6 % [facility] T4 / THYROXINE BLOOD (AK,AV, EU,HL,CHRISTINE,MM,SP)on 05-06-2022 T4 [Mass/Vol] 12.1 ug/dL 4.5 - 12.1 [facility] VITAMIN D 25 HYDROXY (AK,AV, EU,FV,HL,CHRISTINE,MM,SP)on 05-06-2022 VITAMIN D, 25 [place] TOTAL 65.9 ng/ml 20 - 100 ng/ml [facility] CORONAVIRUS PCR - [facility] 04-23-2021 SARS-CoV-2 (COVID-19) RNA LA+probe Ql (Unsp spec) Positive Critically abnormal NORMAL: NEGATIVE [facility] Comment on above: Result Comment: { CA LLED TO FAXED TO AG { READ BACK BY Performed By: #### 2 [id number] #### [facility],[address] [place] [address] SEND TO IC? YES Normal [facility] Comment on above: Result Comment: RESU LTS FAXED TO INFECTION CONTROL. SARS-CoV-2 THIS TEST IS BEING USED UNDER THE FDA EUA PROCEDURE. THIS ASSAY HAS BEEN VALIDATED IN THE [facility] FOR USE WITH NASOPHARYNGEAL SPECIMENS IN [facility]. INTERPRETIVE DATA LABORATORY TEST RESULTS SHOULD ALWAYS [...] PUBLIC HEALTH AUTHORITIES. Performed By: #### 2 [id number] #### [place] [id number] CORONAVIRUS PCR [CCL]on 05-28 SARS-CoV-2 (COVID-19) RNA LA+probe Ql (Unsp spec) Nasopharyngeal Swab Normal [facility] Comment on above: Result Comment: Cuong ected on 06/19 AT 1055: Previously reported as U Performed By: #### 2 [id number] #### [place] [id number] SARS-CoV-2 (COVID-19) RNA LA+probe Ql (Unsp spec) Negative Normal [facility] Comment on above: Result Comment: Nega tive for COVID19 (SARS CoV2) by PCR. This test was developed and its performance characteristics determined by [facility]'s [facility] [place]. This test has been authorized by FDA under an Emergency Use Authorization (EUA). This test has been validated in accordance with the FDA's Guidance Document Policy for Diagnostics Testing in Laboratories Certified to Perform High Complexity Testing under CLIA prior to Emergency use Authorization for Coronavirus Disease 2019 during the Public Health Emergency issued on September 24, 2019. [facility] [address] [place] [address] Travis Lazo III, M.D. [id number] Performed By: #### 2 40251 #### [facility],[address] [place], [place] [id number] Coronavirus 2019on 0 COVID 19 Result [employer] [employer] Normal Negative for COVID19 (SARS CoV2) by PCR. [facility] Comment on above: Result Comment: Nega tive for This test was developed and its performance characteristics determined by [facility]'s [facility] [place]. This test has been authorized by FDA [...] developed and its performance characteristics determined by [facility]'s [facility] [place]. This test has been authorized by FDA [...] developed and its performance characteristics determined by [facility]'s [facility] [place]. This test has been authorized by FDA under an Emergency Use Authorization (EUA). This test has been validated in accordance with the FDA's Guidance Document Policy for Diagnostics Testing in Laboratories Certified to Perform High Complexity Testing under CLIA prior to Emergency use Authorization for Coronavirus Disease 2019 during the Public Health Emergency issued on September 24, 2019. COVID 19 Source [employer] [employer] Normal [facility] Comment on above: Result Comment: Naso pharyngeal Corrected on 06/19 AT 1055: Previously reported as U Swab Corrected on 06/19 AT 1055: Previously reported as U Vital Signs Date Time Vital Sign Value Performing Clinician Faci lity 06-13-2025 10:33-0400 Body height 175.[address] Rich Alexis MD Work Phone[facility] 01-06-2025 10:33-0400 Body mass index (BMI) [Ratio] 28 kg/m2 Dr. Rich Alexis MD Work Phone: [facility] 01-06-2025 10:33-0400 Body temperature 96.3 [degF] Dr. Rich Alexis MD Work Phone: [facility] 01-06-2025 10:33-0400 Body weight 86.[address] Rich Alexis MD Work Phone: [facility] 01-06-2025 10:33-0400 Diastolic blood pressure 70 mm[Hg] Dr. Rich Alexis MD Work Phone: [facility] 01-06-2025 10:33-0400 Heart rate 80 /min Dr. Rich Alexis MD Work Phone: [facility] 01-06-2025 10:33-0400 Respiratory rate 14 /min Dr. Rich Alexis MD Work Phone: [facility] 01-06-2025 10:33-0400 SaO2% (BldA) [Mass fraction] 97 % Dr. Rich Alexis MD Work Phone: [facility] 01-06-2025 10:33-0400 Systolic blood pressure 128 mm[Hg] Dr. Rich Alexis MD Work Phone: [facility] 06-06-2024 11:16-0500 Body height 172.7 cm Leo Barrera MD Work Phone: [facility] 06-06-2024 11:16-0500 Body mass index (BMI) [Ratio] 29.8 kg/m2 Leo Barrera MD Work Phone: [facility] 06-06-2024 11:16-0500 Body weight 88.9 kg Leo Barrera MD Work Phone: [facility] 06-06-2024 11:16-0500 Diastolic blood pressure 69 mm[Hg] Leo Barrera MD Work Phone: [facility] 06-06-2024 11:16-0500 Heart rate 80 /min Leo Barrera MD Work Phone: [facility] 06-06-2024 11:16-0500 Systolic blood pressure 135 mm[Hg] Leo Barrera MD Work Phone: [facility] 12-04-2021 09:37-0400 Body height 172.7 cm Leo Barrera MD Work Phone: [facility] 12-04-2021 09:37-0400 Body weight 86.18 kg Leo Barrera MD Work Phone: [facility] Encounters Encounter Date Encounter Type Care Provider Facility Start: 03-07-2025 End: 03-17-2025 Patient encounter procedure Leo Shaw MD Work Phone: Endocrinology Comment on above: BENIGN JOYCE PITUITARY (Primary Dx); Hypothyroidism, secondary; Hypogonadism male; Prolactinoma (HCC); Growth hormone deficiency (HCC); Adrenal insufficiency (HCC); Osteoporosis, unspecified osteoporosis type, unspecified pathological fracture presence Two month bloodwork Start: 03-07-2025 End: 03-07-2025 Telemedicine consultation with patient Leo Barrera MD Work Phone: Endocrinology Start: 03-07-2025 End: 03-17-2025 ambulatory RICH ALEXIS Facility:[facility] Start: 02-22-2025 End: 02-23-2025 Refill Leo Shaw MD Work Phone: Endocrinology Comment on above: Refill Request Start: 01-31-2025 End: 01-31-[address] Rich Alexis MD Work Phone: -Laboratory Start: 01-31-2025 End: 01-31-2025 Patient encounter procedure Junior BARTLETT -Laboratory Work Phone: Start: 01-31-2025 End: 01-31-2025 ambulatory Leo Shaw [facility] Start: 01-23-2025 End: 01-23-2025 Telephone encounter Leo Shaw MD Work Phone: Endocrinology & Metabolic [place] Comment on above: Insurance Authorizat ion (Appeal letter for somatropin (OMNITROPE) 5 mg/1.5 mL (3.3 mg/mL) subcutaneous cartridge ) Start: 01-06-2025 End: 01-06-2025 Patient encounter procedure Leo Shaw MD -Medical Out Work Phone: Start: 01-06-2025 End: 01-06-[address] Rich Alexis MD [facility] Phone[facility] Work Phone: Start: 12-08-2024 End: 12-08-2024 Telephone encounter Leo [...] Refill Request Start: 07-12-2024 End: 07-12-2024 [facility] Start: 07-11-2024 End: 07-15-2024 Refill So Krause APRN.CNP Work Phone: Endocrinology Comment on above: Refill Request Start: 07-01-2024 End: 07-01-2024 Telephone encounter Leo Shaw MD Work Phone: Endocrinology Comment on above: Prescription ([facility]) info request Start: 06-29-2024 End: 06-29-2024 ambulatory [facility] Facility:[facility] Start: 06-12-2024 End: 06-15-2024 Refill So Krause FUNMI Work Phone: Endocrinology Comment on above: Refill Request Start: 06-06-2024 End: 06-07-2024 Refill Leo Shaw MD Work Phone: Endocrinology Comment on above: Refill Request Start: 06-06-2024 End: 06-06-2024 ambulatory NHUNG VEGA Facility:[facility] Start: 06-06-2024 End: 06-06-2024 Patient encounter [...] Outside Lab Results Start: 05-24-2024 End: 05-24-2024 [facility] Start: 05-19-2024 End: 06-03-2024 ambulatory Leo Barrera MD Work Phone: Endocrinology Start: 05-19-2024 End: 06-03-2024 Patient encounter procedure Leo Shaw MD Work Phone: Endocrinology Comment on above: Bone Density and MRI Start: 04-27-2024 End: 04-27-2024 ambulatory [facility] Start: 04-18-2024 End: 04-20-2024 Refill Leo [...] on above: Refill Request Start: 08-22-2023 ambulatory Loe bunch MD Work Phone: Endocrinology Comment on above: Bloodwork Done Start: 08-12-2023 End: 08-12-2023 ambulatory [facility] Work Phone: Start: 08-12-2023 End: 08-12-2023 Patient encounter procedure [facility] Work Phone: Start: 06-27-2023 Refill So Krause APRN.DISPLAY FABRICATOR Work Phone: Endocrinology Comment on above: Refill Request Start: 06-23-2023 ambulatory Leo bunch MD Work Phone: Endocrinology Comment on above: [facility] Start: 05-27-2023 ambulatory Leo bunch [...] Refill Request Start: 12-31-2022 Patient encounter status [facility] Start: 12-03-2022 Refill Leo bunch MD [...] outside lab report Start: 03-16-2022 E-mail encounter cisco m caregiver Merry Almanzar MD Work Phone: [facility] Start: 03-16-2022 Evaluation and manag [...] with patient Leo Barrera MD Work Phone: [facility] Start: 11-12-2021 Refill Leo bunch MD Work Phone: Endocrinology Comment on above: Refill Request Start: 04-23-[address] DARIN MELARA [facility] Start: 06-18-2020 End: 06-18-[address] DARIN Sky SARITHA [facility] Procedures Date Procedure Procedure Detail Performing Clinician Start: 01-31-2025 Vitamin D, 25-hydrox y measurement Dr. Rich Alexis MD Work Phone: Comment on above: Vitamin D StatusDefi ciency: <20 ng/mL (50nmol/L)Insufficiency: 20-30 ng/mL (50-75 nmol/L)Sufficiency: 30-100 ng/mL (75-250 nmol/L)Toxicity: >100 ng/mL (>250 nmol/L) Start: 05-06-2022 Hemoglobin A1c/Hemoglobin.total in Blood [facility] [...] RSV Vaccine (1 - 1-dose 75+ series) [facility] Start: 04-14-2030 Urine microalbumin profile DTaP,Tdap,Td Vaccine (4 - Td or Tdap) [facility] Start: 05-06-2025 DIABETES SCREEN DIABETES SCREEN [facility] Start: 05-06-2025 Diabetes Screening Diabetes Screenin g [facility] Start: 04-07-2025 End: 06-05-2025 PSA/PROSTATE SPECIFIC ANTIGEN SCREENING PSA/PROSTATE SPECIFIC ANTIGEN SCREENING Lab Routine Hypogonadism male Encounter for screening for malignant neoplasm of prostate Expected: 04/07/2025, Expires: 06/05/2025 [facility] Work Phone: Comment on above: Expected: 04/07/2025 , Expires: 06/05/2025 Start: 03-27-2025 Influenza vaccination Influenza Vacc ine (#1) [facility] Start: 03-07-2025 End: 03-07-2025 Follow-up encounter 03/07/2025 11:40 AM EDT [facility]ocr[facility] [address] [place] [address] Leo Shaw V, MD [address] [place] [address] Follow up Endocrinology Comment on above: Follow up Start: 10-17-2024 Covid-19 Vaccine ( season) Covid-19 Vaccine ( season) [facility] Start: 2024 Advance Directive Discussion Advance Directive Discussion [facility] Start: 06-06-2024 End: 06-06-2024 Patient encounter procedure 06/06/2024 11:20 AM EST Office Visit Endocrinology [address] [place] [address] Leo Shaw V, MD [address] [place] [address] follow up - ok per Dr. Shaw Endocrinology Comment on above: follow up - ok per Alejandro Shaw Start: 03-27-2024 Covid-19 Vaccine ( season) Covid-19 Vaccine () [facility] Start: 03-27-2024 Covid-19 Vaccine () Covid-19 Vaccine () [facility] Start: 03-27-2024 Influenza vaccination C [facility] Start: 07-27-2023 Behavioral Health Screening Behavioral Health Screening [facility] Start: 07-27-2023 Depression Assessment Depression Ass essment [facility] Start: 03-27-2023 Covid-19 Vaccine () Covid-19 Vaccine () [facility] Start: 03-27-2023 Influenza vaccination C [facility] Start: 07-27-2022 DEPRESSION ASSESSMENT DEPRESSION ASS ESSMENT [facility] Start: 03-27-2022 Influenza vaccination C [facility] Start: 11-28-2021 COVID-19 VACCINE (4 - Booster for Pfizer series) COVID-19 VACCINE (4 - Booster for Pfizer series) [facility] Start: 09-25-2021 COVID-19 VACCINE (4 - Booster for Pfizer series) COVID-19 VACCINE (4 - Booster for Pfizer series) [facility] Start: 09-25-2021 COVID-19 VACCINE (4 - Pfizer series) COVID-19 VACCINE (4 - Pfizer series) [facility] Start: 07-27-2021 DEPRESSION ASSESSMENT DEPRESSION ASS ESSMENT [facility] Start: 03-28-2021 COVID-19 VACCINE (3 - Booster for Pfizer series) COVID-19 VACCINE (3 - Booster for Pfizer series) [facility] Start: 2019 RSV Vaccine (1 - 1-d ose 60+ series) RSV Vaccine (1 - 1-dose 60+ series) [facility] Start: 2014 PROSTATE CANCER SCREENING DISCUSSION PROSTATE CANCER SCREENING DISCUSSION [facility] Start: 2014 Prostate specific antigen measurement Prostate Cancer Screening Discussion [facility] Start: 01-16-2012 DIABETES SCREEN DIABETES SCREEN [facility] Start: 2009 Pneumococcal Vaccine : 50+ (1 of 1 - PCV) Pneumococcal Vaccine: 50+ (1 of 1 - PCV) [facility] Start: 2009 SHINGRIX VACCINE (1 of 2) SHINGRIX VACCINE (1 of 2) [facility] Start: 2004 COLOGUARD (FIT-DNA) COLOGUARD (FIT-D NA) [facility] Start: 2004 Colonoscopy COLONOSCOPY [facility] Start: 2004 COLORECTAL CANCER SCREENING COLORECTAL CANCER SCREENING [facility] Start: [address] COLONOGRAPHY [facility] Start: 2004 FECAL OCCULT BLOOD FECAL OCCULT BLOO D [facility] Start: 2004 Prostate specific antigen measurement Prostate Cancer Screening Discussion [facility] Start: 2004 Screening for malign ant neoplasm of colon [facility] Start: 2004 SIGMOIDOSCOPY SIGMOIDOSCOPY [facility] Start: 1994 Lipid 1996 panel - Serum or Plasma Lipid Screening [facility] Start: 1994 Lipid panel Lipid Screening [facility] Start: 1994 LIPID SCREEN LIPID SCREEN [facility] Start: 1978 Urine microalbumin profile [facility] Start: 1977 ANNUAL PCP TEAM PRINTING AGENT THOMAS DISEASE VISIT ANNUAL PCP TEAM CHRONIC DISEASE VISIT [facility] Start: 1977 Anxiety Screening Anxiety Screening [facility] Start: 1977 Depression Screening Depression Scre ening [facility] Start: 1977 HEPATITIS C SCREENING HEPATITIS C [facility] Start: 1977 Hepatitis C screening Hepatitis C [facility] Start: 1977 HIV SCREENING HIV SCREENING [facility] Start: 1977 HIV screening HIV Screening [facility] Start: 1971 Adult depression screening assessment DEPRESSION SCREENING [facility] Immunizations Immunization Date Immunization Notes Care Provider Sera huitron 04-19-2024 influenza, seasonal, injectable, preservative free Dr. Rich Alexis MD Work Phone: [facility] 04-19-2024 Pfizer Covid-19 (Comirnaty) Dr. Rich Alexis MD Work Phone: [facility] 04-19-2024 influenza virus vaccine, unspecified formulation Leo Barrera MD Work Phone: [facility] 06-22-2023 Influenza, injectabl e, Madin Sarah Canine Kidney, preservative free, quadrivalent Dr. Rich Alexis MD Work Phone: [facility] 06-22-2023 Pfizer Covid-19 ([facility]) Dr. Rich Alexis MD Work Phone: [facility] 09-09-2022 Covid Pfizer Bivalen t Booster Dr. Rich Alexis MD Work Phone: [facility] 07-01-2022 Influenza, injectabl e, Madin Craig Canine Kidney, preservative free, quadrivalent Dr. Rich Alexis MD Work Phone: [facility] 07-01-2022 influenza virus vaccine, unspecified formulation Leo Barrera MD Work Phone: [facility] 07-31-2021 Covid (Pfizer) [facility] 10-26-2020 Covid (Pfizer) [facility] 10-05-2020 Covid (Pfizer) [facility] 04-14-2020 influenza, injectable,quadrivalen t, preservative free, pediatric [facility] 04-14-2020 tetanus toxoid, reduced diphtheria toxoid, and acellular pertussis vaccine, adsorbed [facility] 04-14-2020 influenza virus vaccine, unspecified formulation Leo Barrera MD Work Phone: [facility] 05-19-2019 Influenza, injectabl e, Madin Craig Canine Kidney, preservative free, quadrivalent Dr. Rich Alexis MD Work Phone: [facility] 09-28-2018 tetanus toxoid, reduced diphtheria toxoid, and acellular pertussis vaccine, adsorbed [facility] Payers Date Payer Category Payer Medicare MEDICARE [id number] 2024 Medicare [id number] 2024 Self-pay [id number] 2022 Private Health Insurance [id number] 2022 Unknown [id number] 2020 Unknown MMO MMO TPA [id number] 2020-Present [address] [place] [address] PPO [id number] 2020 Unknown [id number] 1959 Unknown [id number] Private Health Insurance [id number] Unknown [id number] Unknown [id number] Unknown [id number] Unknown [id number] Unknown [id number] Unknown [id number] Unknown [id number] Social History Date Type Detail Facility Start: 10-30-2011 End: 01-23-2023 Tobacco smoking status NHIS Never smoked tobacco [facility] Start: 08-10-2019 End: 12-04-2021 Alcohol intake Current non-drinker of alcohol (finding) [facility] Start: 1960 Sex Assigned At Not on file [facility] Start: 11-24-2021 End: 12-04-2021 Exposure to SARS-CoV-2 (event) Not sure [facility] Start: 10-30-2011 Tobacco use and exposure Smokeless tobacco non-user [facility] Start: 12-04-2021 End: 05-05-2023 Gender identity Not on file [facility] Start: 12-04-2021 End: 05-05-2023 History of Social function [facility] Start: 06-27-2012 National Score (1-100), lower number is lower risk 51 [facility] Start: 01-23-2023 Tobacco smoking stat us DCIS Unknown if ever smoked [facility] Start: 1960 Sex Assigned At Male W [facility] Medical Equipment Procedure Code Equipment Code Equipment Original Text Equipment Identifier Dates [id number], [id number] Start: 08-04-2017 End: 06-25-2023 Comment on above: Use for growth hormo ne pen injections once a day Use for GH pen injec tions once a day Functional Status Date Assessment Result Facility 07-05-2014 Are you deaf, or do you have serious difficulty hearing No 07/05/2014 10:08 AM Elmira Osborn Ma No [facility] Work Phone: 07-05-2014 Are you blind, or do you have serious difficulty seeing, even when wearing glasses No 07/05/2014 10:08 AM Elmira Osborn Ma [facility] 07-05-2014 Do you have serious difficulty walking or climbing stairs No 07/05/2014 10:08 AM Elmira Osborn Ma [facility] 07-05-2014 Do you have difficul ty dressing or bathing No 07/05/2014 10:08 AM Elmira Osborn Ma [facility] 07-05-2014 Because of a physica l, mental, or emotional condition, do you have difficulty doing errands alone such as visiting a physician's office or shopping No 07/05/2014 10:08 AM Elmira Osborn Ma [facility] Mental Status Date Assessment Result Facility 01-06-2025 Cognitive function Voice/Name [facility] Work Phone: 07-05-2014 Because of a physica l, mental, or emotional condition, do you have serious difficulty concentrating, remembering, or making decisions No 07/05/2014 10:08 AM NETTIE Rodriguez MaElmira [facility] Clinical Notes 11-13-2021 to 03-07-2025 Leo Shaw V, MD - 03/07/2025 11:44 AM EDTTelephone Encounter - Leo Shaw V, MD - 02/23/2025 2:28 PM EDTTelephone Encounter - Leo Shaw V, MD - 02/23/2025 2:28 PM EDT Note Date & Type Note Facility 03-07-2025 Note HNO ID: [id number] Author: LEO SHAW MD Service: ? Author Type: Physician Type: Progress Notes Filed: 03/07/2025 12:16 Note Text: This Team Access Model encounter involved medical decision making with virtual visit including video .Patient consented to the visit. I have communicated my name and active licensure. The patient's identity and physical location were verified at the time of this visit. Either the patient or their legal commercial pest control representative has been informed of the risks and benefits of -- and alternatives to -- treatment through a remote evaluation and consents to proceed with the evaluation remotely. THIS NOTE WAS CARRIED FORWARD FROM THE VISIT WITH ME IN MAY 2024 AND ADDENDED APPROPRIATE TO REFLECT TODAY'S VISIT [...] Has been taking all his meds correctly INTERVAL HPI (March 07, 2025 ): Osteoporosis: - Received two doses of Prolia, with no adverse effects reported. - Last DEXA scan in 2023; next scheduled for 2025. - Taking vitamin D daily. Hypothyroidism: - No current symptoms or concerns. - Takes thyroid medication upon waking, waits 30 minutes before eating. Hypopituitarism: - Missing doses of Cortef in the afternoon due to forgetfulness; takes morning dose consistently. - Taking cabergoline as prescribed. - Recent lab work did not include prolactin, testosterone, or IGF-1 levels. - MRI performed last year; no new symptoms reported. - Energy levels are stable. Growth Hormone Deficiency: - Recently resumed Omnitrope after a 2-month lapse due to insurance issues. - Omnitrope obtained from [facility] specialty pharmacy; supplies include pen needles and alcohol swabs. Hypogonadism: - Applying AndroGel 2 packets daily. - Recent lab work did not include testosterone levels. PMH: Macroprolactinoma PSH: None SOCIAL HISTORY Marital Status: Tobacco Use: Never Alcohol Use: No Review of patient's allergies indicates: Pencillin [Other] Comment:hives Family Hx: no history of hypercalcemia, pituitary tumor, or abdominal tumor Current Outpatient Medications Medication Sig levothyroxine (SYNTHROID) 112 mcg tablet Take 1 tablet by mouth every morning. on empty stomach somatropin (OMNITROPE) 5 mg/1.5 mL (3.3 mg/mL) subcutaneous cartridge INJECT 0.4 MG UNDER THE SKIN DAILY. DISCARD 28 DAYS AFTER INITIAL USE testosterone (ANDROGEL) 50 mg / 5 g (1%) Apply 2 packets as directed once daily for 90 days. APPLY TO CLEAN, DRY, INTACT SKIN OF THE SHOULDERS AND UPPER ARMS rosuvastatin (CRESTOR) 20 mg tablet Take 1 tablet by mouth once daily. hydrocortisone (CORTEF) 10 mg tablet Take one tablet in am and 1 tablet afternoon, increase to 2 tab in am and 2 tab in the afternoon for 2-3 days if sick cabergoline (DOSTINEX) 0.5 mg tablet Take half tablet 2 days per week. raloxifene (EVISTA) 60 [...] No current facility-administered medications for this visit. VIDEO EXAM: (if completed, performed via video enabled technology) GENERAL: alert and appropriate, in no distress, well-hydrated, well nourished, and happy, smiling, interactive Labs: 2014 HbA1c: [...] Free T3:2.6 Prl: 1.5 BMP: nl CBC: n (more content not included)... [facility] 03-07-2025 History of Presen t illness Narrative This Team Access Model encounter involved medical decision making with virtual visit including video .Patient consented to the visit. I have communicated my name and active licensure. The patient's identity and physical location were verified at the time of this visit. Either the patient or their legal commercial pest control representative has been informed of the risks and benefits of -- and alternatives to -- treatment through a remote evaluation and consents to proceed with the evaluation remotely. THIS NOTE WAS CARRIED FORWARD FROM THE VISIT WITH ME IN MAY 2024 AND ADDENDED APPROPRIATE TO REFLECT TODAY'S VISIT [...] Has been taking all his meds correctly INTERVAL HPI (March 07, 2025 ): Osteoporosis: - Received two doses of Prolia, with no adverse effects reported. - Last DEXA scan in 2023; next scheduled for 2025. - Taking vitamin D daily. Hypothyroidism: - No current symptoms or concerns. - Takes thyroid medication upon waking, waits 30 minutes before eating. Hypopituitarism: - Missing doses of Cortef in the afternoon due to forgetfulness; takes morning dose consistently. - Taking cabergoline as prescribed. - Recent lab work did not include prolactin, testosterone, or IGF-1 levels. - MRI performed last year; no new symptoms reported. - Energy levels are stable. Growth Hormone Deficiency: - Recently resumed Omnitrope after a 2-month lapse due to insurance issues. - Omnitrope obtained from [facility] specialty pharmacy; supplies include pen needles and alcohol swabs. Hypogonadism: - Applying AndroGel 2 packets daily. - Recent lab work did not include testosterone levels. PMH: Macroprolactinoma PSH: None SOCIAL HISTORY Marital Status: Tobacco Use: Never Alcohol Use: No Review of patient's allergies indicates: Pencillin [Other] Comment:hives Family Hx: no history of hypercalcemia, pituitary tumor, or abdominal tumor Current Outpatient Medications Medication Sig levothyroxine (SYNTHROID) 112 mcg tablet Take 1 tablet by mouth every morning. on empty stomach somatropin (OMNITROPE) 5 mg/1.5 mL (3.3 mg/mL) subcutaneous cartridge INJECT 0.4 MG UNDER THE SKIN DAILY. DISCARD 28 DAYS AFTER INITIAL USE testosterone (ANDROGEL) 50 mg / 5 g (1%) Apply 2 packets as directed once daily for 90 days. APPLY TO CLEAN, DRY, INTACT SKIN OF THE SHOULDERS AND UPPER ARMS rosuvastatin (CRESTOR) 20 mg tablet Take 1 tablet by mouth once daily. hydrocortisone (CORTEF) 10 mg tablet Take one tablet in am and 1 tablet afternoon, increase to 2 tab in am and 2 tab in the afternoon for 2-3 days if sick cabergoline (DOSTINEX) 0.5 mg tablet Take half tablet 2 days per week. raloxifene (EVISTA) 60 [...] No current facility-administered medications for this visit. VIDEO EXAM: (if completed, performed via video enabled technology) GENERAL: alert and appropriate, in no distress, well-hydrated, well nourished, and happy, smiling, interactive Labs: 2014 HbA1c: [...] CBC: nl Testo: 508 Vit D: 229 1. 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 - Continue current thyroid medication regimen; prescription renewed. - Patient instructed to take thyroid medication alone upon waking and wait 30 minutes before eating. 2. Hypogonadism male (E29.1) - PSA within normal limits. - Continue AndroGel as prescribed; prescription renewed. - Order testosterone level to be checked in 2 months. 3. 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 Prolactinoma (HCC) (D35.2) S/P RADIATION 2010 - MRI last year was stable; next MRI in 2025. - Order prolactin level. - Continue cabergoline as prescribed; prescription renewed. 5. Growth hormone deficiency (HCC) (E23.0) dIAGNOSED WITH itt - Patient was off Omnitrope for 2 months due to insurance issues; now resolved. - Order IGF-1 level. - Continue Omnitrope as prescribed; prescription renewed. 6. Adrenal insufficiency (HCC) (E27.40) - Continue Cortef as prescribed; prescription renewed. - Patient reminded to take afternoon dose of Cortef. 7. Osteoporosis, unspecified osteoporosis type, unspecified pathological fracture presence (M81.0) - Last bone density scan in 2023; next scan due in 2025. - Continue Prolia injections; patient has received two injections and tolerated well. - Advised to continue daily vitamin D supplementation. - Discussed that Prolia should be continued without interruption; effects diminish after 6 months if stopped. : Follow with PCP for other issues RTC in 6 months Leo Shaw MD Answers submitted by the patient for this visit: Core Review of Systems (Submitted on 02/28/2025) Fever : No Night sweats: No Recent unintentional weight change: No Nasal Congestion: Yes Hearing Loss: No Vision Disturbance: No A cough: No Difficulty Breathing?: No Chest pain: No Irregular heartbeat: No Leg Swelling: No Nausea: No Diarrhea: No Black tarry stools: No Difficulty Urinating?: No Awaken at Night More Than Once to Urinate?: No Joint pain or stiffness: No Muscle aches: No Leg or Foot Discomfort at Night?: No A rash: No Dizziness: No Headaches: No Memory Loss: No Seizures: No documented in this encounter [facility] 02-23-2025 Telephone encounter Note The following approved medication requests have been transmitted electronically. Requested Prescriptions Pending Prescriptions Disp Refills levothyroxine (SYNTHROID) 112 mcg tablet 90 tablet 0 Sig: Take 1 tablet by mouth every morning. on empty stomach Leo Shaw MD [facility] 02-23-2025 Miscellaneous Notes The following approved medication requests have been transmitted electronically. Requested Prescriptions Pending Prescriptions Disp Refills levothyroxine (SYNTHROID) 112 mcg tablet 90 tablet 0 Sig: Take 1 tablet by mouth every morning. on empty stomach Leo Shaw MD Most recent Endocrinology visit: Last encounter Visit on 06/06/2024 (with Leo Shaw) 05/05/2023 in [facility] with LEO SHAW V for 06/06/2024 in [facility] with LEO SHAW V for Upcoming Endocrinology Appointments - Next 365 Days Visit Type Date Time Department VIDEO SPEC EST 03/07/2025 11:40 AM [facility] Requested Prescriptions Pending Prescriptions Disp Refills levothyroxine [...] last 12 months documented in this encounter [facility] 02-23-2025 Telephone encounter Note Most recent Endocrinology visit: Last encounter Visit on 06/06/2024 (with Seenia V Colin) 05/05/2023 in [facility] with CLAUDIA SHAWIA V for 06/06/2024 in [facility] with COLIN SEENIA V for Upcoming Endocrinology Appointments - Next 365 Days Visit Type Date Time Department VIDEO SPEC EST 03/07/2025 11:40 AM [facility] Requested Prescriptions Pending Prescriptions Disp Refills levothyroxine [...] on file in the last 12 months [facility] 01-23-2025 Telephone encounter Note Images from the original note were not included. January 23, 2025 1:53 PM Appeal letter for somatropin (OMNITROPE) 5 mg/1.5 mL (3.3 mg/mL) subcutaneous cartridge Faxed to [facility] Pending determination Joe Prior [employer] [facility] [place] [facility] 01-23-2025 Miscellaneous Notes Images from the original note were not included. January 23, 2025 1:53 PM Appeal letter for somatropin (OMNITROPE) 5 mg/1.5 mL (3.3 mg/mL) subcutaneous cartridge Faxed to [facility] Pending determination Joe Prior [employer] As[employer] [facility] [place] documented in this encounter [facility] 12-08-2024 Telephone encounter Note Approval fax from [facility] for Testosterone received. Approval is for 12/05/24 until further notice. Form sent to scanning. [facility] 12-08-2024 Miscellaneous Notes Approval fax from [facility] for Testosterone received. Approval is for 12/05/24 until further notice. Form sent to scanning. documented in this encounter [facility] 12-07-2024 Telephone encounter Note Form completed and faxed to [facility] with confirmation at 10:56am [facility] 12-07-2024 Miscellaneous Notes Form completed and faxed to [facility] with confirmation at 10:56am Lucero Taylor called regarding below. States that this is running out of time and may end up being denied. Requesting this SHANTAL. Case #[id number] Bonnie Shipley Kala Oziel from [employer] [facility]. Requesting information for PA for testosterone gel. Does [patient have persistent signs/symptoms of androgen deficiency? Was one pretreatment completed before low testosterone level drawn? Diagnosis? She will be faxing form to office today also. Ph. [phone] Case# [id number] documented in this encounter [facility] 12-07-2024 Telephone encounter Note Lucero with [facility] called regarding below. States that this is running out of time and may end up being denied. Requesting this SHANTAL. Case #[id number] Bonnie Shipley Kala [facility] 12-07-2024 Telephone encounter Note Fax received from [facility] requesting more information regarding Testosterone RX. Form completed and faxed. Electronically signed ANGELA notes attached. [facility] 12-07-2024 Miscellaneous Notes Fax received from [facility] requesting more information regarding Testosterone RX. Form completed and faxed. Electronically signed ANGELA notes attached. documented in this encounter [facility] 12-06-2024 Telephone encounter Note Oziel from [employer] [facility]. Requesting information for PA for testosterone gel. Does [patient have persistent signs/symptoms of androgen deficiency? Was one pretreatment completed before low testosterone level drawn? Diagnosis? She will be faxing form to office today also. Ph. [phone] Case# [id number] [facility] 11-30-2024 Telephone encounter Note The following approved medication requests have been transmitted electronically. Requested Prescriptions Pending Prescriptions Disp Refills levothyroxine (SYNTHROID) 112 mcg tablet 90 tablet 0 Sig: Take 1 tablet by mouth every morning. on empty stomach Leo Shaw MD [facility] 11-30-2024 Miscellaneous Notes The following approved medication requests have been transmitted electronically. Requested Prescriptions Pending Prescriptions Disp Refills levothyroxine (SYNTHROID) 112 mcg tablet 90 tablet 0 Sig: Take 1 tablet by mouth every morning. on empty stomach Leo Shaw MD Most recent Endocrinology visit: Last encounter Visit on 06/06/2024 (with Leo Shaw) 05/05/2023 in [facility] with LEO SHAW V for 06/06/2024 in [facility] with LEO SHAW V for Upcoming Endocrinology Appointments - Next 365 Days Visit Type Date Time Department VIDEO SPEC EST 03/07/2025 11:40 AM [facility] Requested Prescriptions Pending Prescriptions Disp Refills levothyroxine [...] last 12 months documented in this encounter [facility] 11-29-2024 Telephone encounter Note Most recent Endocrinology visit: Last encounter Visit on 06/06/2024 (with Leo Shaw) 05/05/2023 in [facility] with LEO SHAW V for 06/06/2024 in [facility] with LEO SHAW V for Upcoming Endocrinology Appointments - Next 365 Days Visit Type Date Time Department VIDEO SPEC EST 03/07/2025 11:40 AM [facility] Requested Prescriptions Pending Prescriptions Disp Refills levothyroxine [...] on file in the last 12 months [facility] 11-11-2024 Telephone encounter Note This is addressed curly nother encounter Leo Shaw MD [facility] 11-11-2024 Miscellaneous Notes This is addressed curly nother encounter Leo Shaw MD documented in this encounter [facility] 11-07-2024 Telephone encounter Note Omnitrope already denied and cannot be re-submitted. See encounter 10/17/2024. Letter with details and appeal instructions is already in patient's chart. Testosterone PA Submitted today. [facility] [employer] [facility]inology [facility] Met[facility] X-20 [facility] 11-07-2024 Miscellaneous Notes Omnitrope already denied and cannot be re-submitted. See encounter 10/17/2024. Letter with details and appeal instructions is already in patient's chart. Testosterone PA Submitted today. [facility] End[facility]inology [facility] Met[facility] X-20 Patient calling regarding status of PA for Omnitrope and testosterone gel prescriptions. Patient states he is nearly out of both. Please call patient to advise [facility] [phone] documented in this encounter [facility] 11-07-2024 Telephone encounter Note Images from the original note were not included. Initiated PA for testosterone (ANDROGEL PUMP) 20.25 mg/1.25 gram (1.62 %) transdermal gel through [facility] via [employer] Chart notes and labs attached Questions Completed Waiting for determination [facility] X-20 [facility] 11-07-2024 Miscellaneous Notes Images from the original note were not included. Initiated PA for testosterone (ANDROGEL PUMP) 20.25 mg/1.25 gram (1.62 %) transdermal gel through [facility] [employer] Chart notes and labs attached Questions Completed Waiting for determination [facility] X-20 documented in this encounter [facility] 11-07-2024 Telephone encounter Note Patient calling regarding status of PA for Omnitrope and testosterone gel prescriptions. Patient states he is nearly out of both. Please call patient to advise [facility] [phone] [facility] 10-17-2024 Telephone encounter Note Images from the original note were not included. Unable to process due to previous attempt being denied. [facility] X-20 [facility] 10-17-2024 Miscellaneous Notes Images from the original note were not included. Unable to process due to previous attempt being denied. [facility] & Met[facility] X-20 Images from the original note were not included. Initiated PA for OMNITROPE 5 mg/1.5 mL (3.3 mg/mL) through [facility] [employer] Questions Completed Waiting for determination [facility] & Met[facility] X-20 documented in this encounter [facility] 10-17-2024 Telephone encounter Note Images from the original note were not included. Initiated PA for OMNITROPE 5 mg/1.5 mL (3.3 mg/mL) through [facility] [employer] Questions Completed Waiting for determination [facility] [place] [facility] X-20 [facility] 09-29-2024 Telephone encounter Note The following [...] morning. on empty stomach Leo Shaw MD [facility] 09-29-2024 Miscellaneous Notes The following approved [...] endo scheduling pool. documented in this encounter [facility] 09-21-2024 Telephone encounter Note Patients last [...] and also to the endo scheduling pool. [facility] 07-15-2024 Telephone encounter Note The following approved medication requests have been transmitted electronically. Requested Prescriptions Pending Prescriptions Disp Refills levothyroxine (SYNTHROID) 112 mcg tablet 90 tablet 0 Sig: Take 1 tablet by mouth every morning. on empty stomach Leo Shaw MD [facility] 07-15-2024 Miscellaneous Notes The following approved [...] endo scheduling pool. documented in this encounter [facility] 07-15-2024 Telephone encounter Note Patients last [...] and also to the endo scheduling pool. [facility] 07-12-2024 Telephone encounter Note The following approved medication requests have been transmitted electronically. Requested Prescriptions Pending Prescriptions Disp Refills testosterone (ANDROGEL PUMP) 20.25 mg/1.25 gram (1.62 %) transdermal gel 300 g 1 Sig: Apply three pumps on each shoulder as directed Leo Shaw MD [facility] 07-12-2024 Miscellaneous Notes The following approved medication requests have been transmitted electronically. Requested Prescriptions Pending Prescriptions Disp Refills testosterone (ANDROGEL PUMP) 20.25 mg/1.25 gram (1.62 %) transdermal gel 300 g 1 Sig: Apply three pumps on each shoulder as directed Leo Shaw MD documented in this encounter [facility] 07-01-2024 Telephone encounter Note 2 ANGELA notes faxed as requested. [facility] 07-01-2024 Miscellaneous Notes 2 ANGELA notes [...] do a prior auth PCP's office / [place] [facility]) in [place] Office PHONE # [phone] FAX # [phone] documented in this encounter [facility] 07-01-2024 Telephone encounter Note Nurse from [...] do a prior auth PCP's office / [place] [facility]) in [facility] PHONE # [phone] FAX # [phone] [facility] 07-01-2024 Telephone encounter Note Prescription [facility] 07-01-2024 Miscellaneous Notes Prescription for Prolia faxed to [facility]. documented in this encounter [facility] 06-15-2024 Telephone encounter Note The following approved medication requests have been transmitted electronically. Requested Prescriptions Pending Prescriptions Disp Refills rosuvastatin (CRESTOR) 20 mg tablet 90 tablet 3 Sig: Take 1 tablet by mouth once daily. Leo Shaw MD [facility] 06-15-2024 Miscellaneous Notes The following approved medication [...] endo scheduling pool. documented in this encounter [facility] 06-14-2024 Telephone encounter Note Patients last [...] and also to the endo scheduling pool. [facility] 06-07-2024 Telephone encounter Note The following approved medication requests have been transmitted electronically. Requested Prescriptions Pending Prescriptions Disp Refills OMNITROPE 5 mg/1.5 mL (3.3 mg/mL) [Pharmacy Med Name: OMNITROPE CARTRIDGE 1.5ML 5MG] 4.5 mL 3 Sig: INJECT 0.4 MG UNDER THE SKIN DAILY. DISCARD 28 DAYS AFTER INITIAL USE Leo Shaw MD [facility] 06-07-2024 Miscellaneous Notes The following approved [...] Pia Mayes RN documented in this encounter [facility] 06-07-2024 Telephone encounter Note Requester: Pharmacy Last Endocrinology visit: 06/06/2024. Follow-up visit scheduled: N/A. Requested Prescriptions Pending Prescriptions Disp Refills OMNITROPE 5 mg/1.5 mL (3.3 mg/mL) [Pharmacy Med Name: OMNITROPE CARTRIDGE 1.5ML 5MG] 4.5 mL 3 Sig: INJECT 0.4 MG UNDER THE SKIN DAILY. DISCARD 28 DAYS AFTER INITIAL USE PSS NOTE: Please schedule appointment: No Thank you! Pia Mayes RN [facility] 06-06-2024 Note HNO ID: [id number] Author: LEO SHAW MD Service: ? Author [...] testosterone while hi (more content not included)... [facility] 06-06-2024 History of Presen t illness Narrative [...] BMD shows osteopenia - BMD in Jna 2018 showed improvement in spine and mild decline [...] No Seizures: No documented in this encounter [facility] 06-03-2024 Telephone encounter Note The following approved medication requests have been transmitted electronically. Requested Prescriptions Pending Prescriptions Disp Refills OMNITROPE 5 mg/1.5 mL (3.3 mg/mL) [Pharmacy Med Name: OMNITROPE CARTRIDGE 1.5ML 5MG] 4.5 mL 3 Sig: INJECT 0.4 MG UNDER THE SKIN DAILY. DISCARD 28 DAYS AFTER INITIAL USE Leo Shaw MD [facility] 06-03-2024 Miscellaneous Notes The following approved medication requests have been transmitted electronically. Requested Prescriptions Pending Prescriptions Disp Refills OMNITROPE 5 mg/1.5 mL (3.3 mg/mL) [Pharmacy Med Name: OMNITROPE CARTRIDGE 1.5ML 5MG] 4.5 mL 3 Sig: INJECT 0.4 MG UNDER THE SKIN DAILY. DISCARD 28 DAYS AFTER INITIAL USE Leo Shaw MD documented in this encounter [facility] 06-03-2024 Telephone encounter Note BMD : worseningcompared to 2021--osteopenia MRI: stable sellar mass --cystic Leo Shaw MD [facility] 06-03-2024 Miscellaneous Notes BMD : worseningcompared to 2021--osteopenia MRI: stable sellar mass --cystic Leo Shaw MD Bone density and MRI received via fax from [facility]. Fax placed on Dr. Shaw's desk. Copy of fax sent to scanning. documented in this encounter [facility] 06-03-2024 Telephone encounter Note Bone density and MRI received via fax from [facility]. Fax placed on Dr. Shaw's desk. Copy of fax sent to scanning. [facility] 05-25-2024 Telephone encounter Note Received lab result from [facility]. Result placed in Dr. Shaw's inbox for review. Copy sent to scanning. [facility] 05-25-2024 Miscellaneous Notes Received lab result from [facility]. Result placed in Dr. Shaw's inbox for review. Copy sent to scanning. documented in this encounter [facility] 04-20-2024 Telephone encounter Note The following [...] by mouth once daily. Leo Shaw MD [facility] 04-20-2024 Miscellaneous Notes The following approved [...] Pia Mayes RN documented in this encounter [facility] 04-20-2024 Telephone encounter Note Requester: Patient [...] appointment: No Thank you! Pia Mayes RN [facility] 04-11-2024 Telephone encounter Note [facility] placed in Dr. Shaw's folder for review. [facility] 04-11-2024 Miscellaneous Notes [facility] placed in Dr. Shaw's folder for review. documented in this encounter [facility] 03-04-2024 Telephone encounter Note Can below meds be escripted? [facility] 03-04-2024 Miscellaneous Notes Can below meds [...] endo scheduling pool. documented in this encounter [facility] 03-04-2024 Telephone encounter Note Called back and completed PA over the phone. Approved from 02/03/24-03/04/25. Pt notified. [facility] 03-04-2024 Miscellaneous Notes Called back and completed PA over the phone. Approved from 02/03/24-03/04/25. Pt notified. [facility] is calling Leo Shaw MD today to request Medication Preauthorization (Somatropin (OMNITROPE) 5 mg/1.5 mL (3.3 mg/mL)). . Patient has been identified by name and birthdate. Duration of symptoms: N/A Person calling: pharmacy: [facility] at: [phone] Was an appointment scheduled: No Closing statement: Results or non-symptom based questions: Thank you for calling [facility], your call will be returned within the next business day. Fanny Richard documented in this encounter [facility] 03-03-2024 Telephone encounter Note [facility] is calling Leo Shaw MD today to request Medication Preauthorization (Somatropin (OMNITROPE) 5 mg/1.5 mL (3.3 mg/mL)). . Patient has been identified by name and birthdate. Duration of symptoms: N/A Person calling: pharmacy: [facility] at: [phone] Was an appointment scheduled: No Closing statement: Results or non-symptom based questions: Thank you for calling [facility], your call will be returned within the next business day. Fanny Richard T [facility] 02-29-2024 Telephone encounter Note Patients last [...] and also to the endo scheduling pool. T [facility] 01-27-2024 Telephone encounter Note The following approved medication requests have been transmitted electronically. Requested Prescriptions Pending Prescriptions Disp Refills cabergoline (DOSTINEX) 0.5 mg tablet 50 tablet 1 Sig: Take 1 tb 2 days per week. testosterone (ANDROGEL PUMP) 20.25 mg/1.25 gram (1.62 %) transdermal gel 300 g 1 Sig: Apply three pumps on each shoulder as directed Leo Shaw MD [facility] 01-27-2024 Miscellaneous Notes The following approved medication [...] endo scheduling pool. documented in this encounter [facility] 01-27-2024 Telephone encounter Note Patients last [...] and also to the endo scheduling pool. [facility] 12-11-2023 Telephone encounter Note The following approved medication requests have been transmitted electronically. Requested Prescriptions Pending Prescriptions Disp Refills OMNITROPE 5 mg/1.5 mL (3.3 mg/mL) [Pharmacy Med Name: OMNITROPE CARTRIDGE 1.5ML 5MG] 6 mL 2 Sig: INJECT 0.4 MG UNDER THE SKIN DAILY (DISCARD 28 DAYS AFTER INITIAL USE) Leo Shaw MD [facility] 12-11-2023 Miscellaneous Notes The following approved [...] Pia Mayes RN documented in this encounter [facility] 12-10-2023 Telephone encounter Note Requester: Pharmacy [...] appointment: No Thank you! Pia Mayes RN [facility] 08-27-2023 Miscellaneous Notes Lab results received from [place]. Placed in Dr. Shaw's folder to review. Hi! Can we check to see if his labs were faxed to [place]? So far no results in his chart or care everywhere. Thank you! Pia Mayes RN documented in this encounter [facility] 06-29-2023 Miscellaneous Notes Patients last Endocrinology [...] endo scheduling pool. documented in this encounter [facility] 06-25-2023 Miscellaneous Notes Patient requests all scripts except Omnitrope be sent to [facility] pharmacy. Pended for sign off. Requester: [...] Pia Mayes RN documented in this encounter [facility] 05-27-2023 Miscellaneous Notes All meds need [...] endo scheduling pool. documented in this encounter [facility] 05-11-2023 Miscellaneous Notes Patients last Endocrinology [...] endo scheduling pool. documented in this encounter [facility] 04-23-2023 Miscellaneous Notes The following approved [...] Pia Mayes RN documented in this encounter [facility] 03-04-2023 Miscellaneous Notes Lab orders faxed to [facility] with confirmation. Patient notified. Patient requests thyroid lab orders be faxed to below location: [facility] [phone] Thank you! Pia Mayes RN documented in this encounter [facility] 02-23-2023 Miscellaneous Notes DHRUV completed and approved for Omnitrope. Please inform patient : Omnitrope is coming up as not covered! MAybethe computer is not updated. I am sending the Omnitrope instead of Somatropin as he requested He should check with insurance if that will be covered Leo Shaw MD documented in this encounter [facility] 02-11-2023 Miscellaneous Notes Prior authorization for Norditropin submitted via [employer]. Awaiting response from plan. documented in this encounter [facility] 02-09-2023 Miscellaneous Notes Rx for cabergoline [...] Pia Mayes RN documented in this encounter [facility] 01-21-2023 Miscellaneous Notes The following approved [...] Pia Mayes RN documented in this encounter [facility] 12-05-2022 Miscellaneous Notes Requester: Patient Last [...] Pia Mayes RN documented in this encounter [facility] 10-17-2022 Miscellaneous Notes Requester: Patient Patients last Endocrinology visit occurred 12-05-2021 Colin. Follow-up evaluation has been established 12-04-22 colin. Requested Prescriptions Pending Prescriptions Disp Refills rosuvastatin [...] Ella Link Ma documented in this encounter [facility] 08-20-2022 Miscellaneous Notes Called and scheduled [...] Pia Mayes RN documented in this encounter [facility] 07-17-2022 Miscellaneous Notes Requester: Patient Last Endocrinology visit: 12/05/2021. Follow-up visit scheduled: Visit date not found. Requested Prescriptions Pending Prescriptions Disp Refills testosterone (ANDROGEL PUMP) 20.25 mg/1.25 gram (1.62 %) transdermal gel 300 g 1 Sig: Apply three pumps on each shoulder as directed PSS NOTE: Please schedule appointment: No Thank you! Pia Mayes RN documented in this encounter [facility] 01-23-2022 Miscellaneous Notes Requester: Patient Last Endocrinology visit: 12/05/2021. Follow-up visit scheduled: Visit date not found. Pending Prescriptions Disp Refills PEN NEEDLE, DIABETIC 31 GAUGE X 5/16 100 Each 3 Sig: Use for growth hormone pen injections once a day ANNA: No PSS NOTE: Please schedule appointment: No Thank you! Pia Mayes RN documented in this encounter [facility] 12-05-2021 History of Presen t illness [...] No Seizures: No documented in this encounter [facility] 11-13-2021 Miscellaneous Notes The following approved [...] Pia Mayes RN documented in this encounter [facility] Evaluation note Diagnosis Hypothyroidism, secondary Other [...] craniopharyngeal duct (pouch) [facility] Diagnosis Hypothyroidism, secondary Other specified acquired hypothyroidism Hypogonadism male Other testicular 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) Prolactinoma (HCC) Benign neoplasm of pituitary gland and craniopharyngeal duct (pouch) [facility] Diagnosis Hypothyroidism, secondary Other specified acquired hypothyroidism Hypogonadism male Other testicular 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) Prolactinoma (HCC) Benign neoplasm of pituitary gland and craniopharyngeal duct (pouch) [facility]* Diagnosis Hypothyroidism, secondary Other specified acquired hypothyroidism Hypogonadism male Other testicular 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) Prolactinoma (HCC) Benign neoplasm of pituitary gland and craniopharyngeal duct (pouch) [facility]* Diagnosis Hypothyroidism, secondary Other specified acquired hypothyroidism Hypogonadism male Other testicular 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) Prolactinoma (HCC) Benign neoplasm of pituitary gland and craniopharyngeal duct (pouch) [facility]* Diagnosis Hypothyroidism, secondary Other specified acquired hypothyroidism Hypogonadism male Other testicular 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) Prolactinoma (HCC) Benign neoplasm of pituitary gland and craniopharyngeal duct (pouch) [facility] noteNo assessment information availableWKindred Healthcare Work Phone: Evaluation note* Diagnosis Hypothyroidism, secondary Other specified acquired hypothyroidism Hypogonadism male Other testicular 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) Prolactinoma (HCC) Benign neoplasm of pituitary gland and craniopharyngeal duct (pouch) [facility]* Diagnosis Hypothyroidism, secondary Other specified acquired hypothyroidism Hypogonadism male Other testicular 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) Prolactinoma (HCC) Benign neoplasm of pituitary gland and craniopharyngeal duct (pouch) [facility]* Diagnosis Hypothyroidism, secondary Other specified acquired hypothyroidism Hypogonadism male Other testicular 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) Prolactinoma (HCC) Benign neoplasm of pituitary gland and craniopharyngeal duct (pouch) [facility] Diagnosis Hypothyroidism, secondary Other specified acquired hypothyroidism Hypogonadism male Other testicular 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) Prolactinoma (HCC) Benign neoplasm of pituitary gland and craniopharyngeal duct (pouch) [facility]* Diagnosis Hypothyroidism, secondary Other specified acquired hypothyroidism Hypogonadism male Other testicular 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) Prolactinoma (HCC) Benign neoplasm of pituitary gland and craniopharyngeal duct (pouch) documented in this encounter [facility] note* Diagnosis Hypothyroidism, secondary Other specified acquired hypothyroidism Hypogonadism male Other testicular 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) Prolactinoma (HCC) Benign neoplasm of pituitary gland and craniopharyngeal duct (pouch) [facility]* Diagnosis Hypothyroidism, secondary Other specified acquired hypothyroidism Hypogonadism male Other testicular 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) Prolactinoma (HCC) Benign neoplasm of pituitary gland and craniopharyngeal duct (pouch) [facility]* Diagnosis BENIGN JOYCE PITUITARY- Primary Benign neoplasm of pituitary gland and craniopharyngeal duct (pouch) Hypothyroidism, secondary Other specified acquired hypothyroidism Hypogonadism male Other testicular hypofunction Prolactinoma (HCC) Benign neoplasm of pituitary gland and 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 Adrenal insufficiency (HCC) Glucocorticoid deficiency Osteoporosis, unspecified osteoporosis type, unspecified pathological fracture presence [facility] Diagnosis Hypogonadism male- Primary Other testicular hypofunction Encounter for screening for malignant neoplasm of prostate Special screening for malignant neoplasm of prostate documented [facility] (narrative)No reason for referral information availableWKindred Healthcare Work Phone: Summary Purpose Family History Relationship Condition Age at Onset Recorded Date/T usha Not Specified Cardiac disease Unknown Hyperlipidemia Unknown Hypertension Unknown mother Aneurysm Unknown father Malignant neoplasm Unknown Advance Directives Advance Directive Response Recorded Date/ Time Living Will No June 04 9:48am Power of Voice Systems Engineer No June 04, 2022 9:48am Reason for Referral Specialty Diagnoses / Procedures Referred By Contac t Referred To Contact Leo Shaw V, MD [address] [place] [address] Referral ID Status Reason Start Date Expiration Date V isits Requested Visits Authorized [id number] Authorized 01/24/2023 02/23/2024 1 1 Specialty Diagnoses / Procedures Referred By Contac t Referred To Contact Diagnoses Hypothyroidism, secondary Hypogonadism male Benign neoplasm of pituitary gland and craniopharyngeal duct (pouch) (HCC) Prolactinoma (HCC) Leo Shaw V, MD [address] [place] [address] Referral ID Status Reason Start Date Expiration Date V isits Requested Visits Authorized [id number] Pending Review 1 1 Referral ID Status Reason Start Date Expiration Date V isits Requested Visits Authorized [id number] Pending Review 1 1 Chief Complaint and Reason for Visit Chief Complaint Admit Date PROLIA January 06, 2025 10:2 0am Chief Complaint Admit Date PROLIA January 06, 2025 10:2 0am 2 ORDERING DRS/E ORDERS & PAPER January 7:04am Additional Source Comments (unrecognized sect ion and content) No Status Records FoundNo Status Records FoundNo Status Records FoundNo Status Records FoundNo Status Records Found INFORMATION SOURCE (unrecogn ized section and content) DATE CREATED AUTHOR 10/24/2019 [facility] DATE CREATED AUTHOR AUTHOR'S ORGANIZ ATION 06/20/2020 [facility] DATE CREATED AUTHOR AUTHOR'S ORGANIZ ATION 04/24/2021 [facility] DATE CREATED AUTHOR AUTHOR'S ORGANIZ ATION 02/09/2025 [facility] DATE CREATED AUTHOR AUTHOR'S ORGANIZ ATION 03/12/2025 [facility] Source Comments (unrecognize d section and content) In the event this informatio n is protected by the Federal Confidentiality of Alcohol and Drug Abuse Patient Records regulations: The Federal rules restrict any use of the information to criminally investigate or prosecute any alcohol or drug abuse patient.[facility] the event this information is protected by the Federal Confidentiality of Alcohol and Drug Abuse Patient Records regulations: The Federal rules restrict any use of the information to criminally investigate or prosecute any alcohol or drug abuse patient.[facility]In the event this information is protected by the Federal Confidentiality of Alcohol and Drug Abuse Patient Records regulations: The Federal rules restrict any use of the information to criminally investigate or prosecute any alcohol or drug abuse patient.[facility]In the event this information is protected by the Federal Confidentiality of Alcohol and Drug Abuse Patient Records regulations: The Federal rules restrict any use of the information to criminally investigate or prosecute any alcohol or drug abuse patient.[facility]In the event this information is protected by the Federal Confidentiality of Alcohol and Drug Abuse Patient Records regulations: The Federal rules restrict any use of the information to criminally investigate or prosecute any alcohol or drug abuse patient.[facility]In the event this information is protected by the Federal Confidentiality of Alcohol and Drug Abuse Patient Records regulations: The Federal rules restrict any use of the information to criminally investigate or prosecute any alcohol or drug abuse patient.[facility]In the event this information is protected by the Federal Confidentiality of Alcohol and Drug Abuse Patient Records regulations: The Federal rules restrict any use of the information to criminally investigate or prosecute any alcohol or drug abuse patient.[facility] HospitalIn the event this information is protected by the Federal Confidentiality of Alcohol and Drug Abuse Patient Records regulations: The Federal rules restrict any use of the information to criminally investigate or prosecute any alcohol or drug abuse patient.[facility]In the event this information is protected by the Federal Confidentiality of Alcohol and Drug Abuse Patient Records regulations: The Federal rules restrict any use of the information to criminally investigate or prosecute any alcohol or drug abuse patient.[facility] HospitalIn the event this information is protected by the Federal Confidentiality of Alcohol and Drug Abuse Patient Records regulations: The Federal rules restrict any use of the information to criminally investigate or prosecute any alcohol or drug abuse patient.[facility] HospitalIn the event this information is protected by the Federal Confidentiality of Alcohol and Drug Abuse Patient Records regulations: The Federal rules restrict any use of the information to criminally investigate or prosecute any alcohol or drug abuse patient.[facility] HospitalIn the event this information is protected by the Federal Confidentiality of Alcohol and Drug Abuse Patient Records regulations: The Federal rules restrict any use of the information to criminally investigate or prosecute any alcohol or drug abuse patient.[facility]In the event this information is protected by the Federal Confidentiality of Alcohol and Drug Abuse Patient Records regulations: The Federal rules restrict any use of the information to criminally investigate or prosecute any alcohol or drug abuse patient.[facility] HospitalIn the event this information is protected by the Federal Confidentiality of Alcohol and Drug Abuse Patient Records regulations: The Federal rules restrict any use of the information to criminally investigate or prosecute any alcohol or drug abuse patient.[facility] HospitalIn the event this information is protected by the Federal Confidentiality of Alcohol and Drug Abuse Patient Records regulations: The Federal rules restrict any use of the information to criminally investigate or prosecute any alcohol or drug abuse patient.[facility] HospitalIn the event this information is protected by the Federal Confidentiality of Alcohol and Drug Abuse Patient Records regulations: The Federal rules restrict any use of the information to criminally investigate or prosecute any alcohol or drug abuse patient.[facility] HospitalIn the event this information is protected by the Federal Confidentiality of Alcohol and Drug Abuse Patient Records regulations: The Federal rules restrict any use of the information to criminally investigate or prosecute any alcohol or drug abuse patient.[facility] HospitalIn the event this information is protected by the Federal Confidentiality of Alcohol and Drug Abuse Patient Records regulations: The Federal rules restrict any use of the information to criminally investigate or prosecute any alcohol or drug abuse patient.[facility]In the event this information is protected by the Federal Confidentiality of Alcohol and Drug Abuse Patient Records regulations: The Federal rules restrict any use of the information to criminally investigate or prosecute any alcohol or drug abuse patient.[facility] HospitalIn the event this information is protected by the Federal Confidentiality of Alcohol and Drug Abuse Patient Records regulations: The Federal rules restrict any use of the information to criminally investigate or prosecute any alcohol or drug abuse patient.[facility] HospitalIn the event this information is protected by the Federal Confidentiality of Alcohol and Drug Abuse Patient Records regulations: The Federal rules restrict any use of the information to criminally investigate or prosecute any alcohol or drug abuse patient.[facility] HospitalIn the event this information is protected by the Federal Confidentiality of Alcohol and Drug Abuse Patient Records regulations: The Federal rules restrict any use of the information to criminally investigate or prosecute any alcohol or drug abuse patient.[facility] HospitalIn the event this information is protected by the Federal Confidentiality of Alcohol and Drug Abuse Patient Records regulations: The Federal rules restrict any use of the information to criminally investigate or prosecute any alcohol or drug abuse patient.[facility]In the event this information is protected by the Federal Confidentiality of Alcohol and Drug Abuse Patient Records regulations: The Federal rules restrict any use of the information to criminally investigate or prosecute any alcohol or drug abuse patient.[facility] HospitalIn the event this information is protected by the Federal Confidentiality of Alcohol and Drug Abuse Patient Records regulations: The Federal rules restrict any use of the information to criminally investigate or prosecute any alcohol or drug abuse patient.[facility] HospitalIn the event this information is protected by the Federal Confidentiality of Alcohol and Drug Abuse Patient Records regulations: The Federal rules restrict any use of the information to criminally investigate or prosecute any alcohol or drug abuse patient.[facility] HospitalIn the event this information is protected by the Federal Confidentiality of Alcohol and Drug Abuse Patient Records regulations: The Federal rules restrict any use of the information to criminally investigate or prosecute any alcohol or drug abuse patient.[facility] HospitalIn the event this information is protected by the Federal Confidentiality of Alcohol and Drug Abuse Patient Records regulations: The Federal rules restrict any use of the information to criminally investigate or prosecute any alcohol or drug abuse patient.[facility] HospitalIn the event this information is protected by the Federal Confidentiality of Alcohol and Drug Abuse Patient Records regulations: The Federal rules restrict any use of the information to criminally investigate or prosecute any alcohol or drug abuse patient.[facility] HospitalIn the event this information is protected by the Federal Confidentiality of Alcohol and Drug Abuse Patient Records regulations: The Federal rules restrict any use of the information to criminally investigate or prosecute any alcohol or drug abuse patient.[facility] HospitalIn the event this information is protected by the Federal Confidentiality of Alcohol and Drug Abuse Patient Records regulations: The Federal rules restrict any use of the information to criminally investigate or prosecute any alcohol or drug abuse patient.[facility] HospitalIn the event this information is protected by the Federal Confidentiality of Alcohol and Drug Abuse Patient Records regulations: The Federal rules restrict any use of the information to criminally investigate or prosecute any alcohol or drug abuse patient.[facility] HospitalIn the event this information is protected by the Federal Confidentiality of Alcohol and Drug Abuse Patient Records regulations: The Federal rules restrict any use of the information to criminally investigate or prosecute any alcohol or drug abuse patient.[facility] HospitalIn the event this information is protected by the Federal Confidentiality of Alcohol and Drug Abuse Patient Records regulations: The Federal rules restrict any use of the information to criminally investigate or prosecute any alcohol or drug abuse patient.[facility]In the event this information is protected by the Federal Confidentiality of Alcohol and Drug Abuse Patient Records regulations: The Federal rules restrict any use of the information to criminally investigate or prosecute any alcohol or drug abuse patient.[facility] HospitalIn the event this information is protected by the Federal Confidentiality of Alcohol and Drug Abuse Patient Records regulations: The Federal rules restrict any use of the information to criminally investigate or prosecute any alcohol or drug abuse patient.[facility] HospitalIn the event this information is protected by the Federal Confidentiality of Alcohol and Drug Abuse Patient Records regulations: The Federal rules restrict any use of the information to criminally investigate or prosecute any alcohol or drug abuse patient.[facility] HospitalIn the event this information is protected by the Federal Confidentiality of Alcohol and Drug Abuse Patient Records regulations: The Federal rules restrict any use of the information to criminally investigate or prosecute any alcohol or drug abuse patient.[facility]In the event this information is protected by the Federal Confidentiality of Alcohol and Drug Abuse Patient Records regulations: The Federal rules restrict any use of the information to criminally investigate or prosecute any alcohol or drug abuse patient.[facility]In the event this information is protected by the Federal Confidentiality of Alcohol and Drug Abuse Patient Records regulations: The Federal rules restrict any use of the information to criminally investigate or prosecute any alcohol or drug abuse patient.[facility] HospitalIn the event this information is protected by the Federal Confidentiality of Alcohol and Drug Abuse Patient Records regulations: The Federal rules restrict any use of the information to criminally investigate or prosecute any alcohol or drug abuse patient.[facility] HospitalIn the event this information is protected by the Federal Confidentiality of Alcohol and Drug Abuse Patient Records regulations: The Federal rules restrict any use of the information to criminally investigate or prosecute any alcohol or drug abuse patient.[facility] HospitalIn the event this information is protected by the Federal Confidentiality of Alcohol and Drug Abuse Patient Records regulations: The Federal rules restrict any use of the information to criminally investigate or prosecute any alcohol or drug abuse patient.[facility] HospitalIn the event this information is protected by the Federal Confidentiality of Alcohol and Drug Abuse Patient Records regulations: The Federal rules restrict any use of the information to criminally investigate or prosecute any alcohol or drug abuse patient.[facility] HospitalIn the event this information is protected by the Federal Confidentiality of Alcohol and Drug Abuse Patient Records regulations: The Federal rules restrict any use of the information to criminally investigate or prosecute any alcohol or drug abuse patient.[facility] HospitalIn the event this information is protected by the Federal Confidentiality of Alcohol and Drug Abuse Patient Records regulations: The Federal rules restrict any use of the information to criminally investigate or prosecute any alcohol or drug abuse patient.[facility] HospitalIn the event this information is protected by the Federal Confidentiality of Alcohol and Drug Abuse Patient Records regulations: The Federal rules restrict any use of the information to criminally investigate or prosecute any alcohol or drug abuse patient.[facility] HospitalIn the event this information is protected by the Federal Confidentiality of Alcohol and Drug Abuse Patient Records regulations: The Federal rules restrict any use of the information to criminally investigate or prosecute any alcohol or drug abuse patient.[facility] HospitalIn the event this information is protected by the Federal Confidentiality of Alcohol and Drug Abuse Patient Records regulations: The Federal rules restrict any use of the information to criminally investigate or prosecute any alcohol or drug abuse patient.[facility]In the event this information is protected by the Federal Confidentiality of Alcohol and Drug Abuse Patient Records regulations: The Federal rules restrict any use of the information to criminally investigate or prosecute any alcohol or drug abuse patient.[facility]In the event this information is protected by the Federal Confidentiality of Alcohol and Drug Abuse Patient Records regulations: The Federal rules restrict any use of the information to criminally investigate or prosecute any alcohol or drug abuse patient.[facility] Reason for Visit (unrecogniz ed section [...] Up Specialty Diagnoses / Procedures Referred By Contdiane t Referred To Contact [facility] [place] Diagnoses Pituitary tumor Procedures FOLLOW-UP E-ASSESSMENT Leo Shaw V, MD [address] [place] [address] [id number] [place] [address] Referral ID Status Reason Start Date Expiration Date Visits Requested Visits Authorized [id number] Closed Financial Clearance Required - OON Payor Patient cleared - OON Required Payment Collected OON Notification Letter 02/29/2024 07/26/2024 1 1 Reason Onset Date Comments Refill Request 06/12/2024 Reason Comments Prescription [facility] Reason Comments info request [...] [facility] Reason Comments Patient Update Testosterone gel Reason Comments Insurance Authorization Appeal letter fo r somatropin (OMNITROPE) 5 mg/1.5 mL (3.3 mg/mL) subcutaneous cartridge Reason Onset Date Comments Refill Request 02/22/2025 Reason Comments Hypogonadism Thyroid Problem Pituitary Problem Osteoporosis Care Teams (unrecognized sec tion and content) Ornamental Ironworker Relationship Specialty Start Date End Date Nhung Vega [address] [facility] [address] [place] [address] PCP - General 09/30/04 Ornamental Ironworker Relationship Specialty Start Date End Date Nhung Vega [address] [facility] [address] [place] [address] PCP - General 09/30/04 Ornamental Ironworker Relationship Specialty Start Date End Date Nhung Vega [address] [facility] [address] [place] [address] PCP - General 09/30/04 Ornamental Ironworker Relationship Specialty Start Date End Date Nhung Vega [address] [facility] [address] [place] [address] PCP - General 09/30/04 Ornamental Ironworker Relationship Specialty Start Date End Date Nhung Vega [address] [facility] [address] [place] [address] PCP - General 09/30/04 Ornamental Ironworker Relationship Specialty Start Date End Date Nhung Vega [address] [place] [address] PCP - General 09/30/04 Ornamental Ironworker Relationship Specialty Start Date End Date Nhung Vega [address] [place] [address] PCP - General 09/30/04 Ornamental Ironworker Relationship Specialty Start Date End Date Nhung Vega [address] [place] [address] PCP - General 09/30/04 Ornamental Ironworker Relationship Specialty Start Date End Date Gary Nhung Evangelina [address] [place] [address] PCP - General 09/30/04 Ornamental Ironworker Relationship Specialty Start Date End Date Nhung Vega [address] [place] [address] PCP - General 09/30/04 Ornamental Ironworker Relationship Specialty Start Date End Date Gary Nhung Evangelina [address] [facility] [address] [place] [address] PCP - General 09/30/04 Ornamental Ironworker Relationship Specialty Start Date End Date Gary Nhung Evangelina [address] [place] [address] PCP - General 09/30/04 Ornamental Ironworker Relationship Specialty Start Date End Date Nhung Vega [address] [place] [address] PCP - General 09/30/04 Ornamental Ironworker Relationship Specialty Start Date End Date Nhung Vega [address] [place] [address] PCP - General 09/30/04 Ornamental Ironworker Relationship Specialty Start Date End Date Nhung Vega [address] [place] [address] PCP - General 09/30/04 Ornamental Ironworker Relationship Specialty Start Date End Date Nhung Vega [address] [place] [address] PCP - General 09/30/04 Ornamental Ironworker Relationship Specialty Start Date End Date Nhung Vega [address] [place] [address] PCP - General 09/30/04 Ornamental Ironworker Relationship Specialty Start Date End Date Nhung Vega [address] [place] [address] PCP - General 09/30/04 Ornamental Ironworker Relationship Specialty Start Date End Date Nhung Vega [address] [place] [address] PCP - General 09/30/04 Team Status: Active Member Role Status Dates Dr. Nhung Vega MD Family Provider Active Rich BENDER MD Primary Care Provider Active Team Status: Inactive Member Role Status Dates Rich BENDER MD Primary Care Provider Active Leo Shaw MD Attending Provider Active Ornamental Ironworker Relationship Specialty Start Date End Date Nhung Vega [address] [place] [address] PCP - General 09/30/04 Ornamental Ironworker Relationship Specialty Start Date End Date Nhung Vega [address] [place] [address] PCP - General 09/30/04 Ornamental Ironworker Relationship Specialty Start Date End Date Nhung Vega [address] [place] [address] PCP - General 09/30/04 Ornamental Ironworker Relationship Specialty Start Date End Date Nhung Vega [address] [place] [address] PCP - General 09/30/04 Ornamental Ironworker Relationship Specialty Start Date End Date Nhung Vega [address] [place] [address] PCP - General 09/30/04 Ornamental Ironworker Relationship Specialty Start Date End Date Nhung Vega [address] [place] [address] PCP - General 09/30/04 Ornamental Ironworker Relationship Specialty Start Date End Date Rich Alexis MD [address] [place] [id number] PCP - General Internal Medicine 06/06/24 Ornamental Ironworker Relationship Specialty Start Date End Date Rich Alexis MD [address] [place] [phone] PCP - General Internal Medicine 06/06/24 Ornamental Ironworker Relationship Specialty Start Date End Date Rich Alexis MD [address] [place] [address] PCP - General Internal Medicine 06/06/24 Ornamental Ironworker Relationship Specialty Start Date End Date Rich Alexis MD [address] [place] [address] PCP - General Internal Medicine 06/06/24 Ornamental Ironworker Relationship Specialty Start Date End Date Rich Alexis MD [address] [place] [address] PCP - General Internal Medicine 06/06/24 Ornamental Ironworker Relationship Specialty Start Date End Date Rich Alexis MD [address] [place] [address] PCP - General Internal Medicine 06/06/24 Ornamental Ironworker Relationship Specialty Start Date End Date Rich Alexis MD [address] [place] [address] PCP - General Internal Medicine 06/06/24 Ornamental Ironworker Relationship Specialty Start Date End Date Rich Alexis MD [address] [place] [address] PCP - General Internal Medicine 06/06/24 Ornamental Ironworker Relationship Specialty Start Date End Date Rich Alexis MD [address] [place] [address] PCP - General Internal Medicine 06/06/24 Ornamental Ironworker Relationship Specialty Start Date End Date Rich Alexis MD [address] [facility] [address] [place] [address] PCP - General Internal Medicine 06/06/24 Team Status: Active Member Role Status Dates Dr. Rich Alexis MD Primary Care Provider Active Team Status: Inactive Member Role Status Dates Dr. Rich Alexis MD Primary Care Provider Active Start: January 06, 2025 End: January 06, 2025 Leo Shaw MD Attending Provider Active Start: January 06, 2025 End: January 06, 2025 Leo Shaw MD Referring Provider Active Start: January 06, 2025 End: January 06, 2025 Team Status: Active Member Role/Relationship Status Dates Dr. Rich Alexis MD Primary Care Provider Active Team Status: Inactive Member Role/Relationship Status Dates Dr. Rich Alexis MD Primary Care Provider Active Start: January 06, 2025 End: January 06, 2025 Leo Shaw MD Attending Provider Active Start: January 06, 2025 End: January 06, 2025 Leo Shaw MD Referring Provider Active Start: January 06, 2025 End: January 06, 2025 Team Status: Inactive Member Role/Relationship Status Dates Dr. Rich Alexis MD Primary Care Provider Active Start: January 31, 2025 End: January 31, 2025 [facility] Vergara Attending Provider Active St art: January 31, 2025 End: January 31, 2025 [facility] Vergara Referring Provider Active St art: January 31, 2025 End: January 31, 2025 Leo Shaw MD Other Provider Active Sta rt: January 31, 2025 End: January 31, 2025 Ornamental Ironworker Relationship Specialty Start Date End Date Rich Alexis MD [address] [facility] [address] [place] [address] PCP - General Internal Medicine 06/06/24 Ornamental Ironworker Relationship Specialty Start Date End Date Rich Alexis MD [address] [place] [address] PCP - General Internal Medicine 06/06/24 Ornamental Ironworker Relationship Specialty Start Date End Date Rich Alexis MD [address] [facility] [address] [place] [phone] PCP - General Internal Medicine 06/06/24 Goals (unrecognized section and content) Goals may be documented in a n alternate sectionGoals may be documented in an alternate sectionGoals may be documented in an alternate section FOR RECORDS PERTAINING TO PATIENTS [...] BE BASED ON THE PRIMARY CLINICAL RECORDS. [facility] [employer] [facility]. provides no warranty or guarantee of the accuracy or completeness of information in this document.
[2025-06-20 09:17] LABS: PSA,Total- Diagnostic 0.93 ng/mL (0.00-4.00)
[2025-06-22 07:08] LABS: PROLACTIN 28.5 ng/mL (3.6-25.2)
== END 2025-06-20 23:59 | disposition home or self-care (01) ==
LOC: LAB 07:26
PROVIDERS: PCP Internal Medicine; Referring Provider Internal Medicine; Visit Provider Internal Medicine
DX: E23.7 Disorder of pituitary gland, unspecified (principal); E29.1 Testicular hypofunction; R39.14 Feeling of incomplete bladder emptying
CPT/HCPCS: 36415; 84146; 84153; 84305; 84403

== ENCOUNTER → 2025-07-12 | Outpatient (CLI) | payer MEDICARE, OTHER, SELFPAY ==
--- OUTSIDE RECORDS SUMMARY | 2025-07-12 07:34 | XMS RPT_ITS | CCD ---
Author Organization [facility] ion Partnership [facility] Care Team Providers Care Timber Setter Name Role Phone SARITHA, DR DARIN Sky [...] [phone] Rich Alexis MD Primary Care Provider [phone] Dr. Rich Alexis MD Primary Care Provider [...] sources) Penicillins; Translations: [PENICILLINS] Drug Allergy 05-19-2013 [facility] Work Phone: (20 sources) Penicillins Drug Allergy 05-19-2013 [facility] Work Phone: (3 sources) Penicillins Allergy to substance 01-23-2023 [facility] (11 sources) Penicillins Drug Allergy 05-19-2013 [facility] Work Phone: (1 source) Penicillins Drug allergy (disorder) 01-06-2025 [facility] Medications Current Medications Medication Drug Class(es) [...] Results Test Name Value Interpretation Reference Range [facility] 03-10-2025 [facility]CO Letter Text Normal [facility] 03-07-2025 [facility]CO Letter Text Normal [facility] Absolute lymphocyte countOrd ered By: Junior Green on 01-31-2025 Lymphocytes Auto (Unsp spec) [#/Vol] 1.85 10*3/uL 0.83-4.51 [facility] Absolute neutrophil countOrd ered By: Junior Green on 01-31-2025 Neutrophils (Bld) [#/Vol] 3.1 10*3/uL 2.0-7.7 [facility] Anion gap in Serum or Plasma Ordered By: Junior Green on 01-31-2025 Anion gap [Moles/Vol] 10 mmol/L 5-15 [facility] Automated lymphocyte count a s percentage of total leukocytesOrdered By: Junior Green on 01-31-2025 Lymphocytes/100 WBC Auto (Unsp spec) 29.8 % 19-41 [facility] BUN/creatinine ratioOrdered By: Junior Green on 01-31-2025 Urea nitrogen/Creatinine [Mass ratio] 22.2 mg/mg High 10-20 [facility] Basophil percentageOrdered B y: Junior Green on 01-31-2025 Basophils/100 WBC (Bld) 0.8 % 0-1 [facility] Bilirubin, totalOrdered By: Junior Green on 01-31-2025 Bilirubin [Mass/Vol] 0.37 mg/dL 0.00-1.30 [facility] CBC W/Diff, Automatedon Absolute Lymph 1.85 X10 3/uL Normal 0.83-4.51 [facility] Comment on above: Performed By: #### L 500.4050, L100.0100, L506.1001, L500.4100 #### [facility] [address] [place], [address] Absolute Neut 3.1 X10 3/uL Normal 2.0-7.7 [facility] Comment on above: Performed By: #### L 500.4050, L100.0100, L506.1001, L500.4100 #### [facility] [address] [place], [address] Basophils/100 WBC (Bld) 0.8 % Normal 0-1 [facility] Comment on above: Performed By: #### L 500.4050, L100.0100, L506.1001, L500.4100 #### [facility] [address] [place], [address] Eosinophils/100 WBC (Bld) 8.2 % High 0-5 [facility] Comment on above: Performed By: #### L 500.4050, L100.0100, L506.1001, L500.4100 #### [facility] [address] [place], [address] Erythrocyte distribution width (RBC) [Ratio] 13.2 % Normal 11.6-14.6 [facility] Comment on above: Performed By: #### L 500.4050, L100.0100, L506.1001, L500.4100 #### [facility] [address] [place], [address] Hematocrit (Bld) [Volume fraction] 35.2 % Low 40-54 [facility] Comment on above: Performed By: #### L 500.4050, L100.0100, L506.1001, L500.4100 #### [facility] [address] [place], [address] Hemoglobin (Bld) [Mass/Vol] 12.4 g/dL Low 13.0-16.5 [facility] Comment on above: Performed By: #### L 500.4050, L100.0100, L506.1001, L500.4100 #### [facility] [address] [place], [address] IG% 0.200 Normal 0.0-0.9 [facility] Comment on above: Result Comment: IG% - Immature Granulocytes (promyelocytes, myelocytes and metamyelocytes) > 1% indicates that a LEFT SHIFT is Present. Performed By: #### L 500.4050, L100.0100, L506.1001, L500.4100 #### [facility] [address] [place], [address] Lymphocytes/100 WBC (Bld) 29.8 % Normal 19-41 [facility] Comment on above: Performed By: #### L 500.4050, L100.0100, L506.1001, L500.4100 #### [facility] [address] [place], [address] MCH (RBC) [Entitic mass] 32.5 pg High 27.0-32.0 [facility] Comment on above: Performed By: #### L 500.4050, L100.0100, L506.1001, L500.4100 #### [facility] [address] [place], [address] MCHC (RBC) [Mass/Vol] 35.2 g/dL Normal 32-36 [facility] Comment on above: Performed By: #### L 500.4050, L100.0100, L506.1001, L500.4100 #### [facility] [address] [place], [address] MCV (RBC) [Entitic vol] 92.1 fL Normal 80-94 [facility] Comment on above: Performed By: #### L 500.4050, L100.0100, L506.1001, L500.4100 #### [facility] [address] [place], [address] Monocytes/100 WBC (Bld) 11.5 % High 0-10 [facility] Comment on above: Performed By: #### L 500.4050, L100.0100, L506.1001, L500.4100 #### [facility] [address] [place], [address] Neutrophils/100 WBC (Bld) 49.5 % Normal 47-70 [facility] Comment on above: Performed By: #### L 500.4050, L100.0100, L506.1001, L500.4100 #### [facility] [address] [place], [address] Nucleated RBC (Bld) [#/Vol] 0 10*3/uL Normal 0-5 [facility] Comment on above: Performed By: #### L 500.4050, L100.0100, L506.1001, L500.4100 #### [facility] [address] [place], [address] Platelet mean volume (Bld) [Entitic vol] 8.8 fL Normal 6.2-12.0 [facility] Comment on above: Performed By: #### L 500.4050, L100.0100, L506.1001, L500.4100 #### [facility] [address] [place], [address] Platelets (Bld) [#/Vol] 207 10*3/uL Normal 150-450 [facility] Comment on above: Performed By: #### L 500.4050, L100.0100, L506.1001, L500.4100 #### [facility] [address] [place], [address] RBC (Bld) [#/Vol] 3.82 10*6/uL Low 4.6-6.[address] [facility] Comment on above: Performed By: #### L 500.4050, L100.0100, L506.1001, L500.4100 #### [facility] [address] [place], [address] RDW SD 44.4 fl High 35.1-43.9 [facility] Comment on above: Performed By: #### L 500.4050, L100.0100, L506.1001, L500.4100 #### [facility] [address] [place], [address] WBC (Bld) [#/Vol] 6.2 10*3/uL Normal 4.4-11.0 [facility] Comment on above: Performed By: #### L 500.4050, L100.0100, L506.1001, L500.4100 #### [facility] [address] [place], [address] Calculated very low density lipoprotein (VLDL) cholesterol measurementOrdered By: Junior Green on 01-31-2025 Calculated very low density lipoprotein (VLDL) cholesterol measurement 14 mg/dL 5-40 [facility] Carbon dioxide, total [Moles /volume] in Central venous bloodOrdered By: Junior Green on 01-31-2025 CO2 [Moles/Vol] 25.8 mmol/L 21.0-32.0 [facility] Chloride assayOrdered By: Gabrielle guerraovidio Peter on 01-31-2025 Chloride [Moles/Vol] 100 mmol/L 98-108 [facility] Comprehensive Metabolic Prof ilon 01-31-2025 Albumin [Mass/Vol] 4.0 g/dL Normal 3.4-4.8 [facility] Comment on above: Performed By: #### L 500.4050, L100.0100, L506.1001, L500.4100 #### [facility] [address] [place], [address] Albumin/Globulin [Mass ratio] 1.4 {ratio} Normal 0.9-2.4 [facility] Comment on above: Performed By: #### L 500.4050, L100.0100, L506.1001, L500.4100 #### [facility] [address] [place], [address] ALK PHOS 72 U/L Normal 40-129 [facility] Comment on above: Performed By: #### L 500.4050, L100.0100, L506.1001, L500.4100 #### [facility] [address] [place], [address] ALT [Catalytic activity/Vol] 21 U/L Normal <=46 [facility] Comment on above: Performed By: #### L 500.4050, L100.0100, L506.1001, L500.4100 #### [facility] [address] [place], [address] AST [Catalytic activity/Vol] 30 U/L Normal <=37 [facility] Comment on above: Performed By: #### L 500.4050, L100.0100, L506.1001, L500.4100 #### [facility] [address] [place], [address] Bilirubin [Mass/Vol] 0.37 mg/dL Normal 0.00-1.30 [facility] Comment on above: Performed By: #### L 500.4050, L100.0100, L506.1001, L500.4100 #### [facility] [address] [place], [address] BUN/CRE 22.2 RATIO High 10-20 [facility] Comment on above: Performed By: #### L 500.4050, L100.0100, L506.1001, L500.4100 #### [facility] [address] [place], [address] Calcium [Mass/Vol] 8.7 mg/dL Normal 7.6-11.0 [facility] Comment on above: Performed By: #### L 500.4050, L100.0100, L506.1001, L500.4100 #### [facility] [address] [place], [address] Chloride [Moles/Vol] 100 mmol/L Normal 98-108 [facility] Comment on above: Performed By: #### L 500.4050, L100.0100, L506.1001, L500.4100 #### [facility] [address] [place], [address] CO2 [Moles/Vol] 25.8 mmol/L Normal 21.0-32.0 [facility] Comment on above: Performed By: #### L 500.4050, L100.0100, L506.1001, L500.4100 #### [facility] [address] [place], [address] Creatinine [Mass/Vol] 0.93 mg/dL Normal 0.70-1.20 [facility] Comment on above: Performed By: #### L 500.4050, L100.0100, L506.1001, L500.4100 #### [facility] [address] [place], [address] GAP 10 Normal 5-15 [facility] Comment on above: Performed By: #### L 500.4050, L100.0100, L506.1001, L500.4100 #### [facility] [address] [place], [address] GFR/1.73 sq M.predicted among non-blacks MDRD (S/P/Bld) [Vol rate/Area] 91 mL/min/{1.73_m2} Normal >60 [facility] Comment on above: Result Comment: mL/m in/1.73m2 CKD-EPI Creatinine Equation (2020) Performed By: #### L 500.4050, L100.0100, L506.1001, L500.4100 #### [facility] [address] [place], [address] Globulin (S) [Mass/Vol] 2.8 g/dL Normal 2.2-4.2 [facility] Comment on above: Performed By: #### L 500.4050, L100.0100, L506.1001, L500.4100 #### [facility] [address] [place], [address] Glucose [Mass/Vol] 86 mg/dL Normal 70-99 [facility] Comment on above: Performed By: #### L 500.4050, L100.0100, L506.1001, L500.4100 #### [facility] [address] [place], [address] Potassium [Moles/Vol] 4.0 mmol/L Normal 3.3-5.1 [facility] Comment on above: Performed By: #### L 500.4050, L100.0100, L506.1001, L500.4100 #### [facility] [address] [place], [address] Sodium [Moles/Vol] 135 mmol/L Normal 133-145 [facility] Comment on above: Performed By: #### L 500.4050, L100.0100, L506.1001, L500.4100 #### [facility] [address] [place], [address] T PROT 6.8 g/dL Normal 5.9-8.4 [facility] Comment on above: Performed By: #### L 500.4050, L100.0100, L506.1001, L500.4100 #### [facility] [address] [place], [address] Urea nitrogen [Mass/Vol] 21 mg/dL High 4-19 [facility] Comment on above: Performed By: #### L 500.4050, L100.0100, L506.1001, L500.4100 #### [facility] [address] [place], [address] Eosinophil percentageOrdered By: Junior Green on 01-31-2025 Eosinophils/100 WBC (Bld) 8.2 % High 0-5 [facility] Erythrocyte distribution wid th ratioOrdered By: Junior Green on 01-31-2025 Erythrocyte distribution width (RBC) [Ratio] 13.2 % 11.6-14.6 [facility] Erythrocyte distribution wid th standard deviationOrdered By: Junior Green on 01-31-2025 Erythrocyte distribution width (RBC) [Ratio] 44.4 fl High 35.1-43.9 [facility] Glomerular filtration rate ( GFR) estimation/1.73 sq m using serum, plasma, or whole bOrdered By: Junior Green on 01-31-2025 GFR/1.73 sq M.predicted among non-blacks MDRD (S/P/Bld) [Vol rate/Area] 91 mL/min/{1.73_m2} >60 [facility] Comment on above: mL/min/1.73m2 CKD-EP I Creatinine Equation (2020) Hematocrit Auto (Bld) [Volum e fraction]Ordered By: Junior Green on 01-31-2025 Hematocrit (Bld) [Volume fraction] 35.2 % Low 40-54 [facility] Hemoglobin measurementOrdere d By: Junior Green on 01-31-2025 Hemoglobin (Bld) [Mass/Vol] 12.4 g/dL Low 13.0-16.5 [facility] Immature granulocytes/100 WB C Auto (Bld)Ordered By: Junior Green on 01-31-2025 Immature granulocytes/100 WBC (Bld) 0.200 % 0.0-0.9 [facility] Comment on above: IG% - Immature Granu locytes (promyelocytes, myelocytes and metamyelocytes) > 1% indicates that a LEFT SHIFT is Present. LDL calc ser/plasOrdered By: Junior Green on 01-31-2025 Cholesterol in LDL [Mass/Vol] 74 mg/dL [facility] Comment on above: Smaxqjivci=395-175 m g/dL & Higher Xbnh=899 mg/dL or greater Laboratory - Chemistry and C hemistry - challengeOrdered By: Junior Green on 01-31-2025 AST [Catalytic activity/Vol] 30 U/L <38 [facility] Lipid Profileon 01-31-2025 CHOL:HDL 2.81 Normal [facility] Comment on above: Performed By: #### L 500.4050, L100.0100, L506.1001, L500.4100 #### [facility] [address] [place], [place], [address] Cholesterol [Mass/Vol] 137 mg/dL Normal <=200 [facility] Comment on above: Result Comment: Chol esterol level, Desirable <200 mg/dL Borderline high cholesterol 200-239 mg/dL High cholesterol >=240 mg/dL Recommendations of the NCEP Adult Treatment Panel for the following risk-cutoff thresholds for the [place] Prydeinig population. Performed By: #### L 500.4050, L100.0100, L506.1001, L500.4100 #### [facility] [address] [place], [address] Cholesterol in HDL [Mass/Vol] 49 mg/dL Normal [facility] Comment on above: Result Comment: Jessica onal Cholesterol Education Program (NCEP) guidelines: <40 mg/dL: Low HDL-cholesterol (major risk factor for CHD) >= 60 mg/dL: High HDL-cholesterol (negative risk factor for CHD) HDL-cholesterol is affected by a number of factors, e.g. smoking, exercise, hormones, sex and age. Performed By: #### L 500.4050, L100.0100, L506.1001, L500.4100 #### [facility] [address] [place], [address] Cholesterol in LDL [Mass/Vol] 74 mg/dL Normal [facility] Comment on above: Result Comment: Bord eucubz=070-481 mg/dL Higher Iglp=872 mg/dL or greater Performed By: #### L 500.4050, L100.0100, L506.1001, L500.4100 #### [facility] [address] [place], [address] Cholesterol in VLDL [Mass/Vol] 14 mg/dL Normal 5-40 [facility] Comment on above: Performed By: #### L 500.4050, L100.0100, L506.1001, L500.4100 #### [facility] [address] [place], [address] Triglyceride [Mass/Vol] 69 mg/dL Normal [facility] Comment on above: Result Comment: The drugs N-Acetylcysteine and Metamizole may falsely depress this assay. Normal range: <150 mg/dL Borderline High: 150-199 mg/dL High: 200-499 mg/dL Very High: >500 mg/dL Performed By: #### L 500.4050, L100.0100, L506.1001, L500.4100 #### [facility] [address] [place], [address] MCV (mean corpuscular volume ) determinationOrdered By: Junior Green on 01-31-2025 MCV (RBC) [Entitic vol] 92.1 fL 80-94 [facility] Mean corpuscular hemoglobin (MCH) determinationOrdered By: Junior Green on 01-31-2025 MCH (RBC) [Entitic mass] 32.5 pg High 27.0-32.0 [facility] Mean corpuscular hemoglobin concentration (MCHC) determinationOrdered By: Junior Green on 01-31-2025 MCHC (RBC) [Mass/Vol] 35.2 g/dL 32-36 [facility] Mean platelet volume determi nationOrdered By: Junior Green on 01-31-2025 Platelet mean volume (Bld) [Entitic vol] 8.8 fL 6.2-12.0 [facility] Monocyte percentageOrdered B y: Junior Green on 01-31-2025 Monocytes/100 WBC (Bld) 11.5 % High 0-10 [facility] Neutrophil percentageOrdered By: Junior Green on 01-31-2025 Neutrophils/100 WBC (Bld) 49.5 % 47-70 [facility] Nucleated red blood cell per centageOrdered By: Junior Green on 01-31-2025 Nucleated RBC/100 WBC (Bld) [Ratio] 0 % 0-5 [facility] Platelet countOrdered By: Gabrielle Green on 01-31-2025 Platelets (Bld) [#/Vol] 207 10*3/uL 150-450 [facility] Potassium measurement (mass/ volume)Ordered By: Junior Green on 01-31-2025 Potassium (Unsp spec) [Mass/Vol] 4.0 mmol/L 3.3-5.1 [facility] RBC Auto (Bld) [#/Vol]Ordere d By: Junior Green on 01-31-2025 RBC (Bld) [#/Vol] 3.82 10*6/uL Low 4.6-6.[address] [facility] Screening total cholesterol/ high density lipoprotein (HDL) cholesterol ratioOrdered By: Junior Green on 01-31-2025 Cholesterol.total/Choles terol in HDL [Mass ratio] 2.81 {ratio} [facility] Serum creatinine measurement (mass/volume)Ordered By: Junior Green on 01-31-2025 Creatinine [Mass/Vol] 0.93 mg/dL 0.70-1.20 [facility] Serum globulin measurementOr dered By: Junior Green on 01-31-2025 Globulin (S) [Mass/Vol] 2.8 g/dL 2.2-4.2 [facility] Serum glucose measurement (m ass/volume)Ordered By: Junior Green on 01-31-2025 Glucose [Mass/Vol] 86 mg/dL 70-99 [facility] Serum or plasma alanine scott otransferase (ALT) measurementOrdered By: Junior Green on 01-31-2025 ALT [Catalytic activity/Vol] 21 U/L <47 [facility] Serum or plasma albumin jenna urement (mass/volume)Ordered By: Junior Green on 01-31-2025 Albumin [Mass/Vol] 4.0 g/dL 3.4-4.8 [facility] Serum or plasma albumin/glob ulin mass ratioOrdered By: Junior Green on 01-31-2025 Albumin/Globulin [Mass ratio] 1.4 {ratio} 0.9-2.4 [facility] Serum or plasma alkaline paola sphatase measurementOrdered By: Junior Green on 01-31-2025 ALP [Catalytic activity/Vol] 72 U/L 40-129 [facility] Serum or plasma calcium jenna urement (mass/volume)Ordered By: Junior Green on 01-31-2025 Calcium [Mass/Vol] 8.7 mg/dL 7.6-11.0 [facility] Serum or plasma cholesterol in HDL measurement (mass/volume)Ordered By: Junior Green on 01-31-2025 Cholesterol in HDL [Mass/Vol] 49 mg/dL >40 [facility] Comment on above: National Cholesterol Education Program (NCEP) guidelines:<40 mg/dL: Low HDL-cholesterol (major risk factor for CHD)>= 60 mg/dL: High HDL-cholesterol (negative risk factor for CHD)HDL-cholesterol is affected by a number of factors, e.g. smoking, exercise, hormones, sex and age. Serum or plasma cholesterol measurement (mass/volume)Ordered By: Junior Green on 01-31-2025 Cholesterol [Mass/Vol] 137 mg/dL <201 [facility] Comment on above: Cholesterol level, D esirable <200 mg/dLBorderline high cholesterol 200-239 mg/dLHigh cholesterol >=240 mg/dLRecommendations of the NCEP Adult Treatment Panel for the following risk-cutoff thresholds for the [place] Prydeinig population. Serum or plasma urea nitroge n measurement (mass/volume)Ordered By: Junior Green on 01-31-2025 Urea nitrogen [Mass/Vol] 21 mg/dL High 4-19 [facility] Sodium levelOrdered By: Sai Green on 01-31-2025 Sodium [Moles/Vol] 135 mmol/L 133-145 [facility] Total proteinOrdered By: Anthony Green on 01-31-2025 Protein [Mass/Vol] 6.8 g/dL 5.9-8.4 [facility] Triglycerides measurementOrd ered By: Junior Green on 01-31-2025 Triglyceride [Mass/Vol] 69 mg/dL <199 [facility] Comment on above: The drugs N-Acetylcy steine and Metamizole may falsely depress this assay. Normal range: <150 mg/dLBorderline High: 150-199 mg/dLHigh: 200-499 mg/dLVery High: >500 mg/dL Vitamin D,25 Hydroxyon 01-31 Vitamin D 25-OH 52.9 ng/mL Normal 30-100 [facility] Comment on above: Result Comment: Alena min D Status Deficiency: <20 ng/mL (50nmol/L) Insufficiency: 20-30 ng/mL (50-75 nmol/L) Sufficiency: 30-100 ng/mL (75-250 nmol/L) Toxicity: >100 ng/mL (>250 nmol/L) Performed By: #### L 500.4050, L100.0100, L506.1001, L500.4100 #### [facility] [address] [place], [address] White blood cell (WBC) count Ordered By: Junior Green on 01-31-2025 WBC (Bld) [#/Vol] 6.2 10*3/uL 4.4-11.0 [facility] 01-23-2025 CNP Telephone (EMQ) MOE WIGGINS ([id number]) 1960 M Date Time Provider Department 01/23/25 LEO SHAW V EMQ During your visit today, we recorded the following information about you: Joe Whitlock 01/23/2025 1:55 PM Signed January 23, 2025 1:53 PM Appeal letter for somatropin (OMNITROPE) 5 mg/1.5 mL (3.3 mg/mL) subcutaneous cartridge Faxed to [employer] Pending determination Joe Prior [employer] Endocrinology and Metabolism [place] Moe Chapa MA 01/24/2025 3:55 PM Signed Received fax from [employer] stating Omnitrope is approved from 10/06/2024 until [...] Status:Closed by JOE WHITLOCK on 01/23/25 Normal [facility] CNCOon 01-18-2025 CNCO Letter Text Normal [facility] 12-08-2024 CNPN Telephone (ENDOAV) MOE WIGGINS ([id number]) 1960 M Date Time Provider Department 12/08/24 LEO SHAW V ENDOAV During your visit today, we recorded the following information about you: Christel Crook LPN 12/08/2024 11:29 AM Signed Approval fax from [employer] for Testosterone received. Approval is for 12/05/24 [...] Encounter Status:Closed by CHRISTEL CROOK on 12/08/24 [facility] 12-07-2024 [facility] Telephone (ENDOAV) WIGGINSMOE ([id number]) 1960 M Date Time Provider Department 12/07/24 LEO SHAW V ENDOAV During your visit today, we recorded the following information about you: Christel Crook LPN 12/07/2024 10:58 AM Addendum Fax received from [facility] requesting more information regarding Testosterone RX. Form completed and faxed. Electronically signed ANGELA notes attached. Allergies As of Date: 12/07/2024 Noted Allergy Reaction PENICILLINS 05/19/2013 4 - Hives Date Reviewed: 06/06/2024 Reviewed by: Bonnie Warner, RN - Fully Assessed Reason for Visit: Patient Update [1234] Cmt: [facility] Prescriptions as of 12/07/2024 - levothyroxine (SYNTHROID) [...] Encounter Status:Closed by CHRISTEL CROOK on 12/07/24 [facility] MOE WIGGINS ([id number]) 1960 M Date Time Provider Department 11/07/24 LEO SHAW V [facility] During your visit today, we recorded the following information about you: Baltazar Hidalgo 11/07/2024 2:26 PM Signed Initiated PA for testosterone (ANDROGEL PUMP) 20.25 mg/1.25 gram (1.62 %) [email or web address] [employer] Chart notes and labs attached Questions Completed Waiting for determination SEAN GORDON [employer] Supervisor II Endocrinology AND Metabolism [place] [facility] X-20 Allergies As of Date: 11/07/2024 Noted Allergy Reaction PENICILLINS 05/19/2013 4 - Hives Date Reviewed: 06/06/2024 Reviewed by: Bonnie Warner, RN - Fully Assessed Reason for Visit: Insurance Authorization [[id number]] Cmt: testosterone (ANDROGEL PUMP) 20.25 mg/1.25 gram [...] Encounter Status:Closed by BALTAZAR HIDALGO on 11/07/24 [facility] 10-17-2024 [facility] Telephone ([facility]) MOE WIGGINS ([id number]) 1960 M Date Time Provider Department 10/17/24 LEO SHAW During your visit today, we recorded the following information about you: Baltazar Hidalgo 10/17/2024 10:52 AM Signed Initiated PA for OMNITROPE 5 mg/1.5 mL (3.3 mg/mL) through [facility] via [employer] Questions Completed Waiting for determination SEAN GORDON [employer] Worker Supervisor II Endocrinology AND Metabolism [place] [facility] X-20 Baltazar Hidalgo 10/17/2024 10:52 AM Signed Unable to process due to previous attempt being denied. SEAN GORDON Aquacultural Worker Supervisor II Endocrinology AND Metabolism [facility] X-20 Allergies As of Date: 10/17/2024 Noted Allergy Reaction PENICILLINS 05/19/2013 4 - Hives Date Reviewed: 06/06/2024 Reviewed by: Bonnie Warner, RN - Fully Assessed Reason for Visit: Insurance Authorization [[id number]] Cmt: Unable to Process - OMNITROPE 5 mg/1.5 mL (3.3 mg/mL) [[facility]] Prescriptions as of 10/17/2024 - testosterone [...] Encounter Status:Closed by BALTAZAR HIDALGO on 10/17/24 [facility] 07-01-2024 CNPN Telephone (ENDOAV) MOE WIGGINS ([id number]) 1960 M Date Time Provider Department 07/01/24 [...] do a prior auth PCP's office / [facility]) in [place] Office PHONE # [phone] FAX # [phone] Christel Crook LPN 07/01/2024 1:14 PM Signed [...] Status:Closed by CHRISTEL CROOK on 07/01/24 [facility] WIGG[facility] Burris ([id number]) 1960 M Date Time Provider Department 07/01/24 LEO SHAW During your visit today, we recorded the following information about you: Christel Crook LPN 07/01/2024 10:38 AM Signed Prescription for Prolia faxed to [facility]. Allergies As of Date: 07/01/2024 Noted Allergy Reaction PENICILLINS 05/19/2013 4 - Hives Date Reviewed: 06/06/2024 Reviewed by: Bonnie Warner, RN - Fully Assessed Reason for Visit: Prescription [Other] Cmt: [facility] Prescriptions as of 07/01/2024 - rosuvastatin (CRESTOR) [...] Status:Closed by CHRISTEL CROOK on 07/01/24 Normal [facility] Internal Medicine Office Vis iton 06-29-2024 Internal Medicine Office Visit [facility] [address] [place] [address] [place] [address] OFFICE VISIT Date of Service: 06/29/24 MR#: [id number] Acct: [id number] Name: MOE WIGGINS Rep #: [id number] : 1960 Provider: DHRUV Chavira Age/Sex: 63/M Location[place] [facility] Status: Signed Intake Vital Signs 01/23/23 14:08 [...] ON LABS (IRON) Chief Complaint: labs issues Traveling Nurse Required: No Accompanied by: Self Is patient [...] denosumab 60 mg/mL subcutaneous 60 mg subcut [id number] #1 mL 06/29/24 06/29/24 Rx syringe (Prolia) [...] today with some questions. Patient sees an log chipper at the [facility] for a pituitary gland tumor. He sees [...] abnormal gai (more content not included)... Normal [facility] CNCOon 06-06-2024 CNCO Letter Text Normal [facility] CNOVon 06-06-2024 CNOV Office Visit (ENDOAV) MOE WIGGINS ([id number]) 1960 M Date Time Provider Department 06/06/24 [...] - Con (more content not included)... [facility] LAB TEST Normal [facility] Comment on above: Order Comment: SERUM [id number] IGF-1 Result Comment: TEST RESULTS LIMITS Insulin-Like Growth Factor I 96 ng/mL 64-240 TESTING PERFORMED AT [facility]. ORIGINAL REPORT ON FILE IN LAB CONTAINS ADDITIONAL TEST SITE INFORMATION. Performed By: #### L 500.4050, L100.0100, L506.1001, L500.4100 #### [facility] [address] [place], [address] [facility] 05-25-2024 [facility] Telephone (ENDOAV) MOE WIGGINS ([id number]) 1960 M Date Time Provider Department 05/25/24 LEO SHAW V ENDOISRAEL During your visit today, we recorded the following information about you: Moe Chapa MA 05/25/2024 6:39 PM Signed Received lab result from [facility]. Result placed in Dr. Shaw's inbox for [...] Status:Closed by MOE CHAPA on 05/25/24 [facility]-25-2024 PROLACTIN 0.8 ng/mL Low 3.6-25.2 [facility] Comment on above: Result Comment: Perf ormed at: [address] [id number] Tobacco Classer: See Meza PhD, Phone: [phone] Performed By: #### L 500.4050, L100.0100, L506.1001, L500.4100 #### [facility] [address] [place], [address] CBC W/Diff, Automatedon 04-27 Absolute Lymph 1.78 X10 3/uL Normal 0.83-4.51 [facility] Comment on above: Performed By: #### L 501.14716, L501.9520, L509.3000, L500.4050, L506.1000, L100.0100, L506.0400, L3100.5400, L801.1541, L501.9940, L501.9985 #### [facility] [address] [place], [address] Absolute Neut 2.2 X10 3/uL Normal 2.0-7.7 [facility] Comment on above: Performed By: #### L 501.42486, L501.9520, L509.3000, L500.4050, L506.1000, L100.0100, L506.0400, L3100.5400, L801.1541, L501.9940, L501.9985 #### [facility] [address] [place], [place], [phone] Basophils/100 WBC (Bld) 0.6 % Normal 0-1 [facility] Comment on above: Performed By: #### L 501.51950, L501.9520, L509.3000, L500.4050, L506.1000, L100.0100, L506.0400, L3100.5400, L801.1541, L501.9940, L501.9985 #### [facility] [address] [place], [address] Eosinophils/100 WBC (Bld) 10.6 % High 0-5 [facility] Comment on above: Performed By: #### L 501.95684, L501.9520, L509.3000, L500.4050, L506.1000, L100.0100, L506.0400, L3100.5400, L801.1541, L501.9940, L501.9985 #### [facility] [address] [facility] [place], [address] (164) Erythrocyte distribution width (RBC) [Ratio] 13.0 % Normal 11.6-14.6 [facility] Comment on above: Performed By: #### L 501.85426, L501.9520, L509.3000, L500.4050, L506.1000, L100.0100, L506.0400, L3100.5400, L801.1541, L501.9940, L501.9985 #### [facility] [address] [facility] [place], [place], [phone] Hematocrit (Bld) [Volume fraction] 36.1 % Low 40-54 [facility] Comment on above: Performed By: #### L 501.57868, L501.9520, L509.3000, L500.4050, L506.1000, L100.0100, L506.0400, L3100.5400, L801.1541, L501.9940, L501.9985 #### [facility] [address] [place], [place], [phone] ([phone]) Hemoglobin (Bld) [Mass/Vol] 12.2 g/dL Low 13.0-16.5 [facility] Comment on above: Performed By: #### L 501.74279, L501.9520, L509.3000, L500.4050, L506.1000, L100.0100, L506.0400, L3100.5400, L801.1541, L501.9940, L501.9985 #### [facility] [address] [place], [address] IG% 0.200 Normal 0.0-0.9 [facility] Comment on above: Result Comment: IG% - Immature Granulocytes (promyelocytes, myelocytes and metamyelocytes) > 1% indicates that a LEFT SHIFT is Present. Performed By: #### L 501.18561, L501.9520, L509.3000, L500.4050, L506.1000, L100.0100, L506.0400, L3100.5400, L801.1541, L501.9940, L501.9985 #### [facility] [address] [facility] [place], [address] Lymphocytes/100 WBC (Bld) 34.2 % Normal 19-41 [facility] Comment on above: Performed By: #### L 501.53314, L501.9520, L509.3000, L500.4050, L506.1000, L100.0100, L506.0400, L3100.5400, L801.1541, L501.9940, L501.9985 #### [facility] [address] [facility] [place], [address] MCH (RBC) [Entitic mass] 31.6 pg Normal 27.0-32.0 [facility] Comment on above: Performed By: #### L 501.58453, L501.9520, L509.3000, L500.4050, L506.1000, L100.0100, L506.0400, L3100.5400, L801.1541, L501.9940, L501.9985 #### [facility] [address] [facility] [place], [address] MCHC (RBC) [Mass/Vol] 33.8 g/dL Normal 32-36 [facility] Comment on above: Performed By: #### L 501.83493, L501.9520, L509.3000, L500.4050, L506.1000, L100.0100, L506.0400, L3100.5400, L801.1541, L501.9940, L501.9985 #### [facility] [address] [place], [address] MCV (RBC) [Entitic vol] 93.5 fL Normal 80-94 [facility] Comment on above: Performed By: #### L 501.21601, L501.9520, L509.3000, L500.4050, L506.1000, L100.0100, L506.0400, L3100.5400, L801.1541, L501.9940, L501.9985 #### [facility] [address] [place], [address] Monocytes/100 WBC (Bld) 11.3 % High 0-10 [facility] Comment on above: Performed By: #### L 501.75999, L501.9520, L509.3000, L500.4050, L506.1000, L100.0100, L506.0400, L3100.5400, L801.1541, L501.9940, L501.9985 #### [facility] [address] [place], [address] Neutrophils/100 WBC (Bld) 43.1 % Low 47-70 [facility] Comment on above: Performed By: #### L 501.77849, L501.9520, L509.3000, L500.4050, L506.1000, L100.0100, L506.0400, L3100.5400, L801.1541, L501.9940, L501.9985 #### [facility] [address] [place], [address] Nucleated RBC (Bld) [#/Vol] 0 10*3/uL Normal 0-5 [facility] Comment on above: Performed By: #### L 501.95553, L501.9520, L509.3000, L500.4050, L506.1000, L100.0100, L506.0400, L3100.5400, L801.1541, L501.9940, L501.9985 #### [facility] [address] [place], [address] Platelet mean volume (Bld) [Entitic vol] 9.4 fL Normal 6.2-12.0 [facility] Comment on above: Performed By: #### L 501.48795, L501.9520, L509.3000, L500.4050, L506.1000, L100.0100, L506.0400, L3100.5400, L801.1541, L501.9940, L501.9985 #### [facility] [address] [place], [address] Platelets (Bld) [#/Vol] 256 10*3/uL Normal 150-450 [facility] Comment on above: Performed By: #### L 501.94132, L501.9520, L509.3000, L500.4050, L506.1000, L100.0100, L506.0400, L3100.5400, L801.1541, L501.9940, L501.9985 #### [facility] [address] [place], [address] RBC (Bld) [#/Vol] 3.86 10*6/uL Low 4.6-6.[address] [facility] Comment on above: Performed By: #### L 501.93757, L501.9520, L509.3000, L500.4050, L506.1000, L100.0100, L506.0400, L3100.5400, L801.1541, L501.9940, L501.9985 #### [facility] [address] [place], [address] RDW SD 44.7 fl High 35.1-43.9 [facility] Comment on above: Performed By: #### L 501.90194, L501.9520, L509.3000, L500.4050, L506.1000, L100.0100, L506.0400, L3100.5400, L801.1541, L501.9940, L501.9985 #### [facility] [address] [place], [address] WBC (Bld) [#/Vol] 5.2 10*3/uL Normal 4.4-11.0 [facility] Comment on above: Performed By: #### L 501.27014, L501.9520, L509.3000, L500.4050, L506.1000, L100.0100, L506.0400, L3100.5400, L801.1541, L501.9940, L501.9985 #### [facility] [address] [place], [address] Comprehensive Metabolic Prof ilon 05-24-2024 Albumin [Mass/Vol] 3.6 g/dL Normal 3.2-5.0 [facility] Comment on above: Performed By: #### L 500.4050, L100.0100, L506.1001, L500.4100 #### [facility] [address] [place], [address] Albumin/Globulin [Mass ratio] 1.1 {ratio} Normal 0.9-2.4 [facility] Comment on above: Performed By: #### L 500.4050, L100.0100, L506.1001, L500.4100 #### [facility] [address] [place], [address] ALK P 58 U/L Normal 45-117 [facility] Comment on above: Performed By: #### L 500.4050, L100.0100, L506.1001, L500.4100 #### [facility] [address] [place], [address] ALT [Catalytic activity/Vol] 24 U/L Normal 16-61 [facility] Comment on above: Performed By: #### L 500.4050, L100.0100, L506.1001, L500.4100 #### [facility] [address] [place], [address] AST [Catalytic activity/Vol] 22 U/L Normal 15-37 [facility] Comment on above: Performed By: #### L 500.4050, L100.0100, L506.1001, L500.4100 #### [facility] [address] [place], [address] Bilirubin [Mass/Vol] 0.40 mg/dL Normal 0.20-1.00 [facility] Comment on above: Result Comment: For patients on eltrombopag therapy, use of Dimension [place] TBIL is not recommended. Performed By: #### L 500.4050, L100.0100, L506.1001, L500.4100 #### [facility] [address] [place], [address] BUN/CRE 31.1 RATIO High 10-20 [facility] Comment on above: Performed By: #### L 500.4050, L100.0100, L506.1001, L500.4100 #### [facility] [address] [place], [address] CA,Total 8.7 mg/dL Normal 8.5-10.1 [facility] Comment on above: Performed By: #### L 500.4050, L100.0100, L506.1001, L500.4100 #### [facility] [address] [place], [address] Chloride [Moles/Vol] 105 mmol/L Normal 98-107 [facility] Comment on above: Performed By: #### L 500.4050, L100.0100, L506.1001, L500.4100 #### [facility] [address] [place], [address] CO2 [Moles/Vol] 26.0 mmol/L Normal 21.0-32.0 [facility] Comment on above: Performed By: #### L 500.4050, L100.0100, L506.1001, L500.4100 #### [facility] [address] [place], [address] Creatinine [Mass/Vol] 0.90 mg/dL Normal 0.70-1.30 [facility] Comment on above: Result Comment: The validity of the calculated GFR GFRAA in patients over 70 years has not been determined. Clinical correlation is essential. Performed By: #### L 500.4050, L100.0100, L506.1001, L500.4100 #### [facility] [address] [place], [address] EST GFR - AA 109 mL/min Normal >60 [facility] Comment on above: Result Comment: Afri can Prydeinig GFR Calc Performed By: #### L 500.4050, L100.0100, L506.1001, L500.4100 #### [facility] [address] [place], [address] GAP 7 Normal 5-15 [facility] Comment on above: Performed By: #### L 500.4050, L100.0100, L506.1001, L500.4100 #### [facility] [address] [place], [address] GFR/1.73 sq M.predicted among non-blacks MDRD (S/P/Bld) [Vol rate/Area] 90 mL/min/{1.73_m2} Normal >60 [facility] Comment on above: Result Comment: Non- GFR Calc Performed By: #### L 500.4050, L100.0100, L506.1001, L500.4100 #### [facility] [address] [place], [address] Globulin (S) [Mass/Vol] 3.3 g/dL Normal 2.2-4.2 [facility] Comment on above: Performed By: #### L 500.4050, L100.0100, L506.1001, L500.4100 #### [facility] [address] [place], [address] Glucose [Mass/Vol] 89 mg/dL Normal 74-106 [facility] Comment on above: Performed By: #### L 500.4050, L100.0100, L506.1001, L500.4100 #### [facility] [address] [place], [address] Potassium [Moles/Vol] 3.8 mmol/L Normal 3.5-5.1 [facility] Comment on above: Performed By: #### L 500.4050, L100.0100, L506.1001, L500.4100 #### [facility] [address] [place], [address] Sodium [Moles/Vol] 138 mmol/L Normal 136-145 [facility] Comment on above: Performed By: #### L 500.4050, L100.0100, L506.1001, L500.4100 #### [facility] [address] [place], [address] T PROT 6.9 g/dL Normal 6.4-8.2 [facility] Comment on above: Performed By: #### L 500.4050, L100.0100, L506.1001, L500.4100 #### [facility] [address] [place], [address] Urea nitrogen [Mass/Vol] 28 mg/dL High 02-10 [facility] Comment on above: Performed By: #### L 500.4050, L100.0100, L506.1001, L500.4100 #### [facility] [address] [place], [address] Free T3on 05-24-2024 Free T3 [Mass/Vol] 2.7 pg/mL Normal 2.18-3.98 [facility] Comment on above: Performed By: #### L 500.4050, L100.0100, L506.1001, L500.4100 #### [facility] [address] [place], [address] Hemoglobin A1con 05-24-2024 HbA1c (Bld) [Mass fraction] 5.6 % Normal 3.8-5.6 [facility] Comment on above: Result Comment: Norm al < 5.7 % Prediabetic 5.7 - 6.4 % Diabetic >or= 6.5 % Please note range changes. Performed By: #### L 500.4050, L100.0100, L506.1001, L500.4100 #### [facility] [address] [place], [address] PSA,Total- Diagnosticon 04-27 PSA, DIAGNOSTIC 1.19 ng/mL Normal 0.0-4.0 [facility] Comment on above: Result Comment: This test was performed using the TPSA assay method for the [employer] chemistry system. Values obtained with different assay methods cannot be used interchangably. When changing PSA assays in the course of monitoring a patient, additional sequential testing should be carried out to confirm baseline values. Performed By: #### L 500.4050, L100.0100, L506.1001, L500.4100 #### [facility] [address] [place], [address] T4 Free Directon 05-24-2024 T4 FREE DIRECT 0.91 ng/dL Normal 0.76-1.46 [facility] Comment on above: Performed By: #### L 500.4050, L100.0100, L506.1001, L500.4100 #### [facility] [address] [place], [address] Testosterone, Serum Totalon 05-24-2024 Testosterone [Mass/Vol] 848.42 ng/dL Normal [facility] Comment on above: Result Comment: CENT RAL 90% REFERENCE RANGES MALE AGE <50 197.44 - 669.58 ng/dL MALE AGE > or = 50 187.72 - 684.19 ng/dL FEMALE AGE <50 8.38 - 35.01 ng/dL FEMALE AGE > or = 50 <7.00 - 35.92 ng/dL Effective as of 02/19/21 Performed By: #### L 500.4050, L100.0100, L506.1001, L500.4100 #### [facility] [address] [place], [address] Thyroid Stim Hormone (TSH)on 05-24-2024 TSH 0.435 uIU/mL Normal 0.358-3.740 [facility] Comment on above: Performed By: #### L 500.4050, L100.0100, L506.1001, L500.4100 #### [facility] [address] [place], [address] Vitamin D,25 Hydroxyon 05-24 Vitamin D 25-OH 50.5 ng/mL Normal [facility] Comment on above: Result Comment: Alena min D 25(OH) Status Range Deficiency <20 ng/mL (50nmol/L) Insufficiency 20 - 30 ng/mL (50 - 75 nmol/L) Sufficiency 30 - 100 ng/mL (75 - 250 nmol/L) Toxicity >100 ng/mL (>250 nmol/L) Performed By: #### L 501.49246, L501.9520, L509.3000, L500.4050, L506.1000, L100.0100, L506.0400, L3100.5400, L801.1541, L501.9940, L501.9985 #### [facility] [address] [facility] [place], [address] Brain W/WO Contraston 2023 Brain W/WO Contrast [facility] [address] [place] [address] Brain W/WO Contrast MR#: [id number] Acct: [id number] Name: MOE WIGGINS Rep #: [id number] : 1960 M 63 From: Xiao river MD PCP: Dr. Rich Alexis MD Status: REG CLI Study: Brain W/WO Contrast Date of Exam: 04/27/24 Exam# [id number] Ordering Dr: Leo Shaw MD [id number] HISTORY: PITUITARY DISORDER,TESTICULAR HYPOFUNCTION -- INTERMEDIATE USE OF MEDICATION. TECHNIQUE: Multiplanar and multisequence [...] Dr. Rich Alexis MD; Leo Shaw MD Foam Rubber Curer: Signed Normal [facility] CREATININE FINGERSTICKon CREATININE WB < 1.0 Normal 0.70-1.30 [facility] Comment on above: Performed By: #### L 9100.0200 #### [facility] [address] [place], [address] EGFR WB > 60.0000 Normal >60 [facility] Comment on above: Performed By: #### L 9100.0200 #### [facility] [address] [place], [address] Dexa Bone Density Studyon Dexa Bone Density Study [facility] Imaging Services [address] [place] [address] Dexa Bone Density Study MR#: [id number] Acct: [id number] Name: MOE WIGGINS Rep #: [id number] : 1960 M 63 From: Mitchel horan MD PCP: Dr. Rich Alexis MD Status: REG CLI Study: Dexa Bone Density Study Date of Exam: 04/19/24 Exam# [id number] Ordering Dr: Leo Shaw MD [id number] STUDY: DUAL ENERGY X-RAY ABSORPTIOMETRY / DXA [...] Dr. Rich Alexis MD; Leo Shaw MD Foam Rubber Curer: Signed Normal [facility] 04-11-2024 [facility] Telephone (ENDOAV) MEO WIGGINS ([id number]) 1960 M Date Time Provider Department 04/11/24 LEO SHAW During your visit today, we recorded the following information about you: Christel Crook LPN 04/11/2024 3:00 PM Signed Growth hormone certification form received from [employer] for [employer] placed in Dr. Shaw's folder [...] Status:Closed by CHRISTEL CROOK on 04/11/24 Normal [facility] Insulin-like growth factor ( IGF) measurementOrdered By: Leo Shaw on 08-12-2023 Insulin-like growth factor [Moles/Vol] 57 ng/mL 64-240 [facility] Comment on above: Performed at: [address] [id number] Director: Ben Jay MD, Phone: [phone] FREE T3on 05-06-2022 Free T3 [Mass/Vol] 2.6 pg/mL 2.18 - 3.98 [facility] FREE T4on 05-06-2022 Free T4 [Mass/Vol] 1.13 ng/dL 0.16 - 1.46 [facility] HbA1c (Bld)on 05-06-2022 HbA1c (Bld) [Mass fraction] 5.7 % Abnormal 3.8 - 5.6 % [facility] T4 / THYROXINE BLOOD (AK,AV, EU,HL,CHRISTINE,MM,SP)on 05-06-2022 T4 [Mass/Vol] 12.1 ug/dL 4.5 - 12.1 [facility] VITAMIN D 25 HYDROXY (AK,AV, EU,FV,HL,CHRISTINE,MM,SP)on 05-06-2022 VITAMIN D, 25 [place] TOTAL 65.9 ng/ml 20 - 100 ng/ml [facility] [place] SARS-CoV-2 (COVID-19) RNA LA+probe Ql (Unsp spec) Positive Critically abnormal NORMAL: NEGATIVE [facility] Comment on above: Result Comment: { CA LLED TO FAXED TO AG { READ BACK BY Performed By: #### 2 [id number] #### [facility],[address] [place] [address] SEND TO IC? YES Normal [facility] Comment on above: Result Comment: RESU LTS FAXED TO INFECTION CONTROL. SARS-CoV-2 THIS TEST IS BEING USED UNDER THE FDA EUA PROCEDURE. THIS ASSAY HAS BEEN VALIDATED IN THE [facility] FOR USE WITH NASOPHARYNGEAL SPECIMENS IN [...] PUBLIC HEALTH AUTHORITIES. Performed By: #### 2 [id number] #### [place] [id number] CORONAVIRUS PCR [CCL]on 05-28 SARS-CoV-2 (COVID-19) RNA LA+probe Ql (Unsp spec) Nasopharyngeal Swab Normal [facility] Comment on above: Result Comment: Cuong ected on 06/19 AT 1055: Previously reported as U Performed By: #### 2 13841 #### [place] [id number] SARS-CoV-2 (COVID-19) RNA LA+probe Ql (Unsp spec) Negative Normal [facility] Comment on above: Result Comment: Nega tive for COVID19 (SARS CoV2) by PCR. This test was developed and its performance characteristics determined by [facility]'s [facility] [place]. This test has been authorized by FDA under an Emergency Use Authorization (EUA). This test has been validated in accordance with the FDA's Guidance Document Policy for Diagnostics Testing in Laboratories Certified to Perform High Complexity Testing under CLIA prior to Emergency use Authorization for Coronavirus Disease 2019 during the Public Health Emergency issued on September 24, 2019. [facility] [address] [place] [address] Travis Lazo III, M.D. [id number] Performed By: #### 2 76199 #### [facility],[address] [place], [place] [id number] Coronavirus 2019on 0 COVID 19 Result ARTIST SUSPECT Normal Negative for COVID19 (SARS CoV2) by PCR. [facility] Comment on above: Result Comment: Nega tive for This test was developed and its performance characteristics determined by [facility]'s [facility] Pathology and Laboratory Medicine [place]. This test has been authorized by FDA [...] developed and its performance characteristics determined by [facility]'s [facility] [place]. This test has been authorized by FDA [...] developed and its performance characteristics determined by [facility]'s [facility] [place]. This test has been authorized by FDA under an Emergency Use Authorization (EUA). This test has been validated in accordance with the FDA's Guidance Document Policy for Diagnostics Testing in Laboratories Certified to Perform High Complexity Testing under CLIA prior to Emergency use Authorization for Coronavirus Disease 2019 during the Public Health Emergency issued on September 24, 2019. COVID 19 Source ARTIST SUSPECT Normal [facility] Comment on above: Result Comment: Naso pharyngeal Corrected on 06/19 AT 1055: Previously reported as U Swab Corrected on 06/19 AT 1055: Previously reported as U Vital Signs Date Time Vital Sign Value Performing Clinician Faci lity 06-13-2025 10:33-0400 Body height 175.[address] Rich Alexis MD Work Phone: [facility] 01-06-2025 10:33-0400 Body mass index (BMI) [Ratio] 28 kg/m2 Dr. Rich Alexis MD Work Phone: [facility] 01-06-2025 10:33-0400 Body temperature 96.3 [degF] Dr. Rich Alexis MD Work Phone: [facility] 01-06-2025 10:33-0400 Body weight 86.[address] Rich Alexis MD Work Phone: [facility] 01-06-2025 10:33-0400 Diastolic blood pressure 70 mm[Hg] Dr. Rich Alexis MD Work Phone: [facility] 01-06-2025 10:33-0400 Heart rate 80 /min Dr. Rich Alexis MD Work Phone: [facility] 01-06-2025 10:33-0400 Respiratory rate 14 /min Dr. Rich Alexis MD Work Phone: [facility] 01-06-2025 10:33-0400 SaO2% (BldA) [Mass fraction] 97 % Dr. Rich Alexis MD Work Phone: [facility] 01-06-2025 10:33-0400 Systolic blood pressure 128 mm[Hg] Dr. Rich Alexis MD Work Phone: [facility] 06-06-2024 11:16-0500 Body height 172.7 cm Leo Barrera MD Work Phone: [facility] 06-06-2024 11:16-0500 Body mass index (BMI) [Ratio] 29.8 kg/m2 Leo Barrera MD Work Phone: [facility] 06-06-2024 11:16-0500 Body weight 88.9 kg Leo Barrera MD Work Phone: [facility] 06-06-2024 11:16-0500 Diastolic blood pressure 69 mm[Hg] Leo Barrera MD Work Phone: [facility] 06-06-2024 11:16-0500 Heart rate 80 /min Leo Barrera MD Work Phone: [facility] 06-06-2024 11:16-0500 Systolic blood pressure 135 mm[Hg] Leo Barrera MD Work Phone: [facility] 12-04-2021 09:37-0400 Body height 172.7 cm Leo Barrera MD Work Phone: [facility] 12-04-2021 09:37-0400 Body weight 86.18 kg Leo Barrera MD Work Phone: [facility] Encounters Encounter Date Encounter Type Care Provider Facility Start: 03-07-2025 End: 03-17-2025 Patient encounter procedure Leo Shaw MD Work Phone: Endocrinology Comment on above: BENIGN OJYCE PITUITARY (Primary Dx); Hypothyroidism, secondary; Hypogonadism male; Prolactinoma (HCC); Growth hormone deficiency (HCC); Adrenal insufficiency (HCC); Osteoporosis, unspecified osteoporosis type, unspecified pathological fracture presence Two month bloodwork Start: 03-07-2025 End: 03-07-2025 Telemedicine consultation with patient Leo Barrera MD Work Phone: Endocrinology Start: 03-07-2025 End: 03-17-2025 ambulatory RICH ALEXIS Facility:[facility] Start: 02-22-2025 End: 02-23-2025 Refill Leo Shaw MD Work Phone: Endocrinology Comment on above: Refill Request Start: 01-31-2025 End: 01-31-[address] Rich Alexis MD Work Phone: -Laboratory Start: 01-31-2025 End: 01-31-2025 Patient encounter procedure Junior BARTLETT -Laboratory Work Phone: Start: 01-31-2025 End: 01-31-2025 ambulatory Leo Shaw Facility:[facility] Start: 01-23-2025 End: 01-23-2025 Telephone encounter Leo Shaw MD Work Phone: [facility] [place] Comment on above: Insurance Authorizat ion (Appeal letter for somatropin (OMNITROPE) 5 mg/1.5 mL (3.3 mg/mL) subcutaneous cartridge ) Start: 01-06-2025 End: 01-06-2025 Patient encounter procedure Leo Shaw MD -Medical Out Work Phone: Start: 01-06-2025 End: 01-06-[address] Rich Alexis MD Work Phone: [facility] Work Phone: Start: 12-08-2024 End: 12-08-2024 Telephone [...] Refill Request Start: 07-12-2024 End: 07-12-2024 ambulatory [facility] Facility:[facility] Start: 07-11-2024 End: 07-15-2024 Refill So Krause APRN.CNP Work Phone: Endocrinology Comment on above: Refill Request Start: 07-01-2024 End: 07-01-2024 Telephone encounter Leo Shaw MD Work Phone: Endocrinology Comment on above: Prescription ([facility]) info request Start: 06-29-2024 End: 06-29-2024 ambulatory [facility] Start: 06-12-2024 End: 06-15-2024 Refill So Krause FUNMI Work Phone: Endocrinology Comment on above: Refill Request Start: 06-06-2024 End: 06-07-2024 Refill Leo Shaw MD Work Phone: Endocrinology Comment on above: Refill Request Start: 06-06-2024 End: 06-06-2024 ambulatory NHUNG VEGA Facility:[facility] Start: 06-06-2024 End: 06-06-2024 Patient encounter [...] Outside Lab Results Start: 05-24-2024 End: 05-24-2024 [facility] Facility:[facility] Start: 05-19-2024 End: 06-03-2024 ambulatory Loe Barrera MD Work Phone: Endocrinology Start: 05-19-2024 End: 06-03-2024 Patient encounter procedure Leo Shaw MD Work Phone: Endocrinology Comment on above: Bone Density and MRI Start: 04-27-2024 End: 04-27-2024 ambulatory [facility] Facility:[facility] Start: 04-18-2024 End: 04-20-2024 Refill Leo Shaw [...] Bloodwork Done Start: 08-12-2023 End: 08-12-2023 ambulatory [facility] Work Phone: Start: 08-12-2023 End: 08-12-2023 Patient encounter procedure [facility]-Laboratory Work Phone: Start: 06-27-2023 Refill So Krause APRN.WAREHOUSE [employer]TER Work Phone: Endocrinology Comment on above: Refill [...] Refill Request Start: 12-31-2022 Patient encounter status [facility] Start: 12-03-2022 Refill Leo bunch MD Work [...] Merry Almanzar MD Work Phone: [facility] Start: 03-16-2022 Evaluation and manag [...] with patient Leo Barrera MD Work Phone: [facility] Start: 11-12-2021 Refill Leo bunch MD Work Phone: Endocrinology Comment on above: Refill Request Start: 04-23-[address] DARIN MELARA [facility] Start: 06-18-2020 End: 06-18-[address] DARIN Sky SARITHA [facility] Procedures Date Procedure Procedure Detail Performing Clinician [...] RSV Vaccine (1 - 1-dose 75+ series) [facility] Start: 04-14-2030 Urine microalbumin profile DTaP,Tdap,Td Vaccine (4 - Td or Tdap) [facility] Start: 05-06-2025 DIABETES SCREEN DIABETES SCREEN [facility] Start: 05-06-2025 Diabetes Screening Diabetes Screenin g [facility] Start: 04-07-2025 End: 06-05-2025 PSA/PROSTATE SPECIFIC ANTIGEN SCREENING PSA/PROSTATE SPECIFIC ANTIGEN SCREENING Lab Routine Hypogonadism male Encounter for screening for malignant neoplasm of prostate Expected: 04/07/2025, Expires: 06/05/2025 [facility] Work Phone: Comment on above: Expected: 04/07/2025 , Expires: 06/05/2025 Start: 03-27-2025 Influenza vaccination Influenza Vacc ine (#1) [facility] Start: 03-07-2025 End: 03-07-2025 Follow-up encounter 03/07/2025 11:40 AM EDT [facility] Endocrinology [address] [place] [address] Leo Shaw V, MD [address] [place] [address] Follow up Endocrinology Comment on above: Follow up Start: 10-17-2024 Covid-19 Vaccine ( season) Covid-19 Vaccine ( season) [facility] Start: 2024 Advance Directive Discussion Advance Directive Discussion [facility] Start: 06-06-2024 End: 06-06-2024 Patient encounter procedure 06/06/2024 11:20 AM EST Office Visit Endocrinology [address] [place] [address] Leo hSaw V, MD [address] [place] [address] follow up - ok per Dr. Shaw Endocrinology Comment on above: follow up - ok per Alejandro Shaw Start: 03-27-2024 Covid-19 Vaccine ( season) Covid-19 Vaccine () [facility] Start: 03-27-2024 Covid-19 Vaccine () Covid-19 Vaccine () [facility] Start: 03-27-2024 Influenza vaccination C [facility] Start: 07-27-2023 Behavioral Health Screening Behavioral Health Screening [facility] Start: 07-27-2023 Depression Assessment Depression Ass essment [facility] Start: 03-27-2023 Covid-19 Vaccine () Covid-19 Vaccine () [facility] Start: 03-27-2023 Influenza vaccination C [facility] Start: 07-27-2022 DEPRESSION ASSESSMENT DEPRESSION ASS ESSMENT [facility] Start: 03-27-2022 Influenza vaccination C [facility] Start: 11-28-2021 COVID-19 VACCINE (4 - Booster for Pfizer series) COVID-19 VACCINE (4 - Booster for Pfizer series) [facility] Start: 09-25-2021 COVID-19 VACCINE (4 - Booster for Pfizer series) COVID-19 VACCINE (4 - Booster for Pfizer series) [facility] Start: 09-25-2021 COVID-19 VACCINE (4 - Pfizer series) COVID-19 VACCINE (4 - Pfizer series) [facility] Start: 07-27-2021 DEPRESSION ASSESSMENT DEPRESSION ASS ESSMENT [facility] Start: 03-28-2021 COVID-19 VACCINE (3 - Booster for Pfizer series) COVID-19 VACCINE (3 - Booster for Pfizer series) [facility] Start: 2019 RSV Vaccine (1 - 1-d ose 60+ series) RSV Vaccine (1 - 1-dose 60+ series) [facility] Start: 2014 PROSTATE CANCER SCREENING DISCUSSION PROSTATE CANCER SCREENING DISCUSSION [facility] Start: 2014 Prostate specific antigen measurement Prostate Cancer Screening Discussion [facility] Start: 01-16-2012 DIABETES SCREEN DIABETES SCREEN [facility] Start: 2009 Pneumococcal Vaccine : 50+ (1 of 1 - PCV) Pneumococcal Vaccine: 50+ (1 of 1 - PCV) [facility] Start: 2009 SHINGRIX VACCINE (1 of 2) SHINGRIX VACCINE (1 of 2) [facility] Start: 2004 COLOGUARD (FIT-DNA) COLOGUARD (FIT-D NA) [facility] Start: 2004 Colonoscopy COLONOSCOPY [facility] Start: 2004 COLORECTAL CANCER SCREENING COLORECTAL CANCER SCREENING [facility] Start: [address] [facility] Start: 2004 FECAL OCCULT BLOOD FECAL OCCULT BLOO D [facility] Start: 2004 Prostate specific antigen measurement Prostate Cancer Screening Discussion [facility] Start: 2004 Screening for malign ant neoplasm of colon [facility] Start: 2004 SIGMOIDOSCOPY SIGMOIDOSCOPY [facility] Start: 1994 Lipid 1996 panel - Serum or Plasma Lipid Screening [facility] Start: 1994 Lipid panel Lipid Screening [facility] Start: 1994 LIPID SCREEN LIPID SCREEN [facility] Start: 1978 Urine microalbumin profile [facility] Start: 1977 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 VISIT ANNUAL PCP TEAM CHRONIC DISEASE VISIT [facility] Start: 1977 Anxiety Screening Anxiety Screening [facility] Start: 1977 Depression Screening Depression Scre ening [facility] Start: 1977 HEPATITIS C SCREENING HEPATITIS C [place] Start: 1977 Hepatitis C screening Hepatitis C [facility] Start: 1977 HIV SCREENING HIV SCREENING [facility] Start: 1977 HIV screening HIV Screening [facility] Start: 1971 Adult depression screening assessment DEPRESSION SCREENING [facility] Immunizations Immunization Date Immunization Notes Care Provider Sera huitron 04-19-2024 influenza, seasonal, injectable, preservative free Dr. Rich Alexis MD Work Phone: [facility] 04-19-2024 Pfizer Covid-19 (Comirnaty) Dr. Rich Alexis MD Work Phone: [facility] 04-19-2024 influenza virus vaccine, unspecified formulation Leo Barrera MD Work Phone: [facility] 06-22-2023 Influenza, injectabl e, Madin Sarah Canine Kidney, preservative free, quadrivalent Dr. Rich Alexis MD Work Phone: [facility] 06-22-2023 Pfizer Covid-19 ([facility]) Dr. Rich Alexis MD Work Phone: [facility] 09-09-2022 Covid Pfizer Bivalen t Booster Dr. Rich Alexis MD Work Phone: [facility] 07-01-2022 Influenza, injectabl e, Madin [place] Canine Kidney, preservative free, quadrivalent Dr. Rich Alexis MD Work Phone: [facility] 07-01-2022 influenza virus vaccine, unspecified formulation Leo Barrera MD Work Phone: [facility] 07-31-2021 Covid (Pfizer) [facility] 10-26-2020 Covid (Pfizer) [facility] 10-05-2020 Covid (Pfizer) [facility] 04-14-2020 influenza, injectable,quadrivalen t, preservative free, pediatric [facility] 04-14-2020 tetanus toxoid, reduced diphtheria toxoid, and acellular pertussis vaccine, adsorbed [facility] 04-14-2020 influenza virus vaccine, unspecified formulation Leo Barrera MD Work Phone: [facility] 05-19-2019 Influenza, injectabl e, Madin [place] Canine Kidney, preservative free, quadrivalent Dr. Rich Alexis MD Work Phone: [facility] 09-28-2018 tetanus toxoid, reduced diphtheria toxoid, and acellular pertussis vaccine, adsorbed [facility] Payers Date Payer Category Payer Medicare MEDICARE [id number] 2024 Medicare [id number] 2024 Self-pay [id number] 2022 Private Health Insurance [id number] 2022 Unknown [id number] 2020 Unknown MMO MMO TPA [id number] 2020-Present [address] [place] [address] PPO [id number] 2020 Unknown [id number] 1959 Unknown [id number] Private Health Insurance [id number] Unknown [id number] Unknown [id number] Unknown [id number] Unknown [id number] Unknown [id number] Unknown [id number] Unknown [id number] Social History Date Type Detail Facility Start: 10-30-2011 End: 01-23-2023 Tobacco smoking status NHIS Never smoked tobacco [facility] Start: 08-10-2019 End: 12-04-2021 Alcohol intake Current non-drinker of alcohol (finding) [facility] Start: 1960 Sex Assigned At Not on file [facility] Start: 11-24-2021 End: 12-04-2021 Exposure to SARS-CoV-2 (event) Not sure [facility] Start: 10-30-2011 Tobacco use and exposure Smokeless tobacco non-user [facility] Start: 12-04-2021 End: 05-05-2023 Gender identity Not on file [facility] Start: 12-04-2021 End: 05-05-2023 History of Social function [facility] Start: 06-27-2012 National Score (1-100), lower number is lower risk 51 [facility] Start: 01-23-2023 Tobacco smoking stat us CAIS Unknown if ever smoked [facility] Start: 1960 Sex Assigned At Male [facility] Medical Equipment Procedure Code Equipment Code Equipment Original Text Equipment Identifier Dates [id number], [id number] Start: 08-04-2017 End: 06-25-2023 Comment on above: Use for growth hormo ne pen injections once a day Use for GH pen injec tions once a day Functional Status Date Assessment Result Facility 07-05-2014 Are you deaf, or do you have serious difficulty hearing No 07/05/2014 10:08 AM Elmira Osborn Ma No [facility] Work Phone: 07-05-2014 Are you blind, or do you have serious difficulty seeing, even when wearing glasses No 07/05/2014 10:08 AM Elmira Osborn Ma [facility] 07-05-2014 Do you have serious difficulty walking or climbing stairs No 07/05/2014 10:08 AM Elmira Osborn Ma [facility] 07-05-2014 Do you have difficul ty dressing or bathing No 07/05/2014 10:08 AM Elmira Osborn Ma [facility] 07-05-2014 Because of a physica l, mental, or emotional condition, do you have difficulty doing errands alone such as visiting a physician's office or shopping No 07/05/2014 10:08 AM Elmira Osborn Ma [facility] Mental Status Date Assessment Result Facility 01-06-2025 Cognitive function Voice/Name [facility] Work Phone: 07-05-2014 Because of a physica l, mental, or emotional condition, do you have serious difficulty concentrating, remembering, or making decisions No 07/05/2014 10:08 AM NETTIE Rodriguez MaElmira [facility] Clinical Notes 11-13-2021 to 03-07-2025 Leo Shaw V, MD - 03/07/2025 11:44 AM EDTTelephone Encounter - Leo hSaw V, MD - 02/23/2025 2:28 PM EDTTelephone Encounter - Leo Shaw V, MD - 02/23/2025 2:28 PM EDT Note Date & Type Note Facility 03-07-2025 Note HNO ID: [id number] Author: LEO SHAW MD Service: ? Author [...] visit. Either the patient or their legal real estate representative has been informed of the risks [...] to insurance issues. - Omnitrope obtained from [facility]; supplies include pen needles and [...] nl CBC: n (more content not included)... [facility] 03-07-2025 History of Presen t illness Narrative This Team Access Model encounter involved medical decision making with virtual visit including video .Patient consented to the visit. I have communicated my name and active licensure. The patient's identity and physical location were verified at the time of this visit. Either the patient or their legal real estate representative has been informed of the risks [...] to insurance issues. - Omnitrope obtained from [facility]; supplies include pen needles and [...] No Seizures: No documented in this encounter [facility] 02-23-2025 Telephone encounter Note The following approved medication requests have been transmitted electronically. Requested Prescriptions Pending Prescriptions Disp Refills levothyroxine (SYNTHROID) 112 mcg tablet 90 tablet 0 Sig: Take 1 tablet by mouth every morning. on empty stomach Leo Shaw MD [facility] 02-23-2025 Miscellaneous Notes The following approved medication requests have been transmitted electronically. Requested Prescriptions Pending Prescriptions Disp Refills levothyroxine (SYNTHROID) 112 mcg tablet 90 tablet 0 Sig: Take 1 tablet by mouth every morning. on empty stomach Leo Shaw MD Most recent Endocrinology visit: Last encounter Visit on 06/06/2024 (with Leo Shaw) 05/05/2023 in [facility] with LEO SHAW V for 06/06/2024 in [facility] with LEO SHAW V for Upcoming Endocrinology Appointments - Next 365 Days Visit Type Date Time Department VIDEO SPEC EST 03/07/2025 11:40 AM [facility] Requested Prescriptions Pending Prescriptions [...] last 12 months documented in this encounter [facility] 02-23-2025 Telephone encounter Note Most recent Endocrinology visit: Last encounter Visit on 06/06/2024 (with Seenia V Colin) 05/05/2023 in [facility] with CLAUDIA SHWAIA V for 06/06/2024 in [facility] with COLIN SEENIA V for Upcoming Endocrinology Appointments - Next 365 Days Visit Type Date Time Department VIDEO SPEC EST 03/07/2025 11:40 AM [facility] Requested Prescriptions Pending Prescriptions [...] on file in the last 12 months [facility] 01-23-2025 Telephone encounter Note Images from the original note were not included. January 23, 2025 1:53 PM Appeal letter for somatropin (OMNITROPE) 5 mg/1.5 mL (3.3 mg/mL) subcutaneous cartridge Faxed to [facility] Pending determination [facility] [employer] [place] [facility] 01-23-2025 Miscellaneous Notes Images from the original note were not included. January 23, 2025 1:53 PM Appeal letter for somatropin (OMNITROPE) 5 mg/1.5 mL (3.3 mg/mL) subcutaneous cartridge Faxed to [facility] Pending determination [facility] [employer] [facility] [place] documented in this encounter [facility] 12-08-2024 Telephone encounter Note Approval fax from [facility] for Testosterone received. Approval is for 12/05/24 until further notice. Form sent to scanning. [facility] 12-08-2024 Miscellaneous Notes Approval fax from [facility] for Testosterone received. Approval is for 12/05/24 until further notice. Form sent to scanning. documented in this encounter [facility] 12-07-2024 Telephone encounter Note Form completed and faxed to [facility] with confirmation at 10:56am [facility] 12-07-2024 Miscellaneous Notes Form completed and faxed to [facility] with confirmation at 10:56am Lucero Taylor called regarding below. States that this is running out of time and may end up being denied. Requesting this SHANTAL. Case #[id number] Bonnie Shipley Kala Oziel from [employer] [facility]. Requesting information for PA for testosterone gel. Does [patient have persistent signs/symptoms of androgen deficiency? Was one pretreatment completed before low testosterone level drawn? Diagnosis? She will be faxing form to office today also. Ph. [phone] Case# [id number] documented in this encounter [facility] 12-07-2024 Telephone encounter Note Lucero with [facility] called regarding below. States that this is running out of time and may end up being denied. Requesting this SHANTAL. Case #[id number] Bonnie Shipley Kala [facility] 12-07-2024 Telephone encounter Note Fax received from [facility] requesting more information regarding Testosterone RX. Form completed and faxed. Electronically signed ANGELA notes attached. [facility] 12-07-2024 Miscellaneous Notes Fax received from [facility] requesting more information regarding Testosterone RX. Form completed and faxed. Electronically signed ANGELA notes attached. documented in this encounter [facility] 12-06-2024 Telephone encounter Note Oziel from [employer] [facility]. Requesting information for PA for testosterone gel. Does [patient have persistent signs/symptoms of androgen deficiency? Was one pretreatment completed before low testosterone level drawn? Diagnosis? She will be faxing form to office today also. Ph. [phone] Case# [id number] [facility] 11-30-2024 Telephone encounter Note The following approved medication requests have been transmitted electronically. Requested Prescriptions Pending Prescriptions Disp Refills levothyroxine (SYNTHROID) 112 mcg tablet 90 tablet 0 Sig: Take 1 tablet by mouth every morning. on empty stomach Leo Shaw MD [facility] 11-30-2024 Miscellaneous Notes The following approved medication requests have been transmitted electronically. Requested Prescriptions Pending Prescriptions Disp Refills levothyroxine (SYNTHROID) 112 mcg tablet 90 tablet 0 Sig: Take 1 tablet by mouth every morning. on empty stomach Leo Shaw MD Most recent Endocrinology visit: Last encounter Visit on 06/06/2024 (with Leo Shaw) 05/05/2023 in [facility] with LEO SHAW V for 06/06/2024 in [facility] with LEO SHAW V for Upcoming Endocrinology Appointments - Next 365 Days Visit Type Date Time Department VIDEO SPEC EST 03/07/2025 11:40 AM [facility] Requested Prescriptions Pending Prescriptions Disp Refills levothyroxine [...] last 12 months documented in this encounter [facility] 11-29-2024 Telephone encounter Note Most recent Endocrinology visit: Last encounter Visit on 06/06/2024 (with Leo Shaw) 05/05/2023 in [facility] with LEO SHAW V for 06/06/2024 in [facility] with LEO SHAW V for Upcoming Endocrinology Appointments - Next 365 Days Visit Type Date Time Department VIDEO SPEC EST 03/07/2025 11:40 AM [facility] Requested Prescriptions Pending Prescriptions [...] on file in the last 12 months [facility] 11-11-2024 Telephone encounter Note This is addressed curly nother encounter Leo Shaw MD [facility] 11-11-2024 Miscellaneous Notes This is addressed curly nother encounter Leo Shaw MD documented in this encounter [facility] 11-07-2024 Telephone encounter Note Omnitrope already denied and cannot be re-submitted. See encounter 10/17/2024. Letter with details and appeal instructions is already in patient's chart. Testosterone PA Submitted today. SEAN GORDON [employer]ac[employer] Worker Supervisor II Endocrinology & Metabolism [facility] X-20 [facility] 11-07-2024 Miscellaneous Notes Omnitrope already denied and cannot be re-submitted. See encounter 10/17/2024. Letter with details and appeal instructions is already in patient's chart. Testosterone PA Submitted today. SEAN GORDON Aquac[employer] Worker Supervisor II Endocrinology & Metabolism [facility] X-20 Patient calling regarding status of PA for Omnitrope and testosterone gel prescriptions. Patient states he is nearly out of both. Please call patient to advise [facility] [phone] documented in this encounter [facility] 11-07-2024 Telephone encounter Note Images from the original note were not included. Initiated PA for testosterone (ANDROGEL PUMP) 20.25 mg/1.25 gram (1.62 %) transdermal gel through [facility] via [employer] Chart notes and labs attached Questions Completed Waiting for determination SEAN GORDON Aquac[employer] Worker Supervisor II Endocrinology & Metabolism [facility] X-20 [facility] 11-07-2024 Miscellaneous Notes Images from the original note were not included. Initiated PA for testosterone (ANDROGEL PUMP) 20.25 mg/1.25 gram (1.62 %) transdermal gel through [facility] [employer] Chart notes and labs attached Questions Completed Waiting for determination SEAN GORDON Aquac[employer] Worker Supervisor Endocrinology & Metabolism [facility] X-20 documented in this encounter [facility] 11-07-2024 Telephone encounter Note Patient calling regarding status of PA for Omnitrope and testosterone gel prescriptions. Patient states he is nearly out of both. Please call patient to advise [facility] [phone] [facility] 10-17-2024 Telephone encounter Note Images from the original note were not included. Unable to process due to previous attempt being denied. SEAN GORDON Aquacultural Worker Supervisor [facility] X-20 [facility] 10-17-2024 Miscellaneous Notes Images from the original note were not included. Unable to process due to previous attempt being denied. SEAN GORDON Aquacultural Worker Supervisor [facility] & Metabolism [facility] X-20 Images from the original note were not included. Initiated PA for OMNITROPE 5 mg/1.5 mL (3.3 mg/mL) through [facility] via [employer] Questions Completed Waiting for determination SEAN GORDON Aquacultural Worker Supervisor [facility] & Metabolism [facility] X-20 documented in this encounter [facility] 10-17-2024 Telephone encounter Note Images from the original note were not included. Initiated PA for OMNITROPE 5 mg/1.5 mL (3.3 mg/mL) through [facility] [employer] Questions Completed Waiting for determination SEAN GORDON Aquacultural Worker Supervisor II Endocrinology & Metabolism [place] X-20 [facility] 09-29-2024 Telephone encounter Note The following approved medication requests have been transmitted electronically. Requested Prescriptions Pending Prescriptions Disp Refills testosterone (ANDROGEL PUMP) 20.25 mg/1.25 gram (1.62 %) transdermal gel 300 g 1 Sig: Apply three pumps on each shoulder as directed levothyroxine (SYNTHROID) 112 mcg tablet 90 tablet 0 Sig: Take 1 tablet by mouth every morning. on empty stomach Leo Shaw MD [facility] 09-29-2024 Miscellaneous Notes The following approved medication [...] endo scheduling pool. documented in this encounter [facility] 09-21-2024 Telephone encounter Note Patients last Endocrinology [...] and also to the endo scheduling pool. [facility] 07-15-2024 Telephone encounter Note The following approved medication requests have been transmitted electronically. Requested Prescriptions Pending Prescriptions Disp Refills levothyroxine (SYNTHROID) 112 mcg tablet 90 tablet 0 Sig: Take 1 tablet by mouth every morning. on empty stomach Leo Shaw MD [facility] 07-15-2024 Miscellaneous Notes The following approved medication [...] endo scheduling pool. documented in this encounter [facility] 07-15-2024 Telephone encounter Note Patients last Endocrinology [...] and also to the endo scheduling pool. [facility] 07-12-2024 Telephone encounter Note The following approved medication requests have been transmitted electronically. Requested Prescriptions Pending Prescriptions Disp Refills testosterone (ANDROGEL PUMP) 20.25 mg/1.25 gram (1.62 %) transdermal gel 300 g 1 Sig: Apply three pumps on each shoulder as directed Leo Shaw MD [facility] 07-12-2024 Miscellaneous Notes The following approved medication requests have been transmitted electronically. Requested Prescriptions Pending Prescriptions Disp Refills testosterone (ANDROGEL PUMP) 20.25 mg/1.25 gram (1.62 %) transdermal gel 300 g 1 Sig: Apply three pumps on each shoulder as directed Leo Shaw MD documented in this encounter [facility] 07-01-2024 Telephone encounter Note 2 ANGELA notes faxed as requested. [facility] 07-01-2024 Miscellaneous Notes 2 ANGELA notes faxed [...] do a prior auth PCP's office / [facility]) in [place] Office PHONE # [phone] FAX # [phone] documented in this encounter [facility] 07-01-2024 Telephone encounter Note Nurse from pt's [...] do a prior auth PCP's office / [facility]) in [facility] PHONE # [phone] FAX # [phone] [facility] 07-01-2024 Telephone encounter Note Prescription for Prolia faxed to [facility]. [facility] 07-01-2024 Miscellaneous Notes Prescription for Prolia faxed to [facility]. documented in this encounter [facility] 06-15-2024 Telephone encounter Note The following approved medication requests have been transmitted electronically. Requested Prescriptions Pending Prescriptions Disp Refills rosuvastatin (CRESTOR) 20 mg tablet 90 tablet 3 Sig: Take 1 tablet by mouth once daily. Leo Shaw MD [facility] 06-15-2024 Miscellaneous Notes The following approved medication requests have been transmitted electronically. Requested Prescriptions Pending Prescriptions Disp Refills rosuvastatin (CRESTOR) 20 mg tablet 90 tablet 3 Sig: Take 1 tablet by mouth once daily. Leo Shaw MD Patients last Endocrinology visit occurred Last encounter Visit on 06/06/2024 (with Leo Sahw) Follow-up evaluation has been established Upcoming Endocrinology [...] endo scheduling pool. documented in this encounter [facility] 06-14-2024 Telephone encounter Note Patients last Endocrinology [...] and also to the endo scheduling pool. [facility] 06-07-2024 Telephone encounter Note The following approved medication requests have been transmitted electronically. Requested Prescriptions Pending Prescriptions Disp Refills OMNITROPE 5 mg/1.5 mL (3.3 mg/mL) [Pharmacy Med Name: OMNITROPE CARTRIDGE 1.5ML 5MG] 4.5 mL 3 Sig: INJECT 0.4 MG UNDER THE SKIN DAILY. DISCARD 28 DAYS AFTER INITIAL USE Leo Shaw MD [facility] 06-07-2024 Miscellaneous Notes The following approved medication [...] Pia Mayes RN documented in this encounter [facility] 06-07-2024 Telephone encounter Note Requester: Pharmacy Last Endocrinology visit: 06/06/2024. Follow-up visit scheduled: N/A. Requested Prescriptions Pending Prescriptions Disp Refills OMNITROPE 5 mg/1.5 mL (3.3 mg/mL) [Pharmacy Med Name: OMNITROPE CARTRIDGE 1.5ML 5MG] 4.5 mL 3 Sig: INJECT 0.4 MG UNDER THE SKIN DAILY. DISCARD 28 DAYS AFTER INITIAL USE PSS NOTE: Please schedule appointment: No Thank you! Pia Mayes RN [facility] 06-06-2024 Note HNO ID: [id number] Author: LEO SHAW MD Service: ? Author [...] testosterone while hi (more content not included)... [facility] 06-06-2024 History of Presen t illness Narrative [...] No Seizures: No documented in this encounter [facility] 06-03-2024 Telephone encounter Note The following approved medication requests have been transmitted electronically. Requested Prescriptions Pending Prescriptions Disp Refills OMNITROPE 5 mg/1.5 mL (3.3 mg/mL) [Pharmacy Med Name: OMNITROPE CARTRIDGE 1.5ML 5MG] 4.5 mL 3 Sig: INJECT 0.4 MG UNDER THE SKIN DAILY. DISCARD 28 DAYS AFTER INITIAL USE Leo Shaw MD [facility] 06-03-2024 Miscellaneous Notes The following approved medication requests have been transmitted electronically. Requested Prescriptions Pending Prescriptions Disp Refills OMNITROPE 5 mg/1.5 mL (3.3 mg/mL) [Pharmacy Med Name: OMNITROPE CARTRIDGE 1.5ML 5MG] 4.5 mL 3 Sig: INJECT 0.4 MG UNDER THE SKIN DAILY. DISCARD 28 DAYS AFTER INITIAL USE Leo Shaw MD documented in this encounter [facility] 06-03-2024 Telephone encounter Note BMD : worseningcompared to 2021--osteopenia MRI: stable sellar mass --cystic Leo Shaw MD [facility] 06-03-2024 Miscellaneous Notes BMD : worseningcompared to 2021--osteopenia MRI: stable sellar mass --cystic Leo Shaw MD Bone density and MRI received via fax from [facility]. Fax placed on Dr. Shaw's desk. Copy of fax sent to scanning. documented in this encounter [facility] 06-03-2024 Telephone encounter Note Bone density and MRI received via fax from [facility]. Fax placed on Dr. Shaw's desk. Copy of fax sent to scanning. [facility] 05-25-2024 Telephone encounter Note Received lab result from [facility]. Result placed in Dr. Shaw's inbox for review. Copy sent to scanning. [facility] 05-25-2024 Miscellaneous Notes Received lab result from [facility]. Result placed in Dr. Shaw's inbox for review. Copy sent to scanning. documented in this encounter [facility] 04-20-2024 Telephone encounter Note The following approved [...] by mouth once daily. Leo Shaw MD [facility] 04-20-2024 Miscellaneous Notes The following approved medication [...] Pia Mayes RN documented in this encounter [facility] 04-20-2024 Telephone encounter Note Requester: Patient Last [...] appointment: No Thank you! Pia Mayes RN [facility] 04-11-2024 Telephone encounter Note [facility] in Dr. Shaw's folder for review. [facility] 04-11-2024 Miscellaneous Notes [facility] in Dr. Shaw's folder for review. documented in this encounter [facility] 03-04-2024 Telephone encounter Note Can below meds be escripted? [facility] 03-04-2024 Miscellaneous Notes Can below meds be [...] endo scheduling pool. documented in this encounter [facility] 03-04-2024 Telephone encounter Note Called back and completed PA over the phone. Approved from 02/03/24-03/04/25. Pt notified. [facility] 03-04-2024 Miscellaneous Notes Called back and completed PA over the phone. Approved from 02/03/24-03/04/25. Pt notified. [facility] is calling Leo Shaw MD today to request Medication Preauthorization (Somatropin (OMNITROPE) 5 mg/1.5 mL (3.3 mg/mL)). . Patient has been identified by name and birthdate. Duration of symptoms: N/A Person calling: pharmacy: [facility] at: [phone] Was an appointment scheduled: No Closing statement: Results or non-symptom based questions: Thank you for calling [facility], your call will be returned within the next business day. Fanny Richard documented in this encounter [facility] 03-03-2024 Telephone encounter Note [facility] is calling Leo Shaw MD today to request Medication Preauthorization (Somatropin (OMNITROPE) 5 mg/1.5 mL (3.3 mg/mL)). . Patient has been identified by name and birthdate. Duration of symptoms: N/A Person calling: pharmacy: [facility] pharmacy at: [phone] Was an appointment scheduled: No Closing statement: Results or non-symptom based questions: Thank you for calling [facility], your call will be returned within the next business day. Fanny Richard T [facility] 02-29-2024 Telephone encounter Note Patients last Endocrinology [...] also to the endo scheduling pool. T [facility] 01-27-2024 Telephone encounter Note The following approved medication requests have been transmitted electronically. Requested Prescriptions Pending Prescriptions Disp Refills cabergoline (DOSTINEX) 0.5 mg tablet 50 tablet 1 Sig: Take 1 tb 2 days per week. testosterone (ANDROGEL PUMP) 20.25 mg/1.25 gram (1.62 %) transdermal gel 300 g 1 Sig: Apply three pumps on each shoulder as directed Leo Shaw MD [facility] 01-27-2024 Miscellaneous Notes The following approved [...] endo scheduling pool. documented in this encounter [facility] 01-27-2024 Telephone encounter Note Patients last Endocrinology [...] and also to the endo scheduling pool. [facility] 12-11-2023 Telephone encounter Note The following approved medication requests have been transmitted electronically. Requested Prescriptions Pending Prescriptions Disp Refills OMNITROPE 5 mg/1.5 mL (3.3 mg/mL) [Pharmacy Med Name: OMNITROPE CARTRIDGE 1.5ML 5MG] 6 mL 2 Sig: INJECT 0.4 MG UNDER THE SKIN DAILY (DISCARD 28 DAYS AFTER INITIAL USE) Leo Shaw MD [facility] 12-11-2023 Miscellaneous Notes The following approved medication [...] Pia Mayes RN documented in this encounter [facility] 12-10-2023 Telephone encounter Note Requester: Pharmacy Last [...] appointment: No Thank you! Pia Mayes RN [facility] 08-27-2023 Miscellaneous Notes Lab results received from [place]. Placed in Dr. Shaw's folder to review. Hi! Can we check to see if his labs were faxed to [place]? So far no results in his chart or care everywhere. Thank you! Pia Mayes RN documented in this encounter [facility] 06-29-2023 Miscellaneous Notes Patients last Endocrinology visit [...] endo scheduling pool. documented in this encounter [facility] 06-25-2023 Miscellaneous Notes Patient requests all scripts except Omnitrope be sent to [facility] pharmacy. Pended for sign off. Requester: Patient [...] Pia Mayes RN documented in this encounter [facility] 05-27-2023 Miscellaneous Notes All meds need to [...] endo scheduling pool. documented in this encounter [facility] 05-11-2023 Miscellaneous Notes Patients last Endocrinology visit [...] endo scheduling pool. documented in this encounter [facility] 04-23-2023 Miscellaneous Notes The following approved [...] Pia Mayes RN documented in this encounter [facility] 03-04-2023 Miscellaneous Notes Lab orders faxed to [facility] with confirmation. Patient notified. Patient requests thyroid lab orders be faxed to below location: [facility] [phone] Thank you! Pia Mayes RN documented in this encounter [facility] 02-23-2023 Miscellaneous Notes DHRUV completed and approved for Omnitrope. Please inform patient : Omnitrope is coming up as not covered! MAybethe computer is not updated. I am sending the Omnitrope instead of Somatropin as he requested He should check with insurance if that will be covered Leo Shaw MD documented in this encounter [facility] 02-11-2023 Miscellaneous Notes Prior authorization for Norditropin submitted via [employer]. Awaiting response from plan. documented in this encounter [facility] 02-09-2023 Miscellaneous Notes Rx for cabergoline and [...] Pia Mayes RN documented in this encounter [facility] 01-21-2023 Miscellaneous Notes The following approved medication [...] Pia Mayes RN documented in this encounter [facility] 12-05-2022 Miscellaneous Notes Requester: Patient Last Endocrinology [...] Pia Mayes RN documented in this encounter [facility] 10-17-2022 Miscellaneous Notes Requester: Patient Patients last [...] Ella Link Ma documented in this encounter [facility] 08-20-2022 Miscellaneous Notes Called and scheduled pt [...] Pia Mayes RN documented in this encounter [facility] 07-17-2022 Miscellaneous Notes Requester: Patient Last Endocrinology visit: 12/05/2021. Follow-up visit scheduled: Visit date not found. Requested Prescriptions Pending Prescriptions Disp Refills testosterone (ANDROGEL PUMP) 20.25 mg/1.25 gram (1.62 %) transdermal gel 300 g 1 Sig: Apply three pumps on each shoulder as directed PSS NOTE: Please schedule appointment: No Thank you! Pia Mayes RN documented in this encounter [facility] 01-23-2022 Miscellaneous Notes Requester: Patient Last Endocrinology visit: 12/05/2021. Follow-up visit scheduled: Visit date not found. Pending Prescriptions Disp Refills PEN NEEDLE, DIABETIC 31 GAUGE X 5/16 100 Each 3 Sig: Use for growth hormone pen injections once a day ANNA: No PSS NOTE: Please schedule appointment: No Thank you! Pia Mayes RN documented in this encounter [facility] 12-05-2021 History of Presen t illness Narrative [...] No Seizures: No documented in this encounter [facility] 11-13-2021 Miscellaneous Notes The following approved medication [...] Pia Mayes RN documented in this encounter [facility] Evaluation note Diagnosis Hypothyroidism, secondary Other specified [...] craniopharyngeal duct (pouch) [facility] Diagnosis Hypothyroidism, secondary Other specified acquired hypothyroidism Hypogonadism male Other testicular 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) Prolactinoma (HCC) Benign neoplasm of pituitary gland and craniopharyngeal duct (pouch) [facility] Diagnosis Hypothyroidism, secondary Other specified acquired hypothyroidism Hypogonadism male Other testicular 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) Prolactinoma (HCC) Benign neoplasm of pituitary gland and craniopharyngeal duct (pouch) [facility] Diagnosis Hypothyroidism, secondary Other specified acquired hypothyroidism Hypogonadism male Other testicular 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) Prolactinoma (HCC) Benign neoplasm of pituitary gland and craniopharyngeal duct (pouch) [facility] Diagnosis Hypothyroidism, secondary Other specified acquired hypothyroidism Hypogonadism male Other testicular 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) Prolactinoma (HCC) Benign neoplasm of pituitary gland and craniopharyngeal duct (pouch) [facility]* Diagnosis Hypothyroidism, secondary Other specified acquired hypothyroidism Hypogonadism male Other testicular 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) Prolactinoma (HCC) Benign neoplasm of pituitary gland and craniopharyngeal duct (pouch) [facility] noteNo assessment information availableWMercy Hospital Work Phone: Evaluation note* Diagnosis Hypothyroidism, secondary Other specified acquired hypothyroidism Hypogonadism male Other testicular 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) Prolactinoma (HCC) Benign neoplasm of pituitary gland and craniopharyngeal duct (pouch) [facility]* Diagnosis Hypothyroidism, secondary Other specified acquired hypothyroidism Hypogonadism male Other testicular 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) Prolactinoma (HCC) Benign neoplasm of pituitary gland and craniopharyngeal duct (pouch) [facility]* Diagnosis Hypothyroidism, secondary Other specified acquired hypothyroidism Hypogonadism male Other testicular 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) Prolactinoma (HCC) Benign neoplasm of pituitary gland and craniopharyngeal duct (pouch) [facility] Diagnosis Hypothyroidism, secondary Other specified acquired hypothyroidism Hypogonadism male Other testicular 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) Prolactinoma (HCC) Benign neoplasm of pituitary gland and craniopharyngeal duct (pouch) [facility]* Diagnosis Hypothyroidism, secondary Other specified acquired hypothyroidism Hypogonadism male Other testicular 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) Prolactinoma (HCC) Benign neoplasm of pituitary gland and craniopharyngeal duct (pouch) documented in this encounter [facility] note* Diagnosis Hypothyroidism, secondary Other specified acquired hypothyroidism Hypogonadism male Other testicular 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) Prolactinoma (HCC) Benign neoplasm of pituitary gland and craniopharyngeal duct (pouch) [facility]* Diagnosis Hypothyroidism, secondary Other specified acquired hypothyroidism Hypogonadism male Other testicular 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) Prolactinoma (HCC) Benign neoplasm of pituitary gland and craniopharyngeal duct (pouch) [facility] Diagnosis BENIGN JOYCE PITUITARY- Primary Benign neoplasm of pituitary gland and craniopharyngeal duct (pouch) Hypothyroidism, secondary Other specified acquired hypothyroidism Hypogonadism male Other testicular hypofunction Prolactinoma (HCC) Benign neoplasm of pituitary gland and 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 Adrenal insufficiency (HCC) Glucocorticoid deficiency Osteoporosis, unspecified osteoporosis type, unspecified pathological fracture presence [facility] Diagnosis Hypogonadism male- Primary Other testicular hypofunction Encounter for screening for malignant neoplasm of prostate Special screening for malignant neoplasm of prostate [facility])No reason for referral information availableWMercy Hospital Work Phone: Summary Purpose Family History Relationship Condition Age at Onset Recorded Date/T usha Not Specified Cardiac disease Unknown Hyperlipidemia Unknown Hypertension Unknown mother Aneurysm Unknown father Malignant neoplasm Unknown Advance Directives Advance Directive Response Recorded Date/ Time Living Will No June 04 9:48am Power of Diet Consultant No June 04, 2022 9:48am Reason for Referral Specialty Diagnoses / Procedures Referred By Contac t Referred To Contact Leo Shaw V, MD [address] [place] [address] Referral ID Status Reason Start Date Expiration Date V isits Requested Visits Authorized [id number] Authorized 01/24/2023 02/23/2024 1 1 Specialty Diagnoses / Procedures Referred By Contac t Referred To Contact Diagnoses Hypothyroidism, secondary Hypogonadism male Benign neoplasm of pituitary gland and craniopharyngeal duct (pouch) (HCC) Prolactinoma (HCC) Leo Shaw V, MD [address] [place] [address] Referral ID Status Reason Start Date Expiration Date V isits Requested Visits Authorized [id number] Pending Review 1 1 Referral ID Status Reason Start Date Expiration Date V isits Requested Visits Authorized [id number] Pending Review 1 1 Chief Complaint and [...] section and content) DATE CREATED AUTHOR 10/24/2019 [facility] DATE CREATED AUTHOR AUTHOR'S ORGANIZ ATION 06/20/2020 [facility] DATE CREATED AUTHOR AUTHOR'S ORGANIZ ATION 04/24/2021 [facility] DATE CREATED AUTHOR AUTHOR'S ORGANIZ ATION 02/09/2025 [facility] DATE CREATED AUTHOR AUTHOR'S ORGANIZ ATION 03/12/2025 [facility] Source Comments (unrecognize d section and content) In the event this informatio n is protected by the Federal Confidentiality of Alcohol and Drug Abuse Patient Records regulations: The Federal rules restrict any use of the information to criminally investigate or prosecute any alcohol or drug abuse patient.[facility] the event this information is protected by the Federal Confidentiality of Alcohol and Drug Abuse Patient Records regulations: The Federal rules restrict any use of the information to criminally investigate or prosecute any alcohol or drug abuse patient.[facility] CenterIn the event this information is protected by the Federal Confidentiality of Alcohol and Drug Abuse Patient Records regulations: The Federal rules restrict any use of the information to criminally investigate or prosecute any alcohol or drug abuse patient.[facility] CenterIn the event this information is protected by the Federal Confidentiality of Alcohol and Drug Abuse Patient Records regulations: The Federal rules restrict any use of the information to criminally investigate or prosecute any alcohol or drug abuse patient.[facility] CenterIn the event this information is protected by the Federal Confidentiality of Alcohol and Drug Abuse Patient Records regulations: The Federal rules restrict any use of the information to criminally investigate or prosecute any alcohol or drug abuse patient.[facility] CenterIn the event this information is protected by the Federal Confidentiality of Alcohol and Drug Abuse Patient Records regulations: The Federal rules restrict any use of the information to criminally investigate or prosecute any alcohol or drug abuse patient.[facility] CenterIn the event this information is protected by the Federal Confidentiality of Alcohol and Drug Abuse Patient Records regulations: The Federal rules restrict any use of the information to criminally investigate or prosecute any alcohol or drug abuse patient.[facility] CenterIn the event this information is protected by the Federal Confidentiality of Alcohol and Drug Abuse Patient Records regulations: The Federal rules restrict any use of the information to criminally investigate or prosecute any alcohol or drug abuse patient.[facility] CenterIn the event this information is protected by the Federal Confidentiality of Alcohol and Drug Abuse Patient Records regulations: The Federal rules restrict any use of the information to criminally investigate or prosecute any alcohol or drug abuse patient.[facility] CenterIn the event this information is protected by the Federal Confidentiality of Alcohol and Drug Abuse Patient Records regulations: The Federal rules restrict any use of the information to criminally investigate or prosecute any alcohol or drug abuse patient.[facility] CenterIn the event this information is protected by the Federal Confidentiality of Alcohol and Drug Abuse Patient Records regulations: The Federal rules restrict any use of the information to criminally investigate or prosecute any alcohol or drug abuse patient.[facility] CenterIn the event this information is protected by the Federal Confidentiality of Alcohol and Drug Abuse Patient Records regulations: The Federal rules restrict any use of the information to criminally investigate or prosecute any alcohol or drug abuse patient.[facility] CenterIn the event this information is protected by the Federal Confidentiality of Alcohol and Drug Abuse Patient Records regulations: The Federal rules restrict any use of the information to criminally investigate or prosecute any alcohol or drug abuse patient.[facility] CenterIn the event this information is protected by the Federal Confidentiality of Alcohol and Drug Abuse Patient Records regulations: The Federal rules restrict any use of the information to criminally investigate or prosecute any alcohol or drug abuse patient.[facility] CenterIn the event this information is protected by the Federal Confidentiality of Alcohol and Drug Abuse Patient Records regulations: The Federal rules restrict any use of the information to criminally investigate or prosecute any alcohol or drug abuse patient.[facility] CenterIn the event this information is protected by the Federal Confidentiality of Alcohol and Drug Abuse Patient Records regulations: The Federal rules restrict any use of the information to criminally investigate or prosecute any alcohol or drug abuse patient.[facility] CenterIn the event this information is protected by the Federal Confidentiality of Alcohol and Drug Abuse Patient Records regulations: The Federal rules restrict any use of the information to criminally investigate or prosecute any alcohol or drug abuse patient.[facility] CenterIn the event this information is protected by the Federal Confidentiality of Alcohol and Drug Abuse Patient Records regulations: The Federal rules restrict any use of the information to criminally investigate or prosecute any alcohol or drug abuse patient.[facility] CenterIn the event this information is protected by the Federal Confidentiality of Alcohol and Drug Abuse Patient Records regulations: The Federal rules restrict any use of the information to criminally investigate or prosecute any alcohol or drug abuse patient.[facility] CenterIn the event this information is protected by the Federal Confidentiality of Alcohol and Drug Abuse Patient Records regulations: The Federal rules restrict any use of the information to criminally investigate or prosecute any alcohol or drug abuse patient.[facility] CenterIn the event this information is protected by the Federal Confidentiality of Alcohol and Drug Abuse Patient Records regulations: The Federal rules restrict any use of the information to criminally investigate or prosecute any alcohol or drug abuse patient.[facility] CenterIn the event this information is protected by the Federal Confidentiality of Alcohol and Drug Abuse Patient Records regulations: The Federal rules restrict any use of the information to criminally investigate or prosecute any alcohol or drug abuse patient.[facility] CenterIn the event this information is protected by the Federal Confidentiality of Alcohol and Drug Abuse Patient Records regulations: The Federal rules restrict any use of the information to criminally investigate or prosecute any alcohol or drug abuse patient.[facility] CenterIn the event this information is protected by the Federal Confidentiality of Alcohol and Drug Abuse Patient Records regulations: The Federal rules restrict any use of the information to criminally investigate or prosecute any alcohol or drug abuse patient.[facility] CenterIn the event this information is protected by the Federal Confidentiality of Alcohol and Drug Abuse Patient Records regulations: The Federal rules restrict any use of the information to criminally investigate or prosecute any alcohol or drug abuse patient.[facility] CenterIn the event this information is protected by the Federal Confidentiality of Alcohol and Drug Abuse Patient Records regulations: The Federal rules restrict any use of the information to criminally investigate or prosecute any alcohol or drug abuse patient.[facility] CenterIn the event this information is protected by the Federal Confidentiality of Alcohol and Drug Abuse Patient Records regulations: The Federal rules restrict any use of the information to criminally investigate or prosecute any alcohol or drug abuse patient.[facility] CenterIn the event this information is protected by the Federal Confidentiality of Alcohol and Drug Abuse Patient Records regulations: The Federal rules restrict any use of the information to criminally investigate or prosecute any alcohol or drug abuse patient.[facility] CenterIn the event this information is protected by the Federal Confidentiality of Alcohol and Drug Abuse Patient Records regulations: The Federal rules restrict any use of the information to criminally investigate or prosecute any alcohol or drug abuse patient.[facility] CenterIn the event this information is protected by the Federal Confidentiality of Alcohol and Drug Abuse Patient Records regulations: The Federal rules restrict any use of the information to criminally investigate or prosecute any alcohol or drug abuse patient.[facility] CenterIn the event this information is protected by the Federal Confidentiality of Alcohol and Drug Abuse Patient Records regulations: The Federal rules restrict any use of the information to criminally investigate or prosecute any alcohol or drug abuse patient.[facility] CenterIn the event this information is protected by the Federal Confidentiality of Alcohol and Drug Abuse Patient Records regulations: The Federal rules restrict any use of the information to criminally investigate or prosecute any alcohol or drug abuse patient.[facility] CenterIn the event this information is protected by the Federal Confidentiality of Alcohol and Drug Abuse Patient Records regulations: The Federal rules restrict any use of the information to criminally investigate or prosecute any alcohol or drug abuse patient.[facility] CenterIn the event this information is protected by the Federal Confidentiality of Alcohol and Drug Abuse Patient Records regulations: The Federal rules restrict any use of the information to criminally investigate or prosecute any alcohol or drug abuse patient.[facility] CenterIn the event this information is protected by the Federal Confidentiality of Alcohol and Drug Abuse Patient Records regulations: The Federal rules restrict any use of the information to criminally investigate or prosecute any alcohol or drug abuse patient.[facility] CenterIn the event this information is protected by the Federal Confidentiality of Alcohol and Drug Abuse Patient Records regulations: The Federal rules restrict any use of the information to criminally investigate or prosecute any alcohol or drug abuse patient.[facility] CenterIn the event this information is protected by the Federal Confidentiality of Alcohol and Drug Abuse Patient Records regulations: The Federal rules restrict any use of the information to criminally investigate or prosecute any alcohol or drug abuse patient.[facility] CenterIn the event this information is protected by the Federal Confidentiality of Alcohol and Drug Abuse Patient Records regulations: The Federal rules restrict any use of the information to criminally investigate or prosecute any alcohol or drug abuse patient.[facility] CenterIn the event this information is protected by the Federal Confidentiality of Alcohol and Drug Abuse Patient Records regulations: The Federal rules restrict any use of the information to criminally investigate or prosecute any alcohol or drug abuse patient.[facility] CenterIn the event this information is protected by the Federal Confidentiality of Alcohol and Drug Abuse Patient Records regulations: The Federal rules restrict any use of the information to criminally investigate or prosecute any alcohol or drug abuse patient.[facility] CenterIn the event this information is protected by the Federal Confidentiality of Alcohol and Drug Abuse Patient Records regulations: The Federal rules restrict any use of the information to criminally investigate or prosecute any alcohol or drug abuse patient.[facility] CenterIn the event this information is protected by the Federal Confidentiality of Alcohol and Drug Abuse Patient Records regulations: The Federal rules restrict any use of the information to criminally investigate or prosecute any alcohol or drug abuse patient.[facility] CenterIn the event this information is protected by the Federal Confidentiality of Alcohol and Drug Abuse Patient Records regulations: The Federal rules restrict any use of the information to criminally investigate or prosecute any alcohol or drug abuse patient.[facility] CenterIn the event this information is protected by the Federal Confidentiality of Alcohol and Drug Abuse Patient Records regulations: The Federal rules restrict any use of the information to criminally investigate or prosecute any alcohol or drug abuse patient.[facility] CenterIn the event this information is protected by the Federal Confidentiality of Alcohol and Drug Abuse Patient Records regulations: The Federal rules restrict any use of the information to criminally investigate or prosecute any alcohol or drug abuse patient.[facility] CenterIn the event this information is protected by the Federal Confidentiality of Alcohol and Drug Abuse Patient Records regulations: The Federal rules restrict any use of the information to criminally investigate or prosecute any alcohol or drug abuse patient.[facility] CenterIn the event this information is protected by the Federal Confidentiality of Alcohol and Drug Abuse Patient Records regulations: The Federal rules restrict any use of the information to criminally investigate or prosecute any alcohol or drug abuse patient.[facility] CenterIn the event this information is protected by the Federal Confidentiality of Alcohol and Drug Abuse Patient Records regulations: The Federal rules restrict any use of the information to criminally investigate or prosecute any alcohol or drug abuse patient.[facility] CenterIn the event this information is protected by the Federal Confidentiality of Alcohol and Drug Abuse Patient Records regulations: The Federal rules restrict any use of the information to criminally investigate or prosecute any alcohol or drug abuse patient.[facility] CenterIn the event this information is protected by the Federal Confidentiality of Alcohol and Drug Abuse Patient Records regulations: The Federal rules restrict any use of the information to criminally investigate or prosecute any alcohol or drug abuse patient.[facility] CenterIn the event this information is protected by the Federal Confidentiality of Alcohol and Drug Abuse Patient Records regulations: The Federal rules restrict any use of the information to criminally investigate or prosecute any alcohol or drug abuse patient.[facility] Reason for Visit (unrecogniz ed section and [...] By Contdiane t Referred To Contact [facility]OCRIN[facility] Diagnoses Pituitary tumor Procedures FOLLOW-UP E-ASSESSMENT Leo Shaw V, MD [address] [place] [address] [id number] [place] [address] Referral ID Status Reason Start Date Expiration Date Visits Requested Visits Authorized [id number] Closed Financial Clearance Required - OON Payor Patient cleared - OON Required Payment Collected OON Notification Letter 02/29/2024 07/26/2024 1 1 Reason Onset Date Comments Refill Request 06/12/2024 Reason Comments Prescription [facility] [place] [facility] Reason Comments info request [...] Care Teams (unrecognized sec tion and content) Timber Setter Relationship Specialty Start Date End Date Nhung Vega [address] [facility] [address] [place] [address] PCP - General 09/30/04 Timber Setter Relationship Specialty Start Date End Date Nhung Vega [address] [facility] [address] [place] [address] PCP - General 09/30/04 Timber Setter Relationship Specialty Start Date End Date Nhung Vega [address] [facility] [address] [place] [address] PCP - General 09/30/04 Timber Setter Relationship Specialty Start Date End Date Nhung Vega [address] [facility] [address] [place] [address] PCP - General 09/30/04 Timber Setter Relationship Specialty Start Date End Date Nhung Vega [address] [facility] [address] [place] [address] PCP - General 09/30/04 Timber Setter Relationship Specialty Start Date End Date Nhung Vega [address] [place] [address] PCP - General 09/30/04 Timber Setter Relationship Specialty Start Date End Date Nhung Vega [address] [place] [address] PCP - General 09/30/04 Timber Setter Relationship Specialty Start Date End Date Nhung Vega [address] [place] [address] PCP - General 09/30/04 Timber Setter Relationship Specialty Start Date End Date Gary Nhung Evangelina [address] [place] [address] PCP - General 09/30/04 Timber Setter Relationship Specialty Start Date End Date Nhung Vega [address] [place] [address] PCP - General 09/30/04 Timber Setter Relationship Specialty Start Date End Date Gary Nhung Evangelina [address] [facility] [address] [place] [address] PCP - General 09/30/04 Timber Setter Relationship Specialty Start Date End Date Gary Nhung Evangelina [address] [place] [address] PCP - General 09/30/04 Timber Setter Relationship Specialty Start Date End Date Nhung Vega [address] [place] [address] PCP - General 09/30/04 Timber Setter Relationship Specialty Start Date End Date Nhung Vega [address] [place] [address] PCP - General 09/30/04 Timber Setter Relationship Specialty Start Date End Date Nhung Vega [address] [place] [address] PCP - General 09/30/04 Timber Setter Relationship Specialty Start Date End Date Nhung Vega [address] [place] [address] PCP - General 09/30/04 Timber Setter Relationship Specialty Start Date End Date Nhung Vega [address] [place] [address] PCP - General 09/30/04 Timber Setter Relationship Specialty Start Date End Date Nhung Vega [address] [place] [address] PCP - General 09/30/04 Timber Setter Relationship Specialty Start Date End Date Nhung Vega [address] [place] [address] PCP - General 09/30/04 Team Status: Active Member Role Status Dates Dr. Nhung Vega MD Family Provider Active Rich BENDER MD Primary Care Provider Active Team Status: Inactive Member Role Status Dates Rich BENDER MD Primary Care Provider Active Leo Shaw MD Attending Provider Active Timber Setter Relationship Specialty Start Date End Date Nhung Vega [address] [place] [address] PCP - General 09/30/04 Timber Setter Relationship Specialty Start Date End Date Nhung Vega [address] [place] [address] PCP - General 09/30/04 Timber Setter Relationship Specialty Start Date End Date Nhung Vega [address] [place] [address] PCP - General 09/30/04 Timber Setter Relationship Specialty Start Date End Date Nhung Vega [address] [place] [address] PCP - General 09/30/04 Timber Setter Relationship Specialty Start Date End Date Nhung Vega [address] [place] [address] PCP - General 09/30/04 Timber Setter Relationship Specialty Start Date End Date Nhung Vega [address] [place] [address] PCP - General 09/30/04 Timber Setter Relationship Specialty Start Date End Date Rich Alexis MD [address] [place] [id number] PCP - General Internal Medicine 06/06/24 Timber Setter Relationship Specialty Start Date End Date Rich Alexis MD [address] [place] [phone] PCP - General Internal Medicine 06/06/24 Timber Setter Relationship Specialty Start Date End Date Rich Alexis MD [address] [place] [address] PCP - General Internal Medicine 06/06/24 Timber Setter Relationship Specialty Start Date End Date Rich Alexis MD [address] [place] [address] PCP - General Internal Medicine 06/06/24 Timber Setter Relationship Specialty Start Date End Date Rich Alexis MD [address] [place] [address] PCP - General Internal Medicine 06/06/24 Timber Setter Relationship Specialty Start Date End Date Rich Alexis MD [address] [place] [address] PCP - General Internal Medicine 06/06/24 Timber Setter Relationship Specialty Start Date End Date Rich Alexis MD [address] [place] [address] PCP - General Internal Medicine 06/06/24 Timber Setter Relationship Specialty Start Date End Date Rich Alexis MD [address] [place] [address] PCP - General Internal Medicine 06/06/24 Timber Setter Relationship Specialty Start Date End Date Rich Alexis MD [address] [place] [address] PCP - General Internal Medicine 06/06/24 Timber Setter Relationship Specialty Start Date End Date Rich Alexis MD [address] [facility] [address] [place] [address] PCP - General Internal Medicine 06/06/24 Team [...] January 31, 2025 End: January 31, 2025 Timber Setter Relationship Specialty Start Date End Date Rich Alexis MD [address] [facility] [address] [place] [address] PCP - General Internal Medicine 06/06/24 Timber Setter Relationship Specialty Start Date End Date Rich Alexis MD [address] [place] [address] PCP - General Internal Medicine 06/06/24 Timber Setter Relationship Specialty Start Date End Date Rich Alexis MD [address] [facility] [address] [place] [phone] PCP - General Internal Medicine 06/06/24 Goals [...] BE BASED ON THE PRIMARY CLINICAL RECORDS. [facility] [employer] [facility]. provides no warranty or guarantee of the accuracy or completeness of information in this document.
[2025-07-12 09:16] LABS: Anion Gap 10 (5-15); BUN 22 mg/dL (4-19); BUN/Creat Ratio 23.1 RATIO (10-20); Calcium,Total 9.0 mg/dL (7.6-11.0); Carbon Dioxide 25.8 mmol/L (21.0-32.0); Chloride 101 mmol/L (98-108); Glucose 91 mg/dL (70-99); Potassium 3.8 mmol/L (3.3-5.1); Vitamin D,25 Hydroxy 50.1 ng/mL (30-100)
== END | disposition home or self-care (01) ==
LOC: LAB 07:31
PROVIDERS: PCP Internal Medicine; Visit Provider Internal Medicine
DX: M81.0 Age-related osteoporosis without current pathological fracture (principal)
CPT/HCPCS: 36415; 80048; 82306

== ENCOUNTER 2025-07-18 07:58 | Outpatient (CLI) | payer MEDICARE, OTHER, SELFPAY ==
[2025-07-18 08:04] VITALS: BP 127/71; PULSE 101; RESP 16; TEMP 36.1; O2SAT 98; BMI 28.0
[2025-07-18] MEDS: DENOSUMAB 60 MG/ML SC (08:06)
== END 2025-07-18 23:59 | disposition home or self-care (01) ==
LOC: MEDOUTP 07:58
PROVIDERS: PCP Internal Medicine; Referring Provider Internal Medicine; Visit Provider Internal Medicine
DX: M81.0 Age-related osteoporosis without current pathological fracture (principal)
CPT/HCPCS: 96372; J0897